=== PATIENT | female | born 1985 | race Caucasian/White ===

== ENCOUNTER 2019-10-24 07:04 | Emergency (ER) | payer MEDICAID, SELFPAY ==
--- NOTE | 2019-10-24 07:07 | ED_ITS ---
HPI - URI/Sore Throat General: Chief Complaint: Fever Stated Complaint: SOB Time Seen by Provider: 10/24/19 07:05 Source: patient Mode of arrival: ambulatory Limitations: no limitations History of Present Illness: HPI Narrative: Patient is a 34-year-old female who presents to ED today with complaints of a productive cough, nasal congestion, sinus pain/pressure, and fevers over the past 3 to 4 days. Fever has been as high as 102 (subjectively) and was present 2 days ago but has not been present over the past 48 hours. Patient states she does smoke a half a pack a day but h as not been smoking due to them being homeless and not being able to afford cigarettes. MD elicited complaint: fever, cough, nasal congestion and sinus pain Onset (ago): day(s) Consistency: constant Able to tolerate fluids by mouth: Yes Exacerbating factors: nothing Relieving factors: nothing Associated symptoms: Reports cough, fever(s), nasal congestion and sinus pain; Deny abdominal pain, chills, chest pain, epistaxis, ear or mastoid pain, headache(s), nausea or vomiting Treatments prior to arrival: none Review of Systems Const: Reports: fever; Denies: chills, body aches, fatigue or malaise Eyes: Denies: change in vision, blurry vision, photophobia, eye discomfort or eye discharge ENMT: Reports: nasal discharge, nasal congestion and facial/sinus pain; Denies: throat pain, enlarged tonsils, painful swallowing, ear pain or nose bleeds Card: Denies: chest pain Resp: Reports: productive cough and chest congestion; Denies: shortness of breath, non-productive cough, pain on inspiration or coughing up blood GI: Denies: abdominal pain, nausea or vomiting Musc: Denies: neck pain, back pain or joint pain Skin/Breast: Denies: rash Neuro: Denies: headache, numbness in extremities, weakness in extremities or changes in sensation All/Imm: Denies: facial swelling or seasonal allergies PFSH ED PFSH: Social History Smoking and tobacco status: current every day smoker Physical Exam Const: COMMON NORMALS: no apparent distress, average body habitus, oriented x3, no limitations, alert and well nourished HENMT: COMMON NORMALS: normocephalic, head/scalp atraumatic, hearing grossly normal bilaterally, external ears normal, EAC's normal, TM's normal bilaterally, external nose normal, nasal mucous membranes and turbinates normal, moist oral mucous membranes and oropharynx normal HEAD & SCALP: normocephalic and atraumatic FACE & SINUS: normal facial exam and sinus tenderness maxillary (mild) NOSE: external nose normal and nasal mucous membranes and turbinates normal EXTERNAL EAR: Yes external ears normal EXTERNAL AUDITORY CANAL: EAC's normal TYMPANIC MEMBRANE: TM's normal bilaterally THROAT: posterior oropharynx normal, tonsils normal and uvula midline Eye: COMMON NORMALS: PERRL, EOMs intact bilaterally and conjunctivae normal CONJUNCTIVA: Yes conjunctivae normal PUPIL: Yes PERRL Neck/C-Spine: COMMON NORMALS: full ROM, no lymphadenopathy and no meningeal signs Resp: COMMON NORMALS: normal respiratory effort and clear to auscultation bilaterally AUSCULTATION: clear to auscultation bilaterally Cardio: COMMON NORMALS: regular rate and regular rhythm RATE: regular rate RHYTHM: regular rhythm Neuro: COMMON NORMALS: oriented x3 SENSORIUM/ORIENTATION: Yes alert MENINGEAL SIGNS: Yes no meningeal signs Skin: COMMON NORMALS: no rashes or lesions noted GENERAL SKIN EXAM: no rashes or lesions noted Course Vital Signs: Vital signs: Vital Signs Temperature 97.3 F L 10/24/19 07:08 Pulse Rate 85 10/24/19 07:08 Respiratory Rate 16 10/24/19 07:08 Blood Pressure 108/69 10/24/19 07:08 Pulse Oximetry 100 10/24/19 07:15 MDM - URI/Sore Throat MDM Narrative: Medical decision making narrative: Patient is in no acute distress sleeping on the bed. Her vitals are completely stable. CXR is normal. At this point symptoms are consistent with an upper respiratory viral infection/bronchitis. I spoke to her regarding how the vast majority of these are viral and there is no antibiotic therapy indicated. She has an albuterol inhaler she may use prn. Will place her on a small steroid taper. Return to ED precautions were discussed. Lab Data: Labs: Lab Results 10/24/19 Range/Units 07:20 Influenza Type A A g Negative (Negative) POC Influenza B Ag Negative (Negative) Imaging Data^: CXR: My impression: NAD; no acute changes from previous studies Discharge Plan Discharge Patient Disposition: Home, Self-Care Clinical Impression: Bronchitis Condition: Stable Prescriptions: New prednisone 10 mg tablet 10 mg PO DAILY Qty: 21 RF: 0 Discharge Orders: Discharge Order (Routine); Ordered 10/24/19 Ordered By: Edna Wilson Referrals: Luisa Raines FNP [Primary Care Provider] - Discharge Diet: Usual diet Discharge Activity: Increase activity as tolerated Activity Restrictions/Additional Instructions: As discussed the vast majority of bronchitis cases are viral and there is no need for antibiotic therapy at this time. You may continue your albuterol inhaler every 4-6 hours as needed. We will place you on a steroid taper. You may return to the emergency department for worsening symptoms, uncontrollable fevers, feeling generally ill, severe shortness of breath, or any other concerns you may have. Coding Level of Care Code ED Sales Ledger Administrator for Kemar Weiner Exam Problem Focused
[2019-10-24 07:08] VITALS: BP 108/69; PULSE 85; RESP 16; TEMP 36.3; O2SAT 99; BMI 21.6
--- NOTE | 2019-10-24 07:13 | XR_ITS ---
WS: [id number] CHEST XRAY TECHNIQUE: Portable chest. CLINICAL INFORMATION: cough/congestion/fevers COMPARISON: FINDINGS: Heart: Normal cardiac silhouette. Lungs: Lungs are clear. No consolidation or pleural effusion. Bones: Normal visualized bony structures. XR/XR chest 1V portable [id number] IMPRESSION: Unremarkable chest
[2019-10-24 07:15] VITALS: O2SAT 100
--- NOTE | 2019-10-24 07:18 | PC.NURSE ---
portable xray at bedside
[2019-10-24 08:07] LABS: Influenza A by IFA Negative (Negative); Influenza B by IFA Negative (Negative)
[2019-10-24 08:31] VITALS: BP 102/97; PULSE 82; O2SAT 99
== END 2019-10-24 08:31 | disposition home or self-care (01) ==
PROVIDERS: Emergency Provider Physician Assistant; Family Provider Nurse Practitioner; PCP Nurse Practitioner
DX: J40 Bronchitis, not specified as acute or chronic (principal); F17.210 Nicotine dependence, cigarettes, uncomplicated; Z59.0 Homelessness
CPT/HCPCS: 71045; 87804; 99281; 99282; 99283

== ENCOUNTER 2019-10-29 03:48 | Emergency (ER) | payer MEDICAID, SELFPAY ==
--- NOTE | 2019-10-29 04:31 | XR_ITS ---
WS: [id number] XR chest 1V portable [id number] REASON FOR EXAM: cough FINDINGS: The cardiac silhouette and mediastinal interfaces were normal. There is increased interstitial reaction and peribronchial thickening in the right lung base. There is no alveolar infiltrate seen. No pulmonary edema, pleural effusion, no pneumothorax. The hilum and apices are normal. XR/XR chest 1V portable [id number] IMPRESSION: Increased peribronchial markings right lower lung suggesting bronchitis.
[2019-10-29 05:31] VITALS: BP 132/88; PULSE 75; RESP 16; TEMP 36.6; O2SAT 100; BMI 20.3
--- NOTE | 2019-10-29 05:57 | ED_ITS ---
HPI - General Adult General: Chief complaint: General Medical Stated complaint: cough Time Seen by Provider: 10/29/19 05:57 Review of Systems General: Reports: 10 or more systems reviewed and unremarkable except in HPI and below Resp: Reports: non-productive cough and pain on inspiration PFSH ED PFSH: Social History Smoking and tobacco status: current every day smoker Physical Exam Narrative: EXAM NARRATIVE: Patient's significant other states that the patient has had cough shortness of breath and fever for the past several days. Patient is awake and alert but rather uncooperative. Patient feigns sleep but is awake and alert and holds her breath when I was trying to auscultate her lungs. Const: COMMON NORMALS: no apparent distress and oriented x3 GENERAL APPEARANCE: disheveled ORIENTATION/CONSCIOUSNESS: Yes awake, Yes oriented to person, Yes oriented to place and Yes oriented to time Neck/C-Spine: COMMON NORMALS: no JVD Resp: COMMON NORMALS: normal respiratory effort and clear to auscultation bilaterally EFFORT & INSPECTION: Yes able to speak in complete sentences AUSCULTATION: clear to auscultation bilaterally Cardio: COMMON NORMALS: no JVD, regular rate and regular rhythm RATE: regular rate RHYTHM: regular rhythm Extremity: COMMON NORMALS: normal to inspection and full ROM Neuro: COMMON NORMALS: oriented x3 SENSORIUM/ORIENTATION: Yes oriented to person, Yes oriented to place and Yes oriented to time Course Vital Signs: Vital signs: Vital Signs Temperature 97.8 F 10/29/19 05:31 Pulse Rate 75 10/29/19 05:31 Respiratory Rate 16 10/29/19 05:31 Blood Pressure 132/88 10/29/19 05:31 Pulse Oximetry 100 10/29/19 05:31 [facility] - General Adult Lab Data: Labs: Lab Results 10/29/19 10/29/19 10/29/19 Range/Units 06:00 06:38 06:38 WBC 6.2 (4.0-10.0) 10^3/ uL RBC 4.04 L (4.1-5.3) 10^6/u L Hgb 12.0 (11.5-15.3) g/dL Hct 37.6 (37.0-47.0) % MCV 93.1 (81-99) fL MCH 29.7 (28.0-34.0) pg MCHC 31.9 (30.0-36.0) g/dL RDW 12.3 (12.1-15.1) % Plt Count 178 (130-400) 10^3/c mm MPV 11.3 H (7.4-10.4) fL Neut % (Auto) 56.5 % Lymph % (Auto) 33.0 % Summers % (Auto) 7.7 % Eos % (Auto) 1.9 % Baso % (Auto) 0.6 % Neut # (Auto) 3.5 (1.8-7.7) 10^3/u L Lymph # (Auto) 2.1 (0.8-4.8) 10^3/u L Summers # (Auto) 0.5 (0.2-0.9) 10^3/u L Eos # (Auto) 0.1 (0.0-0.8) 10^3/u L Baso # (Auto) 0.0 (0.0-0.1) 10^3/u L Nucleated RBC % (a uto) 0 % Nucleated RBCs # 0.0 /100WBC Sodium 138 (136-145) mmol/L Potassium 3.4 L (3.5-5.1) mmol/L Chloride 103 (98-107) mmol/L Carbon Dioxide 25 (22-29) mmol/L Anion Gap 13.4 (5-19) BUN 13 (6-20) mg/dL Creatinine 0.7 (0.5-0.9) mg/dL GFR Calculation 95.8 (90-130) mL/min Glucose 98 (65-115) mg/dL Calcium 9.6 (8.5-10.5) mg/dL Total Bilirubin 0.2 (0.15-1.2) mg/dL AST 20 (0-32) U/L ALT 23 (0-33) U/L Alkaline Phosphata se 77 (35-105) IU/L Total Protein 6.7 (6.6-8.7) g/dL Albumin 4.0 (3.5-5.2) g/dL Globulin 2.7 (1.3-4.6) g/dL Influenza Type A A g Negative (Negative) POC Influenza B Ag Negative (Negative) Imaging Data^: CXR: My impression: No acute disease Coding Level of Care Code ED Tetryl Screen Operator for Chg Fwd Exam Detailed
[2019-10-29 06:46] LABS: Basophils % 0.6 %; Eosinophils # 0.1 10^3/uL (0.0-0.8); Eosinophils % 1.9 %; Hematocrit 37.6 % (37.0-47.0); Lymphocytes # 2.1 10^3/uL (0.8-4.8); Mean Corpuscular HGB Conc 31.9 g/dL (30.0-36.0); Mean Corpuscular Hemoglobin 29.7 pg (28.0-34.0); Mean Corpuscular Volume 93.1 fL (81-99); Mean Platelet Volume 11.3 fL (7.4-10.4); Monocytes # 0.5 10^3/uL (0.2-0.9); Monocytes % 7.7 %; Neutrophils # 3.5 10^3/uL (1.8-7.7); Neutrophils % 56.5 %; Nucleated Red Blood Cells % 0 %; Platelet Count 178 10^3/cmm (130-400); Red Blood Count 4.04 10^6/uL (4.1-5.3); Red Cell Distribution Width 12.3 % (12.1-15.1); White Blood Count 6.2 10^3/uL (4.0-10.0)
[2019-10-29 06:49] LABS: Influenza A by IFA Negative (Negative); Influenza B by IFA Negative (Negative)
[2019-10-29 06:59] LABS: Alanine Aminotransferase 23 U/L (0-33); Alkaline Phosphatase 77 IU/L (35-105); Anion Gap 13.4 (5-19); Aspartate Amino Transferase 20 U/L (0-32); Blood Urea Nitrogen 13 mg/dL (6-20); Calcium 9.6 mg/dL (8.5-10.5); Carbon Dioxide 25 mmol/L (22-29); Chloride 103 mmol/L (98-107); Globulin 2.7 g/dL (1.3-4.6); Glomerular Filtration Rate 95.8 mL/min (90-130); Glucose 98 mg/dL (65-115); Potassium 3.4 mmol/L (3.5-5.1); Sodium 138 mmol/L (136-145); Total Bilirubin 0.2 mg/dL (0.15-1.2); Total Protein 6.7 g/dL (6.6-8.7)
[2019-10-29 07:23] VITALS: BP 128/85; PULSE 77; RESP 15; O2SAT 97
== END 2019-10-29 07:24 | disposition home or self-care (01) ==
PROVIDERS: Emergency Medicine; Emergency Provider Family Medicine
DX: R05 Cough (principal); R06.02 Shortness of breath; R50.9 Fever, unspecified; F17.200 Nicotine dependence, unspecified, uncomplicated
CPT/HCPCS: 36415; 71045; 80053; 85025; 87804; 99281; 99283

== ENCOUNTER → 2019-11-06 10:41 | Outpatient (BNVA) | payer MEDICAID, SELFPAY | PROVIDERS: Family Provider Nurse Practitioner; PCP Nurse Practitioner; Visit Provider Psychiatry & Neurology Psychiatry | DX: F43.12 Post-traumatic stress disorder, chronic (principal); F41.1 Generalized anxiety disorder; F40.01 Agoraphobia with panic disorder | CPT/HCPCS: 99214 ==

== ENCOUNTER 2020-04-04 02:07 | Emergency (ER) | payer MEDICAID, SELFPAY ==
[2020-04-04 02:15] VITALS: BP 145/96; PULSE 106; RESP 18; TEMP 36.7; O2SAT 99; BMI 21.7
== END 2020-04-04 04:02 ==
LOC: ER 02:15
PROVIDERS: Emergency Provider Emergency Medicine
DX: Z53.21 Procedure and treatment not carried out due to patient leaving prior to being seen by health care provider (principal)
CPT/HCPCS: 99282

== ENCOUNTER 2020-10-02 15:40 | Emergency (ER) | payer MEDICAID, SELFPAY ==
[2020-10-02 15:40] VITALS: BP 122/85; PULSE 95; RESP 18; TEMP 36.7; O2SAT 98
--- NOTE | 2020-10-02 15:53 | CT_ITS ---
WS: [id number] CT HEAD NONCONTRAST HISTORY: closed head injury TECHNIQUE: Contiguous axial imaging performed through the brain in 2.5 mm imaging. Bone and soft tiss ue windows. Sagittal and coronal reformats reviewed. All CT scans at [facility] use at ast one of these dose optimization techniques: automated exposure control; mA and/or kV adjustment pe r patient size (includes targeted exams where dose is matched to clinical indication); or iterative r econstruction. DLP: 770.68 mGy.cm COMPARISON: None available. No acute intracranial hemorrhage, midline shift or mass effect. No atrophy or prior infarcts or herniation. Ventricles: Normal size with no hydrocephalus. Paranasal sinuses: As visualized are clear. Mastoid air cells: Well pneumatized. Calvarium and scalp: No fracture. Minimal scalp thickening midline frontal bone. CT/CT head wo con* [id number] IMPRESSION: 1. No acute intracranial hemorrhage or edema. 2. Minimal scalp edema midline frontal region.
[2020-10-02 16:17] LABS: Basophils % 0.4 %; Eosinophils # 0.1 10^3/uL (0.0-0.8); Eosinophils % 0.8 %; Hematocrit 46.8 % (37.0-47.0); Hemoglobin 15.1 g/dL (11.5-15.3); Lymphocytes # 3.2 10^3/uL (0.8-4.8); Lymphocytes % 29.1 %; Mean Corpuscular HGB Conc 32.3 g/dL (30.0-36.0); Mean Corpuscular Hemoglobin 30.2 pg (28.0-34.0); Mean Corpuscular Volume 93.6 fL (81-99); Mean Platelet Volume 12.4 fL (7.4-10.4); Monocytes # 0.7 10^3/uL (0.2-0.9); Monocytes % 6.1 %; Neutrophils % 63.2 %; Nucleated Red Blood Cells % 0 %; Platelet Count 208 10^3/cmm (130-400); Red Cell Distribution Width 12.1 % (12.1-15.1); White Blood Count 10.9 10^3/uL (4.0-10.0)
[2020-10-02 16:19] LABS: HCG, Serum Qual Negative (Negative)
[2020-10-02 16:34] LABS: Add Urine Microscopic? NO
[2020-10-02 16:39] LABS: Bilirubin Urine Neg (Negative); Blood Urine Neg (Negative); Glucose Urine UA Norm (Normal); Ketones Urine Negative (Negative); Leukocyte Esterase Urine Negative (Negative); Nitrate Urine Negative (Negative); Protein Urine Neg (Negative); Specific Gravity, Urine 1.015 (1.005-1.030); Urine Appearance Clear (CLEAR); Urine Color Yellow (Yellow); Urobilinogen Urine Norm (Negative); pH Urine 5 (5-7)
[2020-10-02 16:43] VITALS: BP 122/85; PULSE 84; RESP 20; O2SAT 98
[2020-10-02 16:45] LABS: Alanine Aminotransferase 12 U/L (0-33); Albumin Level 4.3 g/dL (3.5-5.2); Alkaline Phosphatase 85 IU/L (35-105); Aspartate Amino Transferase 19 U/L (0-32); Blood Urea Nitrogen 7 mg/dL (6-20); Calcium 9.3 mg/dL (8.5-10.5); Carbon Dioxide 25 mmol/L (22-29); Chloride 103 mmol/L (98-107); Creatine Phosphokinase 64 U/L (26-192); Globulin 3.4 g/dL (1.3-4.6); Glomerular Filtration Rate 95.2 mL/min (90-130); Glucose 128 mg/dL (65-115); Osmolality Calculated 290 mOsm/kg (285-295); Sodium 140 mmol/L (136-145); Total Bilirubin 0.4 mg/dL (0.15-1.2); Total Protein 7.7 g/dL (6.6-8.7)
[2020-10-02 16:48] LABS: Anion Gap 15.8 (5-19); Potassium 3.8 mmol/L (3.5-5.1)
--- NOTE | 2020-10-02 16:49 | ED_ITS ---
HPI - Seizure General: Chief Complaint: Seizure Stated Complaint: SEIZURES Time Seen by Provider: 10/02/20 15:41 History of Present Illness: HPI Narrative: 35-year-old female presents emergency room with complaint of seizure. She is currently incarcerated in [facility] skilled nursing she has a abrasion on the upper portion of her forehead. It is right at the hairline. She reports having a seizure she is awake and alert answers all questions appropriate there is no loss of bowel or bladder control she not better time. States she has had multiple seizures in the past evaluation from Dr. Muro in the past as well. She not currently on any antiseizure medications is not recently changed or stop medications. She reports she was seen here however reviewing expanse and reviewing the old [employer] I cannot find documentation of this. She does tell me she was seen previously in the ER. She has no other injuries. Patient also made comments about harming herself. This is been evaluated previously and she is currently on suicide watch at the skilled nursing. MD complaint: possible seizure Onset (ago): minute(s) Description of Episode: loss of consciousness and tonic-clonic movement Seizure History: Yes Place: INTERMEDIATE Possible Precipitating Event: none Associated symptoms: Deny chest pain, chills, fever(s) or malaise Review of Systems Const: Denies: fever(s), chills, body aches, change in appetite, fatigue or malaise ENMT: Denies: throat pain, ear or mastoid pain, nasal discharge or nasal congestion Card: Denies: chest pain, edema, dyspnea on exertion or orthopnea Resp: Denies: dyspnea, productive cough or non-productive cough GI: Denies: abdominal pain, nausea, vomiting, hematemesis, coffee ground emesis, diarrhea, constipation, bloating, hematochezia or melena : Denies: flank pain, difficulty voiding, dysuria, urinary frequency or urinary urgency Skin/Breast: Denies: rash or pruritus PFSH ED PFSH: Medical History Anxiety and depression Chronic back pain greater than 3 months duration Chronic hepatitis C COPD (chronic obstructive pulmonary disease) Gastric ulcer Surgical History History of appendectomy History of tonsillectomy Family History Grandfather Heart disease Mother Diabetes Cancer Grandmother Diabetes Social History Smoking and tobacco status: current every day smoker cigarettes Alcohol intake: never History of recent travel: No Female Reproductive History: Date of last menstrual period: 11/04/19 Physical Exam Const: COMMON NORMALS: no acute distress GENERAL APPEARANCE: cooperative and comfortable ORIENTATION/CONSCIOUSNESS: Yes awake, Yes oriented to person, Yes oriented to place and Yes oriented to time HENMT: COMMON NORMALS: normocephalic, atraumatic, hearing grossly normal bilaterally, external ears normal, EAC's normal, TM's normal bilaterally, Normal nasal mucous membranes and turbinates present, moist oral mucous membranes and oropharynx normal HEAD & SCALP: normocephalic and atraumatic NOSE: Normal nasal mucous membranes and turbinates present EXTERNAL EAR: Yes external ears normal EXTERNAL AUDITORY CANAL: EAC's normal TYMPANIC MEMBRANE: TM's normal bilaterally OTHER: Abrasion on the upper part of the forehead at the hairline no full-thickness laceration is superficial in appearance. Eye: COMMON NORMALS: Equal, round and reactive pupils present, EOMs intact bilaterally, conjunctivae normal and no scleral icterus CONJUNCTIVA: Yes conjunctivae normal PUPIL: Yes Equal, round and reactive pupils present Neck/C-Spine: COMMON NORMALS: full ROM, no lymphadenopathy, supple and no JVD Lymph: LYMPHATIC: no lymphadenopathy noted and no lymphedema noted Resp: COMMON NORMALS: normal respiratory effort, No retractions, No use of accessory muscles and clear to auscultation bilaterally AUSCULTATION: clear to auscultation bilaterally Cardio: COMMON NORMALS: no JVD, regular rate, regular rhythm and No murmurs present (Cardio) RATE: regular rate RHYTHM: regular rhythm GI: COMMON NORMALS: Soft to palpation and No hepatosplenomegaly present AUSCULTATION: Yes normoactive bowel sounds PALPATION: Yes Soft to palpation, No Tenderness to palpation present (GI), No Guarding due to palpation present (GI) and Yes No hepatosplenomegaly present Extremity: COMMON NORMALS: normal to inspection, capillary refill normal, no clubbing, cyanosis or edema, no calf tenderness and no pedal edema Neuro: SENSORIUM/ORIENTATION: Yes oriented to person, Yes oriented to place and Yes oriented to time Skin: COMMON NORMALS: no rashes or lesions noted GENERAL SKIN EXAM: no rashes or lesions noted Course Vital Signs: Vital signs: Vital Signs Temperature 98.1 F 10/02/20 15:40 Pulse Rate 84 10/02/20 16:43 Respiratory Rate 20 H 10/02/20 16:43 Blood Pressure 122/85 10/02/20 16:43 Pulse Oximetry 98 10/02/20 16:43 MDM - Seizure MDM Narrative: Medical decision making narrative: Her CPK is negative. We will get a go ahead and start her on Keppra loading dose here and then 500 twice daily. We will discharge her back to the skilled nursing. She is on suicide watch there which can be continued. She had already been on suicide watch. She is not think she plans to harm herself but has considered it. Lab Data: Labs: Lab Results 10/02/20 10/02/20 10/02/20 Range/Units 15:30 15:30 15:30 WBC 10.9 H (4.0-10.0) 10^3/ uL RBC 5.00 (4.1-5.3) 10^6/u L Hgb 15.1 (11.5-15.3) g/dL Hct 46.8 (37.0-47.0) % MCV 93.6 (81-99) fL MCH 30.2 (28.0-34.0) pg MCHC 32.3 (30.0-36.0) g/dL RDW 12.1 (12.1-15.1) % Plt Count 208 (130-400) 10^3/c mm MPV 12.4 H (7.4-10.4) fL Neut % (Auto) 63.2 % Lymph % (Auto) 29.1 % Cross % (Auto) 6.1 % Eos % (Auto) 0.8 % Baso % (Auto) 0.4 % Neut # (Auto) 6.90 (1.8-7.7) 10^3/u L Lymph # (Auto) 3.2 (0.8-4.8) 10^3/u L Cross # (Auto) 0.7 (0.2-0.9) 10^3/u L Eos # (Auto) 0.1 (0.0-0.8) 10^3/u L Baso # (Auto) 0.0 (0.0-0.1) 10^3/u L Nucleated RBC % (a uto) 0 % Nucleated RBCs # 0.0 /100WBC Sodium 140 (136-145) mmol/L Potassium 3.8 (3.5-5.1) mmol/L Chloride 103 (98-107) mmol/L Carbon Dioxide 25 (22-29) mmol/L Anion Gap 15.8 (5-19) BUN 7 (6-20) mg/dL Creatinine 0.7 (0.5-0.9) mg/dL GFR Calculation 95.2 (90-130) mL/min Glucose 128 H (65-115) mg/dL Calculated Osmolal ity 290 (285-295) mOsm/k g Calcium 9.3 (8.5-10.5) mg/dL Magnesium 2.0 (1.7-2.3) mg/dL Total Bilirubin 0.4 (0.15-1.2) mg/dL AST 19 (0-32) U/L ALT 12 (0-33) U/L Alkaline Phosphata se 85 (35-105) IU/L Creatine Kinase 64 (26-192) U/L Total Protein 7.7 (6.6-8.7) g/dL Albumin 4.3 (3.5-5.2) g/dL Globulin 3.4 (1.3-4.6) g/dL HCG, Qual Negative (Negative) Urine Color (Yellow) Urine Appearance (CLEAR) Urine pH (5-7) Ur Specific Gravit y (1.005-1.030) Urine Protein (Negative) Urine Glucose (UA) (Normal) Urine Ketones (Negative) Urine Blood (Negative) Urine Nitrate (Negative) Urine Bilirubin (Negative) Urine Urobilinogen (Negative) mg/dL Ur Leukocyte Aspen ase (Negative) 10/02/20 Range/Units 16:00 WBC (4.0-10.0) 10^3/ uL RBC (4.1-5.3) 10^6/u L Hgb (11.5-15.3) g/dL Hct (37.0-47.0) % MCV (81-99) fL MCH (28.0-34.0) pg MCHC (30.0-36.0) g/dL RDW (12.1-15.1) % Plt Count (130-400) 10^3/c mm MPV (7.4-10.4) fL Neut % (Auto) % Lymph % (Auto) % Cross % (Auto) % Eos % (Auto) % Baso % (Auto) % Neut # (Auto) (1.8-7.7) 10^3/u L Lymph # (Auto) (0.8-4.8) 10^3/u L Cross # (Auto) (0.2-0.9) 10^3/u L Eos # (Auto) (0.0-0.8) 10^3/u L Baso # (Auto) (0.0-0.1) 10^3/u L Nucleated RBC % (a uto) % Nucleated RBCs # /100WBC Sodium (136-145) mmol/L Potassium (3.5-5.1) mmol/L Chloride (98-107) mmol/L Carbon Dioxide (22-29) mmol/L Anion Gap (5-19) BUN (6-20) mg/dL Creatinine (0.5-0.9) mg/dL GFR Calculation (90-130) mL/min Glucose (65-115) mg/dL Calculated Osmolal ity (285-295) mOsm/k g Calcium (8.5-10.5) mg/dL Magnesium (1.7-2.3) mg/dL Total Bilirubin (0.15-1.2) mg/dL AST (0-32) U/L ALT (0-33) U/L Alkaline Phosphata se (35-105) IU/L Creatine Kinase (26-192) U/L Total Protein (6.6-8.7) g/dL Albumin (3.5-5.2) g/dL Globulin (1.3-4.6) g/dL HCG, Qual (Negative) Urine Color Yellow (Yellow) Urine Appearance Clear (CLEAR) Urine pH 5 (5-7) Ur Specific Gravit y 1.015 (1.005-1.030) Urine Protein Neg (Negative) Urine Glucose (UA) Norm (Normal) Urine Ketones Negative (Negative) Urine Blood Neg (Negative) Urine Nitrate Negative (Negative) Urine Bilirubin Neg (Negative) Urine Urobilinogen Norm (Negative) mg/dL Ur Leukocyte Aspen ase Negative (Negative) Discharge Plan Discharge Patient Disposition: Home Clinical Impression: Generalized seizure Condition: Stable Prescriptions: New Keppra 500 mg tablet 500 mg PO BID Qty: 60 RF: 0 Discharge Orders: Discharge ED (Routine); Ordered 10/02/20 Ordered By: Conner Soria Discharge Diet: Usual diet Discharge Activity: Increase activity as tolerated Coding Level of Care Code ED Scallop Raker for Anneg Fwd Exam Comprehensive
[2020-10-02 18:05] VITALS: BP 120/81; PULSE 75; RESP 18; O2SAT 97
--- NOTE | 2020-10-05 12:21 | DCPLANNER ---
medicine and health service manager had message to schedule a follow up appointment for patient with Dr. Muro. medicine and health service manager called the office of Dr. Muro, spoke with Leona, gave clinic patients information. medicine and health service manager was told that patients information would be printed and reviewed. Clinic will call patient with appointment information.
--- NOTE | 2020-11-26 15:49 | DCPLANNER ---
Patient had a follow up appointment scheduled with Dr. Muro - patient did not attend appointment.
== END 2020-10-02 18:07 | disposition home or self-care (01) ==
PROVIDERS: Emergency Provider Family Medicine
DX: G40.89 Other seizures (principal); Z86.19 Personal history of other infectious and parasitic diseases; J44.9 Chronic obstructive pulmonary disease, unspecified; F17.210 Nicotine dependence, cigarettes, uncomplicated
CPT/HCPCS: 12345; 70450; 80053; 81003; 82550; 83735; 84703; 85025; 96374; 99282; 99283; J1953

== ENCOUNTER 2020-10-03 15:50 | Emergency (ER) | payer MEDICAID, SELFPAY ==
[2020-10-03 15:56] VITALS: BP 103/67; PULSE 80; RESP 16; TEMP 36.6; O2SAT 96; BMI 21.6
[2020-10-03 16:14] LABS: Basophils % 0.4 %; Eosinophils # 0.1 10^3/uL (0.0-0.8); Eosinophils % 1.3 %; Hematocrit 45.2 % (37.0-47.0); Hemoglobin 14.7 g/dL (11.5-15.3); Lymphocytes # 3.5 10^3/uL (0.8-4.8); Lymphocytes % 34.5 %; Mean Corpuscular HGB Conc 32.5 g/dL (30.0-36.0); Mean Corpuscular Hemoglobin 30.4 pg (28.0-34.0); Mean Corpuscular Volume 93.4 fL (81-99); Mean Platelet Volume 12.2 fL (7.4-10.4); Monocytes # 0.9 10^3/uL (0.2-0.9); Neutrophils # 5.53 10^3/uL (1.8-7.7); Neutrophils % 54.5 %; Nucleated Red Blood Cells % 0 %; Platelet Count 228 10^3/cmm (130-400); Red Blood Count 4.84 10^6/uL (4.1-5.3); Red Cell Distribution Width 12.2 % (12.1-15.1); White Blood Count 10.1 10^3/uL (4.0-10.0)
[2020-10-03 16:34] LABS: Alanine Aminotransferase 11 U/L (0-33); Albumin Level 4.2 g/dL (3.5-5.2); Alkaline Phosphatase 82 IU/L (35-105); Anion Gap 12.1 (5-19); Aspartate Amino Transferase 17 U/L (0-32); Blood Urea Nitrogen 10 mg/dL (6-20); Calcium 9.1 mg/dL (8.5-10.5); Carbon Dioxide 26 mmol/L (22-29); Chloride 103 mmol/L (98-107); Creatine Phosphokinase 49 U/L (26-192); Globulin 5.6 g/dL (1.3-4.6); Glomerular Filtration Rate 95.2 mL/min (90-130); Glucose 106 mg/dL (65-115); Osmolality Calculated 283 mOsm/kg (285-295); Potassium 4.1 mmol/L (3.5-5.1); Sodium 137 mmol/L (136-145); Total Bilirubin 0.2 mg/dL (0.15-1.2); Total Protein 9.8 g/dL (6.6-8.7)
--- NOTE | 2020-10-03 16:38 | W.ED.SEIZURE ---
HPI - Seizure General: Chief Complaint: Seizure Stated Complaint: SEIZURE ACTIVITY Time Seen by Provider: 10/03/20 15:51 History of Present Illness: HPI Narrative: 35-year-old female is currently a resident of the local alf who was brought in by EMS after what was described as seizure-like activity. Patient was seen yesterday she has a history of seizures she not been taking any medications sometime ago she had seen Dr. Muro. I could not find any old records for it. Her labs were unremarkable CT of her head was negative at yesterday's visit. She was given Keppra IV and started on oral Keppra unfortunately they did not fill her oral Keppra so she has not taken anything since she was last seen. She reports having gone to the bathroom had a seizure-like activity she is awake and alert even joking and giggling when she was initially seen there is no evidence of postictal phase. She had no loss of bowel or bladder control no biting of her tongue or lip. She had hit her head on the upper portion of the frontal bones yesterday into the hairline CT of the head was unremarkable. MD complaint: possible seizure Onset (ago): minute(s) Description of Episode: loss of consciousness and tonic-clonic movement Witnessed: No Trauma: No Seizure History: Yes (per patient) Place: alf Associated symptoms: Deny chest pain, chills, confusion, cough, diaphoresis, fever(s), anorexia, malaise, rash, short of breath, syncope or weakness Treatments prior to arrival: none Review of Systems Const: Denies: fever(s), malaise or diaphoresis ENMT: Denies: throat pain, ear or mastoid pain, nasal discharge or nasal congestion Card: Denies: chest pain or syncope Resp: Denies: dyspnea, productive cough or non-productive cough GI: Denies: abdominal pain, nausea, vomiting, hematemesis, coffee ground emesis, diarrhea, constipation, bloating, hematochezia or melena : Denies: flank pain, difficulty voiding, dysuria, urinary frequency or urinary urgency Skin/Breast: Denies: rash or pruritus Neuro: Denies: confusion PFSH ED PFSH: Medical History Anxiety and depression Chronic back pain greater than 3 months duration Chronic hepatitis C COPD (chronic obstructive pulmonary disease) Gastric ulcer Surgical History History of appendectomy History of tonsillectomy Family History Grandfather Heart disease Mother Diabetes Cancer Grandmother Diabetes Social History Smoking and tobacco status: current every day smoker cigarettes Alcohol intake: never History of recent travel: No Female Reproductive History: Date of last menstrual period: 09/15/20 Physical Exam Const: COMMON NORMALS: no acute distress GENERAL APPEARANCE: cooperative and comfortable ORIENTATION/CONSCIOUSNESS: Yes awake, Yes oriented to person, Yes oriented to place and Yes oriented to time HENMT: COMMON NORMALS: normocephalic and hearing grossly normal bilaterally HEAD & SCALP: normocephalic Eye: COMMON NORMALS: Equal, round and reactive pupils present, EOMs intact bilaterally, conjunctivae normal and no scleral icterus CONJUNCTIVA: Yes conjunctivae normal PUPIL: Yes Equal, round and reactive pupils present Neck/C-Spine: COMMON NORMALS: full ROM, no lymphadenopathy, supple and no JVD Lymph: LYMPHATIC: no lymphadenopathy noted and no lymphedema noted Resp: COMMON NORMALS: normal respiratory effort, No retractions, No use of accessory muscles and clear to auscultation bilaterally AUSCULTATION: clear to auscultation bilaterally Cardio: COMMON NORMALS: no JVD, regular rate, regular rhythm and No murmurs present (Cardio) RATE: regular rate RHYTHM: regular rhythm GI: COMMON NORMALS: Soft to palpation and No hepatosplenomegaly present AUSCULTATION: Yes normoactive bowel sounds PALPATION: Yes Soft to palpation, No Tenderness to palpation present (GI), No Guarding due to palpation present (GI) and Yes No hepatosplenomegaly present Extremity: COMMON NORMALS: normal to inspection, capillary refill normal, no clubbing, cyanosis or edema, no calf tenderness and no pedal edema Neuro: SENSORIUM/ORIENTATION: Yes oriented to person, Yes oriented to place and Yes oriented to time Skin: COMMON NORMALS: no rashes or lesions noted GENERAL SKIN EXAM: no rashes or lesions noted Course Vital Signs: Vital signs: Vital Signs Temperature 97.9 F 10/03/20 17:11 Pulse Rate 78 10/03/20 17:11 Respiratory Rate 16 10/03/20 17:11 Blood Pressure 101/80 10/03/20 17:11 Pulse Oximetry 100 10/03/20 17:11 MDM - Seizure MDM Narrative: Medical decision making narrative: Discussed with the patient and with the senior net application developer who is custody she is in the importance of her getting her antiseizure medications. She was loaded again with Keppra today we will get her an appointment with Dr. Muro at a later date continue the Keppra 500 p.o. twice daily I hand wrote a prescription gave it to him both [facility] and [facility] are open yet at this time of day on the weekend. Lab Data: Labs: Lab Results 10/03/20 10/03/20 Range/Units 15:42 15:42 WBC 10.1 H (4.0-10.0) 10^3/ uL RBC 4.84 (4.1-5.3) 10^6/u L Hgb 14.7 (11.5-15.3) g/dL Hct 45.2 (37.0-47.0) % MCV 93.4 (81-99) fL MCH 30.4 (28.0-34.0) pg MCHC 32.5 (30.0-36.0) g/dL RDW 12.2 (12.1-15.1) % Plt Count 228 (130-400) 10^3/c mm MPV 12.2 H (7.4-10.4) fL Neut % (Auto) 54.5 % Lymph % (Auto) 34.5 % Ross % (Auto) 9.0 % Eos % (Auto) 1.3 % Baso % (Auto) 0.4 % Neut # (Auto) 5.53 (1.8-7.7) 10^3/u L Lymph # (Auto) 3.5 (0.8-4.8) 10^3/u L Ross # (Auto) 0.9 (0.2-0.9) 10^3/u L Eos # (Auto) 0.1 (0.0-0.8) 10^3/u L Baso # (Auto) 0.0 (0.0-0.1) 10^3/u L Nucleated RBC % (a uto) 0 % Nucleated RBCs # 0.0 /100WBC Sodium 137 (136-145) mmol/L Potassium 4.1 (3.5-5.1) mmol/L Chloride 103 (98-107) mmol/L Carbon Dioxide 26 (22-29) mmol/L Anion Gap 12.1 (5-19) BUN 10 (6-20) mg/dL Creatinine 0.7 (0.5-0.9) mg/dL GFR Calculation 95.2 (90-130) mL/min Glucose 106 (65-115) mg/dL Calculated Osmolal ity 283 L (285-295) mOsm/k g Calcium 9.1 (8.5-10.5) mg/dL Total Bilirubin 0.2 (0.15-1.2) mg/dL AST 17 (0-32) U/L ALT 11 (0-33) U/L Alkaline Phosphata se 82 (35-105) IU/L Creatine Kinase 49 (26-192) U/L Total Protein 9.8 H (6.6-8.7) g/dL Albumin 4.2 (3.5-5.2) g/dL Globulin 5.6 H (1.3-4.6) g/dL Discharge Plan Discharge Patient Disposition: Home Clinical Impression: Generalized seizure Condition: Stable Prescriptions: No Action Keppra 500 mg tablet 500 mg PO BID Qty: 60 RF: 0 Discharge Orders: Discharge ED (Routine); Ordered 10/03/20 Ordered By: Conner Soria Discharge Diet: Usual diet Discharge Activity: Resume usual activity Activity Restrictions/Additional Instructions: It is imperative that take your medications twice daily on a regular basis without missing any doses. A second prescription was given to you today at the time of discharge. Case management will call to make arrangements for follow-up with Dr. Muro. Coding Level of Care Code ED Sales Service Promoter for Kemar Weiner
[2020-10-03 17:11] VITALS: BP 101/80; PULSE 78; RESP 16; TEMP 36.6; O2SAT 100
[2020-10-07 16:04] LABS: Levetiracetam Keppra 2.3 mcg/mL
== END 2020-10-03 17:12 | disposition home or self-care (01) ==
PROVIDERS: Emergency Provider Family Medicine
DX: G40.409 Other generalized epilepsy and epileptic syndromes, not intractable, without status epilepticus (principal); Z86.19 Personal history of other infectious and parasitic diseases; J44.9 Chronic obstructive pulmonary disease, unspecified; F17.210 Nicotine dependence, cigarettes, uncomplicated
CPT/HCPCS: 12345; 80053; 80177; 82550; 85025; 96374; 99283; J1953

== ENCOUNTER 2020-10-04 22:32 | Emergency (ER) | payer MEDICAID, SELFPAY ==
[2020-10-04 22:34] VITALS: BP 117/96; PULSE 82; RESP 18; TEMP 36.4; O2SAT 99; BMI 21.6
--- NOTE | 2020-10-04 22:36 | W.ED.SEIZURE ---
HPI - Seizure General: Chief Complaint: Seizure Stated Complaint: SEIZURE Time Seen by Provider: 10/04/20 22:33 Source: patient Mode of arrival: ambulatory Limitations: no limitations History of Present Illness: HPI Narrative: 35-year-old female who has a history of seizures. She is in longterm and this is her third day in a row coming here. She did start her Keppra orally yesterday. She denies any fever or headache. She had a head CT 2 days or normal lab work last 2 days have been normal. She states that she had seizure-like activity roughly 1 hour ago. She is awake alert able answer all my questions appropriately here. Seizure History: Yes (per patient) Associated symptoms: Deny chest pain, chills or fever(s) Review of Systems Const: Denies: fever(s), chills, body aches or change in appetite Eyes: Denies: blurry vision or eye discomfort ENMT: Denies: throat pain or dental pain Card: Denies: chest pain Resp: Denies: dyspnea GI: Denies: abdominal pain, nausea, vomiting or diarrhea : Denies: dysuria Musc: Denies: neck pain or back pain Skin/Breast: Denies: rash Neuro: Reports: seizure-like activity Psych: Denies: depression Adi/Lymph: Denies: easy bruising All/Imm: Denies: urticaria PFSH ED PFSH: Medical History (Updated 10/04/20 @ 22:39 by Aleja Hatch MD) Anxiety and depression Chronic back pain greater than 3 months duration Chronic hepatitis C COPD (chronic obstructive pulmonary disease) Gastric ulcer Surgical History History of appendectomy History of tonsillectomy Family History Grandfather Heart disease Mother Diabetes Cancer Grandmother Diabetes Social History Smoking and tobacco status: current every day smoker cigarettes Alcohol intake: never History of recent travel: No Female Reproductive History: Date of last menstrual period: 09/15/20 Physical Exam Const: COMMON NORMALS: no acute distress, patient oriented x3 and healthy appearing HENMT: COMMON NORMALS: normocephalic and atraumatic HEAD & SCALP: normocephalic and atraumatic Eye: COMMON NORMALS: Equal, round and reactive pupils present and EOMs intact bilaterally PUPIL: Yes Equal, round and reactive pupils present Neck/C-Spine: COMMON NORMALS: full ROM and supple Chest: COMMONS NORMALS: normal inspection of the chest and normal palpation of entire chest wall Resp: COMMON NORMALS: normal respiratory effort, No retractions, No use of accessory muscles and clear to auscultation bilaterally AUSCULTATION: clear to auscultation bilaterally Cardio: COMMON NORMALS: regular rate, regular rhythm and No murmurs present (Cardio) RATE: regular rate RHYTHM: regular rhythm GI: COMMON NORMALS: Normal to inspection, nondistended, normoactive bowel sounds present, Soft to palpation, non-tender and no masses PALPATION: Yes Soft to palpation Extremity: COMMON NORMALS: normal to inspection and full ROM Neuro: COMMON NORMALS: patient oriented x3, moves all extremities and no focal motor deficits Psych: COMMON NORMALS: mental status grossly normal, Normal thought process present and cooperative THOUGHT PROCESS: Normal thought process present Skin: COMMON NORMALS: no rashes or lesions noted and no wounds GENERAL SKIN EXAM: no rashes or lesions noted Course Vital Signs: Vital signs: Vital Signs Temperature 97.5 F L 10/04/20 22:34 Pulse Rate 82 10/04/20 22:34 Respiratory Rate 18 10/04/20 22:34 Blood Pressure 117/96 10/04/20 22:34 Pulse Oximetry 99 10/04/20 22:34 MDM - Seizure MDM Narrative: Medical decision making narrative: Patient presents here with a seizure. Patient is currently wanted to start taking her medications today. She is well-appearing here. She had her lab work drawn last [address] head 2 days ago. She had no acute head injury and I feel she needs no further imaging or blood work at this time. She is back to her baseline is stable for discharge back to longterm. Discharge Plan Discharge Patient Disposition: Home Clinical Impression: Generalized seizure Condition: Stable Prescriptions: No Action Keppra 500 mg tablet 500 mg PO BID Qty: 60 RF: 0 Discharge Orders: Discharge ED (Routine); Ordered 10/04/20 Ordered By: Aleja Hatch Discharge Diet: Advance as tolerated Discharge Activity: Resume usual activity Patient Instructions: Seizures Coding Level of Care Code ED Waiter/Waitress Third Class for Chg Fwd Exam Comprehensive
[2020-10-04] MEDS: LORazepam 2 mg/mL INJ 1 mL 1 MG IVP (22:49)
--- NOTE | 2020-10-15 12:03 | DCPLANNER ---
Patient has a follow up appointment scheduled for Monday, October 19, [address] at 8:[address] Muro. Clinic will call patient with appointment information.
== END 2020-10-04 23:58 | disposition home or self-care (01) ==
PROVIDERS: Emergency Provider Emergency Medicine
DX: G40.89 Other seizures (principal); Z86.19 Personal history of other infectious and parasitic diseases; J44.9 Chronic obstructive pulmonary disease, unspecified; F17.210 Nicotine dependence, cigarettes, uncomplicated
CPT/HCPCS: 12345; 96374; 96375; 99283; J1953; J2060

== ENCOUNTER 2021-01-19 08:15 | Emergency (ER) | payer MEDICAID, SELFPAY ==
[2021-01-19 08:19] VITALS: BP 125/72; PULSE 91; RESP 18; TEMP 36.4; O2SAT 98; BMI 21.6
--- NOTE | 2021-01-19 08:26 | CT_ITS ---
WS: [id number] CT CERVICAL SPINE HISTORY: radicular arm pain TECHNIQUE: Contiguous 2.5 mm axial imaging performed through the entire cervical spine. Sagittal and coronal reformats also performed. All CT scans at [facility] use at least one of these do se optimization techniques: automated exposure control; mA and/or kV adjustment per patient size (inc ludes targeted exams where dose is matched to clinical indication); or iterative reconstruction. DLP: 356.19 mGy.cm COMPARISON: 01/17/2017 Normal cervical alignment. Craniocervical junction, atlantodental interval and C1-C2 alignment is nor mal. C2-C3: Normal. C3-C4: Normal. C4-C5: Normal. C5-C6: Normal. C6-C7: Normal. C7-T1: Normal. Soft tissues are normal. Lung apices are clear. CT/CT cervical spin wo con* [id number] IMPRESSION: Normal cervical spine.
--- NOTE | 2021-01-19 08:26 | XRR_ITS ---
PROCEDURE INFORMATION: Exam: XR Right Elbow Exam date and time: 01/19/2021 8:32 AM Age: 35 years old Clinical indication: Pain; Elbow; Bilateral TECHNIQUE: Imaging protocol: XR Right elbow. Views: 3 or more views. COMPARISON: No relevant prior studies available. FINDINGS: Bones/joints: Normal. Soft tissues: Normal. XR/XR elbow RT min 3V* [id number] IMPRESSION: No acute findings.
--- NOTE | 2021-01-19 08:26 | XRR_ITS ---
PROCEDURE INFORMATION: Exam: XR Left Elbow Exam date and time: 01/19/2021 8:32 AM Age: 35 years old Clinical indication: Pain; Elbow; Bilateral TECHNIQUE: Imaging protocol: XR Left elbow. Views: 3 or more views. COMPARISON: No relevant prior studies available. FINDINGS: Bones/joints: Normal. Soft tissues: Normal. XR/XR elbow LT min 3V* [id number] IMPRESSION: No acute findings.
[2021-01-19 08:27] VITALS: BP 125/72; PULSE 92; RESP 18; O2SAT 97
[2021-01-19] MEDS: dexamethasone 10 mg/mL INJ IVP (08:35)
--- NOTE | 2021-01-19 08:35 | ED_ITS ---
HPI - Extremity Problem General: Chief complaint: Extremity Problem,Nontraumatic Stated complaint: Trouble Moving Hands/Pain in Arms Time Seen by Provider: 01/19/21 08:18 History of Present Illness: HPI Narrative: 35-year-old female presents emergency room complaining of pain in her left arm radiating from the elbow distally. States it began suddenly yesterday and then this morning was quite severe she states that she had 2 seizures because of the pain in route this morning. She had no direct injury. Her significant other is stating that she has cellulitis in the hand although there is no visual appearance consistent with that. There is no fever. She has not had any swelling there is no obvious deformity. MD Complaint: extremity pain Onset (ago): hour(s) Pain Consistency: constant Location: left, upper extremity and elbow Quality: sharp Radiation: distal Relieving factors: nothing Exacerbating factors: palpation Associated symptoms: Deny arthralgias, chest pain, fever(s), myalgias, rash or short of breath Review of Systems Const: Denies: fever(s) ENMT: Denies: throat pain, ear or mastoid pain, nasal discharge or nasal congestion Card: Denies: chest pain Resp: Denies: dyspnea, productive cough or non-productive cough GI: Denies: abdominal pain, nausea, vomiting, hematemesis, coffee ground emesis, diarrhea, constipation, bloating, hematochezia or melena : Denies: flank pain, difficulty voiding, dysuria, urinary frequency or urinary urgency Skin/Breast: Denies: rash PFS ED PFSH: Medical History (Updated 01/19/21 @ 11:08 by Conner Soria DO) Anxiety Anxiety and depression Asthma Bipolar 1 disorder with moderate cesar Cellulitis of left eyelid Chronic back pain greater than 3 months duration Chronic hepatitis C COPD (chronic obstructive pulmonary disease) Depression Gastric ulcer GERD (gastroesophageal reflux disease) History of removal of cervix but not uterus 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 Insomnia Nightmares associated with chronic post-traumatic stress disorder PTSD (post-traumatic stress disorder) PUD (peptic ulcer disease) Social anxiety disorder Tonsillar and adenoid hypertrophy Surgical History History of appendectomy History of tonsillectomy Family History Grandfather Heart disease Mother Diabetes Cancer Grandmother Diabetes Other Bipolar 1 disorder, mixed Depression Insomnia Psychiatric illness Social History Smoking and tobacco status: current every day smoker cigarettes Packs smoked per day: 0.5 Years cigarettes smoked: 9 Quit status (tobacco): not considering quitting Second hand smoke exposure: Yes Smoking risk assessment/counseling performed?: Yes Tobacco counseling given: counseling >3 minutes Alcohol intake: never History of recent travel: No Female Reproductive History: Date of last menstrual period: 09/15/20 Physical Exam Const: COMMON NORMALS: no acute distress GENERAL APPEARANCE: cooperative and comfortable ORIENTATION/CONSCIOUSNESS: Yes awake, Yes oriented to person, Yes oriented to place and Yes oriented to time HENMT: COMMON NORMALS: normocephalic, atraumatic and hearing grossly normal bilaterally HEAD & SCALP: normocephalic and atraumatic Neck/C-Spine: COMMON NORMALS: no JVD Resp: COMMON NORMALS: normal respiratory effort, No retractions, No use of accessory muscles and clear to auscultation bilaterally AUSCULTATION: clear to auscultation bilaterally Cardio: COMMON NORMALS: no JVD, regular rate, regular rhythm and No murmurs present (Cardio) RATE: regular rate RHYTHM: regular rhythm Extremity: NARRATIVE EXTREMITY EXAM: Pain disproportionate to exam throughout entire forearm is difficult to really glean anything from the exam. Even light touch and various dermatomes causes severe pain her deep tendon reflexes at the biceps triceps are normal somewhat decreased at the brachioradialis but just difficult to elicit because of muscle tension. She has no rash no obvious deformity. There is pain on the medial lateral epicondyle but I am unsure of the significance of this and she complains of pain with even light touch anywhere on the forearm. Neuro: SENSORIUM/ORIENTATION: Yes oriented to person, Yes oriented to place and Yes oriented to time Skin: COMMON NORMALS: no rashes or lesions noted GENERAL SKIN EXAM: no rashes or lesions noted Course Vital Signs: Vital signs: Vital Signs Temperature 97.5 F L 01/19/21 08:19 Pulse Rate 88 01/19/21 11:19 Respiratory Rate 18 01/19/21 11:19 Blood Pressure 122/69 01/19/21 11:19 Pulse Oximetry 98 01/19/21 11:19 MDM - Extremity (Nontraumatic) MDM Narrative: Medical decision making narrative: Difficult to really tell at this point what may be because of a CT of her neck is not showing obvious abnormality. All of her pain is starts at the elbow and works distal its not in a particular dermatome indicating a peripheral nerve. She has nothing proximal which makes it seem unlikely that it is a cervical nerve impingement. We will put her on diclofenac Medrol dose pack and tizanidine have her follow-up with her primary care doctor if it is not improving they can look at further evaluation. Lab Data: Labs: Lab Results 01/19/21 01/19/21 01/19/21 Range/Units 09:08 09:08 10:11 WBC 7.1 (4.0-10.0) 10^3/ uL RBC 4.26 (4.1-5.3) 10^6/u L Hgb 13.1 (11.5-15.3) g/dL Hct 39.9 (37.0-47.0) % MCV 93.7 (81-99) fL MCH 30.8 (28.0-34.0) pg MCHC 32.8 (30.0-36.0) g/dL RDW 12.3 (12.1-15.1) % Plt Count 218 (130-400) 10^3/c mm MPV 10.7 H (7.4-10.4) fL Neut % (Auto) 47.3 % Lymph % (Auto) 32.8 % Wright % (Auto) 12.5 % Eos % (Auto) 5.9 % Baso % (Auto) 1.1 % Neut # (Auto) 3.37 (1.8-7.7) 10^3/u L Lymph # (Auto) 2.3 (0.8-4.8) 10^3/u L Wright # (Auto) 0.9 (0.2-0.9) 10^3/u L Eos # (Auto) 0.4 (0.0-0.8) 10^3/u L Baso # (Auto) 0.1 (0.0-0.1) 10^3/u L Nucleated RBC % (a uto) 0 % Nucleated RBCs # 0.0 /100WBC Sodium 138 (136-145) mmol/L Potassium 3.3 L (3.5-5.1) mmol/L Chloride 105 (98-107) mmol/L Carbon Dioxide 24 (22-29) mmol/L Anion Gap 12.3 (5-19) BUN 8 (6-20) mg/dL Creatinine 0.6 (0.5-0.9) mg/dL GFR Calculation 113.8 (90-130) mL/min Glucose 97 (65-115) mg/dL Calculated Osmolal ity 284 L (285-295) mOsm/k g Calcium 8.4 L (8.5-10.5) mg/dL Total Bilirubin 0.3 (0.15-1.2) mg/dL AST 23 (0-32) U/L ALT 23 (0-33) U/L Alkaline Phosphata se 76 (35-105) IU/L Creatine Kinase 150 (26-192) U/L Total Protein 6.2 L (6.6-8.7) g/dL Albumin 3.8 (3.5-5.2) g/dL Globulin 2.4 (1.3-4.6) g/dL Urine Color Yellow (Yellow) Urine Appearance Sl hazy (CLEAR) Urine pH 6 (5-7) Ur Specific Gravit y 1.020 (1.005-1.030) Urine Protein Neg (Negative) Urine Glucose (UA) Norm (Normal) Urine Ketones Negative (Negative) Urine Blood Neg (Negative) Urine Nitrate Negative (Negative) Urine Bilirubin Neg (Negative) Urine Urobilinogen Norm (Negative) mg/dL Ur Leukocyte Aspen ase Negative (Negative) Urine RBC None (0-2) /hpf Urine WBC None (0-5) /hpf Ur Squamous Epith Cells 0-4 H (0-5) /hpf Amorphous Sediment 1+ /hpf Urine Bacteria Trace (NONE) /hpf Urine Mucus Trace /hpf Urine Opiates Scre en (Negative) ng/mL Ur Barbiturates Sc reen (Negative) ng/mL Ur Phencyclidine S crn (Negative) ng/mL Ur Amphetamines Sc reen (Negative) ng/mL U Benzodiazepines Scrn (Negative) ng/mL Urine Cocaine Scre en (Negative) ng/mL U Marijuana (THC) Screen (Negative) ng/mL 01/19/21 Range/Units 10:11 WBC (4.0-10.0) 10^3/ uL RBC (4.1-5.3) 10^6/u L Hgb (11.5-15.3) g/dL Hct (37.0-47.0) % MCV (81-99) fL MCH (28.0-34.0) pg MCHC (30.0-36.0) g/dL RDW (12.1-15.1) % Plt Count (130-400) 10^3/c mm MPV (7.4-10.4) fL Neut % (Auto) % Lymph % (Auto) % Wright % (Auto) % Eos % (Auto) % Baso % (Auto) % Neut # (Auto) (1.8-7.7) 10^3/u L Lymph # (Auto) (0.8-4.8) 10^3/u L Wright # (Auto) (0.2-0.9) 10^3/u L Eos # (Auto) (0.0-0.8) 10^3/u L Baso # (Auto) (0.0-0.1) 10^3/u L Nucleated RBC % (a uto) % Nucleated RBCs # /100WBC Sodium (136-145) mmol/L Potassium (3.5-5.1) mmol/L Chloride (98-107) mmol/L Carbon Dioxide (22-29) mmol/L Anion Gap (5-19) BUN (6-20) mg/dL Creatinine (0.5-0.9) mg/dL GFR Calculation (90-130) mL/min Glucose (65-115) mg/dL Calculated Osmolal ity (285-295) mOsm/k g Calcium (8.5-10.5) mg/dL Total Bilirubin (0.15-1.2) mg/dL AST (0-32) U/L ALT (0-33) U/L Alkaline Phosphata se (35-105) IU/L Creatine Kinase (26-192) U/L Total Protein (6.6-8.7) g/dL Albumin (3.5-5.2) g/dL Globulin (1.3-4.6) g/dL Urine Color (Yellow) Urine Appearance (CLEAR) Urine pH (5-7) Ur Specific Gravit y (1.005-1.030) Urine Protein (Negative) Urine Glucose (UA) (Normal) Urine Ketones (Negative) Urine Blood (Negative) Urine Nitrate (Negative) Urine Bilirubin (Negative) Urine Urobilinogen (Negative) mg/dL Ur Leukocyte Aspen ase (Negative) Urine RBC (0-2) /hpf Urine WBC (0-5) /hpf Ur Squamous Epith Cells (0-5) /hpf Amorphous Sediment /hpf Urine Bacteria (NONE) /hpf Urine Mucus /hpf Urine Opiates Scre en Negative (Negative) ng/mL Ur Barbiturates Sc reen Negative (Negative) ng/mL Ur Phencyclidine S crn Negative (Negative) ng/mL Ur Amphetamines Sc reen Positive H (Negative) ng/mL U Benzodiazepines Scrn Negative (Negative) ng/mL Urine Cocaine Scre en Negative (Negative) ng/mL U Marijuana (THC) Screen Positive H (Negative) ng/mL Discharge Plan Discharge Patient Disposition: Home Clinical Impression: Left forearm pain Condition: Stable Prescriptions: New diclofenac sodium 75 mg tablet,delayed release (DR/EC) 75 mg PO Q12H PRN (Reason: pain) Qty: 20 RF: 0 Medrol (Douglas) 4 mg tablets,dose pack See Rx Instructions .ROUTE .COMPLEX Qty: 21 RF: 0 tizanidine 4 mg capsule 4 mg PO Q6H PRN (Reason: muscle spasticity) Qty: 20 RF: 0 No Action albuterol sulfate [ProAir HFA] 90 mcg/actuation HFA aerosol inhaler 1 puff INHALATION QID PRN (Reason: shortness of breath or wheezing) 30 Days Qty: 18 RF: 5 gabapentin 800 mg tablet 800 mg PO TID 30 Days Qty: 90 RF: 5 pantoprazole 20 mg tablet,delayed release (DR/EC) 20 mg PO DAILY Qty: 30 RF: 5 Discharge Orders: Discharge ED (Routine); Ordered 01/19/21 Ordered By: Conner Soria Referrals: Bret Cheung MD [Primary Care Provider] - Discharge Diet: Usual diet Discharge Activity: Resume usual activity Patient Instructions: Opioid Safety Coding Level of Care Code ED Executive Talent Acquisition Consultant for Kemar Weiner
[2021-01-19] MEDS: ketorolac 30 mg/mL INJ IVP (08:45)
--- NOTE | 2021-01-19 08:45 | PC.NURSE ---
XR done at bedside
[2021-01-19 09:24] LABS: Basophils # 0.1 10^3/uL (0.0-0.1); Basophils % 1.1 %; Eosinophils # 0.4 10^3/uL (0.0-0.8); Eosinophils % 5.9 %; Hematocrit 39.9 % (37.0-47.0); Hemoglobin 13.1 g/dL (11.5-15.3); Lymphocytes # 2.3 10^3/uL (0.8-4.8); Lymphocytes % 32.8 %; Mean Corpuscular HGB Conc 32.8 g/dL (30.0-36.0); Mean Corpuscular Hemoglobin 30.8 pg (28.0-34.0); Mean Corpuscular Volume 93.7 fL (81-99); Mean Platelet Volume 10.7 fL (7.4-10.4); Monocytes # 0.9 10^3/uL (0.2-0.9); Monocytes % 12.5 %; Neutrophils # 3.37 10^3/uL (1.8-7.7); Neutrophils % 47.3 %; Nucleated Red Blood Cells % 0 %; Platelet Count 218 10^3/cmm (130-400); Red Blood Count 4.26 10^6/uL (4.1-5.3); Red Cell Distribution Width 12.3 % (12.1-15.1); White Blood Count 7.1 10^3/uL (4.0-10.0)
[2021-01-19 09:42] LABS: Alanine Aminotransferase 23 U/L (0-33); Albumin Level 3.8 g/dL (3.5-5.2); Alkaline Phosphatase 76 IU/L (35-105); Anion Gap 12.3 (5-19); Aspartate Amino Transferase 23 U/L (0-32); Blood Urea Nitrogen 8 mg/dL (6-20); Calcium 8.4 mg/dL (8.5-10.5); Carbon Dioxide 24 mmol/L (22-29); Chloride 105 mmol/L (98-107); Creatine Phosphokinase 150 U/L (26-192); Creatinine Clr Calc Pharmacy 120.1355; Globulin 2.4 g/dL (1.3-4.6); Glomerular Filtration Rate 113.8 mL/min (90-130); Glucose 97 mg/dL (65-115); Osmolality Calculated 284 mOsm/kg (285-295); Potassium 3.3 mmol/L (3.5-5.1); Sodium 138 mmol/L (136-145); Total Bilirubin 0.3 mg/dL (0.15-1.2); Total Protein 6.2 g/dL (6.6-8.7)
[2021-01-19 10:27] LABS: Add Urine Microscopic? YES; Bilirubin Urine Neg (Negative); Blood Urine Neg (Negative); Glucose Urine UA Norm (Normal); Ketones Urine Negative (Negative); Leukocyte Esterase Urine Negative (Negative); Nitrate Urine Negative (Negative); Protein Urine Neg (Negative); Urine Appearance SL Hazy (CLEAR); Urine Color Yellow (Yellow); Urobilinogen Urine Norm (Negative); pH Urine 6 (5-7)
[2021-01-19 10:36] LABS: Add Urine Culture? No; Amorphous Sediment Urine 1+ /hpf; Bacteria Urine TRACE /hpf; Mucus Urine TRACE /hpf; Squamous Epithelial Cell Urine 0-4 /hpf (0-5)
[2021-01-19 10:38] LABS: Amphetamines Screen Urine Positive (Negative); Barbiturates Screen Urine Negative (Negative); Benzodiazepines Screen Urine Negative (Negative); Cocaine Screen Urine Negative (Negative); Opiate Screen Urine Negative (Negative); PCP Screen Urine Negative (Negative); THC Screen Urine Positive (Negative)
[2021-01-19 11:19] VITALS: BP 122/69; PULSE 88; RESP 18; O2SAT 98
[2021-01-19] MEDS: orphenadrine 30 mg/mL Inj 2 mL 60 MG IVP (11:25)
== END 2021-01-19 11:19 | disposition home or self-care (01) ==
PROVIDERS: Emergency Provider Family Medicine; PCP Family Medicine Adult Medicine
DX: M79.632 Pain in left forearm (principal); J44.9 Chronic obstructive pulmonary disease, unspecified; Z86.19 Personal history of other infectious and parasitic diseases; F17.210 Nicotine dependence, cigarettes, uncomplicated
CPT/HCPCS: 36415; 72125; 73080; 80053; 80306; 81001; 82550; 85025; 96374; 96375; 99284; J1100; J1885; J2360

== ENCOUNTER 2021-07-19 09:08 | Emergency (ER) | payer MEDICAID, SELFPAY ==
[2021-07-19 09:24] VITALS: BP 111/75; PULSE 85; RESP 18; TEMP 36.6; O2SAT 98; BMI 22.2
--- NOTE | 2021-07-19 09:42 | W.ED.ABDPA2 ---
Documented by User: DEANDRE Torres 07/20/21 07:14 HPI - Abdominal Pain General: Chief Complaint: Abdominal Pain Stated Complaint: Abdominal Pain Time Seen by Provider: 07/19/21 09:32 History of Present Illness: HPI narrative: Patient is a 35-year-old female comes to the ED with abdominal pain. She was seen by her PCP today and they did an exam on patient and sent her to the ED for further evaluation. She states the abdominal pain started approximately a week ago. Most of her pain is located in the right upper quadrant of her abdomen. She rates her pain a 9 out of 10 and says that it is a constant pain. She describes pain radiating to middle of back as well. She also reports having some nausea with it but denies any emesis. Eating food causes worsening symptoms. She also reports having diarrhea multiple times a day and describes the stool as light-colored. Says the diarrhea started approximately 3 weeks ago. Denies any fever, chills, bladder symptoms or blood in stool. Associated Symptoms: Reports diarrhea and nausea; Denies chills, constipation, dysuria, fever(s), hematochezia, hematuria and vomiting Related Data: Date of Last Menstrual Period: 09/15/20 Review of Systems Const: Denies: fever(s), chills or fatigue Eyes: Denies: change in vision or eye discomfort ENMT: Denies: throat pain, odynophagia, nasal discharge or nasal congestion Card: Denies: chest pain, palpitations, edema, swelling of feet/ankles, dyspnea on exertion or orthopnea Resp: Denies: dyspnea, productive cough or non-productive cough GI: Reports: abdominal pain (RUQ pain), nausea and diarrhea; Denies: vomiting, constipation or hematochezia : Denies: flank pain, dysuria or hematuria Musc: Denies: neck pain, back pain or extremity swelling Skin/Breast: Denies: rash or new lesions Neuro: Denies: headache(s), numbness in extremities or weakness in extremities [facility] ED PFSH: Medical History Anxiety and depression Asthma Bipolar 1 disorder with moderate cesar Cellulitis of left eyelid Chronic back pain greater than 3 months duration Chronic hepatitis C COPD (chronic obstructive pulmonary disease) Gastric ulcer GERD (gastroesophageal reflux disease) History of removal of cervix but not uterus 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 Insomnia Loose bowel movement Nightmares associated with chronic post-traumatic stress disorder PTSD (post-traumatic stress disorder) PUD (peptic ulcer disease) Social anxiety disorder Tonsillar and adenoid hypertrophy Surgical History History of appendectomy History of tonsillectomy Family History Grandfather Heart disease Mother Diabetes Cancer Grandmother Diabetes Other Bipolar 1 disorder, mixed Depression Insomnia Psychiatric illness Social History Quit status (tobacco): not considering quitting Second hand smoke exposure: Yes Smoking risk assessment/counseling performed?: Yes Tobacco counseling given: counseling >3 minutes Alcohol intake: never History of recent travel: No Female Reproductive History: Date of last menstrual period: 09/15/20 Physical Exam Const: COMMON NORMALS: patient oriented x3 and alert GENERAL APPEARANCE: cooperative; not comfortable (Patient appears uncomfortable due to pain.) HENMT: COMMON NORMALS: normocephalic HEAD & SCALP: normocephalic MOUTH: Normal oral and palatal mucosa present THROAT: posterior oropharynx normal and uvula midline Eye: COMMON NORMALS: Equal, round and reactive pupils present PUPIL: Yes Equal, round and reactive pupils present Neck/C-Spine: COMMON NORMALS: supple GENERAL: Yes normal visual inspection Resp: COMMON NORMALS: normal respiratory effort, No retractions, No use of accessory muscles and clear to auscultation bilaterally AUSCULTATION: clear to auscultation bilaterally Cardio: COMMON NORMALS: regular rate, regular rhythm, S1 normal heart sound present, S2 normal heart sound present, No gallops present (Cardio), No clicks present (Cardio), No murmurs present (Cardio) and Peripheral pulses 2+ throughout RATE: regular rate RHYTHM: regular rhythm HEART SOUNDS: S1 normal heart sound present and S2 normal heart sound present PERIPHERAL PULSES: Peripheral pulses 2+ throughout GI: COMMON NORMALS: Normal to inspection, nondistended, normoactive bowel sounds present, Soft to palpation and no masses PALPATION: Yes Soft to palpation and Yes Tenderness to palpation present (GI) Details: RUQ (Positive Quezada sign) : COMMON NORMALS: Yes no CVA tenderness BLADDER/KIDNEY EXAM: Yes no CVA tenderness Back/Pelvis: COMMON NORMALS: no CVA tenderness Extremity: COMMON NORMALS: normal to inspection Neuro: COMMON NORMALS: patient oriented x3 SENSORIUM/ORIENTATION: Yes alert Skin: GENERAL SKIN EXAM: dry skin Course Vital Signs: Vital signs: Vital Signs Temperature 98.7 F 07/19/21 12:24 Pulse Rate 70 07/19/21 12:24 Respiratory Rate 17 07/19/21 12:24 Blood Pressure 118/72 07/19/21 12:24 Pulse Oximetry 100 07/19/21 12:24 MDM - Abdominal Pain MDM Narrative: Medical decision making narrative: Pt is a 35 y/o F who comes to the ED with abdominal pain and diarrhea. She was sent over by her PCP for further eval on abdominal pain. Vitals stable. pt appears non toxic and in no acute distress. she has RUQ tenderness. WBC 11.4, but the rest of labs were unremarkable. HCG negative. US gall bladder-normal findings, nothing acute noted. CT abdomen pelvis showed gastroenteritis. Pt was given a 1L of fluids, morphine and zofran while here in the ED and symptoms improved. pt diagnosed with Gastroenteritis and DC home with a prescription for antibiotics, antinausea and pain med. She was told to follow up with pcp in a week for reevaluation. return to ED precautions given. pt understood and agreed with plan. Lab Data: Attestation: I reviewed the patient's lab results. Labs: Lab Results 07/19/21 07/19/21 07/19/21 10:25 10:25 10:25 WBC 11.4 10^3/uL H 10 ^3/uL (4.0-10.0) RBC 4.80 10^6/uL 10^6 /uL (4.1-5.3) Hgb 14.9 g/dL g/dL (11.5-15.3) Hct 44.5 % % (37.0-47.0) MCV 92.7 fl fl (81-99) MCH 31.0 pg pg (28.0-34.0) MCHC 33.5 g/dL g/dL (30.0-36.0) RDW 12.3 % % (12.1-15.1) Plt Count 229 10^3/cmm 10^3 /cmm (130-400) MPV 11.4 fL H fL (7.4-10.4) Neut % (Auto) 71.1 % % Lymph % (Auto) 19.7 % % [place] % (Auto) 7.2 % % Eos % (Auto) 1.1 % % Baso % (Auto) 0.6 % % Neut # (Auto) 8.13 10^3/uL H 10 ^3/uL (1.8-7.7) Lymph # (Auto) 2.3 10^3/uL 10^3/ uL (0.8-4.8) [place] # (Auto) 0.8 10^3/uL 10^3/ uL (0.2-0.9) Eos # (Auto) 0.1 10^3/uL 10^3/ uL (0.0-0.8) Baso # (Auto) 0.1 10^3/uL 10^3/ uL (0.0-0.1) Nucleated RBC % (a uto) 0 % % Nucleated RBCs # 0.0 /100WBC /100W BC Sodium 141 mmol/L mmol/L (136-145) Potassium 3.7 mmol/L mmol/L (3.5-5.1) Chloride 106 mmol/L mmol/L (98-107) Carbon Dioxide 22 mmol/L mmol/L (22-29) Anion Gap 16.7 (5-19) BUN 4 mg/dL L mg/dL (6-20) Creatinine 0.7 mg/dL mg/dL (0.5-0.9) GFR Calculation 95.2 mL/min mL/mi n (90-130) Glucose 86 mg/dL mg/dL (65-115) Calculated Osmolal ity 288 mOsm/kg mOsm/ kg (285-295) Calcium 8.8 mg/dL mg/dL (8.5-10.5) Total Bilirubin 0.2 mg/dL mg/dL (0.15-1.2) AST 19 U/L U/L (0-32) ALT 19 U/L U/L (0-33) Alkaline Phosphata se 91 IU/L IU/L (35-105) Total Protein 6.9 g/dL g/dL (6.6-8.7) Albumin 4.1 g/dL g/dL (3.5-5.2) Globulin 2.8 g/dL g/dL (1.3-4.6) Lipase 35 U/L U/L (13-60) HCG, Qual Negative (Negative) Imaging Data ^: US: Attestation: I personally reviewed and interpreted this imaging study as follows: Radiologist's impression: [address] [id number] Ultrasound Report Signed Patient: Ki Mireles Unit #: [id number] : 1985 Age/Sex: 35 / F ADM Date: 07/19/21 Loc: ER Room/Bed: Attending Dr: Ordering Provider/Ordering MD: Travis Negro Date of Service: 07/19/21 Procedure(s): US gall bladder 37650 Accession Number(s): [id number] Report Number: [id number] WS: [id number] RIGHT UPPER QUADRANT ULTRASOUND HISTORY: RUQ tenderness, nausea and diarrhea COMPARISON: 02/06/2019 Liver: 18.4 cm in length. Normal size liver. No bile duct dilatation or mass. Gallbladder: Normally distended gallbladder with no stones or wall thickening. CBD: 0.5 cm Pancreas: Normal size and echogenicity. Right kidney: 10.2 cm in length. Normal size and echogenicity. No hydronephrosis or mass. Aorta and IVC: Unremarkable abdominal aorta and IVC. No ascites. US/US gall bladder [id number] IMPRESSION: Normal RIGHT upper quadrant ultrasound. Dictated By: Kim Hernandez DO Signed By: Kim Hernandez DO Signed Date/Time: 07/19/21 1026 DD/ 1025 CT Abd/Pel: Attestation: I personally reviewed and interpreted this imaging study as follows: Radiologist's impression: [address] [id number] [address] Scan Report Signed Patient: Ki Mireles Unit #: [id number] : 1985 Age/Sex: 35 / F ADM Date: 07/19/21 Loc: ER Room/Bed: Attending Dr: Ordering Provider/Ordering MD: Travis Negro Date of Service: 07/19/21 Procedure(s): CT abdomen pelvis w con* [id number] Accession Number(s): [id number] Report Number: [id number] WS: [id number] CT ABDOMEN AND PELVIS WITH CONTRAST HISTORY: abdominal pain, nausea and diarrhea TECHNIQUE: Imaging performed of the abdomen and pelvis with IV contrast. Single phase imaging of the abdomen. Coronal and sagittal reformats are submitted. All CT scans at [facility] use at least one of these dose optimization techniques: automated exposure control; mA and/or kV adjustment per patient size (includes targeted exams where dose is matched to clinical indication); or iterative reconstruction. IV CONTRAST: Omnipaque 350; 95 mL IV. Oral contrast: No DLP: 938.08 mGy.cm COMPARISON: 02/06/2019 Lower thorax: Lung bases are clear. Heart is normal size. No hiatal hernia. Liver/biliary system: Normal size with no intrahepatic dilatation. Gallbladder: Normal. No gallstones or wall thickening. No pericholecystic fluid. Pancreas: Normal size pancreas and pancreatic duct. No adjacent inflammation. Spleen: Normal size spleen. No mass or infarct. Adrenal glands: Normal. Right kidney: Normal. Left kidney: Normal. Aorta: Normal. Lymphadenopathy: None. Free fluid: None. GI tract: Prior appendectomy. There is increased amount of air throughout the colon. No wall thickening or mucosal edema. There is also increased fluid in the distal small bowel. Abdominal wall: Unremarkable abdominal wall. No hernia. Pelvis: Normal size anteverted uterus. Peripherally enhancing LEFT adnexal masses most likely a corpus luteum cyst. Bones: Unremarkable. CT/CT abdomen pelvis w con* [id number] IMPRESSION: 1. Prior appendectomy. 2. Increased amount of air in the colon and fluid in the small bowel. Probably representing. Gastroenteritis. No obstruction or mucosal thickening. 3. No free fluid. 4. LEFT ovarian corpus luteal cyst. Dictated By: Kim Hernandez DO Signed By: Kim Hernandez DO Signed Date/Time: 07/19/21 1126 DD/ 1120 Discharge Plan Discharge Patient Disposition: Home Clinical Impression: Gastroenteritis Condition: Stable Prescriptions: New ciprofloxacin HCl 500 mg tablet 500 mg PO BID 7 Days Qty: 14 RF: 0 Flagyl 500 mg tablet 500 mg PO Q8H 7 Days Qty: 21 RF: 0 Reglan 10 mg tablet 10 mg PO Q6H PRN (Reason: nausea and vomiting) Qty: 15 RF: 0 No Action pantoprazole 20 mg tablet,delayed release (DR/EC) 20 mg PO DAILY Qty: 30 RF: 5 gabapentin 800 mg tablet 800 mg PO TID 30 Days Qty: 90 RF: 5 albuterol sulfate [ProAir HFA] 90 mcg/actuation HFA aerosol inhaler 1 puff INHALATION QID PRN (Reason: shortness of breath or wheezing) 30 Days Qty: 18 RF: 5 doxepin 75 mg capsule 75 mg PO .hs Qty: 30 RF: 1 diclofenac sodium 75 mg tablet,delayed release (DR/EC) 75 mg PO BID PRN (Reason: pain) Qty: 30 RF: 1 Discharge Orders: Discharge ED (Routine); Ordered 07/19/21 Ordered By: Travis Negro Referrals: Bret Cheung MD [Primary Care Provider] - Discharge Diet: Advance as tolerated Discharge Activity: Increase activity as tolerated Patient Instructions: Gastroenteritis (ED), Opioid Safety Activity Restrictions/Additional Instructions: Follow-up with medical provider as directed in 5 to 7 days reevaluation. Take medications as prescribed. Start with a clear liquid diet and advance diet as tolerated. Make sure you drink plenty fluids and stay hydrated. Return to the ER or your medical provider if condition worsens. Please read and understand discharge instructions. Thank you for choosing [facility] for your healthcare needs today. Please realize this is an emergency room and that we are providing you with a medical screening exam and this may not be complete and all inclusive of all the testing and or work up that you may need to determine your ailment or severity of your illness. It is very important that you follow up as instructed or that you return to the Emergency Department should you have concerns or if your condition changes or worsens in any way. Coding Level of Care Code ED Field Research Associate for Chg Fwd Exam Comprehensive Documented by User: Conner Soria DO 07/22/21 10:00 HPI - Abdominal Pain General: Chief Complaint: Abdominal Pain Stated Complaint: Abdominal Pain Time Seen by Provider: 07/19/21 09:32 PFSH ED PFSH: Medical History Anxiety and depression Asthma Bipolar 1 disorder with moderate cesar Cellulitis of left eyelid Chronic back pain greater than 3 months duration Chronic hepatitis C COPD (chronic obstructive pulmonary disease) Gastric ulcer GERD (gastroesophageal reflux disease) History of removal of cervix but not uterus 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 Insomnia Loose bowel movement Nightmares associated with chronic post-traumatic stress disorder PTSD (post-traumatic stress disorder) PUD (peptic ulcer disease) Social anxiety disorder Tonsillar and adenoid hypertrophy Surgical History History of appendectomy History of tonsillectomy Family History Grandfather Heart disease Mother Diabetes Cancer Grandmother Diabetes Other Bipolar 1 disorder, mixed Depression Insomnia Psychiatric illness Social History Quit status (tobacco): not considering quitting Second hand smoke exposure: Yes Smoking risk assessment/counseling performed?: Yes Tobacco counseling given: counseling >3 minutes Alcohol intake: never History of recent travel: No Course Vital Signs: Vital signs: Vital Signs Temperature 98.7 F 07/19/21 12:24 Pulse Rate 70 07/19/21 12:24 Respiratory Rate 17 07/19/21 12:24 Blood Pressure 118/72 07/19/21 12:24 Pulse Oximetry 100 07/19/21 12:24 MDM - Abdominal Pain MDM Narrative: Medical decision making narrative: Chart reviewed and patient discussed with midlevel. Agree with assessment and plan. Lab Data: Labs: Lab Results 07/19/21 07/19/21 07/19/21 10:25 10:25 10:25 WBC 11.4 10^3/uL H 10 ^3/uL (4.0-10.0) RBC 4.80 10^6/uL 10^6 /uL (4.1-5.3) Hgb 14.9 g/dL g/dL (11.5-15.3) Hct 44.5 % % (37.0-47.0) MCV 92.7 fl fl (81-99) MCH 31.0 pg pg (28.0-34.0) MCHC 33.5 g/dL g/dL (30.0-36.0) RDW 12.3 % % (12.1-15.1) Plt Count 229 10^3/cmm 10^3 /cmm (130-400) MPV 11.4 fL H fL (7.4-10.4) Neut % (Auto) 71.1 % % Lymph % (Auto) 19.7 % % [place] % (Auto) 7.2 % % Eos % (Auto) 1.1 % % Baso % (Auto) 0.6 % % Neut # (Auto) 8.13 10^3/uL H 10 ^3/uL (1.8-7.7) Lymph # (Auto) 2.3 10^3/uL 10^3/ uL (0.8-4.8) [place] # (Auto) 0.8 10^3/uL 10^3/ uL (0.2-0.9) Eos # (Auto) 0.1 10^3/uL 10^3/ uL (0.0-0.8) Baso # (Auto) 0.1 10^3/uL 10^3/ uL (0.0-0.1) Nucleated RBC % (a uto) 0 % % Nucleated RBCs # 0.0 /100WBC /100W BC Sodium 141 mmol/L mmol/L (136-145) Potassium 3.7 mmol/L mmol/L (3.5-5.1) Chloride 106 mmol/L mmol/L (98-107) Carbon Dioxide 22 mmol/L mmol/L (22-29) Anion Gap 16.7 (5-19) BUN 4 mg/dL L mg/dL (6-20) Creatinine 0.7 mg/dL mg/dL (0.5-0.9) GFR Calculation 95.2 mL/min mL/mi n (90-130) Glucose 86 mg/dL mg/dL (65-115) Calculated Osmolal ity 288 mOsm/kg mOsm/ kg (285-295) Calcium 8.8 mg/dL mg/dL (8.5-10.5) Total Bilirubin 0.2 mg/dL mg/dL (0.15-1.2) AST 19 U/L U/L (0-32) ALT 19 U/L U/L (0-33) Alkaline Phosphata se 91 IU/L IU/L (35-105) Total Protein 6.9 g/dL g/dL (6.6-8.7) Albumin 4.1 g/dL g/dL (3.5-5.2) Globulin 2.8 g/dL g/dL (1.3-4.6) Lipase 35 U/L U/L (13-60) HCG, Qual Negative (Negative) Discharge Plan Discharge Patient Disposition: Home Clinical Impression: Gastroenteritis Condition: Stable Prescriptions: New ciprofloxacin HCl 500 mg tablet 500 mg PO BID 7 Days Qty: 14 RF: 0 Flagyl 500 mg tablet 500 mg PO Q8H 7 Days Qty: 21 RF: 0 Reglan 10 mg tablet 10 mg PO Q6H PRN (Reason: nausea and vomiting) Qty: 15 RF: 0 No Action pantoprazole 20 mg tablet,delayed release (DR/EC) 20 mg PO DAILY Qty: 30 RF: 5 gabapentin 800 mg tablet 800 mg PO TID 30 Days Qty: 90 RF: 5 albuterol sulfate [ProAir HFA] 90 mcg/actuation HFA aerosol inhaler 1 puff INHALATION QID PRN (Reason: shortness of breath or wheezing) 30 Days Qty: 18 RF: 5 doxepin 75 mg capsule 75 mg PO .hs Qty: 30 RF: 1 diclofenac sodium 75 mg tablet,delayed release (DR/EC) 75 mg PO BID PRN (Reason: pain) Qty: 30 RF: 1 Discharge Orders: Discharge ED (Routine); Ordered 07/19/21 Ordered By: Travis Negro Referrals: Bret Cheung MD [Primary Care Provider] - Discharge Diet: Advance as tolerated Discharge Activity: Increase activity as tolerated Patient Instructions: Gastroenteritis (ED), Opioid Safety Activity Restrictions/Additional Instructions: Follow-up with medical provider as directed in 5 to 7 days reevaluation. Take medications as prescribed. Start with a clear liquid diet and advance diet as tolerated. Make sure you drink plenty fluids and stay hydrated. Return to the ER or your medical provider if condition worsens. Please read and understand discharge instructions. Thank you for choosing [facility] for your healthcare needs today. Please realize this is an emergency room and that we are providing you with a medical screening exam and this may not be complete and all inclusive of all the testing and or work up that you may need to determine your ailment or severity of your illness. It is very important that you follow up as instructed or that you return to the Emergency Department should you have concerns or if your condition changes or worsens in any way. Coding Level of Care Code ED Field Research Associate for Chg Fwd Exam Comprehensive
--- NOTE | 2021-07-19 09:49 | US_ITS ---
WS: [id number] RIGHT UPPER QUADRANT ULTRASOUND HISTORY: RUQ tenderness, nausea and diarrhea COMPARISON: 02/06/2019 Liver: 18.4 cm in length. Normal size liver. No bile duct dilatation or mass. Gallbladder: Normally distended gallbladder with no stones or wall thickening. CBD: 0.5 cm Pancreas: Normal size and echogenicity. Right kidney: 10.2 cm in length. Normal size and echogenicity. No hydronephrosis or mass. Aorta and IVC: Unremarkable abdominal aorta and IVC. No ascites. US/US gall bladder [id number] IMPRESSION: Normal RIGHT upper quadrant ultrasound.
[2021-07-19 10:07] VITALS: BP 114/78; PULSE 87; RESP 17; TEMP 36.6; O2SAT 98
--- NOTE | 2021-07-19 10:26 | CT_ITS ---
WS: [id number] CT ABDOMEN AND PELVIS WITH CONTRAST HISTORY: abdominal pain, nausea and diarrhea TECHNIQUE: Imaging performed of the abdomen and pelvis with IV contrast. Single phase imaging of the abdomen. Coronal and sagittal reformats are submitted. All CT scans at [facility] use at [address] one of these dose optimization techniques: automated exposure control; mA and/or kV adjustment per patient size (includes targeted exams where dose is matched to clinical indication); or iterative re construction. IV CONTRAST: Omnipaque 350; 95 mL IV. Oral contrast: No DLP: 938.08 mGy.cm COMPARISON: 02/06/2019 Lower thorax: Lung bases are clear. Heart is normal size. No hiatal hernia. Liver/biliary system: Normal size with no intrahepatic dilatation. Gallbladder: Normal. No gallstones or wall thickening. No pericholecystic fluid. Pancreas: Normal size pancreas and pancreatic duct. No adjacent inflammation. Spleen: Normal size spleen. No mass or infarct. Adrenal glands: Normal. Right kidney: Normal. Left kidney: Normal. Aorta: Normal. Lymphadenopathy: None. Free fluid: None. GI tract: Prior appendectomy. There is increased amount of air throughout the colon. No wall thickeni ng or mucosal edema. There is also increased fluid in the distal small bowel. Abdominal wall: Unremarkable abdominal wall. No hernia. Pelvis: Normal size anteverted uterus. Peripherally enhancing LEFT adnexal masses most likely a corpu s luteum cyst. Bones: Unremarkable. CT/CT abdomen pelvis w con* [id number] IMPRESSION: 1. Prior appendectomy. 2. Increased amount of air in the colon and fluid in the small bowel. Probably representing. Gastroenteritis. No obstruction or mucosal thickening. 3. No free fluid. 4. LEFT ovarian corpus luteal cyst.
[2021-07-19] MEDS: ondansetron 2 mg/ML SDV 2 mL 4 MG IVP (10:35)
[2021-07-19] MEDS: sodium chloride 0.9% 1,000 ML 999 ML IV (10:35)
[2021-07-19 10:36] VITALS: RESP 18; O2SAT 100
[2021-07-19] MEDS: morphine 4 mg/mL SDV 1 mL IVP (10:36)
[2021-07-19 10:39] LABS: Basophils # 0.1 10^3/uL (0.0-0.1); Basophils % 0.6 %; Eosinophils # 0.1 10^3/uL (0.0-0.8); Eosinophils % 1.1 %; Hematocrit 44.5 % (37.0-47.0); Hemoglobin 14.9 g/dL (11.5-15.3); Lymphocytes # 2.3 10^3/uL (0.8-4.8); Lymphocytes % 19.7 %; Mean Corpuscular HGB Conc 33.5 g/dL (30.0-36.0); Mean Corpuscular Volume 92.7 fl (81-99); Mean Platelet Volume 11.4 fL (7.4-10.4); Monocytes # 0.8 10^3/uL (0.2-0.9); Monocytes % 7.2 %; Neutrophils # 8.13 10^3/uL (1.8-7.7); Neutrophils % 71.1 %; Nucleated Red Blood Cells % 0 %; Platelet Count 229 10^3/cmm (130-400); Red Cell Distribution Width 12.3 % (12.1-15.1); White Blood Count 11.4 10^3/uL (4.0-10.0)
[2021-07-19 10:51] LABS: Alanine Aminotransferase 19 U/L (0-33); Albumin Level 4.1 g/dL (3.5-5.2); Alkaline Phosphatase 91 IU/L (35-105); Anion Gap 16.7 (5-19); Aspartate Amino Transferase 19 U/L (0-32); Blood Urea Nitrogen 4 mg/dL (6-20); Calcium 8.8 mg/dL (8.5-10.5); Carbon Dioxide 22 mmol/L (22-29); Chloride 106 mmol/L (98-107); Globulin 2.8 g/dL (1.3-4.6); Glomerular Filtration Rate 95.2 mL/min (90-130); Glucose 86 mg/dL (65-115); Lipase 35 U/L (13-60); Osmolality Calculated 288 mOsm/kg (285-295); Potassium 3.7 mmol/L (3.5-5.1); Sodium 141 mmol/L (136-145); Total Bilirubin 0.2 mg/dL (0.15-1.2); Total Protein 6.9 g/dL (6.6-8.7)
[2021-07-19 10:59] LABS: HCG, Serum Qual Negative (Negative)
[2021-07-19] MEDS: iohexol 350 mg/mL 100 mL Btl IV (11:12)
[2021-07-19 12:24] VITALS: BP 118/72; PULSE 70; RESP 17; TEMP 37.1; O2SAT 100
== END 2021-07-19 12:29 | disposition home or self-care (01) ==
PROVIDERS: Emergency Provider Physician Assistant; PCP Family Medicine Adult Medicine
DX: A09 Infectious gastroenteritis and colitis, unspecified (principal); R11.0 Nausea; Z79.1 Long term (current) use of non-steroidal anti-inflammatories (NSAID); F41.8 Other specified anxiety disorders
CPT/HCPCS: 74177; 76705; 80053; 83690; 84703; 85025; 93976; 96361; 96374; 96375; 99284; J2270; J2405; J7030; Q9967

== ENCOUNTER 2021-10-05 11:11 | Emergency (ER) | payer MEDICAID, SELFPAY ==
[2021-10-05 11:27] VITALS: BP 111/75; PULSE 71; RESP 16; TEMP 36.3; O2SAT 98; BMI 24.4
--- NOTE | 2021-10-05 12:17 | ED_ITS ---
HPI - Abdominal Pain General: Chief Complaint: Abdominal Pain Stated Complaint: severe abd pains Time Seen by Provider: 10/05/21 11:58 History of Present Illness: HPI narrative: 36-year-old female comes in complaining of abdominal discomfort refers most of the pain periumbilical in the right lower quadrant. She is nauseous no vomiting no diarrhea no fever denies dysuria urgency or frequency she is concerned about ulcers which she has had in the past. She denies any dysuria urgency frequency hematuria. No history of renal stones. Did recently have her menses. MD elicited complaint: abdominal pain Pertinent past history: other (Recent menses) Onset (ago): hour(s) Pain Consistency: constant Location: RLQ Severity: moderate Quality: cramping Radiation: none Migration to: no migration Exacerbating factors: nothing Relieving factors: nothing Associated Symptoms: Reports GI cramping, nausea and poor appetite; Denies anorexia, belching, bloating, change in bowel habits, change in stool character, chills, coffee ground emesis, constipation, diarrhea, dyspepsia, dysuria, excessive flatus, fever(s), heartburn, hematochezia, hematuria, hematemesis, fecal incontinence, loose stools, melena, syncope and vomiting Related Data: Date of Last Menstrual Period: 09/15/20 Review of Systems Const: Denies: fever(s) or chills ENMT: Denies: throat pain, ear or mastoid pain, nasal discharge or nasal congestion Card: Denies: syncope Resp: Denies: dyspnea, productive cough or non-productive cough GI: Reports: nausea and GI cramping; Denies: vomiting, hematemesis, coffee ground emesis, heartburn, diarrhea, constipation, bloating, belching, excessive flatus, fecal incontinence, change in bowel habits, change in stool character, hematochezia or melena : Denies: dysuria or hematuria Skin/Breast: Denies: rash or pruritus PFSH ED PFSH: Medical History Anxiety and depression Asthma Bipolar 1 disorder with moderate cesar Cellulitis of left eyelid Chronic back pain greater than 3 months duration Chronic hepatitis C COPD (chronic obstructive pulmonary disease) Gastric ulcer GERD (gastroesophageal reflux disease) History of removal of cervix but not uterus 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 Insomnia Loose bowel movement Nightmares associated with chronic post-traumatic stress disorder PTSD (post-traumatic stress disorder) PUD (peptic ulcer disease) Social anxiety disorder Tonsillar and adenoid hypertrophy Surgical History History of appendectomy History of tonsillectomy Family History Grandfather Heart disease Mother Diabetes Cancer Grandmother Diabetes Other Bipolar 1 disorder, mixed Depression Insomnia Psychiatric illness Social History Smoking and tobacco status: current every day smoker cigarettes Packs smoked per day: 0.5 Years cigarettes smoked: 9 Quit status (tobacco): not considering quitting Second hand smoke exposure: Yes Smoking risk assessment/counseling performed?: Yes Tobacco counseling given: counseling >3 minutes Alcohol intake: never History of recent travel: No Female Reproductive History: Date of last menstrual period: 09/15/20 Physical Exam Const: GENERAL APPEARANCE: cooperative and comfortable ORIENTATION/CONSCIOUSNESS: Yes awake, Yes oriented to person, Yes oriented to pl joan and Yes oriented to time HENMT: COMMON NORMALS: normocephalic and atraumatic HEAD & SCALP: normocephalic and atraumatic Neck/C-Spine: COMMON NORMALS: no JVD Resp: COMMON NORMALS: normal respiratory effort, No retractions, No use of accessory muscles and clear to auscultation bilaterally AUSCULTATION: clear to auscultation bilaterally Cardio: COMMON NORMALS: no JVD, regular rate, regular rhythm and No murmurs present (Cardio) RATE: regular rate RHYTHM: regular rhythm GI: COMMON NORMALS: No hepatosplenomegaly present AUSCULTATION: Yes normoactive bowel sounds PALPATION: Yes Tenderness to palpation present (GI) Details: RLQ, No Guarding due to palpation present (GI) and Yes No hepatosplenomegaly present Extremity: COMMON NORMALS: normal to inspection, capillary refill normal, no clubbing, cyanosis or edema, no calf tenderness and no pedal edema Neuro: SENSORIUM/ORIENTATION: Yes oriented to person, Yes oriented to place and Yes oriented to time Skin: COMMON NORMALS: no rashes or lesions noted GENERAL SKIN EXAM: no rashes or lesions noted Course Vital Signs: Vital signs: Vital Signs Temperature 97.4 F L 10/05/21 11:27 Pulse Rate 73 10/05/21 16:00 Respiratory Rate 16 10/05/21 16:00 Blood Pressure 107/73 10/05/21 16:00 Pulse Oximetry 99 10/05/21 16:00 MDM - Abdominal Pain MDM Narrative Medical decision making narrative: CT labs and imaging reviewed. Patient is feeling much better southerly any pain in the left upper quadrant I do not think the CT findings with the mild elevation of her pancreas enzymes are acute given her history of substance abuse. She not really having much for symptoms in that regard now most of her pain is in the pelvic area suspect is from ruptured ovarian cyst she is feeling much better states she has a tender stomach burning and increased her Protonix to 40 twice daily she can use Tylenol as needed she declines any stronger pain medications additionally she is cut quite a bit of gingivitis. We will put her on clindamycin 300 4 times daily for 7 days to encourage her to follow-up with a dentist. Medical Records Attestation: I reviewed the patient's medical records. Lab Data Attestation: I reviewed the patient's lab results. Result diagrams: 10/05/21 12:30 10/05/21 12:30 Labs: Radiology Impressions Abdomen/Pelvis CT 10/05/21 14:04 IMPRESSION: 1. Complex cyst RIGHT adnexa with adjacent small amount of free fluid. This is probably a physiologic hemorrhagic cyst. Please correlate with negative beta hCG evaluation. 2. Equivocal edema and enlargement of the pancreas as compared to the study from 07/19/2021. Correlate for possible early changes of pancreatitis. 3. No bile duct dilatation. No renal obstruction or mass. 4. Mild diffuse constipation. 5. Prior appendectomy. Laboratory Results WBC 13.4 10^3/uL (4.0-10.0) H 10/05/21 12:30 RBC 4.23 10^6/uL (4.1-5.3) 10/05/21 12:30 Hgb 13.3 g/dL (11.5-15.3) 10/05/21 12:30 Hct 40.3 % (37.0-47.0) 10/05/21 12:30 MCV 95.3 fl (81-99) 10/05/21 12:30 MCH 31.4 pg (28.0-34.0) 10/05/21 12:30 MCHC 33.0 g/dL (30.0-36.0) 10/05/21 12:30 RDW 12.7 % (12.1-15.1) 10/05/21 12:30 Plt Count 217 10^3/cmm (130-400) 10/05/21 12:30 MPV 10.4 fL (7.4-10.4) 10/05/21 12:30 Neut % (Auto) 69.5 % 10/05/21 12:30 Lymph % (Auto) 18.3 % 10/05/21 12:30 [place] % (Auto) 8.1 % 10/05/21 12:30 Eos % (Auto) 2.5 % 10/05/21 12: Baso % (Auto) 0.9 % 10/05/21 12: Neut # (Auto) 9.33 10^3/uL (1.8-7.7) H 10/05/21 12:30 Lymph # (Auto) 2.5 10^3/uL (0.8-4.8) 10/05/21 12:30 [place] # (Auto) 1.1 10^3/uL (0.2-0.9) H 10/05/21 12:30 Eos # (Auto) 0.3 10^3/uL (0.0-0.8) 10/05/21 12:30 Baso # (Auto) 0.1 10^3/uL (0.0-0.1) 10/05/21 12: Nucleated RBC % (auto) 0 % 10/05/21 12: Nucleated RBCs # 0.0 /100WBC 10/05/21 12:30 Sodium 134 mmol/L (136-145) L 10/05/21 12:30 Potassium 4.1 mmol/L (3.5-5.1) 10/05/21 12:30 Chloride 99 mmol/L (98-107) 10/05/21 12:30 Carbon Dioxide 24 mmol/L (22-29) 10/05/21 12:30 Anion Gap 15.1 (5-19) 10/05/21 12:30 BUN 10 mg/dL (6-20) 10/05/21 12:30 Creatinine 0.7 mg/dL (0.5-0.9) 10/05/21 12:30 GFR Calculation 94.7 mL/min (90-130) 10/05/21 12:30 Glucose 91 mg/dL (65-115) 10/05/21 12:30 Calculated Osmolality 277 mOsm/kg (285-295) L 10/05/21 12:30 Calcium 8.6 mg/dL (8.5-10.5) 10/05/21 12:30 Total Bilirubin 0.3 mg/dL (0.15-1.2) 10/05/21 12:30 AST 31 U/L (0-32) 10/05/21 12:30 ALT 38 U/L (0-33) H 10/05/21 12:30 Alkaline Phosphatase 80 IU/L (35-105) 10/05/21 12:30 Total Protein 6.1 g/dL (6.6-8.7) L 10/05/21 12:30 Albumin 4.0 g/dL (3.5-5.2) 10/05/21 12:30 Globulin 2.1 g/dL (1.3-4.6) 10/05/21 12:30 Lipase 81 U/L (13-60) H 10/05/21 12:30 HCG, Qual Negative (Negative) 10/05/21 12:30 Urine Color Yellow (Yellow) 10/05/21 13:25 Urine Appearance Clear (CLEAR) 10/05/21 13:25 Urine pH 7 (5-7) 10/05/21 13:25 Ur Specific [place] 1.005 (1.005-1.030) 10/05/21 13:25 Urine Protein Neg (Negative) 10/05/21 13:25 Urine Glucose (UA) Norm (Normal) 10/05/21 13:25 Urine Ketones Negative (Negative) 10/05/21 13:25 Urine Blood Neg (Negative) 10/05/21 13:25 Urine Nitrate Negative (Negative) 10/05/21 13:25 Urine Bilirubin Neg (Negative) 10/05/21 13:25 Urine Urobilinogen Neg mg/dL (Negative) 10/05/21 13:25 Ur Leukocyte Esterase Negative (Negative) 10/05/21 13:25 Discharge Plan Discharge Patient Disposition: Home Clinical Impression: Ovarian cyst, Acute gingivitis Condition: Stable Prescriptions: New Protonix 40 mg tablet,delayed release (DR/EC) 40 mg PO BID 14 Days Qty: 28 0RF Zofran 4 mg tablet 4 mg PO Q6H PRN (Reason: nausea and vomiting) Qty: 20 0RF clindamycin HCl 300 mg capsule 300 mg PO Q6H 7 Days Qty: 28 0RF No Action pantoprazole 20 mg tablet,delayed release (DR/EC) 20 mg PO DAILY Qty: 30 5RF gabapentin 800 mg tablet 800 mg PO TID 30 Days Qty: 90 5RF albuterol sulfate [ProAir HFA] 90 mcg/actuation HFA aerosol inhaler 1 puff INHALATION QID PRN (Reason: shortness of breath or wheezing) 30 Days Qty: 18 5RF doxepin 75 mg capsule 75 mg PO .hs Qty: 30 1RF prednisone 20 mg tablet 40 mg PO DAILY 5 Days Qty: 10 0RF tizanidine 2 mg capsule 2 mg PO BID PRN (Reason: muscle spasticity) 5 Days Qty: 7 0RF diclofenac sodium 75 mg tablet,delayed release (DR/EC) 75 mg PO BID PRN (Reason: pain) Qty: 30 1RF Rx Instructions: take with food Reglan 10 mg tablet 10 mg PO Q6H PRN (Reason: nausea and vomiting) Qty: 15 0RF Discharge Orders: Discharge ED (Routine); Ordered 10/05/21 Ordered By: Conner Soria Referrals: Bret Cheung MD [Primary Care Provider] - Discharge Diet: Clear Liquid Discharge Activity: Limit activity as instructed Patient Instructions: Opioid Safety Coding Level of Care Code ED 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
[2021-10-05 12:39] LABS: Basophils # 0.1 10^3/uL (0.0-0.1); Basophils % 0.9 %; Eosinophils # 0.3 10^3/uL (0.0-0.8); Eosinophils % 2.5 %; Hematocrit 40.3 % (37.0-47.0); Hemoglobin 13.3 g/dL (11.5-15.3); Lymphocytes # 2.5 10^3/uL (0.8-4.8); Lymphocytes % 18.3 %; Mean Corpuscular Hemoglobin 31.4 pg (28.0-34.0); Mean Corpuscular Volume 95.3 fl (81-99); Mean Platelet Volume 10.4 fL (7.4-10.4); Monocytes # 1.1 10^3/uL (0.2-0.9); Monocytes % 8.1 %; Neutrophils # 9.33 10^3/uL (1.8-7.7); Neutrophils % 69.5 %; Nucleated Red Blood Cells % 0 %; Platelet Count 217 10^3/cmm (130-400); Red Blood Count 4.23 10^6/uL (4.1-5.3); Red Cell Distribution Width 12.7 % (12.1-15.1); White Blood Count 13.4 10^3/uL (4.0-10.0)
[2021-10-05 13:07] LABS: Alanine Aminotransferase 38 U/L (0-33); Alkaline Phosphatase 80 IU/L (35-105); Anion Gap 15.1 (5-19); Aspartate Amino Transferase 31 U/L (0-32); Blood Urea Nitrogen 10 mg/dL (6-20); Calcium 8.6 mg/dL (8.5-10.5); Carbon Dioxide 24 mmol/L (22-29); Chloride 99 mmol/L (98-107); Globulin 2.1 g/dL (1.3-4.6); Glomerular Filtration Rate 94.7 mL/min (90-130); Glucose 91 mg/dL (65-115); Lipase 81 U/L (13-60); Osmolality Calculated 277 mOsm/kg (285-295); Potassium 4.1 mmol/L (3.5-5.1); Sodium 134 mmol/L (136-145); Total Bilirubin 0.3 mg/dL (0.15-1.2); Total Protein 6.1 g/dL (6.6-8.7)
[2021-10-05 13:28] LABS: HCG, Serum Qual Negative (Negative)
[2021-10-05 13:43] LABS: Add Urine Microscopic? NO; Charge for UA Resulting for Rev
--- NOTE | 2021-10-05 14:04 | CT_ITS ---
WS: [id number] CT ABDOMEN AND PELVIS WITH CONTRAST HISTORY: Upper abdominal pain with nausea and vomiting. Prior appendectomy. TECHNIQUE: Imaging performed of the abdomen and pelvis with IV contrast. Single phase imaging of the abdomen. Coronal and sagittal reformats are submitted. All CT scans at [facility] use at [address] one of these dose optimization techniques: automated exposure control; mA and/or kV adjustment per patient size (includes targeted exams where dose is matched to clinical indication); or iterative re construction. IV CONTRAST: Omnipaque 300; 95 mL IV. Oral contrast: No DLP: 1070.99 mGy.cm COMPARISON: 07/19/2021 Lower thorax: Lung bases are clear. Heart is normal size. No hiatal hernia. Liver/biliary system: Normal size with no intrahepatic dilatation. Gallbladder: Normal. No gallstones or wall thickening. No pericholecystic fluid. Pancreas: As compared to the prior examination the pancreas is mildly enlarged and edematous. Pancrea s is measuring slightly greater in size than on the prior examination. Common bile duct is normal tone iber. Spleen: Normal size spleen. No mass or infarct. Adrenal glands: Normal. Right kidney: Normal. Left kidney: Normal. Aorta: Normal. Lymphadenopathy: None. Free fluid: Small amount of free fluid in the RIGHT adnexa. GI tract: Prior appendectomy. No GI tract obstruction. Mildly distended small bowel loops with fluid. No evidence for enteritis or colitis. Moderate constipation in the distal colon. Abdominal wall: Unremarkable abdominal wall. No hernia. Pelvis: Uterus is anteverted. There is a small amount of fluid along the endometrial canal. There is mildly complex cyst in the RIGHT adnexa measuring 2.5 x 3.7 cm. There is a small septation through th is cyst. There is also small amount of adjacent free fluid. The LEFT ovary is normal size. Bones: Normal. CT/CT abdomen pelvis w con* [id number] IMPRESSION: 1. Complex cyst RIGHT adnexa with adjacent small amount of free fluid. This is probably a physiologic hemorrhagic cyst. Please correlate with negative beta h CG evaluation. 2. Equivocal edema and enlargement of the pancreas as compared to the study fr om 07/19/2021. Correlate for possible early changes of pancreatitis. 3. No bile duct dilatation. No renal obstruction or mass. 4. Mild diffuse constipation. 5. Prior appendectomy.
[2021-10-05 14:07] VITALS: BP 123/76; PULSE 71; RESP 16; O2SAT 99
[2021-10-05 14:26] LABS: Bilirubin Urine Neg (Negative); Blood Urine Neg (Negative); Glucose Urine UA Norm (Normal); Ketones Urine Negative (Negative); Leukocyte Esterase Urine Negative (Negative); Nitrate Urine Negative (Negative); Protein Urine Neg (Negative); Specific Gravity, Urine 1.005 (1.005-1.030); Urine Appearance Clear (CLEAR); Urine Color Yellow (Yellow); Urobilinogen Urine Neg (Negative); pH Urine 7 (5-7)
[2021-10-05] MEDS: iohexol 300 mg/mL 100 mL Btl IV (15:51)
[2021-10-05 16:00] VITALS: BP 107/73; PULSE 73; RESP 16; O2SAT 99
== END 2021-10-05 17:08 | disposition home or self-care (01) ==
PROVIDERS: Physician Assistant; Emergency Provider Family Medicine; PCP Family Medicine Adult Medicine
DX: N83.291 Other ovarian cyst, right side (principal); K05.00 Acute gingivitis, plaque induced; Z86.19 Personal history of other infectious and parasitic diseases; J44.9 Chronic obstructive pulmonary disease, unspecified; F17.210 Nicotine dependence, cigarettes, uncomplicated
CPT/HCPCS: 74177; 80053; 81003; 83690; 84703; 85025; 99283; Q9967

== ENCOUNTER 2021-10-06 19:32 | Emergency (ER) | payer MEDICAID, SELFPAY ==
[2021-10-06 19:36] VITALS: BP 110/56; PULSE 76; RESP 18; TEMP 36.8; O2SAT 100; BMI 24.4
--- NOTE | 2021-10-06 19:37 | ED_ITS ---
HPI - Seizure General: Chief Complaint: Seizure Stated Complaint: seizures Time Seen by Provider: 10/06/21 19:34 Source: patient Mode of arrival: ambulatory Limitations: no limitations History of Present Illness: HPI Narrative: 36-year-old female who is currently at [facility] for meth rehab. She states she has a seizure history has been out of her Keppra for 2 months states that she had an or there and had a seizure. She was laying down when she had the seizure. She denies hitting her head she is awake alert back to baseline states she feels at her baseline. She was seen here yesterday had blood drawn which was all normal. She seen here yesterday for abdominal pain and had ovarian cyst states the pain is better. Seizure History: Yes Associated symptoms: Deny chest pain, chills or fever(s) Review of Systems Const: Denies: fever(s), chills, body aches or change in appetite Eyes: Denies: blurry vision or eye discomfort ENMT: Denies: throat pain or dental pain Card: Denies: chest pain Resp: Denies: dyspnea GI: Denies: abdominal pain, nausea, vomiting or diarrhea : Denies: dysuria Musc: Denies: neck pain or back pain Skin/Breast: Denies: rash Neuro: Reports: seizure-like activity Psych: Denies: depression Adi/Lymph: Denies: easy bruising All/Imm: Denies: urticaria PFSH ED PFSH: Medical History Anxiety and depression Asthma Bipolar 1 disorder with moderate cesar Cellulitis of left eyelid Chronic back pain greater than 3 months duration Chronic hepatitis C COPD (chronic obstructive pulmonary disease) Gastric ulcer GERD (gastroesophageal reflux disease) History of removal of cervix but not uterus 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 Insomnia Loose bowel movement Nightmares associated with chronic post-traumatic stress disorder PTSD (post-traumatic stress disorder) PUD (peptic ulcer disease) Social anxiety disorder Tonsillar and adenoid hypertrophy Surgical History History of appendectomy History of tonsillectomy Family History Grandfather Heart disease Mother Diabetes Cancer Grandmother Diabetes Other Bipolar 1 disorder, mixed Depression Insomnia Psychiatric illness Social History Smoking and tobacco status: current every day smoker cigarettes Packs smoked per day: 0.5 Years cigarettes smoked: 9 Quit status (tobacco): not considering quitting Second hand smoke exposure: Yes Smoking risk assessment/counseling performed?: Yes Tobacco counseling given: counseling >3 minutes Alcohol intake: never History of recent travel: No Female Reproductive History: Date of last menstrual period: 09/15/20 Physical Exam Const: COMMON NORMALS: no acute distress, patient oriented x3 and healthy appearing HENMT: COMMON NORMALS: normocephalic and atraumatic HEAD & SCALP: normocephalic and atraumatic Eye: COMMON NORMALS: Equal, round and reactive pupils present and EOMs intact bilaterally PUPIL: Yes Equal, round and reactive pupils present Neck/C-Spine: COMMON NORMALS: full ROM and supple Chest: COMMONS NORMALS: normal inspection of the chest and normal palpation of entire chest wall Resp: COMMON NORMALS: normal respiratory effort, No retractions, No use of accessory muscles and clear to auscultation bilaterally AUSCULTATION: clear to auscultation bilaterally Cardio: COMMON NORMALS: regular rate, regular rhythm and No murmurs present (Cardio) RATE: regular rate RHYTHM: regular rhythm GI: COMMON NORMALS: Normal to inspection, nondistended, normoactive bowel sounds present, Soft to palpation, non-tender and no masses PALPATION: Yes Soft to palpation Extremity: COMMON NORMALS: normal to inspection and full ROM Neuro: COMMON NORMALS: patient oriented x3, moves all extremities and no focal motor deficits Psych: COMMON NORMALS: mental status grossly normal, Normal thought process present and cooperative THOUGHT PROCESS: Normal thought process present Skin: COMMON NORMALS: no rashes or lesions noted and no wounds GENERAL SKIN EXAM: no rashes or lesions noted Course Vital Signs: Vital signs: Vital Signs Temperature 98.2 F 10/06/21 19:36 Pulse Rate 74 10/06/21 19:52 Respiratory Rate 18 10/06/21 19:36 Blood Pressure 110/56 10/06/21 19:52 Pulse Oximetry 100 10/06/21 19:52 MDM - Seizure MDM Narrative Medical decision making narrative: Patient presents here with seizure he does have a history of seizure disorders not been taking her meds she had blood drawn yesterday was normal she is well-appearing here back to baseline did give her 1 g of Keppra will refill her Keppra she is stable for discharge back to [facility] return if worsening. Discharge Plan Discharge Patient Disposition: Home Clinical Impression: Generalized seizure Condition: Stable Prescriptions: New Keppra 500 mg tablet 500 mg PO Q12H Qty: 60 1RF No Action pantoprazole 20 mg tablet,delayed release (DR/EC) 20 mg PO DAILY Qty: 30 5RF gabapentin 800 mg tablet 800 mg PO TID 30 Days Qty: 90 5RF albuterol sulfate [ProAir HFA] 90 mcg/actuation HFA aerosol inhaler 1 puff INHALATION QID PRN (Reason: shortness of breath or wheezing) 30 Days Qty: 18 5RF doxepin 75 mg capsule 75 mg PO .hs Qty: 30 1RF prednisone 20 mg tablet 40 mg PO DAILY 5 Days Qty: 10 0RF tizanidine 2 mg capsule 2 mg PO BID PRN (Reason: muscle spasticity) 5 Days Qty: 7 0RF diclofenac sodium 75 mg tablet,delayed release (DR/EC) 75 mg PO BID PRN (Reason: pain) Qty: 30 1RF Rx Instructions: take with food Reglan 10 mg tablet 10 mg PO Q6H PRN (Reason: nausea and vomiting) Qty: 15 0RF Protonix 40 mg tablet,delayed release (DR/EC) 40 mg PO BID 14 Days Qty: 28 0RF Zofran 4 mg tablet 4 mg PO Q6H PRN (Reason: nausea and vomiting) Qty: 20 0RF clindamycin HCl 300 mg capsule 300 mg PO Q6H 7 Days Qty: 28 0RF Discharge Orders: Discharge ED (Routine); Ordered 10/06/21 Ordered By: Aleja Hatch Referrals: Bret Cheung MD [Primary Care Provider] - 1-3 days Discharge Diet: Usual diet Discharge Activity: Resume usual activity Patient Instructions: Recurrent Seizures in Adults (ED) Coding Level of Care Code ED Printing Press Machinist for Kemar Fwnhi Exam Comprehensive
[2021-10-06] MEDS: levETIRAcetam 500 mg Tablet 1000 MG PO (19:43)
--- NOTE | 2021-10-06 19:49 | PC.NURSE ---
Pt requesting no IV sticks if possible due to nature of her addiction recovery.
[2021-10-06 19:52] VITALS: BP 110/56; PULSE 74; O2SAT 100
[2021-10-06 20:12] VITALS: BP 124/69; PULSE 91; RESP 18; O2SAT 97
--- NOTE | 2021-10-12 11:38 | DCPLANNER ---
environmental health and safety manager had message to speak with patient about getting a primary care physician. environmental health and safety manager spoke with patient, she stated that she has followed up with her primary care physician.
== END 2021-10-06 20:13 | disposition home or self-care (01) ==
PROVIDERS: Emergency Provider Emergency Medicine; PCP Family Medicine Adult Medicine
DX: G40.409 Other generalized epilepsy and epileptic syndromes, not intractable, without status epilepticus (principal); Z86.19 Personal history of other infectious and parasitic diseases; J44.9 Chronic obstructive pulmonary disease, unspecified; F17.210 Nicotine dependence, cigarettes, uncomplicated
CPT/HCPCS: 99283

== ENCOUNTER 2021-10-09 14:21 | Emergency (ER) | payer MEDICAID, SELFPAY ==
[2021-10-09 14:41] VITALS: BP 90/58; PULSE 96; RESP 16; TEMP 36.8; O2SAT 100
--- NOTE | 2021-10-09 15:13 | ECG_ITS ---
[facility] Test Date: 2021-10-09 Pat Name: Ki Case Department: Room: Gender: Female Baby Sitter: : 1985 Requested By: Kaelyn Tomas Order Number: [id number] Reading MD: BANDAR MCNALLY Measurements Intervals [place] Rate: 93 P: 69 DE: 153 QRS: 69 QRSD: 92 T: 46 QT: 329 QTc: 409 Interpretive Statements SINUS RHYTHM No previous ECG available for comparison Electronically Signed On 10-10-2021 19:20:15 ASPHALT WORKER by BANDAR MCNALLY [email or web address]
[2021-10-09 16:31] LABS: Basophils # 0.1 10^3/uL (0.0-0.1); Basophils % 0.7 %; Eosinophils # 0.1 10^3/uL (0.0-0.8); Eosinophils % 1.7 %; Hematocrit 47.6 % (37.0-47.0); Hemoglobin 15.3 g/dL (11.5-15.3); Lymphocytes # 0.6 10^3/uL (0.8-4.8); Mean Corpuscular HGB Conc 32.1 g/dL (30.0-36.0); Mean Corpuscular Hemoglobin 31.5 pg (28.0-34.0); Mean Corpuscular Volume 97.9 fl (81-99); Mean Platelet Volume 11.2 fL (7.4-10.4); Monocytes # 0.6 10^3/uL (0.2-0.9); Monocytes % 7.6 %; Nucleated Red Blood Cells % 0 %; Platelet Count 182 10^3/cmm (130-400); Red Blood Count 4.86 10^6/uL (4.1-5.3); Red Cell Distribution Width 12.7 % (12.1-15.1); White Blood Count 8.2 10^3/uL (4.0-10.0)
[2021-10-09 16:48] LABS: HCG, Serum Qual Negative (Negative)
[2021-10-09 16:53] LABS: Blood Urea Nitrogen 6 mg/dL (6-20); Calcium 9.9 mg/dL (8.5-10.5); Carbon Dioxide 21 mmol/L (22-29); Chloride 97 mmol/L (98-107); Glomerular Filtration Rate 113.1 mL/min (90-130); Glucose 90 mg/dL (65-115); Magnesium 2.2 mg/dL (1.7-2.3); Osmolality Calculated 273 mOsm/kg (285-295); Sodium 133 mmol/L (136-145)
[2021-10-09 17:03] LABS: Anion Gap 19.3 (5-19); Potassium 4.3 mmol/L (3.5-5.1)
--- NOTE | 2021-10-09 17:10 | CTR_ITS ---
PROCEDURE INFORMATION: Exam: CT Head Without Contrast Exam date and time: 10/09/2021 5:10 PM Age: 36 years old Clinical indication: Injury or trauma; Fall; Blunt trauma (contusions or hematomas); Injury details: Mult. Seizures TECHNIQUE: Imaging protocol: Computed tomography of the head without contrast. Radiation optimization: All CT scans at this facility use at least one of these dose optimization techniques: automated exposure control; mA and/or kV adjustment per patient size (includes targeted exams where dose is matched to clinical indication); or iterative reconstruction. COMPARISON: CT head wo con* [id number] 10/02/2020 4:02 PM RADIATION DOSE METRICS: Total DLP (mGy-cm): 798.78 FINDINGS: Brain: Normal. No hemorrhage. Unremarkable white matter. No mass effect. Cerebral ventricles: No ventriculomegaly. Paranasal sinuses: Visualized sinuses are unremarkable. No fluid levels. Mastoid air cells: Visualized mastoid air cells are well aerated. Bones/joints: Unremarkable. No acute fracture. Soft tissues: Unremarkable. CT/CT head wo con* [id number] IMPRESSION: No acute intracranial abnormality.
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
[2021-10-09 17:44] VITALS: PULSE 82; RESP 18; O2SAT 95
[2021-10-09] MEDS: ketorolac 30 mg/mL INJ IVP (17:57)
[2021-10-09] MEDS: acetaminophen 500 mg Tablet PO (17:57)
[2021-10-09 18:09] LABS: Amphetamines Screen Urine Negative (Negative); Barbiturates Screen Urine Negative (Negative); Benzodiazepines Screen Urine Negative (Negative); Cocaine Screen Urine Negative (Negative); Opiate Screen Urine Negative (Negative); PCP Screen Urine Negative (Negative); THC Screen Urine Positive (Negative)
[2021-10-09 18:26] VITALS: BP 100/60; PULSE 72; RESP 18; O2SAT 100
== END 2021-10-09 18:28 | disposition home or self-care (01) ==
PROVIDERS: Emergency Provider Emergency Medicine; PCP Family Medicine Adult Medicine
DX: R56.9 Unspecified convulsions (principal); Z86.19 Personal history of other infectious and parasitic diseases; J44.9 Chronic obstructive pulmonary disease, unspecified; F17.210 Nicotine dependence, cigarettes, uncomplicated
CPT/HCPCS: 36415; 70450; 80048; 80306; 83735; 84703; 85025; 93005; 96374; 96375; 99284; J1885; J1953

== ENCOUNTER 2021-10-22 19:39 | Emergency (ER) | payer MEDICAID, SELFPAY ==
[2021-10-22 20:02] VITALS: BP 98/66; PULSE 82; RESP 18; O2SAT 99; BMI 26.6
--- NOTE | 2021-10-22 20:04 | ED_ITS ---
HPI - Seizure General: Chief Complaint: Seizure Stated Complaint: seizures Time Seen by Provider: 10/22/21 20:04 History of Present Illness: HPI Narrative: Ms. Mireles is a 36-year-old lady with significant past medical history of anxiety and psychiatric disorder and reported history of seizure disorder presents emergency department for seizure. She had a seizure today which is atypical compared to her normal seizures. She reports being more anxious and may be having some discomfort in the legs followed by a period of missing memory and waking up the ground approximately [address] that she recalls. This was witnessed. She did not have tongue biting or urinary incontinence though she reports that she never has with prior seizures. She subsequently had 2 additional episodes witnessed by EMS with generalized shaking. She was given 2 mg of Ativan and 4 mg of Zofran. Patient currently reports a headache however that is common after seizures. Denies other significant changes to health. She has not yet seen a neurologist for her seizures. No other specific exacerbating or relieving factors identified. Onset (ago): minute(s) Description of Episode: tonic-clonic movement Duration of episode: 1 Witnessed: Yes - by EMS Seizure History: Yes Possible Precipitating Event: stress Review of Systems General: Reports: 10 or more systems reviewed and unremarkable except in HPI and below PFSH ED PFSH: Medical History Anxiety and depression Asthma Bipolar 1 disorder with moderate cesar Cellulitis of left eyelid Chronic back pain greater than 3 months duration Chronic hepatitis C COPD (chronic obstructive pulmonary disease) Dental caries Gastric ulcer GERD (gastroesophageal reflux disease) History of removal of cervix but not uterus 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 Insomnia Loose bowel movement Nightmares associated with chronic post-traumatic stress disorder PTSD (post-traumatic stress disorder) PUD (peptic ulcer disease) Social anxiety disorder Tonsillar and adenoid hypertrophy Surgical History History of appendectomy History of tonsillectomy Family History Grandfather Heart disease Mother Diabetes Cancer Grandmother Diabetes Other Bipolar 1 disorder, mixed Depression Insomnia Psychiatric illness Social History Smoking and tobacco status: never smoked Quit status (tobacco): not considering quitting Second hand smoke exposure: Yes Smoking risk assessment/counseling performed?: Yes Tobacco counseling given: counseling >3 minutes Alcohol intake: never History of recent travel: No Female Reproductive History: Date of last menstrual period: 09/15/20 Physical Exam Const: COMMON NORMALS: patient oriented x3 and alert GENERAL APPEARANCE: cooperative and well developed HENMT: COMMON NORMALS: normocephalic and atraumatic HEAD & SCALP: normoce phalic and atraumatic THROAT: posterior oropharynx normal Eye: COMMON NORMALS: conjunctivae normal CONJUNCTIVA: Yes conjunctivae normal SCLERA: sclerae normal Neck/C-Spine: COMMON NORMALS: supple GENERAL: Yes trachea midline Resp: COMMON NORMALS: normal respiratory effort EFFORT & INSPECTION: Yes able to speak in complete sentences Cardio: COMMON NORMALS: regular rate and regular rhythm RATE: regular rate RHYTHM: regular rhythm GI: COMMON NORMALS: Soft to palpation PALPATION: Yes Soft to palpation and No Tenderness to palpation present (GI) PERCUSSION: normal to percussion Extremity: GENERAL: Yes normal exam except as noted and No edema Neuro: COMMON NORMALS: patient oriented x3, CN's II-XII intact bilaterally, moves all extremities, no focal motor deficits and no sensory deficits noted SENSORIUM/ORIENTATION: Yes alert and No Orientation impaired Psych: COMMON NORMALS: mental status grossly normal and Normal thought process present THOUGHT PROCESS: Normal thought process present Course ED course: - Patient was seen and evaluated by me at bedside - Patient placed on cardiac monitors, IV access obtained - Initial evaluation notable for exam as above, patient not postictal, no evidence of urinary incontinence or tongue biting - Labs notable for no acute metabolic or hematologic abnormality that would provoke seizure. Patient currently on period which likely explains blood in urine. Prolactin is negative. - Based on clinical exam or reported history as well as recent CT imaging, which was reviewed, I do not feel that additional/repeat CT imaging is warranted at this time. - Upon serial reexamination after treatment the patient was improved. She tolerated p.o. intake - Based on patient history, evaluation, labs, and imaging as interpreted the most likely cause of the patient's condition is seizure-like event with questionable PNES versus seizure disorder - The results of ED evaluation were discussed with the patient including prescriptions and/or symptomatic cares (if applicable) including appropriate and responsible use, followup plan, and return precautions. The patient verbalized understanding and felt safe for discharge. Patient has neurology appointment upcoming. - Patient discharged in satisfactory condition. Note: Click bubbles or prepopulated black in note writing are used for assistance with data collection and billing and are inherently more limited than narrative and other text portions of this note. Please use narrative for additional clinical history and defer to narrative/free test for any case of contradictory information. If information appears in only free text or click bubble it should be considered present or absent as reported. Please contact note director underwriter sales for clarifications of clinical information or contradictory information. MDM is a brief summary, contradictory or erroneous seeming information should be clarified and full note should be reviewed. Vital Signs: Vital signs: Vital Signs Temperature 97.8 F 10/22/21 22:28 Pulse Rate 76 10/22/21 22:59 Respiratory Rate 18 10/22/21 20:02 Blood Pressure 113/66 10/22/21 22:59 Pulse Oximetry 99 10/22/21 20:02 MDM - Seizure MDM Narrative Medical decision making narrative: 36-year-old lady with unclear history of seizure-like events who is on epileptic presenting with recurrent seizure that was witnessed by both EMS and bystanders. She reports increased stress which typically provokes her symptoms. Patient has neurologically intact without evidence of trauma on exam. No acute trigger identified on laboratory studies. Satisfactory for planned outpatient follow-up with appointment this week with neurology. Medical Records Attestation: I reviewed the patient's medical records. Lab Data Attestation: I reviewed the patient's lab results. Result diagrams: 10/22/21 19:20 10/22/21 19: Labs: Laboratory Results WBC 7.9 10^3/uL (4.0-10.0) 10/22/21 19: RBC 4.49 10^6/uL (4.1-5.3) 10/22/21 19:20 Hgb 14.0 g/dL (11.5-15.3) 10/22/21 19: Hct 42.0 % (37.0-47.0) 10/22/21 19:20 MCV 93.5 fl (81-99) 10/22/21 19: MCH 31.2 pg (28.0-34.0) 10/22/21 19: MCHC 33.3 g/dL (30.0-36.0) 10/22/21 19:20 RDW 12.7 % (12.1-15.1) 10/22/21 19:20 Plt Count 262 10^3/cmm (130-400) 10/22/21 19:20 MPV 11.8 fL (7.4-10.4) H 10/22/21 19:20 Neut % (Auto) 50.9 % 10/22/21 19:20 Lymph % (Auto) 32.5 % 10/22/21 19:20 [place] % (Auto) 11.8 % 10/22/21 19:20 Eos % (Auto) 3.4 % 10/22/21 19:20 Baso % (Auto) 0.9 % 10/22/21 19:20 Neut # (Auto) 4.00 10^3/uL (1.8-7.7) 10/22/21 19:20 Lymph # (Auto) 2.6 10^3/uL (0.8-4.8) 10/22/21 19:20 [place] # (Auto) 0.9 10^3/uL (0.2-0.9) 10/22/21 19:20 Eos # (Auto) 0.3 10^3/uL (0.0-0.8) 10/22/21 19:20 Baso # (Auto) 0.1 10^3/uL (0.0-0.1) 10/22/21 19:20 Nucleated RBC % (auto) 0 % 10/22/21 19: Nucleated RBCs # 0.0 /100WBC 10/22/21 19:20 Sodium 138 mmol/L (136-145) 10/22/21 19:20 Potassium 3.5 mmol/L (3.5-5.1) 10/22/21 19:20 Chloride 104 mmol/L (98-107) 10/22/21 19:20 Carbon Dioxide 24 mmol/L (22-29) 10/22/21 19:20 Anion Gap 13.5 (5-19) 10/22/21 19:20 BUN 10 mg/dL (6-20) 10/22/21 19:20 Creatinine 0.7 mg/dL (0.5-0.9) 10/22/21 19:20 GFR Calculation 94.7 mL/min (90-130) 10/22/21 19:20 Glucose 77 mg/dL (65-115) 10/22/21 19:20 Calculated Osmolality 284 mOsm/kg (285-295) L 10/22/21 19:20 Calcium 9.5 mg/dL (8.5-10.5) 10/22/21 19:20 Total Bilirubin 0.2 mg/dL (0.15-1.2) 10/22/21 19:20 AST 17 U/L (0-32) 10/22/21 19:20 ALT 14 U/L (0-33) 10/22/21 19:20 Alkaline Phosphatase 74 IU/L (35-105) 10/22/21 19:20 Total Protein 7.8 g/dL (6.6-8.7) 10/22/21 19:20 Albumin 4.7 g/dL (3.5-5.2) 10/22/21 19:20 Globulin 3.1 g/dL (1.3-4.6) 10/22/21 19: Prolactin 16.79 ng/mL (4.8-23.3) 10/22/21 19:20 HCG, Qual Negative (Negative) 10/22/21 20:36 Urine Color Yellow (Yellow) 10/22/21 20:36 Urine Appearance Clear (CLEAR) 10/22/21 20:36 Urine pH 7 (5-7) 10/22/21 20:36 Ur Specific [place] 1.005 (1.005-1.030) 10/22/21 20:36 Urine Protein Neg (Negative) 10/22/21 20:36 Urine Glucose (UA) Norm (Normal) 10/22/21 20:36 Urine Ketones Negative (Negative) 10/22/21 20:36 Urine Blood 3+ (Negative) H 10/22/21 20:36 Urine Nitrate Negative (Negative) 10/22/21 20:36 Urine Bilirubin Neg (Negative) 10/22/21 20:36 Urine Urobilinogen Norm mg/dL (Negative) 10/22/21 20:36 Ur Leukocyte Esterase Negative (Negative) 10/22/21 20:36 Urine RBC 5-10 /hpf (0-2) H 10/22/21 20:36 Urine WBC 0-4 /hpf (0-5) H 10/22/21 20:36 Ur Squamous Epith Cells 0-4 /hpf (0-5) H 10/22/21 20:36 Amorphous Sediment Not Reportable 10/22/21 20:36 Urine Bacteria Trace /hpf (NONE) 10/22/21 20:36 Urine Mucus None /hpf 10/22/21 20:36 Discharge Plan Discharge Patient Disposition: Home Clinical Impression: Seizure-like activity, Mild dehydration, Hematuria Condition: Stable Prescriptions: New Ativan 0.5 mg tablet 0.5 mg PO DAILY PRN (Reason: anxiety) Qty: 3 0RF No Action gabapentin 300 mg capsule 300 mg PO TID Qty: 90 3RF levetiracetam [Keppra] 500 mg tablet 500 mg PO BID 0RF albuterol sulfate [ProAir HFA] 90 mcg/actuation HFA aerosol inhaler 1 puff INHALATION QID PRN (Reason: shortness of breath or wheezing) 30 Days Qty: 18 5RF diclofenac sodium 75 mg tablet,delayed release (DR/EC) 75 mg PO BID PRN (Reason: pain) Qty: 30 1RF Rx Instructions: take with food doxepin 75 mg capsule 75 mg PO .hs Qty: 30 1RF pantoprazole 40 mg tablet,delayed release (DR/EC) 40 mg PO DAILY 90 Days Qty: 90 0RF Zofran 4 mg tablet 4 mg PO Q6H PRN (Reason: nausea and vomiting) Qty: 20 0RF Discharge Orders: Discharge ED (Routine); Ordered 10/22/21 Ordered By: Michael Jeffery Referrals: Bret Cheung MD [Primary Care Provider] - Discharge Diet: Usual diet Discharge Activity: Limit activity as instructed Patient Instructions: Dehydration (ED), Hematuria (ED), Recurrent Seizures in Adults (ED) Activity Restrictions/Additional Instructions: Thank you for visiting the emergency department. You were seen and evaluated for seizure-like episode. The exact cause of the symptoms is unclear. Your labs showed mild evidence of dehydration. Additionally you do have blood in your urine though this may be contamination from your menstrual period. I recommend repeat urinalysis when you are no longer on your menstrual period. Please follow-up with neurology as scheduled. Return to the emergency department for recurrent symptoms, any focal neurologic deficits, or anything else that you are concerned about a feel needs emergency department evaluation. Please follow all standard seizure precautions including no driving, do not bathe or swim unsupervised, do not cook over open flames or stand near fire, do not climb tall objects, do not operate heavy machinery, do not perform any other task that would put you or others at risk if you were to have another event. Coding Level of Care Code ED Window Caser for Kemar Weiner
[2021-10-22 20:35] LABS: Basophils # 0.1 10^3/uL (0.0-0.1); Basophils % 0.9 %; Eosinophils # 0.3 10^3/uL (0.0-0.8); Eosinophils % 3.4 %; Lymphocytes # 2.6 10^3/uL (0.8-4.8); Lymphocytes % 32.5 %; Mean Corpuscular HGB Conc 33.3 g/dL (30.0-36.0); Mean Corpuscular Hemoglobin 31.2 pg (28.0-34.0); Mean Corpuscular Volume 93.5 fl (81-99); Mean Platelet Volume 11.8 fL (7.4-10.4); Monocytes # 0.9 10^3/uL (0.2-0.9); Monocytes % 11.8 %; Neutrophils % 50.9 %; Nucleated Red Blood Cells % 0 %; Platelet Count 262 10^3/cmm (130-400); Red Blood Count 4.49 10^6/uL (4.1-5.3); Red Cell Distribution Width 12.7 % (12.1-15.1); White Blood Count 7.9 10^3/uL (4.0-10.0)
[2021-10-22] MEDS: sodium chloride 0.9% 1,000 ML 999 ML IV (20:37)
[2021-10-22 21:29] LABS: Alanine Aminotransferase 14 U/L (0-33); Albumin Level 4.7 g/dL (3.5-5.2); Alkaline Phosphatase 74 IU/L (35-105); Anion Gap 13.5 (5-19); Aspartate Amino Transferase 17 U/L (0-32); Blood Urea Nitrogen 10 mg/dL (6-20); Calcium 9.5 mg/dL (8.5-10.5); Carbon Dioxide 24 mmol/L (22-29); Chloride 104 mmol/L (98-107); Globulin 3.1 g/dL (1.3-4.6); Glomerular Filtration Rate 94.7 mL/min (90-130); Glucose 77 mg/dL (65-115); Osmolality Calculated 284 mOsm/kg (285-295); Potassium 3.5 mmol/L (3.5-5.1); Prolactin 16.79 ng/mL (4.8-23.3); Sodium 138 mmol/L (136-145); Total Bilirubin 0.2 mg/dL (0.15-1.2); Total Protein 7.8 g/dL (6.6-8.7)
[2021-10-22 22:15] LABS: Add Urine Microscopic? YES; Bilirubin Urine Neg (Negative); Blood Urine 3+ (Negative); Glucose Urine UA Norm (Normal); HCG Qualitative Urine. Negative (Negative); Ketones Urine Negative (Negative); Leukocyte Esterase Urine Negative (Negative); Nitrate Urine Negative (Negative); Protein Urine Neg (Negative); Specific Gravity, Urine 1.005 (1.005-1.030); Urine Appearance Clear (CLEAR); Urine Color Yellow (Yellow); Urobilinogen Urine Norm (Negative); pH Urine 7 (5-7)
[2021-10-22 22:25] LABS: Add Urine Culture? No; Bacteria Urine TRACE /hpf; Squamous Epithelial Cell Urine 0-4 /hpf (0-5); WBC Urine 0-4 /hpf (0-5)
[2021-10-22 22:28] VITALS: TEMP 36.6
[2021-10-22 22:59] VITALS: BP 105/68; BP 109/73; BP 113/66; PULSE 76; PULSE 81; PULSE 92
== END 2021-10-22 23:35 | disposition home or self-care (01) ==
PROVIDERS: Emergency Provider Emergency Medicine; PCP Family Medicine Adult Medicine
DX: R56.9 Unspecified convulsions (principal); E86.0 Dehydration; R31.9 Hematuria, unspecified; Z86.19 Personal history of other infectious and parasitic diseases; J44.9 Chronic obstructive pulmonary disease, unspecified; Z77.22 Contact with and (suspected) exposure to environmental tobacco smoke (acute) (chronic)
CPT/HCPCS: 80053; 81001; 81025; 84146; 85025; 96360; 99284; J7030

== ENCOUNTER → 2021-10-27 09:37 | Outpatient (BNVA) | payer MEDICAID, SELFPAY | PROVIDERS: PCP Family Medicine Adult Medicine; Visit Provider Specialist | DX: F44.5 Conversion disorder with seizures or convulsions (principal); F43.10 Post-traumatic stress disorder, unspecified; F31.12 Bipolar disorder, current episode manic without psychotic features, moderate | CPT/HCPCS: 99205 ==

== ENCOUNTER 2021-11-10 19:14 | Inpatient (IN) | payer MEDICAID, SELFPAY ==
[2021-11-10 19:30] VITALS: BP 126/78; PULSE 85; RESP 18; TEMP 36.6; O2SAT 98; BMI 29.5
--- NOTE | 2021-11-10 19:38 | W.ED.PSYCHS ---
Documented by User: Michael Jeffery MD 11/20/21 22:16 HPI - Psych General: Chief Complaint: Psychiatric Symptoms Stated Complaint: Psychiatric Symptoms Time Seen by Provider: 11/10/21 19:38 History of Present Illness: Ms. 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 She just completed rehab for methamphetamine abuse and reports increased social stressors that became overwhelming today. She does have a history of suicide attempts by overdose and had a plan to overdose on her benzodiazepines today. Intensity of symptoms is moderate course has been worsening. Denies medical complaints with exception of bilateral hand pain which she has dealt with before and bronchitis No other specific exacerbating, alleviating, or provoking factors identified. Patient denies recent substance abuse. Patient also reports that she has not been on any psychiatric meds though she has been taking her Keppra, lorazepam (sparingly). Onset (ago): day(s) Duration: getting worse History of same: Yes Exacerbating factors: other Associated psychiatric symptoms: suicidal ideation Review of Systems General: Reports: 10 or more systems reviewed and unremarkable except in HPI and below PFSH ED PFSH: Medical History Anxiety and depression Asthma Bipolar 1 disorder with moderate cesar Cellulitis of left eyelid Chronic back pain greater than 3 months duration Chronic hepatitis C COPD (chronic obstructive pulmonary disease) Dental caries Gastric ulcer GERD (gastroesophageal reflux disease) History of removal of cervix but not uterus 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 Insomnia Loose bowel movement Nightmares associated with chronic post-traumatic stress disorder PTSD (post-traumatic stress disorder) PUD (peptic ulcer disease) Social anxiety disorder Tonsillar and adenoid hypertrophy Surgical History History of appendectomy History of tonsillectomy Family History Grandfather Heart disease Mother Diabetes Cancer Grandmother Diabetes Other Bipolar 1 disorder, mixed Depression Insomnia Psychiatric illness Social History Smoking and tobacco status: never smoked Quit status (tobacco): not considering quitting Second hand smoke exposure: Yes Smoking risk assessment/counseling performed?: Yes Tobacco counseling given: counseling >3 minutes Alcohol intake: never History of recent travel: No Female Reproductive History: Date of last menstrual period: 09/15/20 Physical Exam Const: COMMON NORMALS: alert GENERAL APPEARANCE: cooperative and well developed HENMT: COMMON NORMALS: normocephalic and atraumatic HEAD & SCALP: normocephalic and atraumatic Eye: COMMON NORMALS: conjunctivae normal CONJUNCTIVA: Yes conjunctivae normal SCLERA: sclerae normal Neck/C-Spine: COMMON NORMALS: supple GENERAL: Yes trachea midline Resp: COMMON NORMALS: normal respiratory effort EFFORT & INSPECTION: Yes able to speak in complete sentences AUSCULTATION: diminished lung sounds Cardio: COMMON NORMALS: regular rate and regular rhythm RATE: regular rate RHYTHM: regular rhythm GI: COMMON NORMALS: Soft to palpation PALPATION: Yes Soft to palpation and No Tenderness to palpation present (GI) PERCUSSION: normal to percussion Extremity: GENERAL: Yes normal exam except as noted and No edema Neuro: COMMON NORMALS: moves all extremities SENSORIUM/ORIENTATION: Yes alert and No Orientation impaired Psych: COMMON NORMALS: Normal thought process present MOOD & AFFECT: Yes depressed mood and Yes anxious THOUGHT PROCESS: Normal thought process present THOUGHT CONTENT: Yes Suicidality present Course ED course: - Patient was seen and evaluated by me at bedside - Vital signs obtained - Initial evaluation notable for exam as above - Labs notable for no leukocytosis, normal hemoglobin. No acute electrolyte derangement, glucose is low however patient essentially asymptomatic with this and after eating repeat glucose was improved into the normal range. hCG negative. Drug screen performed and positive for amphetamines and THC. - Based on ED evaluation at this point there is no obvious condition that would preclude the patient from inpatient management of psychiatric concerns. - Unfortunately, at this time there are no beds available at our psychiatric unit. Therefore, after Covid testing, we will search for outside facility with bed availability. Note: Click bubbles or prepopulated black in note writing are used for assistance with data collection and billing and are inherently more limited than narrative and other text portions of this note. Please use narrative for additional clinical history and defer to narrative/free test for any case of contradictory information. If information appears in only free text or click bubble it should be considered present or absent as reported. Please contact note mortgage loan underwriter for clarifications of clinical information or contradictory information. MDM is a brief summary, contradictory or erroneous seeming information should be clarified and full note should be reviewed. Vital Signs: Vital signs: Vital Signs Temperature 97.8 F 11/12/21 16:52 Pulse Rate 62 11/12/21 16:52 Respiratory Rate 16 11/12/21 16:52 Blood Pressure 109/72 11/12/21 16:52 Pulse Oximetry 98 11/12/21 16:52 MDM - Psych Medical Decision Making 36-year-old lady with history of psychiatric disorder, PNES, and substance abuse presenting for suicidal ideation with plan. Medical Records I reviewed the patient's medical records. Lab Data I reviewed the patient's lab results. : 11/10/21 20:15 11/10/21 20:15 Laboratory Results WBC 8.4 10^3/uL (4.0-10.0) 11/10/21 20:15 RBC 4.29 10^6/uL (4.1-5.3) 11/10/21 20:15 Hgb 13.5 g/dL (11.5-15.3) 11/10/21 20:15 Hct 41.4 % (37.0-47.0) 11/10/21 20:15 MCV 96.5 fl (81-99) 11/10/21 20:15 MCH 31.5 pg (28.0-34.0) 11/10/21 20:15 MCHC 32.6 g/dL (30.0-36.0) 11/10/21 20:15 RDW 12.9 % (12.1-15.1) 11/10/21 20:15 Plt Count 235 10^3/cmm (130-400) 11/10/21 20:15 MPV 10.5 fL (7.4-10.4) H 11/10/21 20:15 Neut % (Auto) 39.9 % 11/10/21 20:15 Lymph % (Auto) 41.0 % 11/10/21 20:15 Tate % (Auto) 13.0 % 11/10/21 20:15 Eos % (Auto) 4.8 % 11/10/21 20:15 Baso % (Auto) 0.7 % 11/10/21 20:15 Neut # (Auto) 3.34 10^3/uL (1.8-7.7) 11/10/21 20:15 Lymph # (Auto) 3.4 10^3/uL (0.8-4.8) 11/10/21 20:15 Tate # (Auto) 1.1 10^3/uL (0.2-0.9) H 11/10/21 20:15 Eos # (Auto) 0.4 10^3/uL (0.0-0.8) 11/10/21 20:15 Baso # (Auto) 0.1 10^3/uL (0.0-0.1) 11/10/21 20:15 Nucleated RBC % (auto) 0 % 11/10/21 20:15 Nucleated RBCs # 0.0 /100WBC 11/10/21 20:15 Sodium 137 mmol/L (136-145) 11/10/21 20:15 Potassium 3.6 mmol/L (3.5-5.1) 11/10/21 20:15 Chloride 103 mmol/L (98-107) 11/10/21 20:15 Carbon Dioxide 23 mmol/L (22-29) 11/10/21 20:15 Anion Gap 14.6 (5-19) 11/10/21 20:15 BUN 12 mg/dL (6-20) 11/10/21 20:15 Creatinine 0.7 mg/dL (0.5-0.9) 11/10/21 20:15 GFR Calculation 94.7 mL/min (90-130) 11/10/21 20:15 Glucose 50 mg/dL (65-115) L 11/10/21 20:15 POC Glucose 92 mg/dL (70-110) 11/10/21 21:32 Calculated Osmolality 281 mOsm/kg (285-295) L 11/10/21 20:15 Calcium 9.7 mg/dL (8.5-10.5) 11/10/21 20:15 Total Bilirubin 0.2 mg/dL (0.15-1.2) 11/10/21 20:15 AST 32 U/L (0-32) 11/10/21 20:15 ALT 47 U/L (0-33) H 11/10/21 20:15 Alkaline Phosphatase 85 IU/L (35-105) 11/10/21 20:15 Total Protein 7.5 g/dL (6.6-8.7) 11/10/21 20:15 Albumin 4.5 g/dL (3.5-5.2) 11/10/21 20:15 Globulin 3.0 g/dL (1.3-4.6) 11/10/21 20:15 HCG, Qual Negative (Negative) 11/10/21 20:15 Salicylates < 0.3 mg/dL (3-10) L 11/10/21 20:15 Urine Opiates Screen Negative ng/mL (Negative) 11/10/21 20:15 Acetaminophen < 5.0 ug/mL (10-30) L 11/10/21 20:15 Ur Barbiturates Screen Negative ng/mL (Negative) 11/10/21 20:15 Ur Phencyclidine Scrn Negative ng/mL (Negative) 11/10/21 20:15 Ur Amphetamines Screen Positive ng/mL (Negative) H 11/10/21 20:15 U Benzodiazepines Scrn Negative ng/mL (Negative) 11/10/21 20:15 Urine Cocaine Screen Negative ng/mL (Negative) 11/10/21 20:15 U Marijuana (THC) Screen Positive ng/mL (Negative) H 11/10/21 20:15 Ethyl Alcohol < 10 mg/dL (0-10) 11/10/21 20:15 Coronavirus 229E (PCR) Not detected (NOT DETECT) 11/10/21 21:39 SARS-CoV-2 (PCR) Not detected (NOT DETECT) 11/10/21 21:39 Discharge Plan Discharge Patient Disposition: Admitted As Inpatient Admit Provider: Scooter Lazar Clinical Impression: Suicidal ideation, Anxiety and depression, Substance abuse Condition: Stable Discharge Diet: Regular Discharge Activity: Resume usual activity Coding Level of Care Code ED Hybrid Car Mechanic for Chg Fwd Exam Comprehensive Documented by User: Aleja Hatch MD 11/11/21 00:04 HPI - Psych General: Chief Complaint: Psychiatric Symptoms Stated Complaint: Psychiatric Symptoms Time Seen by Provider: 11/10/21 19:38 PFS ED PFSH: Medical History Anxiety and depression Asthma Bipolar 1 disorder with moderate cesar Cellulitis of left eyelid Chronic back pain greater than 3 months duration Chronic hepatitis C COPD (chronic obstructive pulmonary disease) Dental caries Gastric ulcer GERD (gastroesophageal reflux disease) History of removal of cervix but not uterus 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 Insomnia Loose bowel movement Nightmares associated with chronic post-traumatic stress disorder PTSD (post-traumatic stress disorder) PUD (peptic ulcer disease) Social anxiety disorder Tonsillar and adenoid hypertrophy Surgical History History of appendectomy History of tonsillectomy Family History Grandfather Heart disease Mother Diabetes Cancer Grandmother Diabetes Other Bipolar 1 disorder, mixed Depression Insomnia Psychiatric illness Social History Smoking and tobacco status: never smoked Quit status (tobacco): not considering quitting Second hand smoke exposure: Yes Smoking risk assessment/counseling performed?: Yes Tobacco counseling given: counseling >3 minutes Alcohol intake: never History of recent travel: No Course Vital Signs: Vital signs: Vital Signs Temperature 97.8 F 11/12/21 16:52 Pulse Rate 62 11/12/21 16:52 Respiratory Rate 16 11/12/21 16:52 Blood Pressure 109/72 11/12/21 16:52 Pulse Oximetry 98 11/12/21 16:52 MDM - Psych Medical Decision Making 36-year-old lady with history of psychiatric disorder, PNES, and substance abuse presenting for suicidal ideation with plan. I spoke to Dr. Lazar and will admit to the [facility]PU here. She has been stable while here. Lab Data : 11/10/21 20:15 11/10/21 20:15 Laboratory Results WBC 8.4 10^3/uL (4.0-10.0) 11/10/21 20:15 RBC 4.29 10^6/uL (4.1-5.3) 11/10/21 20:15 Hgb 13.5 g/dL (11.5-15.3) 11/10/21 20:15 Hct 41.4 % (37.0-47.0) 11/10/21 20:15 MCV 96.5 fl (81-99) 11/10/21 20:15 MCH 31.5 pg (28.0-34.0) 11/10/21 20:15 MCHC 32.6 g/dL (30.0-36.0) 11/10/21 20:15 RDW 12.9 % (12.1-15.1) 11/10/21 20:15 Plt Count 235 10^3/cmm (130-400) 11/10/21 20:15 MPV 10.5 fL (7.4-10.4) H 11/10/21 20:15 Neut % (Auto) 39.9 % 11/10/21 20:15 Lymph % (Auto) 41.0 % 11/10/21 20:15 Tate % (Auto) 13.0 % 11/10/21 20:15 Eos % (Auto) 4.8 % 11/10/21 20:15 Baso % (Auto) 0.7 % 11/10/21 20:15 Neut # (Auto) 3.34 10^3/uL (1.8-7.7) 11/10/21 20:15 Lymph # (Auto) 3.4 10^3/uL (0.8-4.8) 11/10/21 20:15 Tate # (Auto) 1.1 10^3/uL (0.2-0.9) H 11/10/21 20:15 Eos # (Auto) 0.4 10^3/uL (0.0-0.8) 11/10/21 20:15 Baso # (Auto) 0.1 10^3/uL (0.0-0.1) 11/10/21 20:15 Nucleated RBC % (auto) 0 % 11/10/21 20:15 Nucleated RBCs # 0.0 /100WBC 11/10/21 20:15 Sodium 137 mmol/L (136-145) 11/10/21 20:15 Potassium 3.6 mmol/L (3.5-5.1) 11/10/21 20:15 Chloride 103 mmol/L (98-107) 11/10/21 20:15 Carbon Dioxide 23 mmol/L (22-29) 11/10/21 20:15 Anion Gap 14.6 (5-19) 11/10/21 20:15 BUN 12 mg/dL (6-20) 11/10/21 20:15 Creatinine 0.7 mg/dL (0.5-0.9) 11/10/21 20:15 GFR Calculation 94.7 mL/min (90-130) 11/10/21 20:15 Glucose 50 mg/dL (65-115) L 11/10/21 20:15 POC Glucose 92 mg/dL (70-110) 11/10/21 21:32 Calculated Osmolality 281 mOsm/kg (285-295) L 11/10/21 20:15 Calcium 9.7 mg/dL (8.5-10.5) 11/10/21 20:15 Total Bilirubin 0.2 mg/dL (0.15-1.2) 11/10/21 20:15 AST 32 U/L (0-32) 11/10/21 20:15 ALT 47 U/L (0-33) H 11/10/21 20:15 Alkaline Phosphatase 85 IU/L (35-105) 11/10/21 20:15 Total Protein 7.5 g/dL (6.6-8.7) 11/10/21 20:15 Albumin 4.5 g/dL (3.5-5.2) 11/10/21 20:15 Globulin 3.0 g/dL (1.3-4.6) 11/10/21 20:15 HCG, Qual Negative (Negative) 11/10/21 20:15 Salicylates < 0.3 mg/dL (3-10) L 11/10/21 20:15 Urine Opiates Screen Negative ng/mL (Negative) 11/10/21 20:15 Acetaminophen < 5.0 ug/mL (10-30) L 11/10/21 20:15 Ur Barbiturates Screen Negative ng/mL (Negative) 11/10/21 20:15 Ur Phencyclidine Scrn Negative ng/mL (Negative) 11/10/21 20:15 Ur Amphetamines Screen Positive ng/mL (Negative) H 11/10/21 20:15 U Benzodiazepines Scrn Negative ng/mL (Negative) 11/10/21 20:15 Urine Cocaine Screen Negative ng/mL (Negative) 11/10/21 20:15 U Marijuana (THC) Screen Positive ng/mL (Negative) H 11/10/21 20:15 Ethyl Alcohol < 10 mg/dL (0-10) 11/10/21 20:15 Coronavirus 229E (PCR) Not detected (NOT DETECT) 11/10/21 21:39 SARS-CoV-2 (PCR) Not detected (NOT DETECT) 11/10/21 21:39 Discharge Plan Discharge Patient Disposition: Admitted As Inpatient Admit Provider: Scooter Lazar Clinical Impression: Suicidal ideation, Anxiety and depression, Substance abuse Condition: Stable Discharge Diet: Regular Discharge Activity: Resume usual activity Coding Level of Care Code ED Hybrid Car Mechanic for Anneg Fwd Exam Comprehensive
[2021-11-10 20:30] LABS: Basophils # 0.1 10^3/uL (0.0-0.1); Basophils % 0.7 %; Eosinophils # 0.4 10^3/uL (0.0-0.8); Eosinophils % 4.8 %; Hematocrit 41.4 % (37.0-47.0); Hemoglobin 13.5 g/dL (11.5-15.3); Lymphocytes # 3.4 10^3/uL (0.8-4.8); Mean Corpuscular HGB Conc 32.6 g/dL (30.0-36.0); Mean Corpuscular Hemoglobin 31.5 pg (28.0-34.0); Mean Corpuscular Volume 96.5 fl (81-99); Mean Platelet Volume 10.5 fL (7.4-10.4); Monocytes # 1.1 10^3/uL (0.2-0.9); Neutrophils # 3.34 10^3/uL (1.8-7.7); Neutrophils % 39.9 %; Nucleated Red Blood Cells % 0 %; Platelet Count 235 10^3/cmm (130-400); Red Blood Count 4.29 10^6/uL (4.1-5.3); Red Cell Distribution Width 12.9 % (12.1-15.1); White Blood Count 8.4 10^3/uL (4.0-10.0)
[2021-11-10 20:36] LABS: HCG Qualitative Urine. Negative (Negative)
[2021-11-10 20:44] LABS: Amphetamines Screen Urine Positive (Negative); Barbiturates Screen Urine Negative (Negative); Benzodiazepines Screen Urine Negative (Negative); Cocaine Screen Urine Negative (Negative); Opiate Screen Urine Negative (Negative); PCP Screen Urine Negative (Negative); THC Screen Urine Positive (Negative)
[2021-11-10 20:59] LABS: Alanine Aminotransferase 47 U/L (0-33); Albumin Level 4.5 g/dL (3.5-5.2); Alkaline Phosphatase 85 IU/L (35-105); Anion Gap 14.6 (5-19); Aspartate Amino Transferase 32 U/L (0-32); Blood Urea Nitrogen 12 mg/dL (6-20); Calcium 9.7 mg/dL (8.5-10.5); Carbon Dioxide 23 mmol/L (22-29); Chloride 103 mmol/L (98-107); Glomerular Filtration Rate 94.7 mL/min (90-130); Glucose 50 mg/dL (65-115); Osmolality Calculated 281 mOsm/kg (285-295); Potassium 3.6 mmol/L (3.5-5.1); Sodium 137 mmol/L (136-145); Total Bilirubin 0.2 mg/dL (0.15-1.2); Total Protein 7.5 g/dL (6.6-8.7)
[2021-11-10 21:00] LABS: Acetaminophen < 5.0 ug/mL (10-30); Alcohol Level < 10 mg/dL (0-10); Salicylate < 0.3 mg/dL (3-10)
[2021-11-10 21:34] LABS: Glucose Point of Care 92 mg/dL (70-110)
[2021-11-10 23:08] VITALS: BP 112/67; PULSE 87; RESP 18; O2SAT 96
[2021-11-10 23:38] LABS: Adenovirus Not Detected (NOT DETECT); Chlamydia Pneumoniae Not Detected (NOT DETECT); Coronavirus 229E,HKU1,NL63,OC4 Not Detected (NOT DETECT); Human Metapneumovirus Not Detected (NOT DETECT); Human Rhinovirus/Enterovirus Not Detected (NOT DETECT); Influenza A Not Detected (NOT DETECT); Influenza A H1 Not Detected (NOT DETECT); Influenza A H1-2009 Not Detected (NOT DETECT); Influenza A H3 Not Detected (NOT DETECT); Influenza B Not Detected (NOT DETECT); Mycoplasma Pneumoniae Not Detected (NOT DETECT); Parainfluenza Virus Type 1 Not Detected (NOT DETECT); Parainfluenza Virus Type 2 Not Detected (NOT DETECT); Parainfluenza Virus Type 3 Not Detected (NOT DETECT); Parainfluenza Virus Type 4 Not Detected (NOT DETECT); Respiratory Syncytial Virus A Not Detected (NOT DETECT); Respiratory Syncytial Virus B Not Detected (NOT DETECT); SARS-COV-2 Not Detected (NOT DETECT)
[2021-11-11 00:43] VITALS: BP 125/74; PULSE 82; RESP 18; O2SAT 98
[2021-11-11 00:49] VITALS: BP 107/71; PULSE 81; RESP 18; TEMP 36.5; O2SAT 99
[2021-11-11 01:33] VITALS: BMI 26.9
[2021-11-11 01:34] VITALS: BMI 26.9
--- NOTE | 2021-11-11 02:02 | PC.ADMIT ---
[address] [facility] Admission Note: The patient,Ki Mireles,36 y/o, was given written information regarding hospital policies, unit procedures and contact persons. Patient's smoking status: never smoked. Vital Signs - 8 hr 11/10/21 19:30 11/10/21 23:08 11/11/21 00:43 Temperature 97.8 F Pulse Rate 85 87 82 Respiratory Rate 18 18 18 Blood Pressure 126/78 112/67 125/74 Pulse Oximetry 98 96 98 11/11/21 00:49 Temperature 97.7 F Pulse Rate 81 Respiratory Rate 18 Blood Pressure 107/71 Pulse Oximetry 99 atient presented to ED with SI. States tee swann got kicked out of girlfriends house and they broke up. She is currently homeless and doesnt want to live. She denies Meth and other substance abuse but endorses marijuana abuse and UDS confirmed positive for marijuana and methamphetamines. Patient also smokes 1/2 pack per day of cigarettes. Patient also states she has court tomorrow in [facility] and is worried she could go to alf since her UDS was positive. She was recently in [facility]. Patient had no skin issues or piercings. Patient denies AVH and endorses SI with no plan, contracts for safety. States she had one covid shot but does not know what kind, declines covid, flu, and pneumonia vaccine.
[2021-11-11 06:00] VITALS: BP 112/72; PULSE 78; RESP 17; TEMP 36.7; O2SAT 97
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
[2021-11-11] MEDS: gabapentin 300 mg Capsule PO ×3 (11:08→20:02)
[2021-11-11] MEDS: BuSPIRONE 10 mg Tablet 5 MG PO (11:08)
[2021-11-11] MEDS: levETIRAcetam 500 mg Tablet PO ×2 (11:09→17:55)
[2021-11-11] MEDS: pantoprazole DR 40 mg Tablet PO (11:09)
[2021-11-11] MEDS: doxycycline 100 mg Tablet PO ×2 (11:09→17:54)
--- NOTE | 2021-11-11 11:13 | PC.NURSE ---
MEDICATIONS- PATIENT'S PHARMACY CALLED FOR CURRENT MED LIST. DR NOTIFIED OF MED LIST AND GAVE NEW ORDERS TO CONTINUE FOLLOWS- KEPPRA 500 MG BID GABAPENTIN 300 MG TID PANTOPRAZOLE 40 MG QD ZYPREXA 10 MG HS DOXEPIN 75 MG HS BUSPAR 5 MG TID DOXYCYCLINE 100 MG BID TO END ON 11/15/21
[2021-11-11 14:00] VITALS: BP 107/68; PULSE 76; RESP 17; TEMP 36.4; O2SAT 98
[2021-11-11] MEDS: doxepin 25 mg Capsule 75 MG PO (20:02)
[2021-11-11] MEDS: OLANZapine 10 mg TABLET PO (20:03)
[2021-11-11] MEDS: acetaminophen 325 mg Tablet 650 MG PO (20:03)
[2021-11-11] MEDS: trazodone 50 mg Tablet PO (20:03)
[2021-11-11 21:50] VITALS: BP 110/87; PULSE 76; RESP 20; TEMP 36.4; O2SAT 99
[2021-11-12 06:00] VITALS: BP 109/72; PULSE 62; RESP 16; TEMP 36.6; O2SAT 98
[2021-11-12] MEDS: doxycycline 100 mg Tablet PO (09:26)
[2021-11-12] MEDS: levETIRAcetam 500 mg Tablet PO (09:27)
[2021-11-12] MEDS: gabapentin 300 mg Capsule PO ×2 (09:27→15:11)
[2021-11-12] MEDS: pantoprazole DR 40 mg Tablet PO (09:27)
[2021-11-12] MEDS: nicotine 2 mg Gum BUCCAL ×2 (11:13→15:11)
[2021-11-12] MEDS: acetaminophen 325 mg Tablet 650 MG PO (12:22)
[2021-11-12] MEDS: OLANZapine 5 mg ODT PO (12:22)
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
[2021-11-12 16:52] VITALS: BP 109/72; PULSE 62; RESP 16; TEMP 36.6; O2SAT 98
== END 2021-11-12 16:58 | disposition home or self-care (01) | DRG 880 ==
LOC: ER 11-11 00:04 → NP 11-11 00:12
PROVIDERS: Emergency Medicine; Admitting Provider Psychiatry & Neurology Psychiatry; Emergency Provider Emergency Medicine; PCP Family Medicine Adult Medicine; Visit Provider Psychiatry & Neurology Psychiatry
DX: F41.0 Panic disorder [episodic paroxysmal anxiety] (principal); R45.851 Suicidal ideations; F41.8 Other specified anxiety disorders; Z91.51 Personal history of suicidal behavior; F31.9 Bipolar disorder, unspecified; B18.2 Chronic viral hepatitis C; J44.9 Chronic obstructive pulmonary disease, unspecified; K21.9 Gastro-esophageal reflux disease without esophagitis; F43.12 Post-traumatic stress disorder, chronic; F40.10 Social phobia, unspecified; F44.5 Conversion disorder with seizures or convulsions
CPT/HCPCS: 36416; 80053; 80306; 80307; 81025; 82962; 85025; 87635; 97150; 97165; 99285

== ENCOUNTER 2022-01-25 19:03 | Emergency (ER) | payer MEDICAID, SELFPAY ==
[2022-01-25 19:18] VITALS: BP 102/67; PULSE 97; RESP 20; TEMP 36.7; O2SAT 98; BMI 25.2
--- NOTE | 2022-01-25 19:23 | ED_ITS ---
HPI - Fall General: Chief Complaint: Fall Stated Complaint: fall/ low back pain, L hip pain Time Seen by Provider: 01/25/22 19:23 History of Present Illness: 36-year-old female comes in today with injury sustained from slipping and falling. Patient reports slipping and falling on the last step of stairs. Patient reports landing against a step with her back. Since then patient has had pain and discomfort in her low back radiating into her left hip and leg. Patient appears nontoxic. Patient appears in mild to moderate pain. Associated symptoms-after fall: Denies chest pain Review of Systems General: Reports: 10 or more systems reviewed and unremarkable except in HPI and below Card: Denies: chest pain Resp: Denies: dyspnea Musc: Reports: back pain Skin/Breast: Denies: rash PFSH ED PFSH: Medical History (Updated 01/25/22 @ 20:27 by ROLDAN Salas) Anxiety and depression Asthma Bipolar 1 disorder with moderate cesar Cellulitis of left eyelid Chronic back pain greater than 3 months duration Chronic hepatitis C COPD (chronic obstructive pulmonary disease) Dental caries Gastric ulcer GERD (gastroesophageal reflux disease) History of removal of cervix but not uterus 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 Insomnia Loose bowel movement Nightmares associated with chronic post-traumatic stress disorder PTSD (post-traumatic stress disorder) PUD (peptic ulcer disease) Social anxiety disorder Tenosynovitis of right forearm Tonsillar and adenoid hypertrophy Surgical History (Updated 01/21/22 @ 08:08 by Terri Otero) History of appendectomy History of tonsillectomy Family History (Updated 01/21/22 @ 08:02 by Terri Otero) Grandfather Heart disease Maternal Mother Diabetes Cervical cancer dx age Grandmother Diabetes Maternal Denies family history of Colon cancer Ovarian cancer Hypercholesteremia Breast cancer Hypertension Uterine cancer Thyroid disease Stroke Female Reproductive History: Date of last menstrual period: 09/15/20 Physical Exam Const: COMMON NORMALS: alert HENMT: COMMON NORMALS: normocephalic HEAD & SCALP: normocephalic Neck/C-Spine: COMMON NORMALS: full ROM Resp: COMMON NORMALS: normal respiratory effort and clear to auscultation bilaterally AUSCULTATION: clear to auscultation bilaterally Cardio: COMMON NORMALS: regular rate RATE: regular rate Back/Pelvis: LUMBAR SPINE/LOWER BACK: No lumbar spinal tenderness and Yes paraspinal muscle tenderness Extremity: COMMON NORMALS: normal to inspection LEFT LOWER EXTREMITY: Yes hip joint (Tenderness lateral hip, no deformity, weightbearing) Left hip: Yes inspection, Yes palpation and Yes ROM Neuro: SENSORIUM/ORIENTATION: Yes alert Skin: COMMON NORMALS: no rashes or lesions noted GENERAL SKIN EXAM: no rashes or lesions noted Course Vital Signs: Vital signs: Vital Signs Temperature 98.1 F 01/25/22 19:18 Pulse Rate 97 01/25/22 19:18 Respiratory Rate 20 H 01/25/22 19:18 Blood Pressure 102/67 01/25/22 19:18 Pulse Oximetry 98 01/25/22 19:18 MDM - Fall Medical Decision Making 36-year-old female comes in today for injury sustained when slipping and falling on some steps. On exam no noticeable injuries noted to the back. Patient does have some muscle tenderness. No spinal tenderness is noted. Patient has no has some left hip pain on palpation but patient is weightbearing moves extremities well. Differential diagnosis includes contusion, fracture, sprain. X-rays of the hip and low back were unremarkable. Treat patient for contusions. Encourage activity as tolerated and follow-up with primary care. Patient stated understanding. Discharge Plan Discharge Patient Disposition: Home Clinical Impression: Contusion of back Qualifiers: Encounter type: initial encounter Laterality: left Qualified Code(s): S20.222A - Contusion of left back wall of thorax, initial encounter Condition: Stable Prescriptions: New hydrocodone-acetaminophen 5-325 mg tablet 1 tab PO Q8H PRN (Reason: pain) Qty: 6 0RF Continued diclofenac sodium 75 mg tablet,delayed release (DR/EC) 75 mg PO BID PRN (Reason: pain) Qty: 30 1RF Rx Instructions: take with food No Action gabapentin 300 mg capsule 300 mg PO TID Qty: 90 3RF levetiracetam [Keppra] 500 mg tablet 500 mg PO BID Qty: 60 5RF Ativan 0.5 mg tablet 0.5 mg PO DAILY PRN (Reason: anxiety) 30 Days Qty: 30 3RF prednisone 20 mg tablet 60 mg PO DAILY 5 Days Qty: 15 0RF albuterol sulfate [ProAir HFA] 90 mcg/actuation HFA aerosol inhaler 1 puff INHALATION QID PRN (Reason: shortness of breath or wheezing) 30 Days Qty: 18 5RF pantoprazole 40 mg tablet,delayed release (DR/EC) 40 mg PO DAILY 90 Days Qty: 90 0RF Discharge Orders: Discharge ED (Routine); Ordered 01/25/22 Ordered By: Santosh Escudero Referrals: Bret Cheung MD [Primary Care Provider] - Discharge Diet: Usual diet Discharge Activity: Increase activity as tolerated Patient Instructions: Acute Low Back Pain (ED), Opioid Safety Activity Restrictions/Additional Instructions: Activity as tolerated. Gentle stretching and range of motion exercises. Follow-up with primary care for further instruction. Return to ER for new concerns. Stand Alone Forms: Work/School Release Coding Level of Care Code ED Account Installation Specialist for Chg Fwd Exam Comprehensive
--- NOTE | 2022-01-25 19:23 | XRR_ITS ---
PROCEDURE INFORMATION: Exam: XR Left Hip Exam date and time: 01/25/2022 8:04 PM Age: 36 years old Clinical indication: Hip pain; Left hip; Additional info: Fall TECHNIQUE: Imaging protocol: XR Left hip. Views: 2 or 3 views hip with pelvis when performed. COMPARISON: CT abdomen pelvis w con* [id number] 10/05/2021 3:51 PM FINDINGS: Bones/joints: Unremarkable. No acute fracture. Soft tissues: Unremarkable. XR/XR hip LT 2-3V wo/w pel* [id number] IMPRESSION: No acute findings.
--- NOTE | 2022-01-25 19:23 | XRR_ITS ---
PROCEDURE INFORMATION: Exam: XR Lumbosacral Spine Exam date and time: 01/25/2022 8:04 PM Age: 36 years old Clinical indication: Low back pain; Additional info: Fall TECHNIQUE: Imaging protocol: XR of the lumbosacral spine. Views: 2 or 3 views. COMPARISON: CT abdomen pelvis w con* [id number] 10/05/2021 3:51 PM FINDINGS: Bones/joints: Normal. No acute fracture. Normal alignment. Soft tissues: Unremarkable. XR/XR lumbar spine 2-3V* [id number] IMPRESSION: No acute findings.
[2022-01-25] MEDS: HYDROcodone-acetaminophen 7.5-325 mg Tablet 1 TAB PO (19:31)
== END 2022-01-25 20:32 | disposition home or self-care (01) ==
PROVIDERS: Emergency Provider Nurse Practitioner Family; PCP Family Medicine Adult Medicine
DX: S20.222A Contusion of left back wall of thorax, initial encounter (principal); W01.0XXA Fall on same level from slipping, tripping and stumbling without subsequent striking against object, initial encounter
CPT/HCPCS: 72100; 73502; 99283

== ENCOUNTER 2022-02-12 00:12 | Emergency (ER) | payer MEDICAID, SELFPAY ==
[2022-02-12 00:17] VITALS: BP 117/84; PULSE 81; RESP 16; TEMP 36.8; O2SAT 18
[2022-02-12] MEDS: sodium chloride 0.9% 1,000 ML 999 ML IV (01:30)
[2022-02-12] MEDS: ondansetron 2 mg/ML SDV 2 mL 4 MG IVP (01:30)
[2022-02-12 01:41] LABS: Basophils # 0.1 10^3/uL (0.0-0.1); Basophils % 0.5 %; Eosinophils # 0.2 10^3/uL (0.0-0.8); Eosinophils % 1.4 %; Hematocrit 42.1 % (37.0-47.0); Hemoglobin 14.1 g/dL (11.5-15.3); Lymphocytes # 2.8 10^3/uL (0.8-4.8); Lymphocytes % 17.7 %; Mean Corpuscular HGB Conc 33.5 g/dL (30.0-36.0); Mean Corpuscular Hemoglobin 31.1 pg (28.0-34.0); Mean Corpuscular Volume 92.9 fl (81-99); Mean Platelet Volume 11.7 fL (7.4-10.4); Monocytes # 1.4 10^3/uL (0.2-0.9); Monocytes % 8.9 %; Neutrophils # 11.05 10^3/uL (1.8-7.7); Nucleated Red Blood Cells % 0 %; Platelet Count 259 10^3/cmm (130-400); Red Blood Count 4.53 10^6/uL (4.1-5.3); Red Cell Distribution Width 12.3 % (12.1-15.1); White Blood Count 15.6 10^3/uL (4.0-10.0)
[2022-02-12 01:53] LABS: HCG, Serum Qual Negative (Negative)
[2022-02-12 01:56] LABS: Alanine Aminotransferase 36 U/L (0-33); Albumin Level 4.3 g/dL (3.5-5.2); Alkaline Phosphatase 85 IU/L (35-105); Anion Gap 16.3 (5-19); Aspartate Amino Transferase 25 U/L (0-32); Blood Urea Nitrogen 4 mg/dL (6-20); C Reactive Protein 3.4 mg/L (0.0-4.9); Calcium 8.9 mg/dL (8.5-10.5); Carbon Dioxide 22 mmol/L (22-29); Chloride 103 mmol/L (98-107); Creatine Phosphokinase 214 U/L (26-192); Globulin 3.1 g/dL (1.3-4.6); Glomerular Filtration Rate 94.7 mL/min (90-130); Glucose 108 mg/dL (65-115); Lipase 100 U/L (13-60); Magnesium 2.3 mg/dL (1.7-2.3); Osmolality Calculated 283 mOsm/kg (285-295); Potassium 3.3 mmol/L (3.5-5.1); Sodium 138 mmol/L (136-145); Total Bilirubin 0.3 mg/dL (0.15-1.2); Total Protein 7.4 g/dL (6.6-8.7)
[2022-02-12 02:34] LABS: Glucose Urine UA Norm (Normal); Protein Urine Neg (Negative); Urine Appearance SL Hazy (CLEAR); Urine Color Yellow (Yellow); pH Urine 6 (5-7)
[2022-02-12 02:35] LABS: Add Urine Microscopic? YES; Bilirubin Urine Neg (Negative); Blood Urine Neg (Negative); Ketones Urine Negative (Negative); Leukocyte Esterase Urine Negative (Negative); Nitrate Urine Negative (Negative); Urobilinogen Urine Norm (Negative)
[2022-02-12 02:36] LABS: Add Urine Culture? No; Bacteria Urine 1+ /hpf; RBC Urine 0-4 /hpf (0-2); WBC Urine 0-4 /hpf (0-5)
--- NOTE | 2022-02-12 02:50 | CTR_ITS ---
PROCEDURE INFORMATION: Exam: CT Abdomen And Pelvis Without Contrast Exam date and time: 02/12/2022 3:30 AM Age: 36 years old Clinical indication: Nausea and vomiting; Abdominal pain; Localized; Prior surgery; Surgery type: Leep. Appy; Patient HX: C/O lower abd pain with n/v. ; Additional info: Lower abd pain, vomiting TECHNIQUE: Imaging protocol: Computed tomography of the abdomen and pelvis without contrast. Radiation optimization: All CT scans at this facility use at least one of these dose optimization techniques: automated exposure control; mA and/or kV adjustment per patient size (includes targeted exams where dose is matched to clinical indication); or iterative reconstruction. COMPARISON: CT abdomen pelvis w con* [id number] 10/05/2021 3:51 PM RADIATION DOSE METRICS: Total DLP (mGy-cm): 1001.54 FINDINGS: Liver: No acute abnormality on noncontrast imaging. Gallbladder and bile ducts: No acute abnormality. No calcified stones. No ductal dilation. Pancreas: No acute abnormality. No ductal dilation. Spleen: No acute abnormality. Adrenal glands: No acute abnormality. No mass. Kidneys and ureters: No acute abnormality. No obstructing calculi. No hydronephrosis. Stomach and bowel: Small amount of fluid within nondistended stomach. No significant or disproportionate large or small bowel distention. Fluid within small bowel and proximal colon with scattered air-fluid levels. No evidence of diverticulitis. Appendix: Absent appendix. Intraperitoneal space: No significant fluid collection. No free air. Vasculature: No acute abnormality. No abdominal aortic aneurysm. Lymph nodes: Scattered small nonspecific mesenteric lymph nodes. Urinary bladder: Nondistended decompressed urinary bladder. No bladder calculi. Reproductive: Unremarkable as visualized. Bones/joints: No acute osseous abnormality. No dislocation. Soft tissues: No significant soft tissue abnormalities. CT/CT abdomen pelvis wo con [id number] IMPRESSION: Mild nonspecific ileus versus gastroenteritis.
[2022-02-12 03:34] VITALS: BP 129/85; PULSE 94; RESP 16; O2SAT 100
[2022-02-12 05:09] VITALS: BP 122/81; PULSE 91; RESP 16; O2SAT 98
--- NOTE | 2022-02-12 05:59 | ED_ITS ---
HPI - Seizure General: Chief Complaint: Seizure Stated Complaint: Possible seizure Time Seen by Provider: 02/12/22 00:47 Source: patient History of Present Illness: HPI Narrative: 36-year-old female with a history of functional seizure disorder. She presents with gastroenteritis symptoms of vomiting and diarrhea, particularly for the past 2 to 3 days. She notes that its been hard for her to keep food down. At work, she felt a seizure coming on . By history, she did not actually lose consciousness, convulse, and was not postictal. She has been taking her seizure medication as directed. MD complaint: feels seizure coming on Onset (ago): hour(s) -: second(s) Trauma: No Seizure History: Yes Place: Work Possible Precipitating Event: stress and other (gi illness) Associated symptoms: Reports anorexia; Deny chest pain, confusion, cough, fever(s), short of breath, syncope or weakness Treatments prior to arrival: none Review of Systems Const: Denies: fever(s) ENMT: Denies: throat pain Card: Denies: chest pain or syncope Resp: Denies: dyspnea, productive cough or non-productive cough GI: Reports: abdominal pain (intermittent), nausea, vomiting and diarrhea Neuro: Reports: headache(s); Denies: confusion PFSH ED PFSH: Medical History Anxiety and depression Asthma Bipolar 1 disorder with moderate cesar Cellulitis of left eyelid Chronic back pain greater than 3 months duration Chronic hepatitis C COPD (chronic obstructive pulmonary disease) Dental caries Gastric ulcer GERD (gastroesophageal reflux disease) History of removal of cervix but not uterus 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 [place] [facility] [place] biopsy. 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 Endocervical curettage showed mucoid clot and superficial fragments of benign endocervical mucosa History of appendectomy History of tonsillectomy Family History Grandfather Heart disease Maternal Mother Diabetes Cervical cancer dx age Grandmother Diabetes Maternal Denies family history of Colon cancer Ovarian cancer Hypercholesteremia Breast cancer Hypertension Uterine cancer Thyroid disease Stroke Female Reproductive History: Date of last menstrual period: 09/15/20 Physical Exam Const: COMMON NORMALS: no acute distress and alert GENERAL APPEARANCE: cooperative; not ill appearing and not frail appearing HENMT: COMMON NORMALS: normocephalic, atraumatic and Normal external nose present HEAD & SCALP: normocephalic and atraumatic FACE & SINUS: normal facial exam and face symmetric NOSE: Normal external nose present Eye: COMMON NORMALS: Equal, round and reactive pupils present and EOMs intact bilaterally PUPIL: Yes Equal, round and reactive pupils present Neck/C-Spine: GENERAL: Yes trachea midline Chest: CHEST: Yes Symmetrical chest wall rise Resp: COMMON NORMALS: normal respiratory effort, No retractions, No use of accessory muscles and clear to auscultation bilaterally AUSCULTATION: clear to auscultation bilaterally Cardio: COMMON NORMALS: regular rhythm and S1 normal heart sound present RHYTHM: regular rhythm HEART SOUNDS: S1 normal heart sound present GI: COMMON NORMALS: Normal to inspection, nondistended, normoactive bowel sounds present PALPATION: Yes Tenderness to palpation present (GI) (diffuse) : COMMON NORMALS: Yes no CVA tenderness BLADDER/KIDNEY EXAM: Yes no CVA tenderness Back/Pelvis: COMMON NORMALS: no CVA tenderness Extremity: COMMON NORMALS: no pedal edema Neuro: JOSELITO COMA SCALE: document GCS findings [place] coma scale eye opening: Spontaneous [place] coma scale verbal response: Orientated Joselito coma scale motor response: Obey commands [place] coma scale total score: 15 SENSORIUM/ORIENTATION: Yes alert CRANIAL NERVES: Yes CN normal except as noted SPEECH: speech normal GAIT: Yes Normal gait present MOTOR EXAM: Pronator motor function not present Psych: COMMON NORMALS: mental status grossly normal Course Vital Signs: Vital signs: Vital Signs Temperature 98.2 F 02/12/22 00:17 Pulse Rate 91 02/12/22 05:09 Respiratory Rate 16 02/12/22 05:09 Blood Pressure 122/81 02/12/22 05:09 Pulse Oximetry 98 02/12/22 05:09 MDM - Seizure MDM Narrative Medical decision making narrative: No evidence of seizure here. Laboratory shows a leukocytosis of 15.6. Potassium is low indicative of vomiting. CRP is negative. Other laboratory indications are benign. She underwent CT scan of the abdomen pelvis showing ileus versus gastroenteritis consistent with her symptoms. She will be treated as such. Lab Data Result diagrams: 02/12/22 00:25 02/12/22 00:25 Labs: Radiology Impressions Abdomen/Pelvis CT 02/12/22 02:50 IMPRESSION: Mild nonspecific ileus versus gastroenteritis. Laboratory Results WBC 15.6 10^3/uL (4.0-10.0) H 02/12/22 00:25 RBC 4.53 10^6/uL (4.1-5.3) 02/12/22 00:25 Hgb 14.1 g/dL (11.5-15.3) 02/12/22 00:25 Hct 42.1 % (37.0-47.0) 02/12/22 00:25 MCV 92.9 fl (81-99) 02/12/22 00:25 MCH 31.1 pg (28.0-34.0) 02/12/22 00:25 MCHC 33.5 g/dL (30.0-36.0) 02/12/22 00:25 RDW 12.3 % (12.1-15.1) 02/12/22 00:25 Plt Count 259 10^3/cmm (130-400) 02/12/22 00:25 MPV 11.7 fL (7.4-10.4) H 02/12/22 00:25 Neut % (Auto) 71.0 % 02/12/22 00:25 Lymph % (Auto) 17.7 % 02/12/22 00:25 [place] % (Auto) 8.9 % 02/12/22 00:25 Eos % (Auto) 1.4 % 02/12/22 00:25 Baso % (Auto) 0.5 % 02/12/22 00:25 Neut # (Auto) 11.05 10^3/uL (1.8-7.7) H 02/12/22 00:25 Lymph # (Auto) 2.8 10^3/uL (0.8-4.8) 02/12/22 00:25 Marion # (Auto) 1.4 10^3/uL (0.2-0.9) H 02/12/22 00:25 Eos # (Auto) 0.2 10^3/uL (0.0-0.8) 02/12/22 00:25 Baso # (Auto) 0.1 10^3/uL (0.0-0.1) 02/12/22 00:25 Nucleated RBC % (auto) 0 % 02/12/22 00:25 Nucleated RBCs # 0.0 /100WBC 02/12/22 00:25 Sodium 138 mmol/L (136-145) 02/12/22 00:25 Potassium 3.3 mmol/L (3.5-5.1) L 02/12/22 00:25 Chloride 103 mmol/L (98-107) 02/12/22 00:25 Carbon Dioxide 22 mmol/L (22-29) 02/12/22 00:25 Anion Gap 16.3 (5-19) 02/12/22 00:25 BUN 4 mg/dL (6-20) L 02/12/22 00:25 Creatinine 0.7 mg/dL (0.5-0.9) 02/12/22 00:25 GFR Calculation 94.7 mL/min (90-130) 02/12/22 00:25 Glucose 108 mg/dL (65-115) 02/12/22 00:25 Calculated Osmolality 283 mOsm/kg (285-295) L 02/12/22 00:25 Calcium 8.9 mg/dL (8.5-10.5) 02/12/22 00:25 Magnesium 2.3 mg/dL (1.7-2.3) 02/12/22 00:25 Total Bilirubin 0.3 mg/dL (0.15-1.2) 02/12/22 00:25 AST 25 U/L (0-32) 02/12/22 00:25 ALT 36 U/L (0-33) H 02/12/22 00:25 Alkaline Phosphatase 85 IU/L (35-105) 02/12/22 00:25 Creatine Kinase 214 U/L (26-192) H 02/12/22 00:25 C-Reactive Protein 3.4 mg/L (0.0-4.9) 02/12/22 00:25 Total Protein 7.4 g/dL (6.6-8.7) 02/12/22 00:25 Albumin 4.3 g/dL (3.5-5.2) 02/12/22 00:25 Globulin 3.1 g/dL (1.3-4.6) 02/12/22 00:25 Lipase 100 U/L (13-60) H 02/12/22 00:25 HCG, Qual Negative (Negative) 02/12/22 00:25 Urine Color Yellow (Yellow) 02/12/22 01:30 Urine Appearance Sl hazy (CLEAR) 02/12/22 01:30 Urine pH 6 (5-7) 02/12/22 01:30 Ur Specific [place] 1.010 (1.005-1.030) 02/12/22 01:30 Urine Protein Neg (Negative) 02/12/22 01:30 Urine Glucose (UA) Norm (Normal) 02/12/22 01:30 Urine Ketones Negative (Negative) 02/12/22 01:30 Urine Blood Neg (Negative) 02/12/22 01:30 Urine Nitrate Negative (Negative) 02/12/22 01:30 Urine Bilirubin Neg (Negative) 02/12/22 01:30 Urine Urobilinogen Norm mg/dL (Negative) 02/12/22 01:30 Ur Leukocyte Esterase Negative (Negative) 02/12/22 01:30 Urine RBC 0-4 /hpf (0-2) H 02/12/22 01:30 Urine WBC 0-4 /hpf (0-5) H 02/12/22 01:30 Ur Squamous Epith Cells 10-15 /hpf (0-5) H 02/12/22 01:30 Amorphous Sediment Not Reportable 02/12/22 01:30 Urine Bacteria 1+ /hpf (NONE) H 02/12/22 01:30 Discharge Plan Discharge Patient Disposition: Home Clinical Impression: Functional neurological symptom disorder with attacks or seizures, Enteritis Condition: Stable Prescriptions: New ondansetron 4 mg film 4 mg PO DAILY PRN (Reason: nausea and vomiting) Qty: 10 0RF metronidazole 500 mg tablet 500 mg PO Q8H 7 Days Qty: 21 0RF No Action gabapentin 300 mg capsule 300 mg PO TID Qty: 90 3RF levetiracetam [Keppra] 500 mg tablet 500 mg PO BID Qty: 60 5RF Ativan 0.5 mg tablet 0.5 mg PO DAILY PRN (Reason: anxiety) 30 Days Qty: 30 3RF prednisone 20 mg tablet 60 mg PO DAILY 5 Days Qty: 15 0RF albuterol sulfate [ProAir HFA] 90 mcg/actuation HFA aerosol inhaler 1 puff INHALATION QID PRN (Reason: shortness of breath or wheezing) 30 Days Qty: 18 5RF pantoprazole 40 mg tablet,delayed release (DR/EC) 40 mg PO DAILY 90 Days Qty: 90 0RF buspirone 5 mg tablet 5 mg PO TID Qty: 90 5RF hydrocodone-acetaminophen 5-325 mg tablet 1 tab PO Q8H PRN (Reason: pain) Qty: 6 0RF diclofenac sodium 75 mg tablet,delayed release (DR/EC) 75 mg PO BID PRN (Reason: pain) Qty: 30 1RF Rx Instructions: take with food Discharge Orders: Discharge ED (Routine); Ordered 02/12/22 Ordered By: Mason Magana Referrals: Bret Cheung MD [Primary Care Provider] - 1-3 days Patient Instructions: Enteritis (ED) Activity Restrictions/Additional Instructions: Return for fever greater than 100, vomiting liquids or medications despite treatment, worsening pain, repetitive seizures, any other concerning symptoms. 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
== END 2022-02-12 06:20 | disposition home or self-care (01) ==
PROVIDERS: Emergency Provider Emergency Medicine; PCP Family Medicine Adult Medicine
DX: F44.5 Conversion disorder with seizures or convulsions (principal); K52.9 Noninfective gastroenteritis and colitis, unspecified; R11.2 Nausea with vomiting, unspecified
CPT/HCPCS: 74176; 80053; 81001; 82550; 83690; 83735; 84703; 85025; 86140; 96361; 96374; 99284; J2405; J7030

== ENCOUNTER → 2022-03-02 14:46 | Outpatient (BNVA) | payer MEDICAID, SELFPAY | PROVIDERS: PCP Family Medicine Adult Medicine; Visit Provider Internal Medicine | DX: B18.2 Chronic viral hepatitis C (principal); R76.8 Other specified abnormal immunological findings in serum; R11.2 Nausea with vomiting, unspecified; R19.7 Diarrhea, unspecified; F44.5 Conversion disorder with seizures or convulsions; J44.9 Chronic obstructive pulmonary disease, unspecified; F41.9 Anxiety disorder, unspecified; F32.9 Major depressive disorder, single episode, unspecified | CPT/HCPCS: 80053; 82105; 85025; 86705; 86706; 87340; 87522; 87902 ==

== ENCOUNTER 2022-03-07 05:38 | Day surgery (SDC) | payer MEDICAID, SELFPAY ==
[2022-03-07 06:26] VITALS: BP 121/72; PULSE 80; RESP 20; TEMP 36.4; O2SAT 97; BMI 23.7
[2022-03-07] MEDS: sodium chloride 0.9% 1,000 ML 30 ML IV (06:49)
--- NOTE | 2022-03-07 06:59 | P.ANESASSM_ITS ---
Pre-Anesthetic Assessment Height/Weight: Height 1.66 m Weight 65.771 kg Temp Pulse Resp BP Pulse Ox 97.6 F 80 20 H 121/72 97 03/07/22 06:03/07/22 06:03/07/22 06:03/07/22 06:03/07/22 06:26 Preop Diagnosis: N/v Operation Date: 03/07/22 07:30 Proposed Procedures p EGD 54283/R11.2/R19.7(Not Applicable) - Gabino Brothers MD Familial anesthetic complications: none Was Beta Franchesca taken within 24 hours: N/A Was Clonidine taken within 24 hours: N/A Last intake: Intake Last Liquid Date 03/06/22 Last Liquid Time 23:30 Last Solid Date 03/06/22 Last Solid Time 21:00 Social Tobacco and No alcohol 1 pack(s) per day 11 pack years history of drug abuse. clean 7 months Exam alert, oriented x 3, clear to auscultation bilaterally and regular rate & rhythm Airway Submandibular: within normal limits Cervical ROM: within normal limits Mallampati: Class II Dentition: chipped Comments: Comments: poor dentition Pulmonary Asthma, Chronic Obstructive Pulmonary Disease and Sleep Apnea daily inhaler CV/HEM None reported None reported Hepatic Hepatitis (C) GI Gastroesophageal Reflux Disease Metabolic None reported Musc/skel Lower Back Pain Neuropsych Anxiety, Bipolar, Depression and Seizure (took keppra this am. last seizure a couple months ago ) Anesthetic Plan ASA status: 3 Anesthesia: MAC Risk of > 500 ml blood loss (7ml/kg in children): No Medications/Allergies Home Medications Medication Instructions Recorded Confirmed Last Taken Type albuterol sulfate 90 mcg/actuation 1 puff INHALATION QID PRN 30 Days 10/22/21 03/07/22 03/06/22 Rx aerosol inhaler (ProAir HFA) #18 gm levetiracetam 500 mg tablet 500 mg PO BID #60 tab 01/04/22 03/07/22 03/06/22 Rx (Keppra) lorazepam 0.5 mg tablet (Ativan) 0.5 mg PO DAILY PRN 30 Days #30 tab 01/04/22 03/07/22 Unknown Rx diclofenac sodium 75 mg 75 mg PO BID PRN #30 tab 01/25/22 03/07/22 03/06/22 Rx tablet,delayed release pantoprazole 40 mg tablet,delayed 40 mg PO BID 30 Days #60 tab 02/16/22 03/07/22 03/06/22 Rx release promethazine 25 mg tablet 25 mg PO Q6H PRN #20 tab 02/16/22 03/07/22 Unknown Rx clotrimazole 1 % topical cream 1 applic TOPICAL BID #45 g 02/17/22 03/07/22 03/06/22 Rx (Antifungal (clotrimazole)) gabapentin 300 mg capsule 300 mg PO QID #120 cap 02/17/22 03/07/22 03/06/22 Rx Allergies Allergy/AdvReac Type Severity Reaction Status Date / Time duloxetine [From Cymbalta] AdvReac Severe ADR-Agitate Verified 03/02/22 13:38 d ibuprofen AdvReac Intermediate ADR-Nausea Verified 03/02/22 13:38 fluoxetine [From Prozac] AdvReac diarrhea Verified 03/02/22 13:38 fluticasone AdvReac seizures Verified 03/02/22 13:38 [From Advair Diskus] topiramate AdvReac Fingers Verified 03/02/22 13:38 went numb tramadol AdvReac Itchy Verified 03/02/22 13:38 Current Medications Generic Name Dose Route Start Last Admin Trade Name Freq PRN Reason Stop Dose Admin Sodium Chloride 1,000 mls @ 30 mls/hr 03/07/22 06:00 03/07/22 06:49 Sodium Chloride 0.9% IV 30 mls/hr .Q24H NITO Administration PFSH Anesthesia Medical History Anxiety and depression Asthma Bipolar 1 disorder with moderate cesar Chronic hepatitis C COPD (chronic obstructive pulmonary disease) Gastric ulcer History of removal of cervix but not uterus 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 Suarez [place] [facility] [place]URYN-[place] on cervical biopsy. Pathology showed moderate [id number]-SLN-0 with clear margins on the anterior left and severe dysplasia LAURYN-3 completely excised on the posterior left. Endocervical curettage showed mucoid clot and superficial fragments of benign endocervical mucosa History of appendectomy History of tonsillectomy Family History Grandfather Heart disease Maternal Mother Diabetes Cervical cancer dx age Grandmother Diabetes Maternal Denies family history of Colon cancer Ovarian cancer Hypercholesteremia Breast cancer Hypertension Uterine cancer Thyroid disease Stroke Social History Smoking and tobacco status: current every day smoker Female Reproductive History Date of last menstrual period: 09/15/20 Data Anesthesia Cardiac Studies: No Data to Display
[2022-03-07] MEDS: midazolam 1 mg/mL INJ 2 mL 2 MG IVP (07:05)
--- NOTE | 2022-03-07 07:16 | P.HP_ITS ---
Same Day Surgery H&P Indication for Procedure/HPI DATE OF PROCEDURE: March 07, 2022 CHIEF COMPLAINT/INDICATIONFOR SURGICAL PROCEDURE: Nausea vomiting diarrhea PREOP DIAGNOSIS: N/v PLANNED PROCEDURE: Operation Date: 03/07/22 07:30 Proposed Procedures p EGD [id number]/R11.2/R19.7(Not Applicable) - Gabino Brothers MD Medications/Allergies* Allergies/Adverse Reactions Allergy/AdvReac Type Severity Reaction Status Date / Time duloxetine [From Cymbalta] AdvReac Severe ADR-Agitate Verified 03/02/22 13:38 d ibuprofen AdvReac Intermediate ADR-Nausea Verified 03/02/22 13:38 fluoxetine [From Prozac] AdvReac diarrhea Verified 03/02/22 13:38 fluticasone AdvReac seizures Verified 03/02/22 13:38 [From Advair Diskus] topiramate AdvReac Fingers Verified 03/02/22 13:38 went numb tramadol AdvReac Itchy Verified 03/02/22 13:38 Current Medications: Generic Name Dose Route Start Last Admin Trade Name Freq PRN Reason Stop Dose Admin Sodium Chloride 1,000 mls @ 30 mls/hr 03/07/22 06:00 03/07/22 06:49 Sodium Chloride 0.9% IV 30 mls/hr .Q24H NITO Administration Midazolam HCl 2 mg 03/07/22 05:58 03/07/22 07:05 Midazolam 1 Mg/Ml Inj 2 Ml IVP 2 mg Q5M PRN Administration Preop Anxiety Pertinent History/Comorbid Conditions* Medical History (Updated 03/02/22 @ 14:45 by Gabino Brothers MD) Anxiety and depression Asthma Bipolar 1 disorder with moderate cesar Chronic hepatitis C COPD (chronic obstructive pulmonary disease) Gastric ulcer History of removal of cervix but not uterus 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 Suarez [place] [facility] [place]URYN-[place] cervical biopsy. Pathology showed moderate [id number]-6 with clear margins on the anterior left and severe dysplasia LAURYN-3 completely excised on the posterior left. Endocervical curettage showed mucoid clot and superficial fragments of benign endocervical mucosa History of appendectomy History of tonsillectomy Family History (Updated 01/21/22 @ 08:02 by Terri Otero) Cervical cancer Mother dx age Diabetes Mother Grandmother Maternal Heart disease Grandfather Maternal Denies family history of Colon cancer Ovarian cancer Hypercholesteremia Breast cancer Hypertension Uterine cancer Thyroid disease Stroke Social History Smoking and tobacco status: current every day smoker Pertinent Exam Findings alert, oriented x 3, clear to auscultation bilaterally, regular rate & rhythm, operative site marked and procedure specific exam findings Recommendations Surgery/Procedure today Coding Level of Care Code 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
[2022-03-07 07:53] VITALS: BP 98/65; PULSE 58; RESP 16; TEMP 36.3; O2SAT 94
--- NOTE | 2022-03-07 07:55 | ANE.PACU2 ---
Inpatient post-anesthesia follow up: Airway intact: Yes Vital signs: Temperature 97.6 F Pulse Rate 80 Respiratory Rate 20 Blood Pressure 121/72 Pulse Oximetry 97 Oxygen Delivery Me thod Room Air Oxygen Flow Rate Fraction of Inspir ed Oxygen Hydration adequate: Yes Nausea and vomiting: No Pain level: 1 Mental status: Baseline
[2022-03-07 08:08] VITALS: BP 97/71; PULSE 72; RESP 18; O2SAT 98
== END 2022-03-07 08:23 | disposition home or self-care (01) ==
PROVIDERS: PCP Family Medicine Adult Medicine; Visit Provider Internal Medicine
PROC: 0DJ08ZZ Inspection of Upper Intestinal Tract, Via Natural or Artificial Opening Endoscopic (ICD-10-PCS; CPT 43235; principal; 2022-03-07 07:30)
DX: R11.2 Nausea with vomiting, unspecified (principal); R19.7 Diarrhea, unspecified; Z87.891 Personal history of nicotine dependence; J44.9 Chronic obstructive pulmonary disease, unspecified; G47.30 Sleep apnea, unspecified; F41.9 Anxiety disorder, unspecified; F32.9 Major depressive disorder, single episode, unspecified; Z86.19 Personal history of other infectious and parasitic diseases; Z87.11 Personal history of peptic ulcer disease
CPT/HCPCS: 43235; J2250; J2704; J7030

== ENCOUNTER 2022-03-07 14:06 | Emergency (ER) | payer MEDICAID, SELFPAY ==
[2022-03-07 14:33] VITALS: BP 107/70; PULSE 78; RESP 16; TEMP 36.6; O2SAT 95; BMI 24.1
--- NOTE | 2022-03-07 15:14 | ECG_ITS ---
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 Measurements Intervals [place] Rate: 72 P: 38 DE: 144 QRS: 94 QRSD: 89 T: 81 QT: 373 QTc: 410 Interpretive Statements SINUS RHYTHM WITH SINUS ARRHYTHMIA BORDERLINE RIGHT AXIS DEVIATION [QRS AXIS > 90] Compared to ECG 10/09/2021 17:03:04 No significant changes Electronically Signed On 03-07-2022 17:30:26 CDT by Royce Duarte M.D. [email or web address]
--- NOTE | 2022-03-07 15:14 | XR_ITS ---
WS: [id number] XR chest 1V portable [id number] REASON FOR EXAM: dyspnea/cough FINDINGS: The heart and mediastinum are within normal limits. Calcified granulomatous disease in both hemithoraces. No acute pulmonary parenchymal or pleural abnormality is identified. Bony thorax is intact. The chest is unchanged compared to 10/29/2019. XR/XR chest 1V portable [id number] IMPRESSION: Stable chest with no acute abnormality.
--- NOTE | 2022-03-07 15:29 | ED_ITS ---
HPI - General Adult General: Chief complaint: General Medical Stated complaint: Shakey, Leg pains, dazed, upper gi surgery this AM Time Seen by Provider: 03/07/22 15:13 Source: patient Mode of arrival: ambulatory Limitations: no limitations History of Present Illness: 36-year-old female presents emergency room complaining of just generally not feeling well. She had an EGD done earlier this morning she was discharged home when she woke up from a nap after she got home states she is shaking all over with nausea and bilateral leg pain. Just generally not feeling well. On arrival here she is awake and alert answers questions well can remember having seen me in the past. Onset (ago): hour(s) Location: abdomen Radiation: non-radiation Severity: moderate Relieving factors: none Exacerbating factors: none Associated symptoms: Reports decreased appetite, malaise and nausea; Deny chest pain, confusion, cough, diaphoresis, dyspnea, fevers/chills, headache(s), rash, palpitations, seizures, short of breath, syncope, vomiting or weakness Treatments prior to arrival: none Review of Systems Const: Reports: change in appetite and malaise; Denies: fever(s), chills, fatigue or diaphoresis ENMT: Denies: throat pain, ear or mastoid pain, nasal discharge or nasal congestion Card: Denies: chest pain, palpitations or syncope Resp: Denies: dyspnea GI: Reports: nausea and heartburn; Denies: abdominal pain, vomiting, hematemesis or coffee ground emesis : Denies: flank pain, difficulty voiding, dysuria, urinary frequency or urinary urgency Musc: Denies: neck pain or back pain Skin/Breast: Denies: rash Neuro: Denies: headache(s) or confusion PFSH ED PFSH: Medical History Anxiety and depression Asthma Bipolar 1 disorder with moderate cesar Chronic hepatitis C COPD (chronic obstructive pulmonary disease) Gastric ulcer History of removal of cervix but not uterus 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 [place] [facility] [place] cervical biopsy. 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 Endocervical curettage showed mucoid clot and superficial fragments of benign endocervical mucosa History of appendectomy History of tonsillectomy Family History Grandfather Heart disease Maternal Mother Diabetes Cervical cancer dx age Grandmother Diabetes Maternal Denies family history of Colon cancer Ovarian cancer Hypercholesteremia Breast cancer Hypertension Uterine cancer Thyroid disease Stroke Social History Smoking and tobacco status: current every day smoker Female Reproductive History: Date of last menstrual period: 09/15/20 Physical Exam Const: GENERAL APPEARANCE: cooperative and comfortable OR IENTATION/CONSCIOUSNESS: Yes awake, Yes oriented to person, Yes oriented to place and Yes oriented to time HENMT: COMMON NORMALS: normocephalic, atraumatic and hearing grossly normal bilaterally HEAD & SCALP: normocephalic and atraumatic Neck/C-Spine: COMMON NORMALS: no JVD Resp: COMMON NORMALS: normal respiratory effort, No retractions, No use of accessory muscles and clear to auscultation bilaterally AUSCULTATION: clear to auscultation bilaterally Cardio: COMMON NORMALS: no JVD, regular rate, regular rhythm and No murmurs present (Cardio) RATE: regular rate RHYTHM: regular rhythm GI: COMMON NORMALS: Soft to palpation and No hepatosplenomegaly present AUSCULTATION: Yes normoactive bowel sounds PALPATION: Yes Soft to palpation, No Tenderness to palpation present (GI), No Guarding due to palpation present (GI) and Yes No hepatosplenomegaly present Extremity: COMMON NORMALS: normal to inspection, capillary refill normal, no clubbing, cyanosis or edema, no calf tenderness and no pedal edema Neuro: SENSORIUM/ORIENTATION: Yes oriented to person, Yes oriented to place and Yes oriented to time Skin: COMMON NORMALS: no rashes or lesions noted GENERAL SKIN EXAM: no rashes or lesions noted Course Vital Signs: Vital signs: Vital Signs Temperature 97.9 F 03/07/22 14:33 Pulse Rate 60 03/07/22 16:08 Respiratory Rate 24 H 03/07/22 16:08 Blood Pressure 115/78 03/07/22 16:08 Pulse Oximetry 98 03/07/22 16:08 [facility] - General Adult Medical Decision Making Labs reviewed. Patient is feeling better after the fluids suspect a lot of this may have been side effects from the sedation she had earlier today observe clear liquid diet advance as tolerated recheck if having any further symptoms. Medical Records I reviewed the patient's medical records. Lab Data I reviewed the patient's lab results. : 03/07/22 15:30 03/07/22 15:30 Radiology Impressions Chest X-Ray 03/07/22 15:14 IMPRESSION: Stable chest with no acute abnormality. Laboratory Results WBC 9.3 10^3/uL (4.0-10.0) 03/07/22 15:30 RBC 4.49 10^6/uL (4.1-5.3) 03/07/22 15:30 Hgb 13.8 g/dL (11.5-15.3) 03/07/22 15:30 Hct 42.1 % (37.0-47.0) 03/07/22 15:30 MCV 93.8 fl (81-99) 03/07/22 15:30 MCH 30.7 pg (28.0-34.0) 03/07/22 15:30 MCHC 32.8 g/dL (30.0-36.0) 03/07/22 15:30 RDW 12.6 % (12.1-15.1) 03/07/22 15:30 Plt Count 220 10^3/cmm (130-400) 03/07/22 15:30 MPV 11.7 fL (7.4-10.4) H 03/07/22 15:30 Neut % (Auto) 43.7 % 03/07/22 15:30 Lymph % (Auto) 42.6 % 03/07/22 15:30 [place] % (Auto) 9.8 % 03/07/22 15:30 Eos % (Auto) 2.6 % 03/07/22 15:30 Baso % (Auto) 0.9 % 03/07/22 15:30 Neut # (Auto) 4.06 10^3/uL (1.8-7.7) 03/07/22 15:30 Lymph # (Auto) 4.0 10^3/uL (0.8-4.8) 03/07/22 15:30 [place] # (Auto) 0.9 10^3/uL (0.2-0.9) 03/07/22 15:30 Eos # (Auto) 0.2 10^3/uL (0.0-0.8) 03/07/22 15:30 Baso # (Auto) 0.1 10^3/uL (0.0-0.1) 03/07/22 15:30 Nucleated RBC % (auto) 0 % 03/07/22 15:30 Nucleated RBCs # 0.0 /100WBC 03/07/22 15:30 Sodium 140 mmol/L (136-145) 03/07/22 15:30 Potassium 3.3 mmol/L (3.5-5.1) L 03/07/22 15:30 Chloride 105 mmol/L (98-107) 03/07/22 15:30 Carbon Dioxide 25 mmol/L (22-29) 03/07/22 15:30 Anion Gap 13.3 (5-19) 03/07/22 15:30 BUN 9 mg/dL (6-20) 03/07/22 15:30 Creatinine 0.7 mg/dL (0.5-0.9) 03/07/22 15:30 GFR Calculation 94.7 mL/min (90-130) 03/07/22 15:30 Glucose 95 mg/dL (65-115) 03/07/22 15:30 Calculated Osmolality 288 mOsm/kg (285-295) 03/07/22 15:30 Calcium 8.4 mg/dL (8.5-10.5) L 03/07/22 15:30 Total Bilirubin 0.2 mg/dL (0.15-1.2) 03/07/22 15:30 AST 17 U/L (0-32) 03/07/22 15:30 ALT 17 U/L (0-33) 03/07/22 15:30 Alkaline Phosphatase 67 IU/L (35-105) 03/07/22 15:30 Total Protein 7.0 g/dL (6.6-8.7) 03/07/22 15:30 Albumin 4.1 g/dL (3.5-5.2) 03/07/22 15:30 Globulin 2.9 g/dL (1.3-4.6) 03/07/22 15:30 Urine Color Yellow (Yellow) 03/07/22 15:38 Urine Appearance Sl hazy (CLEAR) 03/07/22 15:38 Urine pH 6 (5-7) 03/07/22 15:38 Ur Specific [place] 1.020 (1.005-1.030) 03/07/22 15:38 Urine Protein Neg (Negative) 03/07/22 15:38 Urine Glucose (UA) Norm (Normal) 03/07/22 15:38 Urine Ketones Negative (Negative) 03/07/22 15:38 Urine Blood Neg (Negative) 03/07/22 15:38 Urine Nitrate Negative (Negative) 03/07/22 15:38 Urine Bilirubin Neg (Negative) 03/07/22 15:38 Urine Urobilinogen Norm mg/dL (Negative) 03/07/22 15:38 Ur Leukocyte Esterase 2+ (Negative) H 03/07/22 15:38 Urine RBC 0-4 /hpf (0-2) H 03/07/22 15:38 Urine WBC 0-4 /hpf (0-5) H 03/07/22 15:38 Ur Squamous Epith Cells 10-15 /hpf (0-5) H 03/07/22 15:38 Amorphous Sediment Trace /hpf 03/07/22 15:38 Urine Bacteria 2+ /hpf (NONE) H 03/07/22 15:38 Urine Mucus 1+ /hpf 03/07/22 15:38 Discharge Plan Discharge Patient Disposition: Home Clinical Impression: Nausea, Dizziness Condition: Stable Prescriptions: No Action levetiracetam [Keppra] 500 mg tablet 500 mg PO BID Qty: 60 5RF Ativan 0.5 mg tablet 0.5 mg PO DAILY PRN (Reason: anxiety) 30 Days Qty: 30 3RF pantoprazole 40 mg tablet,delayed release (DR/EC) 40 mg PO BID 30 Days Qty: 60 0RF promethazine 25 mg tablet 25 mg PO Q6H PRN (Reason: nausea and vomiting) Qty: 20 0RF clotrimazole [Antifungal (clotrimazole)] 1 % cream 1 applic topical BID Qty: 45 0RF gabapentin 300 mg capsule 300 mg PO QID Qty: 120 3RF albuterol sulfate [ProAir HFA] 90 mcg/actuation HFA aerosol inhaler 1 puff INHALATION QID PRN (Reason: shortness of breath or wheezing) 30 Days Qty: 18 5RF diclofenac sodium 75 mg tablet,delayed release (DR/EC) 75 mg PO BID PRN (Reason: pain) Qty: 30 1RF Rx Instructions: take with food Discharge Orders: Discharge ED (Routine); Ordered 03/07/22 Ordered By: Conner Soria Referrals: Bret Cheung MD [Primary Care Provider] - Discharge Diet: Advance as tolerated Discharge Activity: Increase activity as tolerated Patient Instructions: Opioid Safety Activity Restrictions/Additional Instructions: Follow-up with your primary care doctor within the week return if you have further problems. Coding Level of Care Code ED Learning Consultant for [facility] Fwd Exam Comprehensive
[2022-03-07 15:40] LABS: Basophils # 0.1 10^3/uL (0.0-0.1); Basophils % 0.9 %; Eosinophils # 0.2 10^3/uL (0.0-0.8); Eosinophils % 2.6 %; Hematocrit 42.1 % (37.0-47.0); Hemoglobin 13.8 g/dL (11.5-15.3); Lymphocytes % 42.6 %; Mean Corpuscular HGB Conc 32.8 g/dL (30.0-36.0); Mean Corpuscular Hemoglobin 30.7 pg (28.0-34.0); Mean Corpuscular Volume 93.8 fl (81-99); Mean Platelet Volume 11.7 fL (7.4-10.4); Monocytes # 0.9 10^3/uL (0.2-0.9); Monocytes % 9.8 %; Neutrophils # 4.06 10^3/uL (1.8-7.7); Neutrophils % 43.7 %; Nucleated Red Blood Cells % 0 %; Platelet Count 220 10^3/cmm (130-400); Red Blood Count 4.49 10^6/uL (4.1-5.3); Red Cell Distribution Width 12.6 % (12.1-15.1); White Blood Count 9.3 10^3/uL (4.0-10.0)
[2022-03-07] MEDS: sodium chloride 0.9% 1,000 ML 999 ML IV (15:51)
[2022-03-07 16:03] LABS: Alanine Aminotransferase 17 U/L (0-33); Albumin Level 4.1 g/dL (3.5-5.2); Alkaline Phosphatase 67 IU/L (35-105); Anion Gap 13.3 (5-19); Aspartate Amino Transferase 17 U/L (0-32); Blood Urea Nitrogen 9 mg/dL (6-20); Calcium 8.4 mg/dL (8.5-10.5); Carbon Dioxide 25 mmol/L (22-29); Chloride 105 mmol/L (98-107); Globulin 2.9 g/dL (1.3-4.6); Glomerular Filtration Rate 94.7 mL/min (90-130); Glucose 95 mg/dL (65-115); Osmolality Calculated 288 mOsm/kg (285-295); Potassium 3.3 mmol/L (3.5-5.1); Sodium 140 mmol/L (136-145); Total Bilirubin 0.2 mg/dL (0.15-1.2)
[2022-03-07 16:08] VITALS: BP 115/78; PULSE 60; RESP 24; O2SAT 98
[2022-03-07 16:47] LABS: Add Urine Microscopic? YES; Bilirubin Urine Neg (Negative); Blood Urine Neg (Negative); Glucose Urine UA Norm (Normal); Ketones Urine Negative (Negative); Leukocyte Esterase Urine 2+ (Negative); Nitrate Urine Negative (Negative); Protein Urine Neg (Negative); Urine Appearance SL Hazy (CLEAR); Urine Color Yellow (Yellow); Urobilinogen Urine Norm (Negative); pH Urine 6 (5-7)
[2022-03-07 16:48] LABS: Add Urine Culture? No; Amorphous Sediment Urine TRACE /hpf; Bacteria Urine 2+ /hpf; Mucus Urine 1+ /hpf; RBC Urine 0-4 /hpf (0-2); WBC Urine 0-4 /hpf (0-5)
[2022-03-07 17:18] VITALS: BP 125/79; PULSE 65; RESP 19; O2SAT 100
== END 2022-03-07 17:19 | disposition home or self-care (01) ==
PROVIDERS: Emergency Provider Family Medicine; PCP Family Medicine Adult Medicine
DX: R42 Dizziness and giddiness (principal); R11.0 Nausea; Z86.19 Personal history of other infectious and parasitic diseases; J44.9 Chronic obstructive pulmonary disease, unspecified; F17.210 Nicotine dependence, cigarettes, uncomplicated
CPT/HCPCS: 71045; 80053; 81001; 85025; 93005; 96360; 99284; J7030

== ENCOUNTER → 2022-03-17 12:43 | Outpatient (BNVA) | payer MEDICAID, SELFPAY | PROVIDERS: PCP Family Medicine Adult Medicine; Visit Provider Internal Medicine | DX: Z09 Encounter for follow-up examination after completed treatment for conditions other than malignant neoplasm (principal); R76.8 Other specified abnormal immunological findings in serum; R11.2 Nausea with vomiting, unspecified; R19.7 Diarrhea, unspecified; B19.20 Unspecified viral hepatitis C without hepatic coma | CPT/HCPCS: 87522 ==

== ENCOUNTER → 2022-03-23 09:01 | Outpatient (BNVA) | payer MEDICAID, SELFPAY | PROVIDERS: PCP Family Medicine Adult Medicine; Visit Provider Obstetrics & Gynecology | DX: Z12.4 Encounter for screening for malignant neoplasm of cervix (principal); N63.0 Unspecified lump in unspecified breast | CPT/HCPCS: 87624 ==

== ENCOUNTER 2022-04-11 07:10 | Outpatient (CLI) | payer MEDICAID, SELFPAY ==
--- NOTE | 2022-04-11 08:00 | NM_ITS ---
WS: [id number] NUCLEAR MEDICINE HIDA SCAN WITH GALLBLADDER EJECTION FRACTION HISTORY: R11.2 - Nausea with vomiting, unspecified COMPARISON: None available. TECHNIQUE: The patient was intravenously injected with 7.7 mCi of TC99m Mebrofenin. Immediate imaging over the right upper quadrant was followed by 5 minute image and additional images for a total of 60 minutes. Normal uptake of radiotracer throughout the liver. Activity identified in the gallbladder at 10 minutes and well distended by 60 minutes. Activity in the proximal small bowel was seen by 20 minutes. Good washout of the radiotracer from the liver by 60 minutes. The patient then drank 8 ounces of Ensure Plus. Ejection fraction at 60 minutes was 63%. Normal GB ej ection fraction is 35-75%. Post fatty meal symptoms: None. NM/NM hepatobiliary w phar* [id number] IMPRESSION: 1. Normal HIDA scan. 2. Normal gallbladder ejection fraction.
== END 2022-04-11 07:11 | disposition home or self-care (01) ==
LOC: RAD 07:14
PROVIDERS: PCP Family Medicine Adult Medicine; Visit Provider Internal Medicine
DX: K21.9 Gastro-esophageal reflux disease without esophagitis (principal); K27.9 Peptic ulcer, site unspecified, unspecified as acute or chronic, without hemorrhage or perforation; R11.2 Nausea with vomiting, unspecified; R19.7 Diarrhea, unspecified
CPT/HCPCS: 78227; 87522; A9537

== ENCOUNTER 2022-04-19 07:40 | Outpatient (CLI) | payer MEDICAID, SELFPAY ==
--- NOTE | 2022-04-19 07:49 | MM_ITS ---
WS: [id number] DIAGNOSTIC BILATERAL DIGITAL BREAST TOMOSYNTHESIS MAMMOGRAPHY WITH CAD LEFT breast ultrasound, limited. HISTORY: Palpable area LEFT breast upper outer quadrant. COMPARISON: None available. TECHNIQUE: Bilateral craniocaudad, mediolateral oblique, and mediolateral views are submitted with to mosynthesis and SM. Spot compression LEFT MLO. Computer aided detection utilized. Breast composition: The breasts are extremely dense, which lowers the sensitivity of mammography. Pal pable marker is placed in the upper outer quadrant of the LEFT breast at a middle depth. No distortio n or mass identified. Breasts are symmetric bilaterally. Benign calcifications are noted within the L EFT breast also. LEFT breast ultrasound, limited. Dense fibroglandular tissue in the LEFT breast at 12:00, 2 cm from the nipple. There is a small clust er of cysts measuring 9 x 8 x 6 mm. These small cysts are by thin cordova or septations. No i ncreased vascularity. MM/[place] [id number] IMPRESSION: BI-RADS: 3-Probably Benign FOLLOW UP: 6 Month Follow-up Recommendation: Ultrasound follow-up in 6 months of the LEFT breast small clust er cyst at 12:00. Favor this is a small cluster cyst and not a cystic mass. Thi s does correspond to the palpable abnormality.
== END 2022-04-19 07:41 | disposition home or self-care (01) ==
LOC: RAD 07:41
PROVIDERS: PCP Family Medicine Adult Medicine; Visit Provider Obstetrics & Gynecology
DX: N63.21 Unspecified lump in the left breast, upper outer quadrant (principal)
CPT/HCPCS: 76642; 77062

== ENCOUNTER 2022-04-22 14:37 | Emergency (ER) | payer MEDICAID, SELFPAY ==
[2022-04-22 15:10] VITALS: BP 112/67; PULSE 65; RESP 18; TEMP 36.6; O2SAT 98; BMI 24.1
[2022-04-22 16:31] LABS: Basophils # 0.1 10^3/uL (0.0-0.1); Eosinophils # 0.2 10^3/uL (0.0-0.8); Eosinophils % 2.4 %; Hematocrit 43.2 % (37.0-47.0); Hemoglobin 13.9 g/dL (11.5-15.3); Lymphocytes # 2.9 10^3/uL (0.8-4.8); Lymphocytes % 29.1 %; Mean Corpuscular HGB Conc 32.2 g/dL (30.0-36.0); Mean Corpuscular Hemoglobin 30.9 pg (28.0-34.0); Mean Platelet Volume 11.5 fL (7.4-10.4); Monocytes # 0.7 10^3/uL (0.2-0.9); Monocytes % 7.3 %; Neutrophils % 59.8 %; Nucleated Red Blood Cells % 0 %; Platelet Count 196 10^3/cmm (130-400); Red Cell Distribution Width 12.6 % (12.1-15.1); White Blood Count 9.9 10^3/uL (4.0-10.0)
--- NOTE | 2022-04-22 16:39 | ED_ITS ---
HPI - GI Bleed General: Chief complaint: GI Bleed Stated complaint: bloody stool Time Seen by Provider: 04/22/22 16:32 Source: patient Mode of arrival: ambulatory Limitations: no limitations History of Present Illness: 36-year-old female who states she has had diarrhea constantly for months along some abdominal cramping states she has been following with Dr. Brothers he done an upper GI series states she saw them yesterday but today she had a bowel movement and then right after had another bowel movement that was bright red blood. She only had 1 bloody bowel movement and never had one in the past. She denies any weakness she does have some slight left lower quadrant pain she rates a 3 out of 10 denies any fevers denies any worsening proving factors. Associated symptoms: Reports abdominal pain; Denies chills, easy bruising, fever(s), headache(s) or rash Review of Systems Const: Denies: fever(s), chills, body aches or change in appetite Eyes: Denies: blurry vision or eye discomfort ENMT: Denies: throat pain or dental pain Card: Denies: chest pain Resp: Denies: dyspnea GI: Reports: abdominal pain, diarrhea and hematochezia : Denies: dysuria Musc: Denies: neck pain or back pain Skin/Breast: Denies: rash Neuro: Denies: headache(s) Psych: Denies: depression Adi/Lymph: Denies: easy bruising All/Imm: Denies: urticaria PFSH ED PFSH: Medical History Anxiety and depression Asthma Bipolar 1 disorder with moderate cesar Chronic hepatitis C COPD (chronic obstructive pulmonary disease) Gastric ulcer History of removal of cervix but not uterus 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 Cheung Psychiatric care PTSD (post-traumatic stress disorder) PUD (peptic ulcer disease) Social anxiety disorder Tenosynovitis of right forearm Surgical History H/O LEEP (~11/09/17) LEEP procedure performed on 11/09/[address] Suarez [place] [facility] [place] LAURYN-2 on cervical biopsy. 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 Endocervical curettage showed mucoid clot and superficial fragments of benign endocervical mucosa History of appendectomy History of tonsillectomy Family History Grandfather Heart disease Maternal Mother Diabetes Ovarian cancer diagnosed in her 30s Grandmother Diabetes Maternal Family/Other Breast cancer maternal great aunt, diagnosed in her 50s Denies family history of Colon cancer Hypercholesteremia Hypertension Uterine cancer Thyroid disease Stroke Female Reproductive History: Date of last menstrual period: 09/15/20 Physical Exam Const: COMMON NORMALS: no acute distress, patient oriented x3 and healthy appearing HENMT: COMMON NORMALS: normocephalic and atraumatic HEAD & SCALP: normocephalic and atraumatic Eye: COMMON NORMALS: Equal, round and reactive pupils present and EOMs intact bilaterally PUPIL: Yes Equal, round and reactive pupils present Neck/C-Spine: COMMON NORMALS: full ROM and supple Chest: COMMONS NORMALS: normal inspection of the chest and normal palpation of entire chest wall Resp: COMMON NORMALS: normal respiratory effort, No retractions, No use of accessory muscles and clear to auscultation bilaterally AUSCULTATION: clear to auscultation bilaterally Cardio: COMMON NORMALS: regular rate, regular rhythm and No murmurs present (Cardio) RATE: regular rate RHYTHM: regular rhythm GI: COMMON NORMALS: Normal to inspection, nondistended, normoactive bowel sounds present, Soft to palpation, non-tender and no masses PALPATION: Yes Soft to palpation : OTHER: Hemoccult negative stool no signs of fissure no blood at this time Extremity: COMMON NORMALS: normal to inspection and full ROM Neuro: COMMON NORMALS: patient oriented x3, moves all extremities and no focal motor deficits Psych: COMMON NORMALS: mental status grossly normal, Normal thought process present and cooperative THOUGHT PROCESS: Normal thought process present Skin: COMMON NORMALS: no rashes or lesions noted and no wounds GENERAL SKIN EXAM: no rashes or lesions noted Course Vital Signs: Vital signs: Vital Signs Temperature 97.9 F 04/22/22 15:10 Pulse Rate 65 04/22/22 15:10 Respiratory Rate 18 04/22/22 16:42 Blood Pressure 112/67 04/22/22 15:10 Pulse Oximetry 93 04/22/22 16:42 Oxygen Delivery Me thod 04/22/22 15:10 MDM - GI Bleed Medical Decision Making Patient presents here with abdominal pain along with diarrhea her blood work here is normal she states she had 1 bloody bowel movement her rectal exam here showed no blood and her hemoglobin is normal white counts normal she is to follow-up with Dr. Brothers she likely needs a colonoscopy with her chronic diarrhea she understands agrees to plan. Lab Data : 04/22/22 16:18 04/22/22 16:18 Laboratory Results WBC 9.9 10^3/uL (4.0-10.0) 04/22/22 16:18 RBC 4.50 10^6/uL (4.1-5.3) 04/22/22 16:18 Hgb 13.9 g/dL (11.5-15.3) 04/22/22 16:18 Hct 43.2 % (37.0-47.0) 04/22/22 16:18 MCV 96.0 fl (81-99) 04/22/22 16:18 MCH 30.9 pg (28.0-34.0) 04/22/22 16:18 MCHC 32.2 g/dL (30.0-36.0) 04/22/22 16:18 RDW 12.6 % (12.1-15.1) 04/22/22 16:18 Plt Count 196 10^3/cmm (130-400) 04/22/22 16:18 MPV 11.5 fL (7.4-10.4) H 04/22/22 16:18 Neut % (Auto) 59.8 % 04/22/22 16:18 Lymph % (Auto) 29.1 % 04/22/22 16:18 [place] % (Auto) 7.3 % 04/22/22 16:18 Eos % (Auto) 2.4 % 04/22/22 16:18 Baso % (Auto) 1.0 % 04/22/22 16:18 Neut # (Auto) 5.90 10^3/uL (1.8-7.7) 04/22/22 16:18 Lymph # (Auto) 2.9 10^3/uL (0.8-4.8) 04/22/22 16:18 [place] # (Auto) 0.7 10^3/uL (0.2-0.9) 04/22/22 16:18 Eos # (Auto) 0.2 10^3/uL (0.0-0.8) 04/22/22 16:18 Baso # (Auto) 0.1 10^3/uL (0.0-0.1) 04/22/22 16:18 Nucleated RBC % (auto) 0 % 04/22/22 16:18 Nucleated RBCs # 0.0 /100WBC 04/22/22 16:18 PT 13.10 SECONDS (12.1-14.9) 04/22/22 16:18 INR 0.96 (0.8-1.2) 04/22/22 16:18 Sodium 137 mmol/L (136-145) 04/22/22 16:18 Potassium 3.8 mmol/L (3.5-5.1) 04/22/22 16:18 Chloride 103 mmol/L (98-107) 04/22/22 16:18 Carbon Dioxide 23 mmol/L (22-29) 04/22/22 16:18 Anion Gap 14.8 (5-19) 04/22/22 16:18 BUN 6 mg/dL (6-20) 04/22/22 16:18 Creatinine 0.6 mg/dL (0.5-0.9) 04/22/22 16:18 GFR Calculation 113.1 mL/min (90-130) 04/22/22 16:18 Glucose 91 mg/dL (65-115) 04/22/22 16:18 Calculated Osmolality 281 mOsm/kg (285-295) L 04/22/22 16:18 Calcium 9.1 mg/dL (8.5-10.5) 04/22/22 16:18 Total Bilirubin 0.4 mg/dL (0.15-1.2) 04/22/22 16:18 AST 16 U/L (0-32) 04/22/22 16:18 ALT 11 U/L (0-33) 04/22/22 16:18 Alkaline Phosphatase 73 IU/L (35-105) 04/22/22 16:18 Total Protein 6.9 g/dL (6.6-8.7) 04/22/22 16:18 Albumin 4.4 g/dL (3.5-5.2) 04/22/22 16:18 Globulin 2.5 g/dL (1.3-4.6) 04/22/22 16:18 Discharge Plan Discharge Patient Disposition: Home Clinical Impression: Diarrhea, Blood in stool Condition: Stable Prescriptions: No Action levetiracetam [Keppra] 500 mg tablet 500 mg PO BID Qty: 60 5RF Mavyret 100-40 mg tablet 3 tab PO DAILY 28 Days Qty: 84 1RF Rx Instructions: must administer with a meal/food Xifaxan 200 mg tablet 400 mg PO BID Qty: 60 0RF lorazepam 0.5 mg tablet 0.5 mg PO DAILY PRN lamotrigine 25 mg tablet 50 mg PO DAILY Qty: 60 0RF Rx Instructions: First 2 weeks:Take 1 tablet daily at bedtime, then increase to 2 tablets da randolph at bedtime;stop if rash develops escitalopram oxalate 5 mg tablet 5 mg PO DAILY Qty: 30 0RF Rx Instructions: Take one tablet by mouth every morning; stop other doses of this medication clotrimazole [Antifungal (clotrimazole)] 1 % cream 1 applic topical BID Qty: 45 0RF gabapentin 300 mg capsule 300 mg PO QID Qty: 120 3RF albuterol sulfate [ProAir HFA] 90 mcg/actuation HFA aerosol inhaler 1 puff INHALATION QID PRN (Reason: shortness of breath or wheezing) 30 Days Qty: 18 5RF pantoprazole 40 mg tablet,delayed release (DR/EC) 40 mg PO BID 30 Days Qty: 60 0RF promethazine 25 mg tablet See Rx Instructions .ROUTE .COMPLEX Qty: 20 2RF Dose Instruction: TAKE ONE TABLET BY MOUTH EVERY 6 HOURS NEEDED FOR NAUSEA AND VOMITING Rx Instructions: TAKE ONE TABLET BY MOUTH EVERY 6 HOURS NEEDED FOR NAUSEA AND VOMITING diclofenac sodium 75 mg tablet,delayed release (DR/EC) 75 mg PO BID PRN (Reason: pain) Qty: 30 1RF Rx Instructions: take with food Discharge Orders: Discharge ED (Routine); Ordered 04/22/22 Ordered By: Aleja Hatch Referrals: Gabino Brothers MD [Physician] - 1-3 days Bret Cheung MD [Primary Care Provider] - Discharge Diet: Advance as tolerated Discharge Activity: Resume usual activity Patient Instructions: Diarrhea - Adult, Rectal Bleeding (ED) Coding Level of Care Code ED Rn Case Manager Hosp[facility] for [facility] Fwd Exam Comprehensive
[2022-04-22 16:42] VITALS: RESP 18; O2SAT 93
[2022-04-22 16:42] LABS: INR 0.96 (0.8-1.2)
[2022-04-22] MEDS: morphine 4 mg/mL SDV 1 mL IVP (16:42)
[2022-04-22] MEDS: ondansetron 2 mg/ML SDV 2 mL 4 MG IVP (16:42)
[2022-04-22 17:06] LABS: Alanine Aminotransferase 11 U/L (0-33); Albumin Level 4.4 g/dL (3.5-5.2); Alkaline Phosphatase 73 IU/L (35-105); Anion Gap 14.8 (5-19); Aspartate Amino Transferase 16 U/L (0-32); Blood Urea Nitrogen 6 mg/dL (6-20); Calcium 9.1 mg/dL (8.5-10.5); Carbon Dioxide 23 mmol/L (22-29); Chloride 103 mmol/L (98-107); Globulin 2.5 g/dL (1.3-4.6); Glomerular Filtration Rate 113.1 mL/min (90-130); Glucose 91 mg/dL (65-115); Osmolality Calculated 281 mOsm/kg (285-295); Potassium 3.8 mmol/L (3.5-5.1); Sodium 137 mmol/L (136-145); Total Bilirubin 0.4 mg/dL (0.15-1.2); Total Protein 6.9 g/dL (6.6-8.7)
[2022-04-22 17:20] VITALS: BP 107/78; PULSE 65; O2SAT 98
== END 2022-04-22 17:22 | disposition home or self-care (01) ==
PROVIDERS: Emergency Provider Emergency Medicine; PCP Family Medicine Adult Medicine
DX: K92.1 Melena (principal); R19.7 Diarrhea, unspecified; Z86.19 Personal history of other infectious and parasitic diseases; J44.9 Chronic obstructive pulmonary disease, unspecified
CPT/HCPCS: 80053; 85025; 85610; 96374; 96375; 99284; J2270; J2405

== ENCOUNTER 2022-05-10 10:12 | Emergency (ER) | payer MEDICAID, SELFPAY ==
[2022-05-10 10:24] VITALS: BP 111/71; PULSE 78; RESP 16; TEMP 36.7; O2SAT 97; BMI 23.3
--- NOTE | 2022-05-10 10:43 | W.ED.SEIZURE ---
HPI - Seizure General: Chief Complaint: Seizure Stated Complaint: seizure like activity Time Seen by Provider: 05/10/22 10:16 Source: patient Mode of arrival: EMS Limitations: no limitations History of Present Illness: HPI Narrative: Patient is a 36-year-old female who presents to ED today via EMS for concerns of multiple seizures occurring this morning. Patient states she has a history of epilepsy and takes Keppra 500 mg twice daily. Patient states she has not missed any doses of this. She states she has had multiple seizures over the past 2 weeks. She has started new medications of Lamictal and Escitalopram from a provider at [facility] for treatment of anxiety/depression/PTSD/bipolar. Patient states she has seen Dr. Muro for seizures with her last visit being in October of this year. Dr. Muro had recommended a sleep deprived EEG however this has not been completed. There was concern for possible functional seizures. Patient tells me during her episodes she tenses up and states she does not remember the event following. She does not complain of any postictal confusion. No loss of bowel or bladder. MD complaint: seizure Onset (ago): week(s) Witnessed: Yes - by Bystander (roommate) Trauma: No Seizure History: Yes Place: Home Possible Precipitating Event: none Associated symptoms: Reports no associated symptoms; Deny chest pain, chills, fever(s), malaise or syncope Treatments prior to arrival: none Review of Systems Const: Denies: fever(s), chills, body aches, fatigue or malaise Eyes: Denies: change in vision or blurry vision Card: Denies: chest pain, palpitations, irregular heart rhythm, lightheadedness, syncope or dyspnea on exertion Resp: Denies: dyspnea, productive cough or pain on inspiration GI: Reports: diarrhea (chronic x 5 mo); Denies: abdominal pain, nausea, vomiting or heartburn : Denies: flank pain, difficulty voiding, dysuria, urinary urgency or urinary hesitancy Musc: Reports: back pain (chronic) and extremity pain (chronic bilateral great toe gout pain); Denies: neck pain, extremity swelling or joint pain Skin/Breast: Denies: rash Neuro: Denies: headache(s), numbness in extremities, weakness in extremities, sensory changes, lack of coordination or dizziness Psych: Reports: anxiety and depression PFSH ED PFSH: Medical History Anxiety and depression Asthma Bipolar 1 disorder with moderate cesar Chronic hepatitis C COPD (chronic obstructive pulmonary disease) Gastric ulcer History of removal of cervix but not uterus 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 Cheung Psychiatric care PTSD (post-traumatic stress disorder) PTSD (post-traumatic stress disorder) PUD (peptic ulcer disease) Social anxiety disorder Tenosynovitis of right forearm Surgical History H/O LEEP (~11/09/17) LEEP procedure performed on 11/09/[address] Suarez at [facility] [place] for LAURYN-2 on cervical biopsy. 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 Endocervical curettage showed mucoid clot and superficial fragments of benign endocervical mucosa History of appendectomy History of tonsillectomy Family History Grandfather Heart disease Maternal Mother Diabetes Ovarian cancer diagnosed in her 30s Grandmother Diabetes Maternal Family/Other Breast cancer maternal great aunt, diagnosed in her 50s Denies family history of Colon cancer Hypercholesteremia Hypertension Uterine cancer Thyroid disease Stroke Female Reproductive History: Date of last menstrual period: 05/10/22 Physical Exam Const: COMMON NORMALS: no acute distress, average body habitus, patient oriented x3, no limitations, healthy appearing, alert and well nourished GENERAL APPEARANCE: cooperative ORIENTATION/CONSCIOUSNESS: Yes awake, Yes oriented to person, Yes oriented to place and Yes oriented to time HENMT: COMMON NORMALS: normocephalic and atraumatic HEAD & SCALP: normal to inspection, normocephalic and atraumatic Resp: COMMON NORMALS: normal respiratory effort and clear to auscultation bilaterally AUSCULTATION: clear to auscultation bilaterally Cardio: COMMON NORMALS: regular rate and regular rhythm RATE: regular rate RHYTHM: regular rhythm Back/Pelvis: COMMON NORMALS: thoracic and lumbar spine normal to inspection, no thoracic nor lumbar tenderness and thoraco-lumbar ROM normal Extremity: COMMON NORMALS: normal to inspection GENERAL: Yes normal exam except as noted Neuro: BRIANNE COMA SCALE: document GCS findings [place] coma scale eye opening: Spontaneous [place] coma scale verbal response: Orientated [place] coma scale motor response: Obey commands [place] coma scale total score: 15 COMMON NORMALS: patient oriented x3, CN's II-XII intact bilaterally, moves all extremities, no focal motor deficits, no sensory deficits noted and gait normal SENSORIUM/ORIENTATION: Yes alert, Yes oriented to person, Yes oriented to place and Yes oriented to time Skin: COMMON NORMALS: no rashes or lesions noted GENERAL SKIN EXAM: no rashes or lesions noted Course Vital Signs: Vital signs: Vital Signs Temperature 98.1 F 05/10/22 10:24 Pulse Rate 69 05/10/22 11:10 Respiratory Rate 16 05/10/22 10:24 Blood Pressure 104/79 05/10/22 11:10 Pulse Oximetry 97 05/10/22 11:10 Oxygen Delivery Me thod 05/10/22 11:10 MDM - Seizure MDM Narrative Medical decision making narrative: Patient's vital signs are stable. She has not had any seizures while here in the emergency department. Lab work overall is unremarkable. Talk screen positive for opiates, benzodiazepines, marijuana. Patient states she takes Ativan as needed for anxiety. She states she did take a leftover opiate medication for a toothache. At this time I will increase her Keppra to 1000mg twice daily and have her follow-up with Dr. Muro for further evaluation. Return to ED precautions given. Lab Data Result diagrams: 05/10/22 09:11 05/10/22 09:11 Labs: Radiology Impressions Chest X-Ray 05/10/22 10:44 IMPRESSION: Unremarkable chest radiograph. Laboratory Results WBC 8.4 10^3/uL (4.0-10.0) 05/10/22 09:11 RBC 4.46 10^6/uL (4.1-5.3) 05/10/22 09:11 Hgb 14.1 g/dL (11.5-15.3) 05/10/22 09:11 Hct 40.7 % (37.0-47.0) 05/10/22 09:11 MCV 91.3 fl (81-99) 05/10/22 09:11 MCH 31.6 pg (28.0-34.0) 05/10/22 09:11 MCHC 34.6 g/dL (30.0-36.0) 05/10/22 09:11 RDW 12.7 % (12.1-15.1) 05/10/22 09:11 Plt Count 230 10^3/cmm (130-400) 05/10/22 09:11 MPV 12.1 fL (7.4-10.4) H 05/10/22 09:11 Neut % (Auto) 56.4 % 05/10/22 09:11 Lymph % (Auto) 29.6 % 05/10/22 09:11 [place] % (Auto) 9.7 % 05/10/22 09:11 Eos % (Auto) 2.7 % 05/10/22 09:11 Baso % (Auto) 1.2 % 05/10/22 09:11 Neut # (Auto) 4.76 10^3/uL (1.8-7.7) 05/10/22 09:11 Lymph # (Auto) 2.5 10^3/uL (0.8-4.8) 05/10/22 09:11 [place] # (Auto) 0.8 10^3/uL (0.2-0.9) 05/10/22 09:11 Eos # (Auto) 0.2 10^3/uL (0.0-0.8) 05/10/22 09:11 Baso # (Auto) 0.1 10^3/uL (0.0-0.1) 05/10/22 09:11 Nucleated RBC % (auto) 0 % 05/10/22 09:11 Nucleated RBCs # 0.0 /100WBC 05/10/22 09:11 Sodium 138 mmol/L (136-145) 05/10/22 09:11 Potassium 4.0 mmol/L (3.5-5.1) 05/10/22 09:11 Chloride 104 mmol/L (98-107) 05/10/22 09:11 Carbon Dioxide 22 mmol/L (22-29) 05/10/22 09:11 Anion Gap 16.0 (5-19) 05/10/22 09:11 BUN 10 mg/dL (6-20) 05/10/22 09:11 Creatinine 0.7 mg/dL (0.5-0.9) 05/10/22 09:11 GFR Calculation 94.7 mL/min (90-130) 05/10/22 09:11 Glucose 59 mg/dL (65-115) L 05/10/22 09:11 Calculated Osmolality 283 mOsm/kg (285-295) L 05/10/22 09:11 Lactic Acid 0.6 mmol/L (0.5-2.2) 05/10/22 11:21 Calcium 9.6 mg/dL (8.5-10.5) 05/10/22 09:11 Total Bilirubin 0.4 mg/dL (0.15-1.2) 05/10/22 09:11 AST 17 U/L (0-32) 05/10/22 09:11 ALT 11 U/L (0-33) 05/10/22 09:11 Alkaline Phosphatase 78 U/L (35-105) 05/10/22 09:11 Total Protein 6.8 g/dL (6.6-8.7) 05/10/22 09:11 Albumin 4.3 g/dL (3.5-5.2) 05/10/22 09:11 Globulin 2.5 g/dL (1.3-4.6) 05/10/22 09:11 Urine Color Yellow (Yellow) 05/10/22 12:12 Urine Appearance Clear (CLEAR) 05/10/22 12:12 Urine pH 6 (5-7) 05/10/22 12:12 Ur Specific [place] 1.005 (1.005-1.030) 05/10/22 12:12 Urine Protein Neg (Negative) 05/10/22 12:12 Urine Glucose (UA) Norm (Normal) 05/10/22 12:12 Urine Ketones Negative (Negative) 05/10/22 12:12 Urine Blood Neg (Negative) 05/10/22 12:12 Urine Nitrate Negative (Negative) 05/10/22 12:12 Urine Bilirubin Neg (Negative) 05/10/22 12:12 Urine Urobilinogen Norm mg/dL (Negative) 05/10/22 12:12 Ur Leukocyte Esterase Negative (Negative) 05/10/22 12:12 Urine Opiates Screen Positive ng/mL (Negative) H 05/10/22 12:12 Ur Barbiturates Screen Negative ng/mL (Negative) 05/10/22 12:12 Ur Phencyclidine Scrn Negative ng/mL (Negative) 05/10/22 12:12 Ur Amphetamines Screen Negative ng/mL (Negative) 05/10/22 12:12 U Benzodiazepines Scrn Positive ng/mL (Negative) H 05/10/22 12:12 Urine Cocaine Screen Negative ng/mL (Negative) 05/10/22 12:12 U Marijuana (THC) Screen Positive ng/mL (Negative) H 05/10/22 12:12 Discharge Plan Discharge Patient Disposition: Home Clinical Impression: Seizure Condition: Stable Prescriptions: Changed Keppra 500 mg tablet 1,000 mg PO BID Qty: 120 0RF No Action Mavyret 100-40 mg tablet 3 tab PO DAILY 28 Days Qty: 84 1RF Rx Instructions: must administer with a meal/food Xifaxan 200 mg tablet 400 mg PO BID Qty: 60 0RF lorazepam 0.5 mg tablet 0.5 mg PO DAILY PRN (Reason: Seizures) escitalopram oxalate 5 mg tablet 5 mg PO DAILY Qty: 30 0RF gabapentin 300 mg capsule 300 mg PO QID Qty: 120 3RF albuterol sulfate [ProAir HFA] 90 mcg/actuation HFA aerosol inhaler 1 puff INHALATION QID PRN (Reason: shortness of breath or wheezing) 30 Days Qty: 18 5RF pantoprazole 40 mg tablet,delayed release (DR/EC) 40 mg PO BID 30 Days Qty: 60 0RF lamotrigine 25 mg tablet 50 mg PO BEDTIME promethazine 25 mg tablet 25 mg PO Q6H PRN (Reason: Nausea And Vomiting) melatonin 5 mg Capsule 10 mg PO BEDTIME Discharge Orders: Discharge ED (Routine); Ordered 05/10/22 Ordered By: Edna Wilson Referrals: Bret Cheung MD [Primary Care Provider] - Coding Level of Care Code ED 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
--- NOTE | 2022-05-10 10:44 | XR_ITS ---
WS: [id number] Exam: XR chest 1V portable [id number] Date/Time of Exam: 05/10/2022 10:48 AM Reason For Exam: seizure Comparison 03/07/2022. Findings: The lungs are clear and fully expanded. Costophrenic angles are sharp. No infiltrates. Bronchovascula r relief appears normal. Cardiac silhouette is unremarkable. Bony elements are intact. XR/XR chest 1V portable [id number] IMPRESSION: Unremarkable chest radiograph.
[2022-05-10 10:52] LABS: Basophils # 0.1 10^3/uL (0.0-0.1); Basophils % 1.2 %; Eosinophils # 0.2 10^3/uL (0.0-0.8); Eosinophils % 2.7 %; Hematocrit 40.7 % (37.0-47.0); Hemoglobin 14.1 g/dL (11.5-15.3); Lymphocytes # 2.5 10^3/uL (0.8-4.8); Lymphocytes % 29.6 %; Mean Corpuscular HGB Conc 34.6 g/dL (30.0-36.0); Mean Corpuscular Hemoglobin 31.6 pg (28.0-34.0); Mean Corpuscular Volume 91.3 fl (81-99); Mean Platelet Volume 12.1 fL (7.4-10.4); Monocytes # 0.8 10^3/uL (0.2-0.9); Monocytes % 9.7 %; Neutrophils # 4.76 10^3/uL (1.8-7.7); Neutrophils % 56.4 %; Nucleated Red Blood Cells % 0 %; Platelet Count 230 10^3/cmm (130-400); Red Blood Count 4.46 10^6/uL (4.1-5.3); Red Cell Distribution Width 12.7 % (12.1-15.1); White Blood Count 8.4 10^3/uL (4.0-10.0)
[2022-05-10 11:00] LABS: Alanine Aminotransferase 11 U/L (0-33); Albumin Level 4.3 g/dL (3.5-5.2); Alkaline Phosphatase 78 U/L (35-105); Aspartate Amino Transferase 17 U/L (0-32); Blood Urea Nitrogen 10 mg/dL (6-20); Calcium 9.6 mg/dL (8.5-10.5); Carbon Dioxide 22 mmol/L (22-29); Chloride 104 mmol/L (98-107); Globulin 2.5 g/dL (1.3-4.6); Glomerular Filtration Rate 94.7 mL/min (90-130); Glucose 59 mg/dL (65-115); Osmolality Calculated 283 mOsm/kg (285-295); Sodium 138 mmol/L (136-145); Total Bilirubin 0.4 mg/dL (0.15-1.2); Total Protein 6.8 g/dL (6.6-8.7)
[2022-05-10] MEDS: sodium chloride 0.9% 1,000 ML 999 ML IV (11:03)
[2022-05-10 11:10] VITALS: BP 104/79; PULSE 69; O2SAT 97
[2022-05-10 11:59] LABS: Lactic Sepsis W/Reflex 0.6 mmol/L (0.5-2.2)
[2022-05-10] MEDS: LORazepam 0.5 mg Tablet PO (12:07)
[2022-05-10 12:19] LABS: Add Urine Microscopic? NO; Charge for UA Resulting for Rev
[2022-05-10 12:26] LABS: Bilirubin Urine Neg (Negative); Blood Urine Neg (Negative); Glucose Urine UA Norm (Normal); Ketones Urine Negative (Negative); Leukocyte Esterase Urine Negative (Negative); Nitrate Urine Negative (Negative); Protein Urine Neg (Negative); Specific Gravity, Urine 1.005 (1.005-1.030); Urine Appearance Clear (CLEAR); Urine Color Yellow (Yellow); Urobilinogen Urine Norm (Negative); pH Urine 6 (5-7)
[2022-05-10 12:31] LABS: Amphetamines Screen Urine Negative (Negative); Barbiturates Screen Urine Negative (Negative); Benzodiazepines Screen Urine Positive (Negative); Cocaine Screen Urine Negative (Negative); Opiate Screen Urine Positive (Negative); PCP Screen Urine Negative (Negative); THC Screen Urine Positive (Negative)
[2022-05-11 08:33] LABS: Levetiracetam Immunoassy 37.9 mcg/mL (6.0-46.0)
--- NOTE | 2022-05-11 09:55 | DCPLANNER ---
Addendum entered by Aleshia Forman 05/27/22 08:45: Patients appointment was rescheduled. Addendum entered by Aleshia Forman 05/12/22 14:23: Patient has a follow up appointment scheduled for Tuesday, May 24, 2022 at 12:[address] Muro. Clinic will call patient with appointment information. Original Note: customer manager had message to schedule a follow up appointment for patient with neurology. customer manager sent patients information to the front office staff at neurology. Patients information will be printed and reviewed. Clinic will call patient with appointment information.
== END 2022-05-10 13:08 | disposition home or self-care (01) ==
PROVIDERS: Emergency Provider Physician Assistant; PCP Family Medicine Adult Medicine
DX: R56.9 Unspecified convulsions (principal); Z86.19 Personal history of other infectious and parasitic diseases; J44.9 Chronic obstructive pulmonary disease, unspecified
CPT/HCPCS: 36415; 71045; 80053; 80177; 80306; 81003; 83605; 85025; 96365; 99284; J1953; J7030

== ENCOUNTER 2022-05-16 16:45 | Emergency (ER) | payer MEDICAID, SELFPAY ==
[2022-05-16] VITALS (9 sets, daily range): BP systolic 101–124; BP diastolic 68–90; PULSE 81–116; RESP 19–45; TEMP 36.1; O2SAT 66–99; BMI 24.1
--- NOTE | 2022-05-16 17:05 | XRR_ITS ---
PROCEDURE INFORMATION: Exam: XR Chest Exam date and time: 05/16/2022 5:24 PM Age: 36 years old Clinical indication: Shortness of breath; Additional info: Dyspnea TECHNIQUE: Imaging protocol: Radiologic exam of the chest. Views: 1 view. COMPARISON: CR XR chest 1V portable [id number] 05/10/2022 10:50 AM FINDINGS: Lungs: Unremarkable. No consolidation. Pleural spaces: Unremarkable. No pleural effusion. No pneumothorax. Heart/Mediastinum: Unremarkable. No cardiomegaly. Bones/joints: Unremarkable. XR/XR chest 1V portable [id number] IMPRESSION: No acute findings.
--- NOTE | 2022-05-16 17:09 | W.ED.GENADLT ---
HPI - General Adult General: Chief complaint: Asthma Stated complaint: can't breathe Time Seen by Provider: 05/16/22 17:05 History of Present Illness: 36-year-old female with history of COPD and asthma presenting to the emergency acute wheezing and dyspnea for the last 30 minutes. Patient was at home and suddenly started. Patient reports shortness of breath and inability to speak full sentences and bilateral rib pain. Patient denies any fevers or chills, sputum production, abdominal, diarrhea melena hematochezia. No complaints. Patient denies any itchiness of the skin, nausea/vomiting or diarrhea. No sick contact around the patient. Patient does not know her triggers to her exacerbations. Patient reports using his inhaler without improvement in symptoms. Onset:30 minutes ago Duration:30 minutes Location:home Severity:moderate Associated symptoms: Reports chest pain and dyspnea; Deny nausea, rash, palpitations or vomiting Review of Systems Const: Denies: fever(s) or chills Eyes: Denies: change in vision ENMT: Denies: mouth pain Card: Reports: chest pain; Denies: palpitations Resp: Reports: dyspnea and other (+wheezing); Denies: non-productive cough GI: Denies: abdominal pain, nausea, vomiting or diarrhea : Denies: dysuria Musc: Denies: extremity pain Skin/Breast: Denies: rash or new lesions Neuro: Denies: weakness in extremities Psych: Reports: other (Normal mood) Adi/Lymph: Denies: easy bruising PFSH ED PFSH: Medical History Anxiety and depression Asthma Bipolar 1 disorder with moderate cesar Chronic hepatitis C COPD (chronic obstructive pulmonary disease) GERD (gastroesophageal reflux disease) History of removal of cervix but not uterus 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 Cheung Psychiatric care PTSD (post-traumatic stress disorder) PTSD (post-traumatic stress disorder) Social anxiety disorder Tenosynovitis of right forearm URI with cough and congestion Surgical History H/O LEEP (~03/01/18) L[place] 11/09/[address] [place] [facility] [place] cervical biopsy. 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 Endocervical curettage showed mucoid clot and superficial fragments of benign endocervical mucosa History of appendectomy History of tonsillectomy Family History Grandfather Heart disease Maternal Mother Diabetes Ovarian cancer diagnosed in her 30s Grandmother Diabetes Maternal Family/Other Breast cancer maternal great aunt, diagnosed in her 50s Denies family history of Colon cancer Hypercholesteremia Hypertension Uterine cancer Thyroid disease Stroke Social History Smoking and tobacco status: never smoked Alcohol intake: never Caregiver/support person: Yes Lives independently: No Household members: other Details: homeless care home Marital status: Number of children: 0 Highest education level completed: High School Graduate service: No Current occupational status: unemployed Current occupational exposures/hazards: No Pets and animals: No History of recent travel: No Current gender identity: Female Sailaja/Congregational: Zoroastrian Special sailaja needs: No Agree to transfusion: Yes Female Reproductive History: Date of last menstrual period: 05/10/22 Physical Exam Const: COMMON NORMALS: alert HENMT: COMMON NORMALS: atraumatic HEAD & SCALP: atraumatic MOUTH: moist mucous membranes not abnormal Eye: COMMON NORMALS: EOMs intact bilaterally and conjunctivae normal CONJUNCTIVA: Yes conjunctivae normal Neck/C-Spine: COMMON NORMALS: full ROM and supple Resp: OTHER: + Moderate increased respiratory efforts + Cardio: COMMON NORMALS: regular rate RATE: regular rate GI: COMMON NORMALS: Soft to palpation and non-tender PALPATION: Yes Soft to palpation Extremity: COMMON NORMALS: full ROM Neuro: SENSORIUM/ORIENTATION: Yes alert MOTOR EXAM: No Abnormal motor strength present and Other motor observations present (no focal motor deficits) Psych: COMMON NORMALS: speech normal SPEECH: Yes normal speech MOOD & AFFECT: Yes euthymic mood Course Vital Signs: Vital signs: Vital Signs Temperature 96.9 F L 05/16/22 16:48 Pulse Rate 93 05/16/22 19:00 Respiratory Rate 45 H 05/16/22 17:50 Blood Pressure 114/68 05/16/22 19:00 Pulse Oximetry 99 05/16/22 19:00 Oxygen Delivery Me thod 05/16/22 17:14 MDM - General Adult Medical Decision Making 36-year-old female with history of COPD and asthma presenting to the emergency acute wheezing and dyspnea for the last 30 minutes. Medical, patient has moderate increased work of breathing and expiratory wheezes and chest tightness. Patient received multiple treatments of DuoNeb, terbutaline and Solu-Medrol. At 5:45pm, she was noted to have stridorous noises. Patient received IM epinephrine and racemic epinephrine. Patient also received 2 mg Ativan 2 mg and 10 mg of ketamine. Patient reports feeling significantly improved after. On reassessment, patient's stridor and wheezing both improved. Dr. Rodríguez performed a bedside scope which showed there is mild edema of the cords. At the present time, after 1 hour observation, patient's ketamine has worn off. Patient is AAOx3 and requesting to leave. However, we would like patient to be observed for another 3 to 4 hours prior to leaving[address] Dr. Oneal recommended outpatient steriods for vocal cord edema. At 7:16pm, Patient electing to leave AMA. Patient counseled regarding risks of leaving including severe morbidity, brain , hypoxia, arrythmia, , chest pain, or any other unwanted consequences of leaving against medical advice today. Patient verbalizes understanding of the risks and still wishes to leave AMA. Signed AMA paperwork. Patient advised that patient is welcome to return at any time. Patient was instructed that patient may come back if symptoms continue to persist and that emergent adverse conditions have not fully been ruled out. Patient is A&Ox3 and has capacity and is of sound mind to make decisions. Lab Data : 05/16/22 17:15 05/16/22 17:15 Radiology Impressions Chest X-Ray 05/16/22 17:05 IMPRESSION: No acute findings. Laboratory Results WBC 11.8 10^3/uL (4.0-10.0) H 05/16/22 17:15 RBC 4.58 10^6/uL (4.1-5.3) 05/16/22 17:15 Hgb 14.4 g/dL (11.5-15.3) 05/16/22 17:15 Hct 42.3 % (37.0-47.0) 05/16/22 17:15 MCV 92.4 fl (81-99) 05/16/22 17:15 MCH 31.4 pg (28.0-34.0) 05/16/22 17:15 MCHC 34.0 g/dL (30.0-36.0) 05/16/22 17:15 RDW 12.7 % (12.1-15.1) 05/16/22 17:15 Plt Count 229 10^3/cmm (130-400) 05/16/22 17:15 MPV 11.6 fL (7.4-10.4) H 05/16/22 17:15 Neut % (Auto) 64.5 % 05/16/22 17:15 Lymph % (Auto) 24.6 % 05/16/22 17:15 [place] % (Auto) 6.8 % 05/16/22 17:15 Eos % (Auto) 2.9 % 05/16/22 17:15 Baso % (Auto) 0.8 % 05/16/22 17:15 Neut # (Auto) 7.59 10^3/uL (1.8-7.7) 05/16/22 17:15 Lymph # (Auto) 2.9 10^3/uL (0.8-4.8) 05/16/22 17:15 [place] # (Auto) 0.8 10^3/uL (0.2-0.9) 05/16/22 17:15 Eos # (Auto) 0.3 10^3/uL (0.0-0.8) 05/16/22 17:15 Baso # (Auto) 0.1 10^3/uL (0.0-0.1) 05/16/22 17:15 Nucleated RBC % (auto) 0 % 05/16/22 17:15 Nucleated RBCs # 0.0 /100WBC 05/16/22 17:15 Sodium 141 mmol/L (136-145) 05/16/22 17:15 Potassium 3.9 mmol/L (3.5-5.1) 05/16/22 17:15 Chloride 103 mmol/L (98-107) 05/16/22 17:15 Carbon Dioxide 24 mmol/L (22-29) 05/16/22 17:15 Anion Gap 17.9 (5-19) 05/16/22 17:15 BUN 10 mg/dL (6-20) 05/16/22 17:15 Creatinine 0.7 mg/dL (0.5-0.9) 05/16/22 17:15 GFR Calculation 94.7 mL/min (90-130) 05/16/22 17:15 Glucose 96 mg/dL (65-115) 05/16/22 17:15 Calculated Osmolality 291 mOsm/kg (285-295) 05/16/22 17:15 Calcium 9.8 mg/dL (8.5-10.5) 05/16/22 17:15 Discharge Plan Discharge Patient Disposition: Left Against Medical Advice Clinical Impression: Asthma exacerbation, Edema of throat Condition: Stable Prescriptions: No Action Mavyret 100-40 mg tablet 3 tab PO DAILY 28 Days Qty: 84 1RF Rx Instructions: must administer with a meal/food Xifaxan 200 mg tablet 400 mg PO BID Qty: 60 0RF lorazepam 0.5 mg tablet 0.5 mg PO DAILY PRN (Reason: Seizures) escitalopram oxalate 5 mg tablet 5 mg PO DAILY Qty: 30 0RF gabapentin 300 mg capsule 300 mg PO QID Qty: 120 3RF lamotrigine 100 mg tablet 100 mg PO .q hs Qty: 30 0RF Rx Instructions: Take one tablet daily at bedtime; stop 50 mg dose calcium polycarbophil [FiberCon] 625 mg tablet 625 mg PO BID Qty: 60 5RF loratadine 10 mg tablet 10 mg PO DAILY Qty: 30 1RF albuterol sulfate [ProAir HFA] 90 mcg/actuation HFA aerosol inhaler 1 puff INHALATION QID PRN (Reason: shortness of breath or wheezing) 30 Days Qty: 18 5RF pantoprazole 40 mg tablet,delayed release (DR/EC) 40 mg PO BID 30 Days Qty: 60 0RF promethazine 25 mg tablet 25 mg PO Q6H PRN (Reason: Nausea And Vomiting) melatonin 5 mg Capsule 10 mg PO BEDTIME Keppra 500 mg tablet 1,000 mg PO BID Qty: 120 0RF Referrals: Bret Cheung MD [Primary Care Provider] - Stand Alone Forms: Against Medical Advice Coding Level of Care Code ED Nursing Professor for Chg Fwd Exam Comprehensive
[2022-05-16] MEDS: ipratropium-albuterol 3 mL Neb INHALATION ×3 (17:13→17:49)
[2022-05-16] MEDS: terbutaline 1 mg/mL INJ 0.25 MG SUBCUT (17:23)
[2022-05-16 17:24] LABS: Basophils # 0.1 10^3/uL (0.0-0.1); Basophils % 0.8 %; Eosinophils # 0.3 10^3/uL (0.0-0.8); Eosinophils % 2.9 %; Hematocrit 42.3 % (37.0-47.0); Hemoglobin 14.4 g/dL (11.5-15.3); Lymphocytes # 2.9 10^3/uL (0.8-4.8); Lymphocytes % 24.6 %; Mean Corpuscular Hemoglobin 31.4 pg (28.0-34.0); Mean Corpuscular Volume 92.4 fl (81-99); Mean Platelet Volume 11.6 fL (7.4-10.4); Monocytes # 0.8 10^3/uL (0.2-0.9); Monocytes % 6.8 %; Neutrophils # 7.59 10^3/uL (1.8-7.7); Neutrophils % 64.5 %; Nucleated Red Blood Cells % 0 %; Platelet Count 229 10^3/cmm (130-400); Red Blood Count 4.58 10^6/uL (4.1-5.3); Red Cell Distribution Width 12.7 % (12.1-15.1); White Blood Count 11.8 10^3/uL (4.0-10.0)
--- NOTE | 2022-05-16 17:25 | PC.NURSE ---
pt respirations more even. pt now able to speak in sentences and states she is breathing a lot better since the breathing treatment. on arrival, pt was tachypnic and not speaking to staff, communicating with staff with hang guestures. oxygen on arrival to ED at registration desk was 93%
[2022-05-16 17:44] LABS: Anion Gap 17.9 (5-19); Blood Urea Nitrogen 10 mg/dL (6-20); Calcium 9.8 mg/dL (8.5-10.5); Carbon Dioxide 24 mmol/L (22-29); Chloride 103 mmol/L (98-107); Glomerular Filtration Rate 94.7 mL/min (90-130); Glucose 96 mg/dL (65-115); Osmolality Calculated 291 mOsm/kg (285-295); Potassium 3.9 mmol/L (3.5-5.1); Sodium 141 mmol/L (136-145)
[2022-05-16] MEDS: racepinephrine 0.5 mL Neb INHALATION (17:50)
[2022-05-16] MEDS: EPINEPHrine 1 mg/mL INJ 0.3 MG IM (17:52)
[2022-05-16] MEDS: midazolam 1 mg/mL INJ 2 mL 2 MG IV (18:12)
[2022-05-16] MEDS: cetacaine Spray 5 gm Can 1 SPRAY TOPICAL (18:50)
[2022-05-16] MEDS: oxymetazoline 0.05% Nasal Spray 15 mL 2 SPRAY NOSTRIL-B (18:51)
--- NOTE | 2022-05-16 19:12 | PC.NURSE ---
Report from KAMARI Bishop. Pt sitting up in bed in NAD. Family at bedside. Pt requests to be DC'd. notified, but wishes to watch pt for about another hour. Explained this to pt, but pt still stated she wanted leave. Pt given an AMA form. Dr. Tomas notified. Prescription given for steroids. IV DC'd, cath intact. Pt was offered a WC, but stated she was ok to walk. Escorted pt and family member to front lobby.
--- NOTE | 2022-05-16 19:16 | PC.NURSE ---
report given to KAMARI Olmstead
== END 2022-05-16 19:12 | disposition left against medical advice (07) ==
PROVIDERS: Emergency Provider Emergency Medicine; PCP Family Medicine Adult Medicine
DX: J45.901 Unspecified asthma with (acute) exacerbation (principal); R60.9 Edema, unspecified; Z53.21 Procedure and treatment not carried out due to patient leaving prior to being seen by health care provider; Z86.19 Personal history of other infectious and parasitic diseases
CPT/HCPCS: 71045; 80048; 85025; 94640; 96372; 96374; 96375; 99285; J0171; J2250; J2930; J3105; J3490

== ENCOUNTER 2022-07-14 13:40 | Emergency (ER) | payer MEDICAID, SELFPAY ==
[2022-07-14 13:47] VITALS: BP 143/113; PULSE 61; RESP 14; TEMP 36.3; O2SAT 99; BMI 24.3
--- NOTE | 2022-07-14 14:35 | ED_ITS ---
HPI - Seizure General: Chief Complaint: Seizure Stated Complaint: seizure Time Seen by Provider: 07/14/22 13:44 Source: patient Mode of arrival: EMS History of Present Illness: HPI Narrative: 36-year-old female presents emergency room with complaint of seizures. She reports that she has a history of seizure disorder and she is on Keppra a few weeks ago that was increased by Dr. Cheung. She has seen Dr. Muro in the past. Reviewing Dr. Muro's notes and in contacting her today and thought to be functional seizure disorder. At one visit evidently she had reported up to 23 seizures in a single day. She recently finished a course of amoxicillin for a dental infection. She was given 2 mg of IV Ativan in the field she had no further seizure activity after arriving here. States the seizure came on this morning shortly after she got up she could not dissipated after it happened she had a brief period of time which states she did not remember anything and then improved over time. In addition to the Keppra which was recently increased she is also on gabapentin 300 4 times daily and lamotrigine 1 p.o. nightly. In the past she has had a history of methamphetamine abuse and that she has been sober for 8 to 9 months from methamphetamines. She also uses marijuana at times but has not used any in the last several days. MD complaint: possible seizure Onset (ago): hour(s) Description of Episode: loss of consciousness Witnessed: No Trauma: No Seizure History: Yes Possible Precipitating Event: none Associated symptoms: Reports confusion, anorexia and malaise; Deny chest pain, chills, cough, diaphoresis, fever(s), rash, short of breath, syncope or weakness Treatments prior to arrival: none Review of Systems Const: Reports: malaise; Denies: fever(s), chills or diaphoresis ENMT: Denies: throat pain, ear or mastoid pain, nasal discharge or nasal congestion Card: Denies: chest pain or syncope Resp: Denies: dyspnea, productive cough or non-productive cough GI: Denies: abdominal pain, nausea, vomiting, hematemesis, coffee ground emesis, diarrhea, constipation, bloating, hematochezia or melena : Denies: flank pain, difficulty voiding, dysuria, urinary frequency or urinary urgency Skin/Breast: Denies: rash or pruritus Neuro: Reports: confusion [facility] ED PFSH: Medical History Anxiety and depression Asthma Bipolar 1 disorder with moderate cesar Chronic hepatitis C COPD (chronic obstructive pulmonary disease) Dental abscess GERD (gastroesophageal reflux disease) History of removal of cervix but not uterus 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 Cheung Psychiatric care PTSD (post-traumatic stress disorder) PTSD (post-traumatic stress disorder) Social anxiety disorder Tenosynovitis of right forearm Surgical History H/O LEEP (~11/09/17) LEEP procedure performed on 11/09/[address] [facility] for LAURYN-2 on cervical biopsy. Pathology showed moderate [id number] with clear margins on the anterior left and severe dysplasia LAURYN-3 completely excised on the posterior left. Endocervical curettage showed mucoid clot and superficial fragments of benign endocervical mucosa History of appendectomy History of tonsillectomy Family History Grandfather Heart disease Maternal Mother Diabetes Ovarian cancer diagnosed in her 30s Grandmother Diabetes Maternal Family/Other Breast cancer maternal great aunt, diagnosed in her 50s Denies family history of Colon cancer Hypercholesteremia Hypertension Uterine cancer Thyroid disease Stroke Social History Smoking and tobacco status: current every day smoker (0.5ppd) cigarettes Packs smoked per day: 0.5 Smoking risk assessment/counseling performed?: No Alcohol intake: never Desire information about alcohol rehabilitation?: No Counseling given: No Desire information about substance/drug rehabilitation?: No Counseling given: No Caregiver/support person: Yes Lives independently: No Household members: other Details: homeless long term Marital status: Number of children: 0 Highest education level completed: High School Graduate service: No Current occupational status: unemployed Current occupational exposures/hazards: No Pets and animals: No History of recent travel: No Current gender identity: Female [employer]: [employer] Special sailaja needs: No Agree to transfusion: Yes Female Reproductive History: Date of last menstrual period: 05/10/22 Physical Exam Const: GENERAL APPEARANCE: cooperative and comfortable ORIENTATION/CONSCIOUSNESS: Yes awake HENMT: COMMON NORMALS: normocephalic, atraumatic, hearing grossly normal bilaterally, external ears normal, EAC's normal, TM's normal bilaterally, Normal nasal mucous membranes and turbinates present, moist oral mucous membranes and oropharynx normal HEAD & SCALP: normocephalic and atraumatic NOSE: Normal nasal mucous membranes and turbinates present EXTERNAL EAR: Yes external ears normal EXTERNAL AUDITORY CANAL: EAC's normal TYMPANIC MEMBRANE: TM's normal bilaterally Lymph: LYMPHATIC: no lymphadenopathy noted and no lymphedema noted Resp: COMMON NORMALS: normal respiratory effort, No retractions, No use of accessory muscles and clear to auscultation bilaterally AUSCULTATION: clear to auscultation bilaterally Cardio: COMMON NORMALS: regular rate, regular rhythm and No murmurs present (Cardio) RATE: regular rate RHYTHM: regular rhythm GI: COMMON NORMALS: Soft to palpation and No hepatosplenomegaly present AUSCULTATION: Yes normoactive bowel sounds PALPATION: Yes Soft to palpation, No Tenderness to palpation present (GI), No Guarding due to palpation present (GI) and Yes No hepatosplenomegaly present Extremity: COMMON NORMALS: normal to inspection, capillary refill normal, no clubbing, cyanosis or edema, no calf tenderness and no pedal edema Skin: COMMON NORMALS: no rashes or lesions noted GENERAL SKIN EXAM: no rashes or lesions noted Course Vital Signs: Vital signs: Vital Signs Temperature 97.3 F L 07/14/22 13:47 Pulse Rate 61 07/14/22 13:47 Respiratory Rate 14 07/14/22 13:47 Blood Pressure 143/113 07/14/22 13:47 Pulse Oximetry 99 07/14/22 13:47 Oxygen Delivery Me thod 07/14/22 13:47 MDM - Seizure MDM Narrative Medical decision making narrative: Discussed Dr. Muro she is familiar the patient she advised not to change any of her medications any further continue same for now set up for an outpatient EEG and follow-up with her. Patient mentions several other things particularly regarding her irritable bowel. That has been more symptomatic recently probably due to the recent antibiotics due to this recommend not retreating her tooth infection she does not have any clinical signs of ongoing infection and he probably exacerbate her bowel issues more. Follow-up with primary care regarding this. Discharge Plan Discharge Patient Disposition: Home Clinical Impression: Functional neurological symptom disorder with attacks or seizures, IBS (irritable bowel syndrome), Bipolar 1 disorder with moderate cesar, Dental caries Condition: Stable Prescriptions: No Action lamotrigine 100 mg tablet 100 mg PO .q hs Qty: 30 0RF Rx Instructions: Take one tablet daily at bedtime; stop 50 mg dose loratadine 10 mg tablet 10 mg PO DAILY Qty: 30 1RF levetiracetam [Keppra] 1,000 mg tablet 1,000 mg PO BID Qty: 60 5RF lorazepam 0.5 mg tablet 0.5 mg PO DAILY PRN (Reason: Seizures) 30 Days Qty: 30 1RF lidocaine HCl 2 % solution 1 applic mucous membrane QID PRN (Reason: Throat pain) Qty: 100 0RF benzonatate 200 mg capsule 200 mg PO TID PRN (Reason: cough) Qty: 30 0RF amoxicillin-pot clavulanate 500-125 mg tablet 1 tab PO TID 10 Days Qty: 30 0RF pantoprazole 40 mg tablet,delayed release (DR/EC) 40 mg PO BID 30 Days Qty: 60 0RF gabapentin 300 mg capsule 300 mg PO QID Qty: 120 3RF hydrocodone-acetaminophen 5-325 mg tablet 1 tab PO Q6H PRN (Reason: pain) 5 Days Qty: 20 0RF albuterol sulfate [Ventolin HFA] 90 mcg/actuation HFA aerosol inhaler 1 puff inhalation QID PRN (Reason: shortness of breath or wheezing) Qty: 8.5 5RF melatonin 5 mg Capsule 10 mg PO BEDTIME Discharge Orders: Discharge ED (Routine); Ordered 07/14/22 Ordered By: Conner Soria Referrals: Bret Cheung MD [Primary Care Provider] - Discharge Diet: Usual diet Discharge Activity: Increase activity as tolerated Patient Instructions: Opioid Safety, Pain Management Activity Restrictions/Additional Instructions: Case management make arrangements for you to have an outpatient EEG and follow- up with Dr. Muro. Coding Level of Care Code ED Social Work Specialist for Kemar Weiner
--- NOTE | 2022-07-19 10:43 | DCPLANNER ---
Addendum entered by Aleshia Forman 11/04/22 07:42: Patient had a follow up appointment scheduled with neurology - patient did not attend appointment. Addendum entered by Aleshia Forman 08/01/22 16:01: Patient had an EEG scheduled for 07.27.22 at neurology - patient did attend appointment Patient has a follow up appointment scheduled for Monday, October 03, 2022 at 12:[address] Muro. Clinic will call patient with appointment information. Original Note: loading manager had message to schedule an outpatient EEG for patient. loading manager faxed signed order to neurology, who will call patient with appointment information. loading manager had message to schedule a follow up appointment for patient with neurology. loading manager sent patients information to the front office clinic of neurology. Patients information will be printed and reviewed. Clinic will call patient with appointment information.
== END 2022-07-14 15:24 | disposition home or self-care (01) ==
PROVIDERS: Emergency Provider Family Medicine; PCP Family Medicine Adult Medicine
DX: R29.818 Other symptoms and signs involving the nervous system (principal); K58.9 Irritable bowel syndrome, unspecified; F31.9 Bipolar disorder, unspecified; K02.9 Dental caries, unspecified; F17.210 Nicotine dependence, cigarettes, uncomplicated; Z86.19 Personal history of other infectious and parasitic diseases; J44.9 Chronic obstructive pulmonary disease, unspecified
CPT/HCPCS: 99283

== ENCOUNTER → 2022-07-27 10:21 | Outpatient (BNVA) | payer MEDICAID, SELFPAY | PROVIDERS: PCP Family Medicine Adult Medicine; Referring Provider Family Medicine; Visit Provider Specialist | DX: F44.5 Conversion disorder with seizures or convulsions (principal) | CPT/HCPCS: 95812 ==

== ENCOUNTER 2022-09-02 14:01 | Emergency (ER) | payer MEDICAID, SELFPAY ==
--- NOTE | 2022-09-02 14:04 | XR_ITS ---
WS: [id number] Exam: XR ankle RT min 3V* [id number] Date/Time of Exam: 09/02/2022 2:04 PM Reason For Exam: right ankle injury No ankle fracture or dislocation. The ankle mortise is well-maintained. Soft tissues are unremarkable . Acute appearing avulsion fracture of the proximal fifth metatarsal noted. There is some separation of the fracture fragment. XR/XR ankle RT min 3V* [id number] IMPRESSION: 1. Right ankle negative for fracture. 2. Avulsion fracture involving the styloid process of the proximal fifth metata rsal.
[2022-09-02 14:06] VITALS: BP 122/74; PULSE 80; RESP 18; O2SAT 98; BMI 22.4
--- NOTE | 2022-09-02 14:13 | ED_ITS ---
Documented by User: DEANDRE Torres 09/03/22 07:16 HPI - Extremity Problem General: Chief complaint: Extremity Injury, Lower Stated complaint: Right ankle pain Time Seen by Provider: 09/02/22 14:05 History of Present Illness: Patient is a 36-year-old female who comes to the ED via EMS with right ankle injury. Injury occurred just prior to arrival. Patient says she was walking on a hill that was snow-covered and stepped on a rock and twisted her right ankle. She felt a pop in her ankle. EMS gave patient 4 mg of Zofran and 100 MCG's of fentanyl while in route. Here in the ED patient says her pain is currently a 10 out of 10. She has swelling of the right ankle. Any weightbearing or movement of the right ankle causes worsening pain. Associated symptoms: Deny chest pain, fever(s) or rash Review of Systems Const: Denies: fever(s), chills or fatigue Eyes: Denies: change in vision or eye discomfort ENMT: Denies: throat pain, odynophagia, nasal discharge or nasal congestion Card: Denies: chest pain, palpitations, edema, swelling of feet/ankles, dyspnea on exertion or orthopnea Resp: Denies: dyspnea, productive cough or non-productive cough GI: Denies: abdominal pain, nausea, vomiting, diarrhea, constipation or hematochezia : Denies: flank pain, dysuria or hematuria Musc: Reports: extremity pain (Right ankle and right foot) and extremity swelling (Right ankle and right foot); Denies: neck pain or back pain Skin/Breast: Denies: rash or new lesions Neuro: Denies: headache(s), numbness in extremities or weakness in extremities PFS ED PFSH: Medical History 1st MTP arthritis Anxiety and depression Asthma Bilateral lower extremity pain Bipolar 1 disorder with moderate cesar Chronic hepatitis C Chronic pain of both feet COPD (chronic obstructive pulmonary disease) Dental abscess GERD (gastroesophageal reflux disease) History of removal of cervix but not uterus Partial cervix removal due to HPV Homeless single person HPV in female IBS (irritable bowel syndrome) Nightmares associated with chronic post-traumatic stress disorder No pertinent past medical history Denies diabetes, hypertension, DVT/PE PCP: Dr. Cheung Positive hepatitis C antibody test Psychiatric care PTSD (post-traumatic stress disorder) PTSD (post-traumatic stress disorder) Social anxiety disorder Surgical History H/O LEEP (~11/09/17) LEEP procedure performed on 11/09/[address] Suarez [place] [facility] [place] ALURYN[place]2 on cervical biopsy. Pathology showed moderate [id number] with clear margins on the anterior left and severe dysplasia LAURYN-3 completely excised on the posterior left. Endocervical curettage showed mucoid clot and superficial fragments of benign endocervical mucosa History of appendectomy History of tonsillectomy Family History Grandfather Heart disease Maternal Mother Diabetes Ovarian cancer diagnosed in her 30s Grandmother Diabetes Maternal Family/Other Breast cancer maternal great aunt, diagnosed in her 50s Denies family history of Colon cancer Hypercholesteremia Hypertension Uterine cancer Thyroid disease Stroke Social History Smoking and tobacco status: current every day smoker (0.5ppd) cigarettes Packs smoked per day: 0.5 Smoking risk assessment/counseling performed?: No Alcohol intake: never Desire information about alcohol rehabilitation?: No Counseling given: No Desire information about substance/drug rehabilitation?: No Counseling given: No Caregiver/support person: Yes Lives independently: No Household members: other Details: homeless assisted Marital status: Number of children: 0 Highest education level completed: High School Graduate service: No Current occupational status: unemployed Current occupational exposures/hazards: No Pets and animals: No History of recent travel: No Current gender identity: Female Sailaja/Zoroastrianism: Faith Special sailaja needs: No Agree to transfusion: Yes Female Reproductive History: Date of last menstrual period: 05/10/22 Physical Exam Const: COMMON NORMALS: patient oriented x3 GENERAL APPEARANCE: cooperative and comfortable HENMT: COMMON NORMALS: normocephalic HEAD & SCALP: normocephalic MOUTH: Normal oral and palatal mucosa present THROAT: posterior oropharynx normal and uvula midline Neck/C-Spine: COMMON NORMALS: supple GENERAL: Yes normal visual inspection Resp: COMMON NORMALS: normal respiratory effort, No retractions, No use of accessory muscles and clear to auscultation bilaterally AUSCULTATION: clear to auscultation bilaterally Cardio: COMMON NORMALS: regular rate, regular rhythm, S1 normal heart sound present, S2 normal heart sound present, No gallops present (Cardio), No clicks present (Cardio), No murmurs present (Cardio) and Peripheral pulses 2+ throughout RATE: regular rate RHYTHM: regular rhythm HEART SOUNDS: S1 normal heart sound present and S2 normal heart sound present PERIPHERAL PULSES: Peripheral pulses 2+ throughout GI: COMMON NORMALS: Normal to inspection, nondistended, normoactive bowel sounds present, Soft to palpation, non-tender and no masses PALPATION: Yes Soft to palpation : COMMON NORMALS: Yes no CVA tenderness BLADDER/KIDNEY EXAM: Yes no CVA tenderness Back/Pelvis: COMMON NORMALS: no CVA tenderness Extremity: RIGHT LOWER EXTREMITY: Yes foot & digits Right ankle: Yes inspection (Swelling around lateral malleolus), Yes palpation (Tenderness over lateral malleolus), Yes ROM (Limited range of motion due to pain) and Yes neurovascular exam (Intact) and Yes foot & digits Right foot and digits: Yes inspection (Swelling and tenderness over lateral midfoot region.) Neuro: COMMON NORMALS: patient oriented x3 GAIT: Yes Normal gait present Skin: GENERAL SKIN EXAM: dry skin Course Vital Signs: Vital signs: Vital Signs Pulse Rate 86 09/02/22 16:01 Respiratory Rate 16 09/02/22 16:01 Blood Pressure 132/84 09/02/22 16:01 Pulse Oximetry 98 09/02/22 16:01 Oxygen Delivery Me thod 09/02/22 14:06 MDM - Extremity (Nontraumatic) Medical Decision Making Patient is a 36-year-old female comes to the ED with right foot and ankle injury. She describes having a rolled foot and ankle type injury. Vitals are stable. Exam of patient shows some swelling and tenderness over lateral malleolus and lateral aspect of midfoot region on right leg. Neurovascular tact. X-rays of right ankle show a avulsion fracture of proximal fifth metatarsal. I placed an order with case management for patient to be referred to podiatry for follow-up on fracture. She was put in a posterior leg splint and discharged home with some crutches and a couple hydrocodone to help with pain. Return ED precautions given. Patient understood and agreed with plan. Lab Data Radiology Impressions Ankle X-Ray 09/02/22 14:04 IMPRESSION: 1. Right ankle negative for fracture. 2. Avulsion fracture involving the styloid process of the proximal fifth metatarsal. Discharge Plan Discharge Patient Disposition: Home Clinical Impression: Metatarsal fracture Qualifiers: Encounter type: initial encounter Metatarsal bone: fifth Fracture type: closed Fracture alignment: nondisplaced Laterality: right Qualified Code(s): S92.354A - Nondisplaced fracture of fifth metatarsal bone, right foot, initial encounter for closed fracture Condition: Stable Prescriptions: No Action lorazepam 1 mg tablet 1 mg PO BID PRN (Reason: anxiety attacks) Qty: 60 3RF gabapentin 400 mg capsule 400 mg PO QID 30 Days Qty: 120 3RF lamotrigine 100 mg tablet 100 mg PO .q hs Qty: 30 0RF Rx Instructions: Take one tablet daily at bedtime; stop 50 mg dose loratadine 10 mg tablet 10 mg PO DAILY Qty: 30 1RF levetiracetam [Keppra] 1,000 mg tablet 1,000 mg PO BID Qty: 60 5RF benzonatate 200 mg capsule 200 mg PO TID PRN (Reason: cough) Qty: 30 0RF pantoprazole 40 mg tablet,delayed release (DR/EC) 40 mg PO BID 30 Days Qty: 60 0RF albuterol sulfate [Ventolin HFA] 90 mcg/actuation HFA aerosol inhaler 1 puff inhalation QID PRN (Reason: shortness of breath or wheezing) Qty: 8.5 5RF melatonin 5 mg Capsule 10 mg PO BEDTIME Discharge Orders: Discharge ED (Routine); Ordered 09/02/22 Ordered By: Travis Negro Referrals: Bret Cheung MD [Primary Care Provider] - Patient Instructions: Fractures - Metatarsal, Opioid Safety Activity Restrictions/Additional Instructions: Follow-up with medical provider as directed. Case management should be contacting you in the next several days to set up an appointment with podiatry for follow-up on foot fracture. Use crutches to help with ambulation. Keep splint on and dry until evaluated by podiatry for further management. Take medications as prescribed. Return to the ER or your medical provider if condition worsens. Please read and understand discharge instructions. Thank you for choosing [facility] for your healthcare needs today. Please realize this is an emergency room and that we are providing you with a medical screening exam and this may not be complete and all inclusive of all the testing and or work up that you may need to determine your ailment or severity of your illness. It is very important that you follow up as instructed or that you return to the Emergency Department should you have concerns or if your condition changes or worsens in any way. Coding Level of Care Code ED Public Affairs Specialist for Chg Fwd Exam Comprehensive Documented by User: Conner Soria DO 09/03/22 07:56 HPI - Extremity Problem General: Chief complaint: Extremity Injury, Lower Stated complaint: Right ankle pain Time Seen by Provider: 09/02/22 14:05 PFSH ED PFSH: Medical History 1st MTP arthritis Anxiety and depression Asthma Bilateral lower extremity pain Bipolar 1 disorder with moderate cesar Chronic hepatitis C Chronic pain of both feet COPD (chronic obstructive pulmonary disease) Dental abscess GERD (gastroesophageal reflux disease) History of removal of cervix but not uterus Partial cervix removal due to HPV Homeless single person HPV in female IBS (irritable bowel syndrome) Nightmares associated with chronic post-traumatic stress disorder No pertinent past medical history Denies diabetes, hypertension, DVT/PE PCP: Dr. Cheung Positive hepatitis C antibody test Psychiatric care PTSD (post-traumatic stress disorder) PTSD (post-traumatic stress disorder) Social anxiety disorder Surgical History H/O LEEP (~11/09/17) LEEP procedure performed on 11/09/[address] Suarez [place] [facility] [place] LAURYN-2 on cervical biopsy. Pathology showed moderate [id number] with clear margins on the anterior left and severe dysplasia LAURYN-3 completely excised on the posterior left. Endocervical curettage showed mucoid clot and superficial fragments of benign endocervical mucosa History of appendectomy History of tonsillectomy Family History Grandfather Heart disease Maternal Mother Diabetes Ovarian cancer diagnosed in her 30s Grandmother Diabetes Maternal Family/Other Breast cancer maternal great aunt, diagnosed in her 50s Denies family history of Colon cancer Hypercholesteremia Hypertension Uterine cancer Thyroid disease Stroke Social History Smoking and tobacco status: current every day smoker (0.5ppd) cigarettes Packs smoked per day: 0.5 Smoking risk assessment/counseling performed?: No Alcohol intake: never Desire information about alcohol rehabilitation?: No Counseling given: No Desire information about substance/drug rehabilitation?: No Counseling given: No Caregiver/support person: Yes Lives independently: No Household members: other Details: homeless assisted Marital status: Number of children: 0 Highest education level completed: High School Graduate service: No Current occupational status: unemployed Current occupational exposures/hazards: No Pets and animals: No History of recent travel: No Current gender identity: Female Sailaja/Zoroastrianism: Faith Special sailaja needs: No Agree to transfusion: Yes Course Vital Signs: Vital signs: Vital Signs Pulse Rate 86 09/02/22 16:01 Respiratory Rate 16 09/02/22 16:01 Blood Pressure 132/84 09/02/22 16:01 Pulse Oximetry 98 09/02/22 16:01 Oxygen Delivery Me thod 09/02/22 14:06 MDM - Extremity (Nontraumatic) Medical Decision Making Patient is a 36-year-old female comes to the ED with right foot and ankle injury. She describes having a rolled foot and ankle type injury. Vitals are s table. Exam of patient shows some swelling and tenderness over lateral malleolus and lateral aspect of midfoot region on right leg. Neurovascular tact. X-rays of right ankle show a avulsion fracture of proximal fifth metatarsal. I placed an order with case management for patient to be referred to podiatry for follow-up on fracture. She was put in a posterior leg splint and discharged home with some crutches and a couple hydrocodone to help with pain. Return ED precautions given. Patient understood and agreed with plan. Chart reviewed and patient discussed with midlevel. Agree with assessment and plan. Lab Data Radiology Impressions Ankle X-Ray 09/02/22 14:04 IMPRESSION: 1. Right ankle negative for fracture. 2. Avulsion fracture involving the styloid process of the proximal fifth metatarsal. Discharge Plan Discharge Patient Disposition: Home Clinical Impression: Metatarsal fracture Qualifiers: Encounter type: initial encounter Metatarsal bone: fifth Fracture type: closed Fracture alignment: nondisplaced Laterality: right Qualified Code(s): S92.354A - Nondisplaced fracture of fifth metatarsal bone, right foot, initial encounter for closed fracture Condition: Stable Prescriptions: No Action lorazepam 1 mg tablet 1 mg PO BID PRN (Reason: anxiety attacks) Qty: 60 3RF gabapentin 400 mg capsule 400 mg PO QID 30 Days Qty: 120 3RF lamotrigine 100 mg tablet 100 mg PO .q hs Qty: 30 0RF Rx Instructions: Take one tablet daily at bedtime; stop 50 mg dose loratadine 10 mg tablet 10 mg PO DAILY Qty: 30 1RF levetiracetam [Keppra] 1,000 mg tablet 1,000 mg PO BID Qty: 60 5RF benzonatate 200 mg capsule 200 mg PO TID PRN (Reason: cough) Qty: 30 0RF pantoprazole 40 mg tablet,delayed release (DR/EC) 40 mg PO BID 30 Days Qty: 60 0RF albuterol sulfate [Ventolin HFA] 90 mcg/actuation HFA aerosol inhaler 1 puff inhalation QID PRN (Reason: shortness of breath or wheezing) Qty: 8.5 5RF melatonin 5 mg Capsule 10 mg PO BEDTIME Discharge Orders: Discharge ED (Routine); Ordered 09/02/22 Ordered By: Travis Negro Referrals: Bret Cheung MD [Primary Care Provider] - Patient Instructions: Fractures - Metatarsal, Opioid Safety Activity Restrictions/Additional Instructions: Follow-up with medical provider as directed. Case management should be contacting you in the next several days to set up an appointment with podiatry for follow-up on foot fracture. Use crutches to help with ambulation. Keep splint on and dry until evaluated by podiatry for further management. Take medications as prescribed. Return to the ER or your medical provider if condition worsens. Please read and understand discharge instructions. Thank you for choosing [facility] for your healthcare needs today. Please realize this is an emergency room and that we are providing you with a medical screening exam and this may not be complete and all inclusive of all the testing and or work up that you may need to determine your ailment or severity of your illness. It is very important that you follow up as instructed or that you return to the Emergency Department should you have concerns or if your condition changes or worsens in any way. Coding Level of Care Code ED Public Affairs Specialist for Kemar Weiner Exam Comprehensive
[2022-09-02 14:26] VITALS: RESP 18
[2022-09-02] MEDS: morphine 4 mg/mL SDV 1 mL IVP (14:26)
[2022-09-02 16:01] VITALS: BP 132/84; PULSE 86; RESP 16; O2SAT 98
--- NOTE | 2022-09-06 09:10 | DCPLANNER ---
Addendum entered by Aleshia Forman 09/16/22 10:56: Patient had a follow up appointment scheduled with ortho - patient did attend appointment Addendum entered by Aleshia Forman 09/07/22 11:04: Patient has a follow up appointment scheduled for , September 08, 2022 at 10:[address] Negro at ortho. Clinic will call patient with appointment information. Original Note: document imaging manager had message to schedule a follow up appointment for patient with podiatry. document imaging manager sent patients information to the front office staff at podiatry. Patients information will be printed and reviewed. Clinic will call patient with appointment information.
== END 2022-09-02 16:01 | disposition home or self-care (01) ==
PROVIDERS: Emergency Provider Physician Assistant; PCP Family Medicine Adult Medicine
DX: S92.354A Nondisplaced fracture of fifth metatarsal bone, right foot, initial encounter for closed fracture (principal); F17.210 Nicotine dependence, cigarettes, uncomplicated; Z86.19 Personal history of other infectious and parasitic diseases; J44.9 Chronic obstructive pulmonary disease, unspecified; X50.1XXA Overexertion from prolonged static or awkward postures, initial encounter
CPT/HCPCS: 29515; 73610; 96374; 99284; E0114; J2270

== ENCOUNTER → 2022-09-06 13:47 | Outpatient (BNVA) | payer MEDICAID, SELFPAY | PROVIDERS: PCP Family Medicine Adult Medicine; Visit Provider Family Medicine Adult Medicine | DX: M79.671 Pain in right foot (principal); M79.672 Pain in left foot; G89.29 Other chronic pain; M19.079 Primary osteoarthritis, unspecified ankle and foot; F31.12 Bipolar disorder, current episode manic without psychotic features, moderate; S92.354A Nondisplaced fracture of fifth metatarsal bone, right foot, initial encounter for closed fracture; F44.5 Conversion disorder with seizures or convulsions; X58.XXXA Exposure to other specified factors, initial encounter | CPT/HCPCS: 80053; 84550; 85651; 86431 ==

== ENCOUNTER → 2022-09-08 10:14 | Outpatient (BNVA) | payer MEDICAID, SELFPAY | PROVIDERS: PCP Family Medicine Adult Medicine; Visit Provider Student in an Organized Health Care Education/Training Program | DX: S92.354A Nondisplaced fracture of fifth metatarsal bone, right foot, initial encounter for closed fracture (principal); X58.XXXA Exposure to other specified factors, initial encounter | CPT/HCPCS: 28470; 73630; 99204 ==

== ENCOUNTER → 2022-10-06 10:37 | Outpatient (BNVA) | payer MEDICAID, SELFPAY | PROVIDERS: PCP Family Medicine Adult Medicine; Visit Provider Student in an Organized Health Care Education/Training Program | DX: S92.351A Displaced fracture of fifth metatarsal bone, right foot, initial encounter for closed fracture (principal); M19.071 Primary osteoarthritis, right ankle and foot; X58.XXXA Exposure to other specified factors, initial encounter | CPT/HCPCS: 73630 ==

== ENCOUNTER 2022-10-06 14:57 | Outpatient (CLI) | payer MEDICAID, SELFPAY | END 2022-10-06 14:58 | disposition home or self-care (01) | LOC: SPT 14:58 | PROVIDERS: PCP Family Medicine Adult Medicine; Visit Provider Student in an Organized Health Care Education/Training Program | DX: Z46.89 Encounter for fitting and adjustment of other specified devices (principal); S92.351D Displaced fracture of fifth metatarsal bone, right foot, subsequent encounter for fracture with routine healing; X58.XXXD Exposure to other specified factors, subsequent encounter | CPT/HCPCS: 97760; 99214; L1902 ==

== ENCOUNTER → 2022-12-01 10:26 | Outpatient (BNVA) | payer MEDICAID, SELFPAY | PROVIDERS: PCP Family Medicine Adult Medicine; Visit Provider Student in an Organized Health Care Education/Training Program | DX: M19.071 Primary osteoarthritis, right ankle and foot (principal); M19.072 Primary osteoarthritis, left ankle and foot | CPT/HCPCS: 73630; 99213 ==

== ENCOUNTER → 2022-12-07 10:03 | Outpatient (BNVA) | payer MEDICAID, SELFPAY | PROVIDERS: PCP Family Medicine Adult Medicine; Visit Provider Podiatrist Foot & Ankle Surgery | DX: M20.21 Hallux rigidus, right foot (principal); M20.22 Hallux rigidus, left foot; B35.3 Tinea pedis | CPT/HCPCS: 99203 ==

== ENCOUNTER 2022-12-19 07:14 | Emergency (ER) | payer MEDICAID, SELFPAY ==
[2022-12-19 07:22] VITALS: BP 104/78; PULSE 70; TEMP 36.4; O2SAT 98; BMI 22.9
--- NOTE | 2022-12-19 07:39 | W.ED.DENTAL ---
HPI - Dental/Oral General: Chief complaint: Dental/Oral Stated complaint: oral pain Time Seen by Provider: 12/19/22 07:17 Source: patient Mode of arrival: ambulatory History of Present Illness: 37-year-old female comes in complaining of dental pain and swelling difficulty with opening closing her mouth difficulty with chewing she has had multiple problems with mentation before has been seen relatively recent by dentist that had an extraction this was on the right side of the mouth all of her pain is on the left side of the mouth. No fever sweats chills vomiting or diarrhea. MD Complaint: tooth pain Teeth map: 1. 2. Onset (ago): hour(s) Duration: constant Severity: moderate Relieving factors: nothing Exacerbating factors: chewing Context: history of dental caries Associated symptoms: Reports gum swelling; Denies ear or mastoid pain, fever(s), odynophagia, sore throat, tongue swelling or other Treatment prior to arrival: oral analgesic Review of Systems Const: Denies: fever(s) or chills ENMT: Reports: mouth pain; Denies: odynophagia or ear or mastoid pain Card: Denies: chest pain, edema, dyspnea on exertion or orthopnea Resp: Denies: dyspnea, productive cough or non-productive cough GI: Reports: nausea; Denies: abdominal pain, vomiting or diarrhea Skin/Breast: Denies: rash or pruritus All/Imm: Denies: tongue swelling PFSH ED PFSH: Medical History 1st MTP arthritis Anxiety and depression Asthma Bilateral lower extremity pain Bipolar 1 disorder with moderate cesar Chronic hepatitis C Chronic pain of both feet COPD (chronic obstructive pulmonary disease) Dental abscess Fracture of fifth metatarsal bone of right foot GERD (gastroesophageal reflux disease) History of removal of cervix but not uterus Partial cervix removal due to HPV Homeless single person HPV in female IBS (irritable bowel syndrome) Nightmares associated with chronic post-traumatic stress disorder No pertinent past medical history Denies diabetes, hypertension, DVT/PE PCP: Dr. Cheung Positive hepatitis C antibody test Psychiatric care PTSD (post-traumatic stress disorder) PTSD (post-traumatic stress disorder) Social anxiety disorder Surgical History H/O LEEP (~11/09/17) L[place] 11/09/[address] [place] [facility] cervical biopsy. Pathology showed moderate [id number] with clear margins on the anterior left and severe dysplasia LAURYN-3 completely excised on the posterior left. Endocervical curettage showed mucoid clot and superficial fragments of benign endocervical mucosa History of appendectomy History of tonsillectomy Family History Grandfather Heart disease Maternal Mother Diabetes Ovarian cancer diagnosed in her 30s Grandmother Diabetes Maternal Family/Other Breast cancer maternal great aunt, diagnosed in her 50s Denies family history of Colon cancer Hypercholesteremia Hypertension Uterine cancer Thyroid disease Stroke Social History Smoking and tobacco status: current every day smoker (0.5ppd) cigarettes Packs smoked per day: 0.5 Smoking risk assessment/counseling performed?: No Alcohol intake: never Desire information about alcohol rehabilitation?: No Counseling given: No Desire information about substance/drug rehabilitation?: No Counseling given: No Caregiver/support person: Yes Lives independently: No Household members: other Details: homeless care home Marital status: Number of children: 0 Highest education level completed: High School Graduate service: No Current occupational status: unemployed Current occupational exposures/hazards: No Pets and animals: No Current gender identity: Female Sailaja/Yazidism: Zoroastrianism Special sailaja needs: No Agree to transfusion: Yes Physical Exam Const: COMMON NORMALS: no acute distress GENERAL APPEARANCE: cooperative and comfortable ORIENTATION/CONSCIOUSNESS: Yes awake, Yes oriented to person, Yes oriented to place and Yes oriented to time HENMT: COMMON NORMALS: normocephalic, atraumatic and hearing grossly normal bilaterally HEAD & SCALP: normocephalic and atraumatic OTHER: Poor dentition multiple eroded and extracted teeth some gum swelling and left-sided mandibular and maxillary no active drainage no abscess Neck/C-Spine: OTHER: No submandibular swelling or lymphadenopathy Resp: COMMON NORMALS: normal respiratory effort, No retractions, No use of accessory muscles and clear to auscultation bilaterally AUSCULTATION: clear to auscultation bilaterally Cardio: COMMON NORMALS: regular rate, regular rhythm and No murmurs present (Cardio) RATE: regular rate RHYTHM: regular rhythm Extremity: COMMON NORMALS: normal to inspection, capillary refill normal, no clubbing, cyanosis or edema, no calf tenderness and no pedal edema Neuro: SENSORIUM/ORIENTATION: Yes oriented to person, Yes oriented to place and Yes oriented to time Skin: COMMON NORMALS: no rashes or lesions noted GENERAL SKIN EXAM: no rashes or lesions noted Course Vital Signs: Vital signs: Vital Signs Temperature 97.6 F 12/19/22 07:22 Pulse Rate 70 12/19/22 07:22 Blood Pressure 104/78 12/19/22 07:22 Pulse Oximetry 98 12/19/22 07:22 Oxygen Delivery Me thod 12/19/22 07:22 MDM - Dental/Oral Medical Decision Making Mild dental caries and infection and gum swelling no identifiable abscess started on Augmentin 3 times daily pain medications follow-up with dentistry as soon as she is able for definitive care Medical Records I reviewed the patient's medical records. Lab Data I reviewed the patient's lab results. Discharge Plan Discharge Patient Disposition: Home Clinical Impression: Dental caries Condition: Stable Prescriptions: New Augmentin 500-125 mg tablet 1 tab PO TID 10 Days Qty: 30 0RF hydrocodone-acetaminophen 5-325 mg tablet 1 tab PO Q6H PRN (Reason: pain) Qty: 10 0RF No Action celecoxib 200 mg capsule 200 mg PO BID PRN (Reason: pain) Qty: 60 0RF loratadine 10 mg tablet 10 mg PO DAILY Qty: 30 1RF fluticasone propionate 50 mcg/actuation spray,suspension 2 spray intranasal DAILY Qty: 16 3RF Rx Instructions: administer into each nostril clotrimazole-betamethasone 1-0.05 % cream 1 applic topical BID 28 Days Qty: 15 0RF lamotrigine 100 mg tablet 100 mg PO .q hs Qty: 30 0RF Rx Instructions: Take one tablet daily at bedtime; stop 50 mg dose levetiracetam [Keppra] 1,000 mg tablet 1,000 mg PO BID Qty: 60 5RF acetaminophen 650 mg tablet extended release 650 mg PO Q8H PRN (Reason: fever or pain) Qty: 100 1RF prednisone 20 mg tablet 20 mg PO DAILY 5 Days Qty: 5 0RF pantoprazole 40 mg tablet,delayed release (DR/EC) 40 mg PO BID 30 Days Qty: 60 0RF albuterol sulfate [Ventolin HFA] 90 mcg/actuation HFA aerosol inhaler 1 puff inhalation QID PRN (Reason: shortness of breath or wheezing) Qty: 8.5 5RF gabapentin 400 mg capsule 400 mg PO QID 30 Days Qty: 120 3RF lorazepam 1 mg tablet 1 mg PO BID PRN (Reason: anxiety attacks) Qty: 60 3RF melatonin 5 mg Capsule 10 mg PO BEDTIME Discharge Orders: Discharge ED (Routine); Ordered 12/19/22 Ordered By: Conner Sroia Referrals: Bret Cheung MD [Primary Care Provider] - Patient Instructions: Opioid Safety, Pain Management Activity Restrictions/Additional Instructions: You are seen today for dental infection. Recommend that you start the oral antibiotics if symptoms possible. You should make an appointment with a dentist for definitive care as soon as you are able if symptoms worsen recheck. Coding Level of Care Code ED Archives Technician for Kemar Weiner
== END 2022-12-19 07:41 | disposition home or self-care (01) ==
PROVIDERS: Emergency Provider Family Medicine; PCP Family Medicine Adult Medicine
DX: K02.9 Dental caries, unspecified (principal); F17.210 Nicotine dependence, cigarettes, uncomplicated; Z86.19 Personal history of other infectious and parasitic diseases; J44.9 Chronic obstructive pulmonary disease, unspecified
CPT/HCPCS: 99283

== ENCOUNTER → 2023-01-12 15:21 | Outpatient (BNVA) | payer MEDICAID, SELFPAY | PROVIDERS: PCP Family Medicine Adult Medicine; Visit Provider Obstetrics & Gynecology | DX: N92.6 Irregular menstruation, unspecified (principal) | CPT/HCPCS: 81025; 87491; 87591; 87661 ==

== ENCOUNTER → 2023-01-19 13:12 | Outpatient (BNVA) | payer MEDICAID, SELFPAY | PROVIDERS: PCP Family Medicine Adult Medicine; Visit Provider Podiatrist Foot & Ankle Surgery | DX: M20.21 Hallux rigidus, right foot (principal); M20.22 Hallux rigidus, left foot | CPT/HCPCS: 99213 ==

== ENCOUNTER 2023-02-22 01:51 | Emergency (ER) | payer MEDICAID, SELFPAY ==
--- NOTE | 2023-02-22 02:03 | ED_ITS ---
HPI - Dental/Oral General: Chief complaint: Dental/Oral Stated complaint: Broke Tooth Time Seen by Provider: 02/22/23 01:53 History of Present Illness: 37-year-old female comes in today with complaints of right upper jaw pain. Patient has a decayed and broken off tooth at the gumline that appears to be the first premolar. Patient has very poor dentition. Patient reports she is scheduled for April to have all her teeth removed. Patient appears nontoxic. Patient appears in mild to moderate pain. Associated symptoms: Denies fever(s) Review of Systems General: Reports: 10 or more systems reviewed and unremarkable except in HPI and below Const: Denies: fever(s) ENMT: Reports: dental pain Card: Denies: chest pain Resp: Denies: dyspnea GI: Reports: nausea and vomiting Musc: Denies: extremity pain Skin/Breast: Denies: rash PFSH ED PFSH: Medical History (Updated 02/22/23 @ 02:12 by ROLDAN Salas) Anxiety and depression Asthma Bipolar 1 disorder with moderate cesar Chronic hepatitis C COPD (chronic obstructive pulmonary disease) Dental abscess Fracture of fifth metatarsal bone of right foot GERD (gastroesophageal reflux disease) History of removal of cervix but not uterus 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 Suarez at [facility] [place] for LAURYN-2 on cervical biopsy. 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 Endocervical curettage showed mucoid clot and superficial fragments of benign endocervical mucosa History of appendectomy History of tonsillectomy Family History Grandfather Heart disease Maternal Mother Diabetes Ovarian cancer diagnosed in her 30s Grandmother Diabetes Maternal Family/Other Breast cancer maternal great aunt, diagnosed in her 50s Denies family history of Colon cancer Hypercholesteremia Hypertension Uterine cancer Thyroid disease Stroke Physical Exam Const: COMMON NORMALS: alert HENMT: COMMON NORMALS: normocephalic HEAD & SCALP: normocephalic MOUTH: Normal oral and palatal mucosa present TEETH & GINGIVA: Yes poor dentition OTHER: Decayed tooth with loss of the crown to the gumline first molar tenderness to the gingiva, no abscess seen Neck/C-Spine: COMMON NORMALS: full ROM Resp: COMMON NORMALS: normal respiratory effort and clear to auscultation bilaterally AUSCULTATION: clear to auscultation bilaterally Cardio: COMMON NORMALS: regular rate and regular rhythm RATE: regular rate RHYTHM: regular rhythm GI: COMMON NORMALS: Soft to palpation PALPATION: Yes Soft to palpation Extremity: COMMON NORMALS: normal to inspection Neuro: SENSORIUM/ORIENTATION: Yes alert Skin: COMMON NORMALS: turgor normal GENERAL SKIN EXAM: turgor normal Course Vital Signs: Vital signs: Vital Signs Temperature 98.2 F 02/22/23 02:05 Pulse Rate 70 02/22/23 02:05 Respiratory Rate 16 02/22/23 02:05 Blood Pressure 130/78 02/22/23 02:05 Pulse Oximetry 98 02/22/23 02:07 Oxygen Delivery Me thod Room Air 02/22/23 02:07 MDM - Dental/Oral Medical Decision Making 37-year-old female comes in today with dental pain. On exam patient has a loss of her tooth crown to the gumline of the first premolar right upper jaw. No significant abscess but some minimal erythema is noted to the gingiva. Posterior pharynx is normal. Vital signs are normal. Differential diagnosis includes odontalgia, dental caries, dental abscess. No signs of severe illness is noted. Patient will be started on antibiotics to cover for secondary infection, patient will be kept on viscous lidocaine and a short prescription of hydrocodone was written for severe pain. Patient reported understanding of care plan and need for follow-up or return to the ER, and recommendations to see dentist [place]. List of local dentist providers was given to patient. Discharge Plan Discharge Patient Disposition: Home Clinical Impression: Toothache Condition: Stable Prescriptions: New hydrocodone-acetaminophen 5-325 mg tablet 1 tab PO BID PRN (Reason: pain (scale score 7-10)) Qty: 7 0RF amoxicillin-pot clavulanate 875-125 mg tablet 1 tab PO BID Qty: 14 0RF Lidocaine Viscous 2 % solution 1 applic mucous membrane Q3H PRN (Reason: pain) Qty: 100 0RF No Action celecoxib 200 mg capsule 200 mg PO BID PRN (Reason: pain) Qty: 60 0RF loratadine 10 mg tablet 10 mg PO DAILY Qty: 30 1RF clotrimazole-betamethasone 1-0.05 % cream 1 applic topical BID 28 Days Qty: 15 0RF (DME) carbon fiber foot plate See Rx Instructions .Route .MEDSUPPLY Qty: 2 0RF Rx Instructions: As directed meloxicam 15 mg tablet 15 mg PO DAILY Qty: 14 0RF doxycycline hyclate 100 mg tablet 100 mg PO BID Qty: 20 0RF fluticasone propionate 50 mcg/actuation spray,suspension 2 spray intranasal DAILY Qty: 16 3RF Rx Instructions: administer into each nostril lamotrigine 100 mg tablet 100 mg PO .q hs Qty: 30 0RF Rx Instructions: Take one tablet daily at bedtime; stop 50 mg dose acetaminophen 650 mg tablet extended release 650 mg PO Q8H PRN (Reason: fever or pain) Qty: 100 1RF prednisone 20 mg tablet 20 mg PO DAILY 5 Days Qty: 5 0RF pantoprazole 40 mg tablet,delayed release (DR/EC) 40 mg PO BID 30 Days Qty: 60 0RF albuterol sulfate [Ventolin HFA] 90 mcg/actuation HFA aerosol inhaler 1 puff inhalation QID PRN (Reason: shortness of breath or wheezing) Qty: 8.5 5RF lorazepam 1 mg tablet 1 mg PO BID PRN (Reason: anxiety attacks) Qty: 60 3RF levetiracetam [Keppra] 1,000 mg tablet 1,000 mg PO BID Qty: 60 5RF gabapentin 600 mg tablet 600 mg PO QID Qty: 120 1RF melatonin 5 mg Capsule 10 mg PO BEDTIME Discharge Orders: Discharge ED (Routine); Ordered 02/22/23 Ordered By: Santosh Escudero Referrals: Bret Cheung MD [Primary Care Provider] - Discharge Diet: Usual diet Discharge Activity: Increase activity as tolerated Patient Instructions: Toothache (ED), Opioid Safety Activity Restrictions/Additional Instructions: Follow-up with dentist for definitive care. Take antibiotics as directed for the next 7 days. Use viscous lidocaine applied to a cottonball and held in the area of tooth pain to control pain. Use acetaminophen and ibuprofen for further pain relief. Use hydrocodone for severe pain. Follow-up with primary care as needed. Return to ED for new concerns. 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
[2023-02-22 02:04] VITALS: BMI 28.6
[2023-02-22 02:05] VITALS: BP 130/78; PULSE 70; RESP 16; TEMP 36.8; O2SAT 98
[2023-02-22 02:07] VITALS: O2SAT 98
[2023-02-22] MEDS: amoxicillin-clav 875-125 mg Tablet 1 TAB PO (02:17)
[2023-02-22] MEDS: lidocaine 2% viscous 15 mL UDC 10 ML TOPICAL (02:17)
[2023-02-22 02:23] VITALS: BP 130/78
== END 2023-02-22 02:25 | disposition home or self-care (01) ==
PROVIDERS: Emergency Provider Nurse Practitioner Family; PCP Family Medicine Adult Medicine
DX: K02.9 Dental caries, unspecified (principal); K08.439 Partial loss of teeth due to caries, unspecified class
CPT/HCPCS: 99283

== ENCOUNTER → 2023-03-01 13:51 | Outpatient (BNVA) | payer MEDICAID, SELFPAY | PROVIDERS: PCP Family Medicine Adult Medicine; Visit Provider Podiatrist Foot & Ankle Surgery | DX: M20.21 Hallux rigidus, right foot (principal); M20.22 Hallux rigidus, left foot; M79.675 Pain in left toe(s) | CPT/HCPCS: 73630; 99213 ==

== ENCOUNTER 2023-03-27 17:57 | Emergency (ER) | payer MEDICAID, SELFPAY ==
[2023-03-27 18:04] VITALS: BP 105/74; PULSE 84; RESP 16; TEMP 36.8; O2SAT 98; BMI 24.1
--- NOTE | 2023-03-27 18:22 | ED_ITS ---
HPI - Extremity Problem General: Chief complaint: Extremity Injury, Lower Stated complaint: right foot toenail pain Time Seen by Provider: 03/27/23 18:22 History of Present Illness: 37-year-old female comes in today with ingrown nail to the right great toe. Patient reports increased pain and discomfort today. Patient has been working to get the ingrown nail out but was concerned about swelling and redness to the toenail. Patient also has a dental abscess that she reports to her right upper canine. Associated symptoms: Deny chest pain or fever(s) Review of Systems Const: Denies: fever(s) ENMT: Reports: dental pain Card: Denies: chest pain Resp: Denies: dyspnea GI: Denies: nausea : Denies: difficulty voiding Musc: Reports: extremity pain Skin/Breast: Reports: other (Ingrown toenail) PFSH ED PFSH: Medical History Anxiety and depression Asthma Bipolar 1 disorder with moderate cesar Chronic hepatitis C COPD (chronic obstructive pulmonary disease) Dental abscess Fracture of fifth metatarsal bone of right foot GERD (gastroesophageal reflux disease) History of removal of cervix but not uterus 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 [place] [facility] [place]URYN[place] cervical biopsy. Pathology showed moderate [id number] with clear margins on the anterior left and severe dysplasia LAURYN-3 completely excised on the posterior left. Endocervical curettage showed mucoid clot and superficial fragments of benign endocervical mucosa History of appendectomy History of tonsillectomy Family History Grandfather Heart disease Maternal Mother Diabetes Ovarian cancer diagnosed in her 30s Grandmother Diabetes Maternal Family/Other Breast cancer maternal great aunt, diagnosed in her 50s Denies family history of Colon cancer Hypercholesteremia Hypertension Uterine cancer Thyroid disease Stroke Physical Exam Const: COMMON NORMALS: alert HENMT: COMMON NORMALS: normocephalic HEAD & SCALP: normocephalic TEETH & GINGIVA: Yes poor dentition and Yes other (Gingival swelling and redness upper right canine) Neck/C-Spine: COMMON NORMALS: full ROM Resp: COMMON NORMALS: normal respiratory effort and clear to auscultation bilaterally AUSCULTATION: clear to auscultation bilaterally Cardio: COMMON NORMALS: regular rate RATE: regular rate Extremity: RIGHT LOWER EXTREMITY: Yes foot & digits (Redness and swelling to the great toe along the nail bed) Neuro: SENSORIUM/ORIENTATION: Yes alert Skin: NAILS: other (Medial ingrown aspect great toe left foot) Course Vital Signs: Vital signs: Vital Signs Temperature 98.2 F 03/27/23 18:04 Pulse Rate 84 03/27/23 18:04 Respiratory Rate 16 03/27/23 18:04 Blood Pressure 105/74 03/27/23 18:04 Pulse Oximetry 98 03/27/23 18:04 Oxygen Delivery Me thod Room Air 03/27/23 18:04 MDM - Extremity (Nontraumatic) Medical Decision Making 37-year-old female comes in today with complaint to the right great toe and the right upper canine. Patient has some pain and inflammation to both areas. On exam patient has redness to the gingiva of the right upper canine suggestive of a abscess. Patient also has some erythema and swelling to the skin surrounding the nail of the right great foot with ingrown nail plate. Differential diagnosis includes but not limited to ingrown toenail, paronychia, dental abscess, dental caries, malingering. Patient be treated with doxycycline and metronidazole for the dental abscess and ingrown toenail paronychia. Recommend follow-up with dentist for definitive care of teeth. Recommend follow-up with podiatry for further evaluation and treatment of ingrown nail. Discharge Plan Discharge Patient Disposition: Home Clinical Impression: Ingrowing toenail of right foot, Abscess, dental Condition: Stable Prescriptions: New doxycycline hyclate 100 mg capsule 100 mg PO BID 7 Days Qty: 14 0RF metronidazole 500 mg tablet 500 mg PO BID 7 Days Qty: 14 0RF hydrocodone-acetaminophen 5-325 mg tablet 1 tab PO Q8H PRN (Reason: pain (scale score 7-10)) Qty: 6 0RF No Action celecoxib 200 mg capsule 200 mg PO BID PRN (Reason: pain) Qty: 60 0RF loratadine 10 mg tablet 10 mg PO DAILY Qty: 30 1RF clotrimazole-betamethasone 1-0.05 % cream 1 applic topical BID 28 Days Qty: 15 0RF (DME) carbon fiber foot plate See Rx Instructions .Route .MEDSUPPLY Qty: 2 0RF Rx Instructions: As directed fluticasone propionate 50 mcg/actuation spray,suspension 2 spray intranasal DAILY Qty: 16 3RF Rx Instructions: administer into each nostril clindamycin HCl 300 mg capsule 300 mg PO QID 7 Days Qty: 28 0RF lamotrigine 100 mg tablet 100 mg PO .q hs Qty: 30 0RF Rx Instructions: Take one tablet daily at bedtime; stop 50 mg dose acetaminophen 650 mg tablet extended release 650 mg PO Q8H PRN (Reason: fever or pain) Qty: 100 1RF pantoprazole 40 mg tablet,delayed release (DR/EC) 40 mg PO BID 30 Days Qty: 60 0RF albuterol sulfate [Ventolin HFA] 90 mcg/actuation HFA aerosol inhaler 1 puff inhalation QID PRN (Reason: shortness of breath or wheezing) Qty: 8.5 5RF lorazepam 1 mg tablet 1 mg PO BID PRN (Reason: anxiety attacks) Qty: 60 3RF levetiracetam [Keppra] 1,000 mg tablet 1,000 mg PO BID Qty: 60 5RF gabapentin 600 mg tablet 600 mg PO QID Qty: 120 1RF melatonin 5 mg Capsule 10 mg PO BEDTIME Lidocaine Viscous 2 % solution 1 applic mucous membrane Q3H PRN (Reason: pain) Qty: 100 0RF Discharge Orders: Discharge ED (Routine); Ordered 03/27/23 Ordered By: Santosh Escudero Referrals: Bret Cheung MD [Primary Care Provider] - Discharge Diet: Usual diet Discharge Activity: Increase activity as tolerated Patient Instructions: Ingrown Nail (ED), Opioid Safety Activity Restrictions/Additional Instructions: Take antibiotics as directed. Drink plenty of water and fluids. Use acetaminophen and/or ibuprofen to control pain. Use hydrocodone for severe pain. Follow-up with podiatry for further evaluation and treatment. Return to emergency department for new concerns or worsening symptoms. 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
[2023-03-27] MEDS: HYDROcodone-acetaminophen 5-325 mg Tablet 1 TAB PO (18:43)
[2023-03-27] MEDS: doxycycline 100 mg Tablet PO (18:44)
[2023-03-27] MEDS: metroNIDAZOLE 500 MG Tablet PO (18:44)
--- NOTE | 2023-03-28 10:00 | DCPLANNER ---
Addendum entered by Aleshia Forman 04/03/23 15:31: Patient had a follow up appointment scheduled with ortho - patient did attend appointment. Original Note: casino shift manager had message to schedule a follow up appointment for patient with podiatry. casino shift manager sent patients information to the front office staff at podiatry. Patients information will be printed and reviewed. Clinic will call patient with appointment information.
== END 2023-03-27 18:50 | disposition home or self-care (01) ==
PROVIDERS: Emergency Provider Nurse Practitioner Family; PCP Family Medicine Adult Medicine
DX: L60.0 Ingrowing nail (principal); K04.7 Periapical abscess without sinus; Z86.19 Personal history of other infectious and parasitic diseases; J44.9 Chronic obstructive pulmonary disease, unspecified
CPT/HCPCS: 99283

== ENCOUNTER → 2023-03-31 08:52 | Outpatient (BNVA) | payer MEDICAID, SELFPAY | PROVIDERS: PCP Family Medicine Adult Medicine; Visit Provider Podiatrist Foot & Ankle Surgery | DX: L60.0 Ingrowing nail (principal) | CPT/HCPCS: 11750; A6219 ==

== ENCOUNTER 2023-08-10 08:54 | Emergency (ER) | payer MEDICAID, SELFPAY ==
[2023-08-10 09:11] VITALS: BP 122/84; PULSE 74; RESP 16; TEMP 36.6; O2SAT 98
--- NOTE | 2023-08-10 09:26 | ED_ITS ---
HPI - Dental/Oral General: Chief complaint: Dental/Oral Stated complaint: mouth pain Time Seen by Provider: 08/10/23 08:54 Source: patient Mode of arrival: ambulatory History of Present Illness: 37-year-old female with a history of poo r dentition and has been seen previously with dental caries presents emergency room this time with discomfort in the premolar on the left mandibular region MD Complaint: tooth pain Onset (ago): hour(s) Associated symptoms: Denies fever(s) Review of Systems Const: Denies: fever(s) or chills Card: Denies: chest pain Resp: Denies: dyspnea GI: Denies: abdominal pain Musc: Denies: neck pain or back pain PFSH ED PFSH: Medical History Plantar wart of both feet 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 Sinusitis Fracture of fifth metatarsal bone of right foot Dental abscess IBS (irritable bowel syndrome) PTSD (post-traumatic stress disorder) Psychiatric care Positive hepatitis C antibody test Gastroenteritis COPD (chronic obstructive pulmonary disease) Anxiety and depression Chronic hepatitis C GERD (gastroesophageal reflux disease) Asthma Social anxiety disorder Bipolar 1 disorder with moderate cesar Nightmares associated with chronic post-traumatic stress disorder History of removal of cervix but not uterus 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 Suarez [address] [facility] [place] for LAURYN-2 on cervical biopsy. Pathology showed moderate [id number] with clear margins on the anterior left and severe dysplasia LAURYN-3 completely excised on the posterior left. Endocervical curettage showed mucoid clot and superficial fragments of benign endocervical mucosa History of appendectomy History of tonsillectomy Family History Grandfather Heart disease Maternal Mother Diabetes Ovarian cancer diagnosed in her 30s Grandmother Diabetes Maternal Family/Other Breast cancer maternal great aunt, diagnosed in her 50s Denies family history of Colon cancer Hypercholesteremia Hypertension Uterine cancer Thyroid disease Stroke Physical Exam Const: COMMON NORMALS: no acute distress GENERAL APPEARANCE: cooperative and comfortable ORIENTATION/CONSCIOUSNESS: Yes awake, Yes oriented to person, Yes oriented to place and Yes oriented to time HENMT: COMMON NORMALS: normocephalic, atraumatic and hearing grossly normal bilaterally HEAD & SCALP: normocephalic and atraumatic Resp: COMMON NORMALS: normal respiratory effort, No retractions, No use of accessory muscles and clear to auscultation bilaterally AUSCULTATION: clear to auscultation bilaterally Cardio: COMMON NORMALS: regular rate, regular rhythm and No murmurs present (Cardio) RATE: regular rate RHYTHM: regular rhythm Extremity: COMMON NORMALS: normal to inspection, capillary refill normal, no clubbing, cyanosis or edema, no calf tenderness and no pedal edema Neuro: SENSORIUM/ORIENTATION: Yes oriented to person, Yes oriented to place and Yes oriented to time Skin: COMMON NORMALS: no rashes or lesions noted GENERAL SKIN EXAM: no rashes or lesions noted Course Vital Signs: Vital signs: Vital Signs Temperature 97.8 F 08/10/23 09:11 Pulse Rate 74 08/10/23 09:11 Respiratory Rate 16 08/10/23 09:11 Blood Pressure 122/84 08/10/23 09:11 Pulse Oximetry 98 08/10/23 09:11 Oxygen Delivery Me thod Room Air 08/10/23 09:11 MDM - Dental/Oral Medical Decision Making Localized dental carry no fluctuant abscess. No cervical lymphadenopathy no submandibular fullness or swelling. The area is exquisitely tender we will switch her to Augmentin from amoxicillin. Diclofenac as needed. Follow-up with dentist for definitive care as soon as able Medical Records I reviewed the patient's medical records. Lab Data I reviewed the patient's lab results. No radiology studies performed this visit Discharge Plan Discharge Patient Disposition: Home Clinical Impression: Dental caries Condition: Stable Prescriptions: New amoxicillin-pot clavulanate 875-125 mg tablet 1 tab PO BID Qty: 20 0RF diclofenac sodium 75 mg tablet,delayed release (DR/EC) 75 mg PO Q12H PRN (Reason: pain) Qty: 20 0RF Discontinued amoxicillin 875 mg tablet 875 mg PO BID Qty: 14 1RF No Action loratadine 10 mg tablet 10 mg PO DAILY Qty: 30 1RF clotrimazole-betamethasone 1-0.05 % cream 1 applic topical BID 28 Days Qty: 15 0RF (DME) carbon fiber foot plate See Rx Instructions .Route .MEDSUPPLY Qty: 2 0RF Rx Instructions: As directed fluticasone propionate 50 mcg/actuation spray,suspension 2 spray intranasal DAILY Qty: 16 3RF Rx Instructions: administer into each nostril medical marijuana inhalation celecoxib 200 mg capsule 200 mg PO BID PRN (Reason: pain) Qty: 20 1RF lamotrigine 100 mg tablet 100 mg PO .q hs Qty: 30 0RF Rx Instructions: Take one tablet daily at bedtime; stop 50 mg dose acetaminophen 650 mg tablet extended release 650 mg PO Q8H PRN (Reason: fever or pain) Qty: 100 1RF lorazepam 1 mg tablet 1 mg PO BID PRN (Reason: anxiety attacks) 30 Days Qty: 60 3RF pantoprazole 40 mg tablet,delayed release (DR/EC) 40 mg PO BID 30 Days Qty: 60 2RF dicyclomine 20 mg tablet 20 mg PO .q 8 hr PRN (Reason: abdominal pain) Qty: 30 3RF pantoprazole 40 mg tablet,delayed release (DR/EC) 40 mg PO BID 30 Days Qty: 60 0RF levetiracetam [Keppra] 1,000 mg tablet 1,000 mg PO BID Qty: 60 5RF gabapentin 600 mg tablet 600 mg PO QID Qty: 120 1RF lorazepam 1 mg tablet 1 mg PO BID PRN (Reason: anxiety attacks) Qty: 60 3RF albuterol sulfate [Ventolin HFA] 90 mcg/actuation HFA aerosol inhaler 1 puff inhalation QID PRN (Reason: shortness of breath or wheezing) Qty: 8.5 5RF gabapentin 600 mg tablet 600 mg PO QID Qty: 120 1RF melatonin 5 mg Capsule 10 mg PO BEDTIME Lidocaine Viscous 2 % solution 1 applic mucous membrane Q3H PRN (Reason: pain) Qty: 100 0RF Discharge Orders: Discharge ED (Routine); Ordered 08/10/23 Ordered By: Conner Soria Referrals: Bret Cheung MD [Primary Care Provider] - Discharge Diet: Soft Mechanical Discharge Activity: Increase activity as tolerated Patient Instructions: Opioid Safety, Pain Management Activity Restrictions/Additional Instructions: Thank you for choosing [facility] for your healthcare needs today. Please realize this is an emergency room and that we are providing you with a medical screening exam and this may not be complete and all inclusive of all the testing and or work up that you may need to determine your ailment or severity of your illness. It is very important that you follow up as instructed or that you return to the Emergency Department should you have concerns or if your condition changes or worsens in any way. You are seen today for dental infection. Recommend you change from plain amoxicillin to amoxicillin clavulanic acid. You are given ketorolac in the emergency room and 6 8 hours you can take diclofenac take with food. Follow-up with your dentist as soon as you are able for definitive care. On exam today there is no abscess that was amenable to drainage in the emergency room setting. 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
[2023-08-10] MEDS: ketorolac 30 mg/mL INJ 60 MG IM (09:46)
== END 2023-08-10 10:08 | disposition home or self-care (01) ==
PROVIDERS: Emergency Provider Family Medicine; PCP Family Medicine Adult Medicine
DX: K02.9 Dental caries, unspecified (principal); Z86.19 Personal history of other infectious and parasitic diseases; J44.9 Chronic obstructive pulmonary disease, unspecified
CPT/HCPCS: 96372; 99284; J1885

== ENCOUNTER 2023-08-19 17:43 | Emergency (ER) | payer MEDICAID, SELFPAY ==
[2023-08-19 17:45] VITALS: BP 112/72; PULSE 75; RESP 16; TEMP 36.7; O2SAT 99; BMI 23.6
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
[2023-08-19 19:59] VITALS: BP 103/72; PULSE 75; RESP 16; TEMP 36.7; O2SAT 99
== END 2023-08-19 20:10 | disposition home or self-care (01) ==
PROVIDERS: Emergency Provider Physician Assistant; PCP Family Medicine Adult Medicine
DX: S23.3XXA Sprain of ligaments of thoracic spine, initial encounter (principal); V49.59XA Passenger injured in collision with other motor vehicles in traffic accident, initial encounter
CPT/HCPCS: 71101; 72072; 99284

== ENCOUNTER 2023-11-01 12:50 | Emergency (ER) | payer MEDICAID, SELFPAY ==
[2023-11-01 12:58] VITALS: BP 106/68; PULSE 82; RESP 18; TEMP 36.4; O2SAT 99
--- NOTE | 2023-11-01 13:07 | ED_ITS ---
HPI - URI/Sore Throat General: Chief Complaint: Upper Respiratory Infection Stated Complaint: chest pain Time Seen by Provider: 11/01/23 13:06 History of Present Illness: 38-year-old female comes in today for co mplaints of cough and congestion. Patient reports illness x 1 week. Patient reports fever for the first 3 days. Since then patient has had persistent cough with production of green sputum. Patient does have a history of COPD. 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 Suarez at [facility] [place] for LAURYN-2 on cervical biopsy. 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 Endocervical curettage showed mucoid clot and superficial fragments of benign endocervical mucosa History of appendectomy History of tonsillectomy Family History Grandfather Heart disease Maternal Mother Diabetes Ovarian cancer diagnosed in her 30s Grandmother Diabetes Maternal Family/Other Breast cancer maternal great aunt, diagnosed in her 50s Denies family history of Colon cancer Hypercholesteremia Hypertension Uterine cancer Thyroid disease Stroke Physical Exam Const: COMMON NORMALS: alert HENMT: COMMON NORMALS: normocephalic HEAD & SCALP: normocephalic Neck/C-Spine: COMMON NORMALS: full ROM Resp: COMMON NORMALS: normal respiratory effort AUSCULTATION: wheezes Cardio: COMMON NORMALS: regular rate RATE: regular rate GI: COMMON NORMALS: non-tender : COMMON NORMALS: Yes no CVA tenderness BLADDER/KIDNEY EXAM: Yes no CVA tenderness Back/Pelvis: COMMON NORMALS: no CVA tenderness Extremity: COMMON NORMALS: normal to inspection Neuro: SENSORIUM/ORIENTATION: Yes alert Skin: COMMON NORMALS: turgor normal GENERAL SKIN EXAM: turgor normal Course Vital Signs: Vital signs: Vital Signs Temperature 97.5 F L 11/01/23 12:58 Pulse Rate 82 11/01/23 12:58 Respiratory Rate 18 11/01/23 12:58 Blood Pressure 106/68 11/01/23 12:58 Pulse Oximetry 99 11/01/23 12:58 Oxygen Delivery Me thod Room Air 11/01/23 12:58 MDM - URI/Sore Throat Medical Decision Making 38-year-old female comes in today with cough and congestion for 1 week. Patient reports started with fever for 3 days. Patient continues to have wheezing and cough. Patient appears nontoxic. Lungs have good air movement with occasional expiratory wheezes. Vital signs are normal. Differential diagnosis includes but not limited to upper respiratory infection, acute bronchitis, exacerbation of COPD. No signs of serious illness is noted. Patient will be given antibiotics of azithromycin and a dose of steroids for control of COPD. Patient reports understanding of care plan and need for follow-up or return to the ER. No radiology studies performed this visit Discharge Plan Discharge Patient Disposition: Home Clinical Impression: COPD (chronic obstructive pulmonary disease) Condition: Stable Prescriptions: New prednisone 20 mg tablet 20 mg PO DAILY 5 Days Qty: 5 0RF azithromycin 250 mg tablet 250 mg PO DAILY 5 Days Qty: 5 0RF No Action loratadine 10 mg tablet 10 mg PO DAILY Qty: 30 1RF fluticasone propionate 50 mcg/actuation spray,suspension 2 spray intranasal DAILY Qty: 16 3RF Rx Instructions: administer into each nostril medical marijuana inhalation celecoxib 200 mg capsule 200 mg PO BID PRN (Reason: pain) Qty: 20 1RF gabapentin 800 mg tablet 800 mg PO QID Qty: 120 3RF lamotrigine 100 mg tablet 100 mg PO .q hs Qty: 30 0RF Rx Instructions: Take one tablet daily at bedtime; stop 50 mg dose acetaminophen 650 mg tablet extended release 650 mg PO Q8H PRN (Reason: fever or pain) Qty: 100 1RF lorazepam 1 mg tablet 1 mg PO BID PRN (Reason: anxiety attacks) 30 Days Qty: 60 3RF dicyclomine 20 mg tablet 20 mg PO .q 8 hr PRN (Reason: abdominal pain) Qty: 30 3RF levetiracetam [Keppra] 1,000 mg tablet 1,000 mg PO BID Qty: 60 5RF levalbuterol tartrate [Xopenex HFA] 45 mcg/actuation HFA aerosol inhaler 2 inh inhalation Q6H Qty: 15 3RF pantoprazole 40 mg tablet,delayed release (DR/EC) 40 mg PO BID 30 Days Qty: 60 2RF melatonin 5 mg Capsule 10 mg PO BEDTIME cyclobenzaprine 10 mg tablet 10 mg PO TID Qty: 14 0RF Discharge Orders: Discharge ED (Routine); Ordered 11/01/23 Ordered By: Santosh Escudero Referrals: Bret Cheung MD [Primary Care Provider] - Discharge Diet: Usual diet Discharge Activity: Increase activity as tolerated Patient Instructions: Chronic Bronchitis (ED) Activity Restrictions/Additional Instructions: Drink plenty of water and fluids. Take medications as directed. Continue with inhaler as needed. Follow-up with primary care in 3 to 5 days for recheck. Ret urn to ED for worsening breathing or new concerns. Coding Level of Care Code ED Glass Rolling Machine Operator for Kemar Weiner
[2023-11-01] MEDS: azithromycin 250 mg Tablet 500 MG PO (13:22)
[2023-11-01] MEDS: dexamethasone 10 mg/mL INJ IM (13:23)
--- NOTE | 2023-11-01 18:53 | ECG_ITS ---
[facility] Test Date: 2023-11-01 Pat Name: Ki Mireles Department: Room: Gender: Female Director Pharmacovigilance: : 1985 Requested By: Santosh Koch Order Number: [id number] Wasserman MD: Elfego Bliss M.D. Measurements Intervals [place] Rate: 77 P: 42 CT: 172 QRS: -1 QRSD: 89 T: 31 QT: 369 QTc: 419 Interpretive Statements SINUS RHYTHM POSSIBLE RIGHT VENTRICULAR CONDUCTION DELAY [RSR (QR) IN V1/V2] MINIMAL ST DEPRESSION [0.025+ mV ST DEPRESSION] Compared to ECG 03/07/2022 15:24:49 ST (T wave) deviation now present Sinus arrhythmia no longer present Electronically Signed On 11-02-2023 10:49:15 RESTORATIVE CARE TECHNICIAN by Elfego Bliss M.D. [email or web address]
== END 2023-11-01 13:27 | disposition home or self-care (01) ==
PROVIDERS: Emergency Provider Nurse Practitioner Family; PCP Family Medicine Adult Medicine
DX: J44.9 Chronic obstructive pulmonary disease, unspecified (principal); Z86.19 Personal history of other infectious and parasitic diseases
CPT/HCPCS: 93005; 96372; 99284; J1100; Q0144

== ENCOUNTER 2024-03-10 20:29 | Emergency (ER) | payer MEDICAID, SELFPAY ==
[2024-03-10 20:30] VITALS: BP 120/82; PULSE 93; RESP 16; TEMP 36.9; O2SAT 97; BMI 23.3
--- NOTE | 2024-03-10 20:36 | CTR_ITS ---
PROCEDURE INFORMATION: Exam: CT Head Without Contrast Exam date and time: 03/10/2024 9:47 PM Age: 38 years old Clinical indication: Injury or trauma; Fall; Blunt trauma (contusions or hematomas); Patient HX: Patient fell face first from pool ladder onto concrete. C/O frontal pain. TECHNIQUE: Imaging protocol: Computed tomography of the head without contrast. Radiation optimization: All CT scans at this facility use at least one of these dose optimization techniques: automated exposure control; mA and/or kV adjustment per patient size (includes targeted exams where dose is matched to clinical indication); or iterative reconstruction. COMPARISON: CT head wo con* [id number] 10/09/2021 5:42 PM RADIATION DOSE METRICS: Total DLP (mGy-cm): 983.78 FINDINGS: Brain: No acute intracranial hemorrhage. No confluent lobar infarct. No mass effect. Cerebral ventricles: The ventricles and sulci are normal in size and shape for the patient's stated age. Paranasal sinuses: Visualized sinuses are unremarkable. No fluid levels. Mastoid air cells: Visualized mastoid air cells are well aerated. Bones: No acute calvarial fracture. Soft tissues: Visualized soft tissues are unremarkable. CT/CT head wo con* [id number] IMPRESSION: No acute intracranial abnormality. If symptoms persist, consider further evaluation with MRI, if MRI is clinically safe to obtain.
--- NOTE | 2024-03-10 20:36 | XRR_ITS ---
PROCEDURE INFORMATION: Exam: XR Right Ribs with PA Chest Exam date and time: 03/10/2024 9:39 PM Age: 38 years old Clinical indication: Chest wall pain and other: Ribs; Right; Additional info: Fall TECHNIQUE: Imaging protocol: Radiologic exam of the right ribs with PA chest. Views: 3 views COMPARISON: CR XR chest 1V portable [id number] 05/16/2022 5:24 PM FINDINGS: Lungs: No focal lung consolidation. Pleural spaces: No pleural effusion. No pneumothorax. Heart/Mediastinum: No cardiomegaly. Bones/joints: No acute bony abnormality. XR/XR ribs RT mn 3V w CXR1V [id number] IMPRESSION: No focal lung consolidation. No acute right rib fracture. If symptoms persist, consider repeat plain films in 5-7 days.
--- NOTE | 2024-03-10 20:41 | W.ED.FALL ---
HPI - Fall General: Chief Complaint: Fall Stated Complaint: fall Time Seen by Provider: 03/10/24 20:30 Source: patient and EMS Mode of arrival: EMS Limitations: no limitations History of Present Illness: 30-year-old female states she had fell roughly 3 to 4 feet off a ladder coming out of the pool states she landed on concrete states she landed on her head and right side she is complaining of headache she rates 6 out of 10 along with right-sided chest pain. Denies any neck pain denies any loss of consciousness she is ambulatory after event Associated symptoms-after fall: Reports chest pain and headache(s); Denies abdominal pain or neck pain Review of Systems Const: Denies: fever(s), chills, body aches or change in appetite ENMT: Denies: throat pain or dental pain Card: Reports: chest pain Resp: Denies: dyspnea GI: Denies: abdominal pain, nausea, vomiting or diarrhea Musc: Denies: neck pain or back pain Skin/Breast: Denies: rash Neuro: Reports: headache(s) PFSH ED PFSH: Medical History Headache Allergic rhinitis caused by mold Mandibular anomaly Plantar wart of both feet 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 Suarez at [facility] [place] for LAURYN-2 on cervical biopsy. 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 Endocervical curettage showed mucoid clot and superficial fragments of benign endocervical mucosa History of appendectomy History of tonsillectomy Family History Grandfather Heart disease Maternal Mother Diabetes Ovarian cancer diagnosed in her 30s Grandmother Diabetes Maternal Family/Other Breast cancer maternal great aunt, diagnosed in her 50s Denies family history of Colon cancer Hypercholesteremia Hypertension Uterine cancer Thyroid disease Stroke Social History Smoking and tobacco/nicotine status: former use of tobacco/nicotine Female Reproductive History: Date of last menstrual period: 03/10/24 Physical Exam Const: COMMON NORMALS: no acute distress, patient oriented x3 and healthy appearing HENMT: COMMON NORMALS: normocephalic; head/scalp not atraumatic HEAD & SCALP: normocephalic; not atraumatic OTHER: Tenderness over forward no obvious deformities Eye: COMMON NORMALS: Equal, round and reactive pupils present and EOMs intact bilaterally PUPIL: Yes Equal, round and reactive pupils present Neck/C-Spine: COMMON NORMALS: full ROM and supple Chest: COMMONS NORMALS: normal inspection of the chest OTHER: Tenderness noted to right chest wall Resp: COMMON NORMALS: normal respiratory effort, No retractions, No use of accessory muscles and clear to auscultation bilaterally AUSCULTATION: clear to auscultation bilaterally Cardio: COMMON NORMALS: regular rate, regular rhythm and No murmurs present (Cardio) RATE: regular rate RHYTHM: regular rhythm GI: COMMON NORMALS: Normal to inspection, nondistended, normoactive bowel sounds present, Soft to palpation, non-tender and no masses PALPATION: Yes Soft to palpation Extremity: COMMON NORMALS: normal to inspection and full ROM Neuro: COMMON NORMALS: patient oriented x3, moves all extremities and no focal motor deficits Psych: COMMON NORMALS: mental status grossly normal, Normal thought process present and cooperative THOUGHT PROCESS: Normal thought process present Skin: COMMON NORMALS: no rashes or lesions noted and no wounds GENERAL SKIN EXAM: no rashes or lesions noted Course Vital Signs: Vital signs: Vital Signs Temperature 98.4 F 03/10/24 20:30 Pulse Rate 77 03/10/24 22:32 Respiratory Rate 20 H 03/10/24 21:22 Blood Pressure 128/87 03/10/24 22:32 Pulse Oximetry 97 03/10/24 22:32 Oxygen Delivery Me thod Room Air 03/10/24 22:32 MDM - Fall Medical Decision Making Patient presents here with close head injury along with chest wall contusion from fall imaging here is normal no signs of neck injury no signs abdominal injury patient stable for discharge follow-up PCP return if worsening. Medical Records I reviewed the patient's medical records. Lab Data I reviewed the patient's lab results. Radiology Impressions Head CT 03/10/24 20:36 IMPRESSION: No acute intracranial abnormality. If symptoms persist, consider further evaluation with MRI, if MRI is clinically safe to obtain. Ribs X-Ray 03/10/24 20:36 IMPRESSION: No focal lung consolidation. No acute right rib fracture. If symptoms persist, consider repeat plain films in 5-7 days. All radiology interpretation(s) finalized by discharge Discharge Plan Discharge Patient Disposition: Home Clinical Impression: Fall Qualifiers: Encounter type: initial encounter Qualified Code(s): W19.XXXA - Unspecified fall, initial encounter Closed head injury Qualifiers: Encounter type: initial encounter Qualified Code(s): S09.90XA - Unspecified injury of head, initial encounter Chest wall contusion Qualifiers: Encounter type: initial encounter Laterality: right Qualified Code(s): S20.211A - Contusion of right front wall of thorax, initial encounter Condition: Stable Prescriptions: New Naprosyn 500 mg tablet 500 mg PO BID PRN (Reason: pain) Qty: 20 0RF No Action fluticasone propionate 50 mcg/actuation spray,suspension 2 spray intranasal DAILY Qty: 16 3RF Rx Instructions: administer into each nostril medical marijuana inhalation gabapentin 800 mg tablet 800 mg PO QID Qty: 120 3RF diphenhydramine HCl 25 mg capsule 25 mg PO .q hs PRN (Reason: allergy symptoms) Qty: 30 0RF loratadine 10 mg tablet 10 mg PO DAILY Qty: 30 1RF guaifenesin 600 mg tablet extended release 12hr 600 mg PO BID PRN (Reason: congestion/cough) Qty: 40 0RF paroxetine HCl 20 mg tablet 20 mg PO .q hs PRN (Reason: mental health) Qty: 30 3RF fmpanyx-ryqrddfnygnoj-kvzerfpl 250-250-65 mg tablet 1 tab PO Q6H PRN (Reason: headache) Qty: 30 0RF lamotrigine 100 mg tablet 100 mg PO .q hs Qty: 30 0RF Rx Instructions: Take one tablet daily at bedtime; stop 50 mg dose acetaminophen 650 mg tablet extended release 650 mg PO Q8H PRN (Reason: fever or pain) Qty: 100 1RF dicyclomine 20 mg tablet 20 mg PO .q 8 hr PRN (Reason: abdominal pain) Qty: 30 3RF levetiracetam [Keppra] 1,000 mg tablet 1,000 mg PO BID Qty: 60 5RF levalbuterol tartrate [Xopenex HFA] 45 mcg/actuation HFA aerosol inhaler 2 inh inhalation Q6H Qty: 15 3RF pantoprazole 40 mg tablet,delayed release (DR/EC) 40 mg PO BID 30 Days Qty: 60 2RF lorazepam 1 mg tablet 1 mg PO BID PRN (Reason: anxiety attacks) 30 Days Qty: 60 3RF melatonin 5 mg Capsule 10 mg PO BEDTIME cyclobenzaprine 10 mg tablet 10 mg PO TID Qty: 14 0RF Discharge Orders: Discharge ED (Routine); Ordered 03/10/24 Ordered By: Aleja Hatch Referrals: Bret Cheung MD [Primary Care Provider] - 4-7 days Discharge Diet: Advance as tolerated Discharge Activity: Resume usual activity Patient Instructions: Head Injury (ED), Chest Wall Pain (ED) Coding Level of Care Code ED Transit Planning Manager for Kemar Weiner
[2024-03-10 21:18] VITALS: RESP 18; O2SAT 99
[2024-03-10] MEDS: morphine 4 mg/mL SDV 1 mL IVP (21:18)
[2024-03-10 21:22] VITALS: BP 117/67; PULSE 78; RESP 20; O2SAT 99
[2024-03-10 22:32] VITALS: BP 128/87; PULSE 77; O2SAT 97
[2024-03-10] MEDS: HYDROcodone-acetaminophen 5-325 mg Tablet 1 TAB PO (22:32)
== END 2024-03-10 23:46 | disposition home or self-care (01) ==
PROVIDERS: Emergency Provider Emergency Medicine; PCP Family Medicine Adult Medicine
DX: S20.211A Contusion of right front wall of thorax, initial encounter (principal); S09.8XXA Other specified injuries of head, initial encounter; Z87.891 Personal history of nicotine dependence; J44.9 Chronic obstructive pulmonary disease, unspecified; Z86.19 Personal history of other infectious and parasitic diseases; W11.XXXA Fall on and from ladder, initial encounter
CPT/HCPCS: 70450; 71101; 96374; 99285; J2270

== ENCOUNTER 2024-03-28 12:39 | Outpatient (RCR) | payer MEDICAID, SELFPAY | END 2024-04-10 23:59 | disposition home or self-care (01) | LOC: SPT 12:39 | PROVIDERS: Visit Provider Family Medicine Adult Medicine | DX: M54.9 Dorsalgia, unspecified (principal); G89.29 Other chronic pain | CPT/HCPCS: 97161 ==

== ENCOUNTER 2024-03-30 15:03 | Emergency (ER) | payer MEDICAID, SELFPAY ==
[2024-03-30 15:07] VITALS: BP 136/79; PULSE 74; RESP 17; TEMP 37.1; O2SAT 97; BMI 24.3
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
--- NOTE | 2024-03-30 15:28 | XRR_ITS ---
PROCEDURE INFORMATION: Exam: XR Lumbosacral Spine Exam date and time: 03/30/2024 3:36 PM Age: 38 years old Clinical indication: Injury or trauma; Other: Lbp; Patient HX: Lower back pain; RT anterior rib pain post fall x 1 week ago; SOB TECHNIQUE: Imaging protocol: Radiologic exam of the lumbosacral spine. Views: 2 or 3 views. COMPARISON: CR XR lumbar spine 2-3V* [id number] 01/25/2022 8:04 PM FINDINGS: Bones/joints: 7 degree lower thoracic/lumbar levoscoliosis measured from the T1 superior endplate through the L4 inferior endplate. Soft tissues: Unremarkable. XR/XR lumbar spine 2-3V* [id number] IMPRESSION: There is a 7 degree lower thoracic/lumbar levoscoliosis.
--- NOTE | 2024-03-30 15:28 | XRR_ITS ---
PROCEDURE INFORMATION: Exam: XR Right Ribs with PA Chest Exam date and time: 03/30/2024 3:36 PM Age: 38 years old Clinical indication: Injury or trauma; Rib area; Blunt trauma (contusions or hematomas); Patient HX: Lower back pain; RT anterior rib pain post fall x 1 week ago; SOB; Additional info: Fall injury TECHNIQUE: Imaging protocol: Radiologic exam of the right ribs with PA chest. Views: 3 views COMPARISON: CR (CHEST, ) 03/10/2024 9:39 PM FINDINGS: Lungs: Unremarkable. No consolidation. Pleural spaces: Unremarkable. No pleural effusion. No pneumothorax. Heart/Mediastinum: Unremarkable. No cardiomegaly. Bones/joints: There is smooth appearing contour abnormality at the lateral aspect of the left 8th rib consistent with a fracture, likely chronic in nature. XR/XR ribs RT mn 3V w CXR1V [id number] IMPRESSION: There is smooth appearing contour abnormality at the lateral aspect of the left 8th rib consistent with a fracture, likely chronic in nature.
[2024-03-30] MEDS: HYDROcodone-acetaminophen 10-325 mg Tablet 1 TAB PO (15:39)
[2024-03-30] MEDS: predniSONE 20 mg Tablet PO (16:51)
== END 2024-03-30 16:52 | disposition home or self-care (01) ==
PROVIDERS: Emergency Provider Nurse Practitioner Family; PCP Family Medicine Adult Medicine
DX: S22.31XA Fracture of one rib, right side, initial encounter for closed fracture (principal); Z87.891 Personal history of nicotine dependence; J44.9 Chronic obstructive pulmonary disease, unspecified; Z86.19 Personal history of other infectious and parasitic diseases; W11.XXXA Fall on and from ladder, initial encounter
CPT/HCPCS: 71101; 72100; 99284; J7512

== ENCOUNTER 2024-04-11 06:00 | Outpatient (RCR) | payer MEDICAID, SELFPAY | END 2024-05-11 23:59 | disposition home or self-care (01) | LOC: SPT 06:00 | PROVIDERS: PCP Family Medicine Adult Medicine; Visit Provider Family Medicine Adult Medicine | DX: M54.9 Dorsalgia, unspecified (principal); G89.29 Other chronic pain | CPT/HCPCS: 97110; 97530 ==

== ENCOUNTER 2024-05-17 19:14 | Emergency (ER) | payer MEDICAID, SELFPAY ==
[2024-05-17 19:38] VITALS: BP 117/65; PULSE 87; RESP 18; TEMP 36.6; O2SAT 97; BMI 24.7
--- NOTE | 2024-05-17 20:04 | XRR_ITS ---
PROCEDURE INFORMATION: Exam: XR Left Foot Exam date and time: 05/17/2024 8:11 PM Age: 38 years old Clinical indication: Injury or trauma; Fall; Sprain or strain; Ankle and foot; Patient HX: Patient rolled left ankle while walking. C/O focal pain to lateral side of ankle/foot. Notable swelling to lateral side of foot to region of cuboid. ; Additional info: Fall/pain TECHNIQUE: Imaging protocol: Radiologic exam of the left foot. Views: 3 or more views. COMPARISON: CR XR foot LT min 3V* [id number] 03/01/2023 1:53 PM FINDINGS: Bones/joints: Moderate arthrosis of the 1st MTP joint with joint space narrowing, marginal sclerosis and spurring consistent with hallux rigidus. Acute intra-articular fracture of the cuboid extending to the 4th TMT joint . No additional clear-cut fracture on plain radiography. Stable appearance of the bases of the metatarsals compared to 03/01/2023. Soft tissues: Normal. XR/XR foot LT min 3V* [id number] IMPRESSION: Acute intra-articular fracture of the cuboid.
--- NOTE | 2024-05-17 20:04 | XRR_ITS ---
PROCEDURE INFORMATION: Exam: XR Left Ankle Exam date and time: 05/17/2024 8:11 PM Age: 38 years old Clinical indication: Injury or trauma; Fall; Sprain or strain; Ankle and foot; Patient HX: Patient rolled left ankle while walking. C/O focal pain to lateral side of ankle/foot. Notable swelling to lateral side of foot to region of cuboid. ; Additional info: Fall/pain TECHNIQUE: Imaging protocol: Radiologic exam of the left ankle. Views: 3 or more views. COMPARISON: CR XR foot LT min 3V* [id number] 05/17/2024 8:11 PM FINDINGS: Bones/joints: No acute fracture or dislocation, ankle mortise widening or asymmetry on this nonweightbearing study. Smooth talar dome. Soft tissues: Normal. XR/XR ankle LT min 3V* [id number] IMPRESSION: No acute plain radiographic abnormality.
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
[2024-05-17] MEDS: ketorolac 60 mg/2 mL INJ IM (20:16)
[2024-05-17] MEDS: ondansetron 4 MG Tablet 8 MG PO (20:23)
[2024-05-17 21:19] VITALS: BP 120/73; PULSE 72; RESP 18; O2SAT 98
--- NOTE | 2024-05-20 07:23 | DCPLANNER ---
messaged podiatry for er f/u
== END 2024-05-17 21:17 | disposition home or self-care (01) ==
PROVIDERS: Emergency Provider Physician Assistant; PCP Family Medicine Adult Medicine
DX: S92.212A Displaced fracture of cuboid bone of left foot, initial encounter for closed fracture (principal); Z87.891 Personal history of nicotine dependence; Z86.19 Personal history of other infectious and parasitic diseases; J44.9 Chronic obstructive pulmonary disease, unspecified; X50.1XXA Overexertion from prolonged static or awkward postures, initial encounter
CPT/HCPCS: 29515; 73610; 73630; 96372; 99284; 99291; E0114; J1885; Q0162

== ENCOUNTER 2024-09-12 09:48 | Emergency (ER) | payer MEDICAID, SELFPAY ==
[2024-09-12 09:48] VITALS: BP 103/72; PULSE 85; RESP 20; TEMP 36.9; O2SAT 96; BMI 22.6
--- NOTE | 2024-09-12 09:52 | XRR_ITS ---
PROCEDURE INFORMATION: Exam: XR Chest Exam date and time: 09/12/2024 9:55 AM Age: 39 years old Clinical indication: Cough and dyspnea; Patient HX: --cp anxiety; Additional info: Dyspnea/cough TECHNIQUE: Imaging protocol: Radiologic exam of the chest. Views: 1 view. COMPARISON: CR XR ribs RT mn 3V w CXR1V [id number] 03/30/2024 3:36 PM FINDINGS: Lungs: Unremarkable. No consolidation. Pleural spaces: Unremarkable. No pleural effusion. No pneumothorax. Heart/Mediastinum: Unremarkable. No cardiomegaly. Bones/joints: Unremarkable. XR/XR chest 1V portable [id number] IMPRESSION: No acute findings.
--- NOTE | 2024-09-12 09:52 | ECG_ITS ---
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 Measurements Intervals [place] Rate: 86 P: 14 WA: 155 QRS: 44 QRSD: 93 T: 50 QT: 356 QTc: 426 Interpretive Statements SINUS RHYTHM Compared to ECG 11/01/2023 12:53:41 ST (T wave) deviation no longer present Electronically Signed On 09-12-2024 12:21:04 GUM REMOVER by Royce Duarte M.D. [id number]
--- NOTE | 2024-09-12 10:06 | CT_ITS ---
WS: [id number] CT HEAD TECHNIQUE: Noncontrast CT of the head obtained from the skullbase to the vertex. CLINICAL INFORMATION: AMS COMPARISON: 03/10/2024 DLP: 987.[address] scans at [facility] use at least one of these dose optimization techniques: automated e xposure control; mA and/or kV adjustment per patient size (includes targeted exams where dose is matc hed to clinical indication); or iterative reconstruction. FINDINGS: No evidence of intracranial hemorrhage or mass effect. Ventricular system and basal cisterns are cardenas nt. No extra-axial fluid collections. No evidence of mass or mass effect. Normal allan-white different iation. Paranasal sinuses and mastoid air cells are well aerated. .Normal visualized soft tissues. CT/CT head wo con* [id number] IMPRESSION: 1. No evidence of intracranial hemorrhage or mass effect. 2. No acute intracranial findings.
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
[2024-09-12] MEDS: LORazepam 2 mg/mL INJ 1 mL 1 MG IVP (10:32)
[2024-09-12 10:38] LABS: Basophils # 0.1 10^3/uL (0.0-0.1); Basophils % 0.9 %; Eosinophils # 0.3 10^3/uL (0.0-0.8); Eosinophils % 2.2 %; Hematocrit 43.4 % (36-47); Lymphocytes # 1.7 10^3/uL (0.8-4.8); Lymphocytes % 14.9 %; Mean Corpuscular HGB Conc 33.4 g/dL (30-55); Mean Corpuscular Hemoglobin 31.2 pg (27-33); Mean Corpuscular Volume 93.3 fl (85-98); Mean Platelet Volume 11.5 fL (7.4-10.4); Monocytes # 0.7 10^3/uL (0.2-0.9); Monocytes % 6.4 %; Neutrophils # 8.67 10^3/uL (1.8-7.7); Neutrophils % 75.3 %; Nucleated Red Blood Cells % 0 %; Platelet Count 217 10^3/cmm (157-399); Red Blood Count 4.65 10^6/uL (3.85-5.65); Red Cell Distribution Width 12.7 % (12.1-15.1); White Blood Count 11.51 10^3/uL (3.29-11.43)
[2024-09-12 10:57] LABS: Alanine Aminotransferase 10 U/L (0-33); Albumin Level 4.4 g/dL (3.5-5.2); Alkaline Phosphatase 83 U/L (35-105); Anion Gap 15.8 (5-19); Aspartate Amino Transferase 14 U/L (0-32); Blood Urea Nitrogen 5 mg/dL (6-20); Calcium 9.1 mg/dL (8.5-10.5); Carbon Dioxide 22 mmol/L (22-29); Chloride 103 mmol/L (98-107); Creatine Phosphokinase 53 U/L (26-192); Creatinine Clr Calc Pharmacy 100.2871; Globulin 2.8 g/dL (1.3-4.6); Glomerular Filtration Rate 93.2 mL/min (90-130); Glucose 121 mg/dL (65-115); Osmolality Calculated 283 mOsm/kg (285-295); Potassium 3.8 mmol/L (3.5-5.1); Sodium 137 mmol/L (136-145); Total Bilirubin 0.5 mg/dL (0.15-1.2); Total Protein 7.2 g/dL (6.6-8.7); Troponin(5th) Baseline < 6 ng/L (0-10)
[2024-09-12 10:58] LABS: Lactic Sepsis W/Reflex 1.2 mmol/L (0.5-2.2)
[2024-09-12 10:59] LABS: Acetaminophen < 5.0 ug/mL (10-30); Salicylate < 0.3 mg/dL (3-10)
[2024-09-12 11:01] LABS: Ammonia 36 umol/L (11-51)
--- NOTE | 2024-09-12 11:07 | PC.PHAR ---
Pt unable to verify medications at this time. Verified the most current medication list with several pharmacies and added last fill dates with days supply in the pharmacy notes.
--- NOTE | 2024-09-12 11:52 | ECG_ITS ---
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 Measurements Intervals [place] Rate: 86 P: 20 [place]: 150 QRS: 81 QRSD: 89 T: 50 QT: 358 QTc: 428 Interpretive Statements SINUS RHYTHM Compared to ECG 09/12/2024 09:52:19 No significant changes Electronically Signed On 09-12-2024 12:31:59 PLUMBER CUB by Royce Duarte M.D. [id number]
[2024-09-12] MEDS: acetaminophen 325 mg Tablet 650 MG PO (12:20)
[2024-09-12 12:28] LABS: Amphetamines Screen Urine Negative (Negative); Barbiturates Screen Urine Negative (Negative); Benzodiazepines Screen Urine Positive (Negative); Cocaine Screen Urine Negative (Negative); Opiate Screen Urine Negative (Negative); PCP Screen Urine Negative (Negative); THC Screen Urine Positive (Negative)
[2024-09-12 13:12] VITALS: PULSE 81
== END 2024-09-12 13:15 | disposition home or self-care (01) ==
PROVIDERS: Emergency Provider Family Medicine; PCP Family Medicine Adult Medicine
DX: R29.818 Other symptoms and signs involving the nervous system (principal); F41.9 Anxiety disorder, unspecified; F32.A Depression, unspecified; J44.9 Chronic obstructive pulmonary disease, unspecified
CPT/HCPCS: 36415; 70450; 71045; 80053; 80306; 80307; 82140; 82550; 83605; 83735; 84484; 85025; 93005; 93010; 96374; 99285; J2060

== ENCOUNTER 2024-09-22 18:03 | Emergency (ER) | payer MEDICAID, SELFPAY ==
--- NOTE | 2024-09-22 18:04 | XRR_ITS ---
PROCEDURE INFORMATION: Exam: XR Sacrum and Coccyx, 2 or More Views Exam date and time: 09/22/2024 6:17 PM Age: 39 years old Clinical indication: Pain in coccyx area; Patient HX: Pain to tailbone after fall TECHNIQUE: Imaging protocol: XR of the sacrum and coccyx, 2 or more views. COMPARISON: CT abdomen pelvis wo con [id number] 02/12/2022 3:30 AM FINDINGS: Bones/joints: Normal. No acute fracture. Soft tissues: Normal. XR/XR sacrum coccyx min 2V [id number] IMPRESSION: No acute findings.
[2024-09-22 18:10] VITALS: BP 103/60; PULSE 80; RESP 14; TEMP 36.7; O2SAT 98
[2024-09-22 20:20] VITALS: BP 130/84; PULSE 87; RESP 18; O2SAT 98
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
[2024-09-22] MEDS: ketorolac 10 mg Tablet PO (21:11)
[2024-09-22] MEDS: HYDROcodone-acetaminophen 5-325 mg Tablet 1 TAB PO (21:12)
[2024-09-22] MEDS: ondansetron 4 MG Tablet PO (21:12)
[2024-09-22 21:25] VITALS: BP 134/86; PULSE 88; O2SAT 97
== END 2024-09-22 21:27 | disposition home or self-care (01) ==
PROVIDERS: Emergency Provider Nurse Practitioner; PCP Family Medicine
DX: M53.3 Sacrococcygeal disorders, not elsewhere classified (principal); W00.9XXA Unspecified fall due to ice and snow, initial encounter; J44.9 Chronic obstructive pulmonary disease, unspecified
CPT/HCPCS: 72220; 99283; Q0162

== ENCOUNTER 2024-10-17 07:07 | Outpatient (CLI) | payer MEDICAID, SELFPAY ==
--- NOTE | 2024-10-17 07:15 | MR_ITS ---
WS: [id number] MRI LUMBAR SPINE NONCONTRAST TECHNIQUE: Sagittal T1, T2 and STIR imaging. Axial T1 and T2 imaging. CLINICAL INFORMATION: chronic low back pain with bilateral sciatica COMPARISON: None. FINDINGS: Mild lumbar curve. No acute compression. No high-grade central canal stenosis. L1-L2: Normal. L2-L3: No significant disc bulging. Mild facet arthropathy. L3-L4: No significant disc bulging. Mild facet arthropathy. Spinal canal and foramen are patent. L4-L5: LEFT eccentric disc bulge L4-5 with mild LEFT foraminal narrowing. Spinal canal is patent. Mild facet arthropathy. L5-S1: Mild facet arthropathy. Spinal canal and foramen are patent. Visualized pelvic bony structures: Normal. Paravertebral soft tissues: Normal. MR/MR lumbar spine wo con* [id number] IMPRESSION: 1. Mild lumbar curve. No acute compression. No high-grade central canal stenos is. 2. LEFT eccentric disc bulge L4-5 with mild LEFT foraminal narrowing. 3. Mild facet arthropathy L3-L5. 4. No significant central canal stenosis.
== END 2024-10-17 07:08 | disposition home or self-care (01) ==
LOC: RAD 07:10
PROVIDERS: PCP Family Medicine; Visit Provider Family Medicine
DX: M48.061 Spinal stenosis, lumbar region without neurogenic claudication (principal); M51.369 Other intervertebral disc degeneration, lumbar region without mention of lumbar back pain or lower extremity pain; G89.29 Other chronic pain; M54.31 Sciatica, right side; M54.32 Sciatica, left side; M43.8X6 Other specified deforming dorsopathies, lumbar region; M47.896 Other spondylosis, lumbar region; M47.897 Other spondylosis, lumbosacral region
CPT/HCPCS: 72148

== ENCOUNTER 2024-11-25 11:49 | Emergency (ER) | payer MEDICAID, SELFPAY ==
[2024-11-25 11:59] VITALS: BP 130/62; PULSE 106; TEMP 36.6; O2SAT 99; BMI 22.4
[2024-11-25] MEDS: HYDROcodone-acetaminophen 5-325 mg Tablet 1 TAB PO (12:12)
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
[2024-11-25] MEDS: BUPivacaine 0.5% INJ 10 mL INJECTION (12:14)
[2024-11-25 12:37] VITALS: BP 121/74; PULSE 65; O2SAT 97
== END 2024-11-25 12:38 | disposition home or self-care (01) ==
PROVIDERS: Emergency Provider Emergency Medicine; PCP Family Medicine
DX: K08.89 Other specified disorders of teeth and supporting structures (principal); F17.210 Nicotine dependence, cigarettes, uncomplicated; J44.9 Chronic obstructive pulmonary disease, unspecified
CPT/HCPCS: 99284; J3490; J9999

== ENCOUNTER 2025-02-17 16:29 | Outpatient (CLI) | payer MEDICAID, SELFPAY ==
--- NOTE | 2025-02-17 16:30 | US_ITS ---
WS: [id number] US pelvic complete* [id number] HISTORY: R pelvic pain COMPARISON: None available. Uterus: 8.1 cm x 4.5 cm x 3.0 cm. Normal size anteverted uterus. No fibroid or mass. Endometrium: 0.8 cm. Normal. Right ovary: 3.0 cm x 2.9 cm x 3.6 cm. Normal size and vascularity, no cystic or solid masses. Small follicles. Left ovary: Not visualized. No adnexal mass. No free fluid in the cul-de-sac. US/US pelvic complete* [id number] IMPRESSION: 1. Normal uterus and RIGHT ovary. 2. The LEFT ovary is not identified.
== END 2025-02-17 16:30 | disposition home or self-care (01) ==
PROVIDERS: PCP Family Medicine; Visit Provider Family Medicine
DX: R10.2 Pelvic and perineal pain (principal)
CPT/HCPCS: 76856

== ENCOUNTER → 2025-02-18 09:46 | Outpatient (BNVA) | payer MEDICAID, SELFPAY | PROVIDERS: PCP Family Medicine; Visit Provider Family Medicine | DX: R21 Rash and other nonspecific skin eruption (principal) | CPT/HCPCS: 88305 ==

== ENCOUNTER → 2025-03-19 08:21 | Outpatient (BNVA) | payer MEDICAID, SELFPAY | PROVIDERS: PCP Family Medicine; Visit Provider Student in an Organized Health Care Education/Training Program | DX: M25.551 Pain in right hip (principal) | CPT/HCPCS: 73502 ==

== ENCOUNTER → 2025-04-08 13:24 | Outpatient (BNVA) | payer MEDICAID, SELFPAY | PROVIDERS: PCP Family Medicine; Visit Provider Orthopaedic Surgery | DX: M54.9 Dorsalgia, unspecified (principal); G89.29 Other chronic pain | CPT/HCPCS: 72110 ==

== ENCOUNTER 2025-05-04 12:19 | Emergency (ER) | payer MEDICAID, SELFPAY ==
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
--- OUTSIDE RECORDS SUMMARY | 2025-05-04 12:22 | XMS_ITS | Patient Health Record ---
Author Organization [facility] Address [address] [place] [address] Care Team Providers Care Is Manager Name Role Phone Chavez FARIAS, Natasha Primary Care Provider Monster Franco [phone] Reason For Referral Reason Pain Management Diagnosis 1 Chronic pain syndrom e (G89.4) Referred Organization [facility] Referred Provider Jaskaran Martinez Referred Address [address], [place],[address], Referred Provider Specialty Pain Medicin e Referral Priority Routine Medications Medication SIG (Take, Route, Frequency, Duration) Notes Start Date End Date Status Protonix 20 MG Tablet Delayed Release 1 tablet 1/2 to 1 hour before morning meal Orally Once a day Active Gabapentin 800 MG Tablet 1 tablet Orally Once a day Active Problems Problem Type SNOMED Code ICD Code Onset Dates Problem Status W/U Status Risk Notes Problem Chronic pain syndrome (471228704) Chronic pain syndrome (G89.4) Active confirmed Problem Lumbar spondylosis (954448206) Lumbar spondylosis (M47.816) Active confirmed Problem Solitary sacroiliitis (372260526) Sacroiliac inflammation (M46.1) Active confirmed Problem Abnormal gait (83038334) Abnormality of gait and mobility (R26.9) Active confirmed Vital Signs Weight-kg 63.05 kg 10/23/2024 Weight 139 lbs 10/23/2024 Encounters Encounter Location Date Provider Diagnosis [facility] [address] [place] [address] 10/23/2024 Monster Gipson Chronic pain syndrom e G89.4 ; Lumbar spondylosis M47.816 ; Sacroiliac inflammation M46.1 and Abnormality of gait and mobility R26.9 Assessments Encounter Date Diagnosis (ICD Code) Assessment Notes Treatment Notes Treatment Clinical Notes Section Notes 10/23/2024 Chronic pain syndrome (ICD-10 - G89.4) I had a nice visit with the patient today regarding her chronic pain issues. Based on her history and physical exam, as well as lumbar MRI which I reviewed, the worst of her symptoms appear consistent with right sided sacroiliitis. We discussed treatment options including physical therapy as well as injections but again she refuses to do any interventions and she has apparently tried physical therapy without relief. She was wanting some pain medication but with her history of methamphetamine addiction as well as her current twice daily Ativan use, she is not really a candidate for opiates. We discussed buprenorphine but she refused, saying that she has seen people addicted to this. Taking all of this into account, I really do not have a whole lot more to offer her. I recommended that she should let us know if something changes in the future and we could explore other options. Otherwise, we will follow up with her on an as needed basis. The patient continues with chronic pain requiring treatment to help restore function and improve quality of life. Risks of opioid therapy as well as interaction of opioids with alcohol, illicit drugs, muscle relaxers, and other sedative medications are reviewed briefly with patient again today. The patient has trialed all other reasonable treatment options and uses the medication to alleviate pain in order to remain active and rest with less pain. No clinically relevant medication side effects are noted. Last [employer] and [employer] TRAVEL COORDINATOR reviewed today. Patient is advised that best long-term goals include increased activity, core strengthening, proper weight management, coping strategies, avoidance of painful triggers, and targeted interventional therapy. We will see the patient for routine follow up in accordance with all clinic policies. We did remind patient today of current guidelines to decrease opioid when possible. We will continue to stress nonopioid treatment. 10/23/2024 Lumbar spondylosis (ICD-10 - M47.816) 10/23/2024 Sacroiliac inflammation (ICD-10 - M46.1) 10/23/2024 Abnormality of gait and mobility (ICD-10 - R26.9) 10/23/2024 Other I, Marco Rivero, am scribing for Dr. Monster Gipson. I, Dr. Monster Gipson, personally performed the services described in this documentation, as scribed by Marco Rivero, and it is both accurate and complete. Plan Of Treatment Next Appt Details Provider Name:Monster Gipson, 06/25/2025 01:00:00 PM, [address] [place], [address], Insurance Providers Payer Name Payer Address Payer Phone Subscriber Number Group Number Insured Name Patient Relationship to Insured Coverage Start Date Coverage End Date [facility] Medicaid Replacement [address] [place] [phone] [id number] Ki Mireles Self - patient is the insured Medical (General) History Medical History History ICD Code asthma bronchitis Stomach Ulcer migraine headaches seizures Depression Cancer Arthritis hepatitis C Surgical History Surgery Date(Month/Year) tonsillectomy appendectomy partial hysterectomy
--- OUTSIDE RECORDS SUMMARY | 2025-05-04 12:22 | XMS_ITS | Patient Health Record ---
Author Organization [facility] Address [address] [place], [place] [id number] Care Team Providers Care Fish Flipper Name Role Phone Jonatan FARIAS, Bret Primary Care Provider Unavailab Alan FARIAS, Nile Unavailable [phone] Anna Chilel Unavailable [phone] Allergies Allergen (clinical drug ingredient) Drug/Non Drug Allergy documented on EMR Reaction Allergy Type Onset Date Status ibuprofen nausea Drug Allergy Active tramadol traMADol itch Drug Allergy Active DULoxetine agitated Drug Allergy Active topiramate topiramate fingers went numb Drug Allergy Active Results Component Value Reference Range Notes Urine tox screen / MS if ind icated Reviewed date:07/08/2024 12:34:37 PM Interpretation:Reported THC, consistent Performing Lab: Notes/Report: Reported THC, consistent Reason For Referral No Information Medications Medication SIG (Take, Route, Fr equency, Duration) Notes Start Date End Date Status pantoprazole 40 mg 1 tab(s) orally 2 ti mes a day; Duration: 30 days Active Tylenol 325 mg 2 tab(s) orally every 4 hours Active amitriptyline 50 mg 1 tab(s) orally [...] tab(s) orally 3 times a day Active loratadine 10 mg 1 tab(s) orally once a day; Duration: 30 days Active LORazepam 1 mg 1 tab(s) orally 2 ti mes a day for anxiety attacks; Duration: 30 days Active methocarbamol 500 mg 1 tab(s) orally 3 t imes a day for muscle pain; Duration: 30 days Active Social History Tobacco Use: Social History [...] When did you start smoking? 15 y ears - 1998 AUDIT-C (Standard) Question Answer Notes Did you have a drink containing alcohol in the p ast year? No Points 0 Interpretation Negative Problems Problem Type SNOMED Code ICD Code Onset Dates Problem Status W/U Status Risk Notes Problem Idiopathic scoliosis (093864591) Scoliosis idiopathic (737.30) Active confirmed Problem Solitary sacroiliitis (829120338) Sacroiliitis, not elsewhere classified (M46.1) Active confirmed Problem Bipolar affective disorder, currently manic, moderate (060252168) Bipolar disorder, current episode manic without psychotic features, moderate (F31.12) Active confirmed Problem Hypersomnia (23692109) Hypersomnia, unspecified (G47.10) Active confirmed Problem Chronic pain (82108765) Other chronic pain (G89.29) Active confirmed Problem Idiopathic scoliosis of lumbar spine (disorder) (285929437) Other idiopathic scoliosis, lumbar region (M41.26) Active confirmed Problem Backache (178066062) Dorsalgia, unspecified (M54.9) Active confirmed Problem Long-term current use of drug therapy (736566756) Other care home (current) drug therapy (Z79.899) Active confirmed Problem Vertebrogenic low back pain (7836557770208256 01) Vertebrogenic low back pain (M54.51) Active confirmed Vital Signs Temperature 97.8 degrees Fahrenheit 07/08/2024 Blood pressure diastolic 78 mm Hg 07/08/2024 Oximetry 98 % 07/08/2024 Height 63 in 07/08/2024 Blood pressure systolic 128 mm Hg 07/08/2024 Weight 133 lbs 07/08/2024 BMI 23.56 kg/m2 07/08/2024 Encounters Encounter Location Date Provider Diagnosis [facility] [address] [place], [place] [id number] 07/08/2024 Anna Escobar Vertebrogenic low ba ck pain M54.51 ; Other idiopathic scoliosis, lumbar region M41.26 ; Sacroiliitis, not elsewhere classified M46.1 ; Hypersomnia, unspecified G47.10 and 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 Consider treatment options pending evaluation by Dr. Thompson. 07/08/2024 Sacroiliitis, not elsewhere classified (ICD-10 - M46.1) 07/08/2024 Hypersomnia, unspecified (ICD-10 - G47.10) Consider completion of a sleep study. 07/08/2024 Other termite technician (current) drug therapy (ICD-10 - Z79.899) Patient was given copies of the Treatment Agreement and Cannabis Policy, signed by patient on 04/29/24. 2022 opioid (OUD) risk tool score = 5. This places the patient in the high risk category. Plan urine toxicology screen today in anticipation of possibly starting opioid therapy at future visit as well as to assess for any prescribed, unprescribed, and / or illicit controlled substance(s). POCT results are positive for reported THC; will need to be addressed in the future, if opioids are indicated. 07/08/2024 Other Case reviewed, treatment plan approved, and visit note edited by Dr. Thompson. 07/24/2024 Other Plan Of Treatment No Information Insurance Providers Payer Name Payer Address Payer Phone Subscriber Number Group Number Insured Name Patient Relationship to Insured Coverage Start Date Coverage End Date [facility] [employer] ATTN CLAIMS [address] [place] [address] [id number] Ki Mireles Self - patient is the insured [employer] [address] [facility] 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 Suarez 2018 Hospitalization History Reason Date(Month/Year) Mental health
[2025-05-04 12:23] VITALS: BP 142/92; PULSE 80; RESP 16; TEMP 36.9; O2SAT 99
--- NOTE | 2025-05-04 12:33 | ECG_ITS ---
[facility] Test Date: 2025-05-04 Pat Name: Ki Mireles Department: Room: Gender: Female Manager Clinical: : 1985 Requested By: Jono Pruett Order Number: [id number] Lisy MD: Elfego Bliss M.D. Measurements Intervals [place] Rate: 66 P: 56 NC: 154 QRS: 95 QRSD: 90 T: 52 QT: 379 QTc: 399 Interpretive Statements SINUS RHYTHM BORDERLINE RIGHT AXIS DEVIATION [QRS AXIS > 90] Compared to ECG 09/12/2024 11:52:53 No significant changes Electronically Signed On 05-04-2025 19:00:17 CDT by Elfego Bliss M.D. [email or web address] [id number]
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
--- NOTE | 2025-05-04 12:54 | XRR_ITS ---
PROCEDURE INFORMATION: Exam: XR Chest Exam date and time: 05/04/2025 1:24 PM Age: 39 years old Clinical indication: Shortness of breath; Additional info: SOB; Seizure TECHNIQUE: Imaging protocol: Radiologic exam of the chest. Views: 1 view. COMPARISON: CR XR chest 1V portable [id number] 09/12/2024 9:55 AM FINDINGS: Lungs: Slight increased markings with minimal ill-defined opacity left lung base. No consolidation. Pleural spaces: No pleural effusion. No pneumothorax. Heart/Mediastinum: Unremarkable. No cardiomegaly. Bones/joints: Visualized osseous structures show no acute abnormality. XR/XR chest 1V portable [id number] IMPRESSION: Small amount of atelectasis versus minimal infiltrate left lung base. No acute findings otherwise.
[2025-05-04] MEDS: LORazepam 1 MG/0.5 ML injection 2 MG IVP (13:08)
[2025-05-04 13:11] LABS: Hematocrit 42.5 % (36-47); Hemoglobin 13.80 g/dL (11.27-16.99); Mean Corpuscular HGB Conc 32.5 g/dL (30-55); Mean Corpuscular Hemoglobin 31.8 pg (27-33); Mean Corpuscular Volume 97.9 fl (85-98); Nucleated Red Blood Cells % 0 %; Platelet Count 150 10^3/cmm (157-399); Red Blood Count 4.34 10^6/uL (3.85-5.65); White Blood Count 16.48 10^3/uL (3.29-11.43)
[2025-05-04 13:39] LABS: Alanine Aminotransferase 10 U/L (0-33); Albumin Level 4.3 g/dL (3.5-5.2); Alkaline Phosphatase 73 U/L (35-105); Anion Gap 19.0 (5-19); Aspartate Amino Transferase 15 U/L (0-32); Blood Urea Nitrogen 6 mg/dL (6-20); Calcium 9.4 mg/dL (8.5-10.5); Carbon Dioxide 18 mmol/L (22-29); Chloride 108 mmol/L (98-107); Globulin 2.7 g/dL (1.3-4.6); Glucose 114 mg/dL (65-115); Osmolality Calculated 290 mOsm/kg (285-295); Potassium 4.0 mmol/L (3.5-5.1); Sodium 141 mmol/L (136-145); Thyroid Stimulating Hormone 0.88 uIU/mL (0.27-4.20); Total Protein 7.0 g/dL (6.6-8.7)
[2025-05-04 14:12] LABS: PCP Screen Urine Negative (Negative)
== END 2025-05-04 14:38 | disposition home or self-care (01) ==
PROVIDERS: Emergency Provider Family Medicine; PCP Family Medicine
DX: G40.89 Other seizures (principal); J44.9 Chronic obstructive pulmonary disease, unspecified
CPT/HCPCS: 36415; 71045; 80053; 80306; 84443; 85025; 93005; 96374; 99285; J2060

== ENCOUNTER 2025-05-05 12:41 | Emergency (ER) | payer MEDICAID, SELFPAY ==
--- OUTSIDE RECORDS SUMMARY | 2024-02-20 10:43 | XMS_ITS | Continuity of Care Document ---
Author Organization [facility] Address [id number] [address] Phone Care Team Providers Care Power Distributor Name Role Phone Cassandra Paiz DDS Unavailable Unavailable Allergies, Adverse Reactions, Alerts Substance Reaction Status Criticality tramadol Active No Information Medications Medication Instructions Dosage Effective Dates (start - stop) Status Comments gabapentin 800 mg tablet take 1 tablet by oral route 3 times every day 800 MG - Active pantoprazole 40 mg tablet,delayed release take 1 tablet by oral route every day 40 MG - Active chlorhexidine gluconate 0.12 % mouthwash place 15 milliliter by mouth (after meals), swish one minute then spit out as needed - Active Start on 3rd day after surgery, use salt/water first 3 days. clonazepam 1 mg tablet Take 1 (one) tablet 1 (one) hour prior to procedure. - Active ibuprofen 800 mg tablet take 1 tablet by oral route 3 times every day with food as needed 800 MG - Active Anti-inflammat ory caused by Oral Surgery, Do not used more than 3000mg per day. Percocet 5 mg-325 mg tablet take 1 (one) tablet by oral route 1 (one) hour prior to procedure. Take 1 (one) tab q6h PRN pain after surgery. as needed - Active Proair Digihaler 90 mcg/actuation aerosol powder breath act, sensor inhale 2 puff by inhalation route every 4 - 6 hours as needed - No Longer Active Procedures Procedure Date Limited Oral Evaluation Problem Focused EDR Approval Note Advance Directives Directive Yes / No Effective Date File Name No Information Encounters Encounter Description Practice Location Reason(s) For Visit Diagnoses Date Provider Providers Copied on Encounter [facility], [id number] [place], [place], [id number], [place] tel:[phone] [facility] No Information Chencho Trujillo. [address] , [place], [place], [id number] , [place]. tel:[phone] [facility], [id number], [id number], [place] tel:[phone] [facility] Encounter for dental exam and cleaning w/o abnormal findings Chelly Delgadillo. [address] [place] [address], [address], . tel:[phone] Referring Provider: Elie Spaulding, [address] [place] [address], [facility]. tel:[phone] Family History Family Member Type Diagnosis Age At Onset No Information Payers Payer name Insurance type Covered constitution party ID Authoriza estrellita(s) D [employer] [id number] Social History Type Description Quantity Date Captured Comments Alcohol Use Details No Caffeine Use Details Unknown Tobacco Use Status Smoking Status No Information Sex Female Sexual Orientation Homosexual Gender Identity Female Chief Complaint And Reason For Visit No Information Reason For Referral Reason For Referral No Information History Of Present Illness Encounter Date Complaint History Of Prese nt Illness No Information Functional Status Date Functional Assessmen t No Information Medications Administered Medication Instructions Dosage Effective Dates (start - stop) Status Comments Proair Digihaler 90 mcg/actuation aerosol powder breath act, sensor inhale 2 puff by inhalation route every 4 - 6 hours as needed - No Longer Active Instructions Date Instruction Additional Infor mation No Information Assessments Type Assessment Date No Information Patient Care Teams Name Effective Dates (start - stop) Status Members No Information
--- OUTSIDE RECORDS SUMMARY | 2024-07-24 05:00 | XMS_ITS ---
Author Organization [facility] Address [address] [place], [place] [id number] Care Team Providers Care Java Jsf Developer Name Role Phone Bret Cheung MD Primary Care Provider Gt Phillips MD, Nile Unavailable [phone] Allergies Allergen (clinical drug ingredient) Drug/Non Drug [...] Location Date Provider Diagnosis [facility] [address] [place], [place] [id number] 07/24/2024 Nile Thompson Vertebrogenic low ba ck pain M54.51 ; Other idiopathic scoliosis, lumbar region M41.26 ; Sacroiliitis, not elsewhere classified M46.1 ; Hypersomnia, unspecified G47.10 and Other detention (current) drug therapy Z79.899 Assessments Encounter Date [...] completion of a sleep study. 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 Other detention (current) drug therapy Patient was given copies of the Treatment Agreement and Cannabis Policy, signed by patient on 04/29/24. 2022 opioid (OUD) risk tool score = 5. This places the patient in the high risk category. Progress Notes * Ki MIRELES LDOB:[birth year] (39 yo F)Acc No.[id number]:07/24/2024 Patient: Ki RUIZ Provider: Rosana Thompson :1985 A ge:38 Y S ex:Female Date:07/24/2024 Address:[address] [place] [address], [place] [address] Pcp:Bret Cheung MD Subjective: * Chief Complaints: [...] Medication history: a cetaminophen ER 650 mg; hizzwtv-rjjgxoaxarcvy-ysldvntx 250-250-65 mg; Flexeril 10 mg; Neurontin; methocarbamol [...] , Tonsillectomy , LEEP procedure, performed at [facility] by Dr. Suarez 2018. * [facility] * Medications: T aking [...] unspecified - G47.10 5 . O ther detention (current) drug therapy - Z79.899 Plan: * Treatment: 2. H ypersomnia, unspecified Notes: Consider completion of a sleep study. 3. 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 Notes: Patient was given [...] Electronic signature of Claudio Thompson MD on 05/05/2025 at 12:50 PM CDT Sign off status: Pending * Provider: Rosana Thompson Date: 09/23/2023 Generated for Odessa olguin/Raymundo/Jnaa on: 0 05/05/2025 12:50 PM CDT History and Physical Notes * [...] exercises) Medication history: acetaminophen ER 650 mg; xspndcv-decsktbpewqgh-jyjleadj 250-250-65 mg; Flexeril 10 mg; Neurontin; methocarbamol 500 mg; naproxen 500 mg Potential Work or Litigation Related Injury Yes: see previous documentation Previous Imaging/Studies MRI of the T-spine o n 08/18/16 CT of the C-spine on X-rays of the L-spine on and 10/16/17; of the T-spine on 08/19/23; of the left hip / pelvis and L-spine on 01/25/22 [facility] Point of Care Testing (POCT) 07/08/24 (po [...]
[2025-05-05 12:42] VITALS: BP 124/91; PULSE 82; RESP 18; TEMP 36.6; O2SAT 98; BMI 22.4
--- OUTSIDE RECORDS SUMMARY | 2025-05-05 12:50 | XMS_ITS | Patient Health Record ---
Author Organization [facility] Address [address] [place] [address] Care Team Providers Care Top Stop Attacher Name Role Phone Chavez FARIAS, Natasha Primary Care Provider Monster Franco [phone] Reason For Referral Reason Pain Management Diagnosis 1 Chronic pain syndrom e (G89.4) [address] [facility] Referred Provider Jaskaran Martinez Referred Address [address] [place], [place],[address], Referred Provider Specialty Pain Medicin e Referral [...] Status Risk Notes Problem Chronic pain syndrome (103881713) Chronic pain syndrome (G89.4) Active confirmed Problem Lumbar spondylosis (860827414) Lumbar spondylosis (M47.816) Active confirmed Problem Solitary sacroiliitis (899619503) Sacroiliac inflammation (M46.1) Active confirmed Problem Abnormal gait (71049883) Abnormality of gait and mobility (R26.9) Active confirmed Vital Signs Weight-kg 63.05 kg 10/23/2024 Weight 139 lbs 10/23/2024 Encounters Encounter Location Date Provider Diagnosis [facility] [place] [address] [place] [address] 10/23/2024 Monster Gipson Chronic pain syndrom e [...] effects are noted. 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 Patient is advised that best [...] Name:Monster Gipson, 06/25/2025 01:00:00 PM, [address] [place], [address], Insurance Providers Payer Name Payer Address Payer Phone Subscriber Number Group Number Insured Name Patient Relationship to Insured Coverage Start Date Coverage End Date [facility] Medicaid Replacement [address] [place] [phone] [id number] Ki Mireles Self - patient is the insured Medical (General) History Medical History History ICD Code asthma bronchitis Stomach Ulcer migraine headaches seizures Depression Cancer Arthritis hepatitis C Surgical History Surgery Date(Month/Year) tonsillectomy appendectomy partial hysterectomy
--- OUTSIDE RECORDS SUMMARY | 2025-05-05 12:51 | XMS_ITS | Patient Health Record ---
Author Organization [facility] Address [address] [place], [place] [address] Care Team Providers Care Car Retarder Operator Name Role Phone Jonatan FARIAS, Bret Primary Care Provider Unavailab Alan FARIAS, Nile Unavailable [phone] Anna Chilel Unavailable [phone] Allergies Allergen (clinical drug ingredient) Drug/Non Drug [...] W/U Status Risk Notes Problem Idiopathic scoliosis (766110568) Scoliosis idiopathic (737.30) Active confirmed Problem Solitary sacroiliitis (914220187) Sacroiliitis, not elsewhere classified (M46.1) Active confirmed Problem Bipolar affective disorder, currently manic, moderate (598812857) Bipolar disorder, current episode manic without psychotic features, moderate (F31.12) Active confirmed Problem Hypersomnia (56821857) Hypersomnia, unspecified (G47.10) Active confirmed Problem Chronic pain (61359994) Other chronic pain (G89.29) Active confirmed Problem Idiopathic scoliosis of lumbar spine (disorder) (205852828) Other idiopathic scoliosis, lumbar region (M41.26) Active confirmed Problem Backache (484302741) Dorsalgia, unspecified (M54.9) Active confirmed Problem Long-term current use of drug therapy (070114518) Other halfway (current) drug therapy (Z79.899) Active confirmed Problem Vertebrogenic low back pain (0852564421718141 01) Vertebrogenic low back pain (M54.51) Active confirmed Vital Signs Temperature 97.8 degrees Fahrenheit 07/08/2024 Blood pressure diastolic 78 mm Hg 07/08/2024 Oximetry 98 % 07/08/2024 Height 63 in 07/08/2024 Blood pressure systolic 128 mm Hg 07/08/2024 Weight 133 lbs 07/08/2024 BMI 23.56 kg/m2 07/08/2024 Encounters Encounter Location Date Provider Diagnosis [facility] [address] [place], [place] [id number] 07/08/2024 Anna Escobar Vertebrogenic low ba ck pain M54.51 ; Other idiopathic scoliosis, lumbar region M41.26 ; Sacroiliitis, not elsewhere classified M46.1 ; Hypersomnia, unspecified G47.10 and 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 [address] [id number] Ki Mireles Self - patient is the insured [facility] [employer] [address] [facility] [address] [place] [id number] Case, Ki Self - patient is the [...] Date(Month/Year) Appendectomy Tonsillectomy LEEP procedure, performed at [facility] by Dr. Suarez 2018 Hospitalization History Reason Date(Month/Year) Mental health
--- NOTE | 2025-05-05 13:03 | W.ED.SEIZURE ---
HPI - Seizure General: Chief Complaint: Seizure Stated Complaint: seizures Time Seen by Provider: 05/05/25 12:56 History of Present Illness: HPI Narrative: 39-year-old female presents to the emergency room with a complaint of multiple seizures. She is brought in by ambulance. She was here yesterday as well. When I came to the room before I could introduce myself to her and asked her what had brought her in today she immediately began demanding to be transferred immediately to [facility] in [place]. I tried to explain to her that we had very minimum had to do a medical screening exam and do appropriate labs to evaluate for an emergent condition to establish diagnosis for this. She refused to immediately began using foul language towards me and demanded to leave. I asked her to wait briefly I had the charge nurse stepped into the room with this and again tried to explain. Patient did not want to hear an explanation. She is demanding to leave and began to pull off her monitoring leads blood pressure cuff and was grasping at her IV. See notes below Seizure History: Yes Related Data Home Medications ?Medication ?Instructions ?Recorded ?Confirmed medical marijuana 1 dose inhalation PRN 08/08/23 05/04/25 Previous Rx's ?Medication ?Instructions ?Recorded albuterol sulfate 90 mcg/actuation 1 puff inhalation QID PRN 10/08/24 aerosol inhaler (Ventolin HFA) Shortness Of Breath #8.5 grams sumatriptan succinate 25 mg tablet See Rx Instructions PO .COMPLEX #9 12/15/24 tabs lorazepam 1 mg tablet 1 mg PO BID PRN anxiety attacks 30 02/25/25 days #60 tabs gabapentin 800 mg tablet 800 mg PO TID #90 tabs 03/09/25 pantoprazole 40 mg tablet,delayed 40 mg PO BID 30 days #60 tabs 04/07/25 release Allergies Allergy/AdvReac Type Severity Reaction Status Date / Time duloxetine (From Cymbalta) AdvReac Severe ADR-Agitate Verified 03/19/25 08:29 d ibuprofen AdvReac Intermediate ADR-Nausea Verified 03/19/25 08:29 topiramate AdvReac Fingers Verified 03/19/25 08:29 went numb tramadol AdvReac Itchy Verified 03/19/25 08:29 Review of Systems General: Reports: Other (Patient refused to discuss history) [facility] PFSH: Medical History Right hip pain MRI done at [facility] 11/05--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 Suarez at [facility] for LAURYN-2 on cervical biopsy. 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 Endocervical curettage showed mucoid clot and superficial fragments of benign endocervical mucosa History of appendectomy History of tonsillectomy Family History Grandfather Heart disease Maternal Mother Diabetes Ovarian cancer diagnosed in her 30s Grandmother Diabetes Maternal Family/Other Breast cancer maternal great aunt, diagnosed in her 50s Denies family history of Colon cancer Hypercholesteremia Hypertension Uterine cancer Thyroid disease Stroke Social History Smoking and tobacco/nicotine status: unknown if used tobacco/nicotine Quit status (tobacco/nicotine): not considering quitting Alcohol intake: never Substance/Drug Use: former 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; IV use; 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; had hep C--cleared with med Housing: Homeless Marital status: Number of children: 0 Highest education level completed: High School Graduate Current occupational status: employed 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 Physical Exam Const: ORIENTATION/CONSCIOUSNESS: Yes awake, Yes oriented to person, Yes oriented to place and Yes oriented to time HENMT: COMMON NORMALS: normocephalic, atraumatic and hearing grossly normal bilaterally HEAD & SCALP: normocephalic and atraumatic Resp: COMMON NORMALS: normal respiratory effort and No retractions Neuro: SENSORIUM/ORIENTATION: Yes oriented to person, Yes oriented to place and Yes oriented to time Course Vital Signs: Vital signs: Vital Signs Temperature 97.9 F 05/05/25 12:42 Pulse Rate 82 05/05/25 12:42 Respiratory Rate 18 05/05/25 12:42 Blood Pressure 124/91 05/05/25 12:42 Pulse Oximetry 98 05/05/25 12:42 Oxygen Delivery Me thod Room Air 05/05/25 12:42 MDM - Seizure MDM Narrative Medical decision making narrative: Patient refused exam refused laboratory studies. Attempted to explain to her that we need to do an initial medical screening exam for emergent medical condition and appropriate labs to establish diagnosis. She refusing this completely. She is demanding to leave. Discharged from the emergency room she had described having multiple seizures all day yesterday and several today as many as 7 or 8. Both EMS and nursing staff who witnessed these stated there is no associated postictal phase. She has a similar presentation yesterday according to Dr. Pruett's note. These have been noted in this patient multiple times before his functional neurologic disorders. Patient demanding to leave advised her that she is welcome to return at any point and we can complete the evaluation. 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 Condition: Stable Prescriptions: No Action medical marijuana 1 dose inhalation PRN albuterol sulfate [Ventolin HFA] 90 mcg/actuation HFA aerosol inhaler 1 puff INHALATION QID PRN (Reason: Shortness Of Breath) Qty: 8.5 2RF sumatriptan succinate 25 mg tablet See Rx Instructions PO .COMPLEX Qty: 9 2RF Rx Instructions: Take 1 tablet at onset of headache; if no relief may repeat 1 tablet after at least 2 hrs; max = 4 tabs/24 hr PO lorazepam 1 mg tablet 1 mg PO BID PRN (Reason: anxiety attacks) 30 Days Qty: 60 3RF gabapentin 800 mg tablet 800 mg PO TID Qty: 90 1RF pantoprazole 40 mg tablet,delayed release (DR/EC) 40 mg PO BID 30 Days Qty: 60 2RF Discharge Orders: Discharge ED (Routine); Ordered 05/05/25 Ordered By: Conner Soria Referrals: Natasha Stratton MD [Primary Care Provider, Family Practice] Patient Instructions: Opioid Safety, Pain Management, Patient Portal & Nacho Instructions Activity Restrictions/Additional Instructions: [facility]. It is very important that you follow up as instructed or that you return to the Emergency Department should you have concerns or if your condition changes or worsens in any way. You presented to the emergency room reporting that you had seizures. We offered to evaluate you and had ordered initial laboratory work. When the patient is seen in the emergency room we have to do an initial evaluation to determine what their condition is. You had demanded to be immediately transferred to [facility] in [place]. We cannot do that without doing a initial medical screening exam to establish what the problem is. When we attempted to explain this to you demanded to leave immediately. If you wish to return to the emergency room and be reevaluated later you are certainly welcome to do so. We would be glad to see you and evaluate you for an emergent condition. Print Language: Sami Coding Level of Care Code ED Nurse Case Management for Kemar Weiner
--- NOTE | 2025-05-05 13:16 | PC.NURSE ---
This nurse with Dr. Soria to bedside. PT refusing to be evaluated by physician. PT repeating I want to go to [facility] and refusing to be educated on transfer process or answer questions pertaining to her care. PT requested to [facility].
== END 2025-05-05 13:27 | disposition home or self-care (01) ==
PROVIDERS: Emergency Provider Family Medicine; PCP Family Medicine
DX: R29.818 Other symptoms and signs involving the nervous system (principal); R56.9 Unspecified convulsions; J44.9 Chronic obstructive pulmonary disease, unspecified
CPT/HCPCS: 99283

== ENCOUNTER → 2025-05-20 14:10 | Outpatient (BNVA) | payer MEDICAID, SELFPAY | PROVIDERS: PCP Family Medicine; Visit Provider Family Medicine | DX: Z12.4 Encounter for screening for malignant neoplasm of cervix (principal); R76.8 Other specified abnormal immunological findings in serum; Z72.51 High risk heterosexual behavior | CPT/HCPCS: 86592; 87491; 87522; 87591; 87624; 87661; 87806 ==

== ENCOUNTER 2025-06-23 12:59 | Emergency (ER) | payer MEDICAID, SELFPAY ==
[2025-06-23 13:11] VITALS: BP 119/76; PULSE 71; RESP 14; TEMP 36.7; O2SAT 98; BMI 24.1
--- OUTSIDE RECORDS SUMMARY | 2025-06-23 13:17 | XMS_ITS | Patient Health Record ---
Author Organization [facility] Address [address] [place] [address] Care Team Providers Care Dice Dealer Name Role Phone Chavez FARIAS, Natasha Primary Care Provider Monster Franco [phone] Reason For Referral Reason Pain Management Diagnosis 1 Chronic pain syndrom e (G89.4) Referred Organization [facility] Referred Provider Jaskaran Martinez Referred Address [address], [place],[address], Referred Provider Specialty Pain Medicin e Referral [...] Status Risk Notes Problem Chronic pain syndrome (111593403) Chronic pain syndrome (G89.4) Active confirmed Problem Lumbar spondylosis (055753740) Lumbar spondylosis (M47.816) Active confirmed Problem Solitary sacroiliitis (896226002) Sacroiliac inflammation (M46.1) Active confirmed Problem Abnormal gait (17022795) Abnormality of gait and mobility (R26.9) Active confirmed Vital Signs Weight-kg 63.05 kg 10/23/2024 Weight 139 lbs 10/23/2024 Encounters Encounter Location Date Provider Diagnosis [facility] Inter[facility] [place] [address] [place] [address] 10/23/2024 Monster Gipson Chronic pain syndrom e [...] effects are noted. 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 Patient is advised that best [...] Name:Monster Gipson, 06/25/2025 01:00:00 PM, [address] [place], [address], Insurance Providers Payer Name Payer Address Payer Phone Subscriber Number Group Number Insured Name Patient Relationship to Insured Coverage Start Date Coverage End Date Home [facility] Plan Medicaid Replacement [address] [place] [phone] [id number] Ki Mireles Self - patient is the insured Medical (General) History Medical History History ICD Code asthma bronchitis Stomach Ulcer migraine headaches seizures Depression Cancer Arthritis hepatitis C Surgical History Surgery Date(Month/Year) tonsillectomy appendectomy partial hysterectomy
--- OUTSIDE RECORDS SUMMARY | 2025-06-23 13:17 | XMS_ITS | Clinical Summary ---
Author Organization [facility] Address [address] 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 Active albuterol sulfate 90 mcg/Actuation inhaler Take 2 Puffs by inhalation every 6 hours as needed for Wheezing or Shortness of Breath. 8.5 Gram 1 Active pantoprazole (PROTONIX) 40 mg Tablet, Delayed Release (E.C.) Take 1 Tablet by mouth 2 times daily as needed for Other (See Comment) (GERD). Active LORazepam (ATIVAN) 1 mg tablet Take 1 mg by mouth 2 times daily as needed for Anxiety. Active Active Problems Problem Noted Date Diagnosed Date Psychogenic nonepileptic seizure 05/10/2025 Seizure-like activity 05/09/2025 History of hepatitis C 05/09/2025 PAULINE (generalized anxiety disorder) 05/09/2025 Mild intermittent asthma without complication COPD (chronic obstructive pulmonary disease) Cigarette dependence 05/29/2015 Encounters Date Type Department Care Team Description 06/17/2025 External Device Data STL ABSTRACTION Provider, Abstract 06/03/2025 External Device Data ST[facility] ABSTRACTION Provider, Abstract 06/03/2025 External Device Data ST[facility] ABSTRACTION Provider, Abstract 05/14/2025 External Device Data ST[facility] ABSTRACTION Provider, Abstract 05/13/2025 External Device Data ST[facility] ABSTRACTION Provider, Abstract 05/13/2025 External Device Data STL ABSTRACTION Provider, Abstract 05/08/2025 8:08 PM CDT - 05/10/2025 2:37 PM CDT Hospital Encounter [facility] Neurology [address] [place] [address] Christiana Danielle DO Poudel, Sujan, MD Sohail, Muhammad Saad, MD Seizure-like activity (CMS/HCC) Discharge Disposition: Home or Self Care 05/08/2025 Travel 05/07/2025 External Device Data STL ABSTRACTION Provider, Abstract 05/06/2025 External Device Data STL ABSTRACTION Provider, Abstract 05/06/2025 External Device Data STL ABSTRACTION Provider, Abstract 05/05/2025 2:18 PM CDT - 05/05/2025 11:08 PM CDT Emergency [facility] Emergency Medicine [address] [place] [id number] Yash Villalobos MD Seizure-like activity ([facility]/HCC) (Primary Dx) Discharge Disposition: Left Against Medical Advice 05/05/2025 Travel from Last 3 Months Immunizations Immunization Administration Dates Next Due (M-M-R II/PRIORIX)(12 MO UP) MEASLES, MUMPS AND RUBELLA VIRUS VACCINE, 0.5 ML IM/SUBCUT 06/05/1991,12/24/1986 (SPIKEVAX) (12 YRS UP PRIMAR Y SERIES) COVID-19 VACCINE - MRNA-1273(PF) 100 MCG/0.5 ML IM SUSP 03/30/2021 (TDVAX)(7 YRS UP) TETANUS AN D DIPHTHERIA TOXOIDS, ADSORBED (2 LF OF TETANUS TOXOID AND 2 LF OF DIPHTHERIA TOXOID), 0.5ML (PF), IM 05/15/2002,06/25/1996 Dt Dtp Dtap Vaccine 12/23/1987, 7,12/24/1986,1986 Hepatitis B Vaccine 05/19/2000,06/10/1999,1998 IPV/OPV 06/25/1996, 8,12/24/1986,1986 Poliovirus Vaccine Live Oral 06/25/1996, 12/23/1987,12/24/1986,1986 Social History Tobacco Use Types Packs/Day Years Used Date Smoking Tobacco: Every Day Cigarettes 0.5 14.1 Started: 05/09/2011 Smokeless Tobacco: Never Tobacco Cessation:Ready to Q uit: Not Asked; Counseling Given: Not Answered Alcohol Use Standard Drinks/Week Comments No 0 (1 standard drink = 0.6 oz pur e alcohol) Feeling Safe Answer Date Recorded Are you in a relationship wi th someone who hurts you emotionally and/or physically? 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 Gender Identity Not on file Sexual Orientation Not on file Last Filed Vital Signs Vital Sign Reading Time Taken Comments Blood Pressure 106/68 05/10/2025 11:08 AM CDT Pulse 80 05/10/2025 11:08 AM CDT Temperature 36.4 C (97.6 F) 05/10/2025 11:08 AM CDT Respiratory Rate 16 05/10/2025 11:0 8 AM CDT Oxygen Saturation 97% 05/10/2025 11: 08 AM CDT Inhaled Oxygen Concentration - - Weight 62.9 kg (138 lb 10.7 oz) 05/10/2025 4:00 AM CDT Height 165.1 cm (5' 5 ) 05/09/2025 7:51 AM CDT Body Mass Index 23.08 05/09/2025 7:51 AM CDT Plan of Treatment Upcoming Encounters Date Type Department Care Team (Late st Contact Info) Description 09/30/2025 11:00 AM ELIGIBILITY WORKER Office Visit [facility] Neurology - [place] [address] [place] [phone] Iirs Saldivar MD [address] [place] [phone] Health Maintenance Due Date Last Done Comments DTAP/TDAP/TD VACCINES (6 - Tdap) 05/16/2002 05/15/2002, 06/25/1996, 12/23/1987, Additional history exists HPV/Cotest (21-29) 2006 HPV VACCINES (1 - 3-dose SCD M series) 2012 CERVICAL CANCER SCREENING 2015 HPV/Cotest (30-65) 2015 PAP SMEAR 2015 INFLUENZA VACCINE (#1) 2025 COVID-19 Vaccine ( - 2024-2 6 season) 2025 03/30/2021 HEPATITIS B VACCINES Completed 05/19/2000, 06/10/1999, 03/18/1999 Procedures Procedure Name Priority Date/Time Associated Diagnosis Comments EEG VIDEO MONITORING Routine 05/10/2025 9:03 AM CDT BASIC METABOLIC PANEL Stat 05/09/2025 5:57 AM CDT CBC WITH DIFFERENTIAL Stat 05/09/2025 5:57 AM CDT EEG Stat 05/09/2025 DRUG SCREEN, URINE Stat 05/08/2025 11 :01 PM CDT HCG QUALITATIVE, URINE Stat 11:01 PM CDT HCG QUANTITATIVE, BLOOD Stat 05/08/2025 9:57 PM CDT LACTIC ACID Stat 05/08/2025 9:57 PM CDT ACETAMINOPHEN LEVEL Stat 05/08/2025 9 :57 PM CDT SALICYLATE LEVEL Stat 05/08/2025 9:57 PM CDT EKG 12-LEAD Stat 05/08/2025 9:48 PM CDT EXTRA TUBE (URINE CONTRERAS) Stat 05/08/2025 3:01 PM CDT URINALYSIS W/REFLEX MICROSCOPIC Stat 05/08/2025 3:01 PM CDT COMPREHENSIVE METABOLIC PANEL Stat 05/08/2025 3:01 PM CDT CBC WITH DIFFERENTIAL Stat 05/08/2025 3:[address] HEAD WO CONTRAST Stat 05/05/2025 3 :52 PM CDT URINALYSIS W/REFLEX MICROSCOPIC Stat 05/05/2025 3:36 PM CDT POC GLUCOSE Stat 05/05/2025 2:32 PM CDT COMPREHENSIVE METABOLIC PANEL Stat 05/05/2025 2:15 PM CDT CBC WITH DIFFERENTIAL Stat 05/05/2025 2:15 PM CDT from Last 3 Months Results * EEG VIDEO MONITORING (05/10/2025 9:03 AM CDT) Narrative Sailaja Gates MD - 05/10/2025 9:03 AM CDT Sailaja Gates MD 05/10/2025 2:49 PM [facility] CONTINUOUS ELECTROENCEPHALOGRAM (EEG) REPORT Patient Name: Ki Dee CASE Patient Patient : 1985 Patient Age: 39 y.o. Patient gender: female Ordering provider: Lucy Tejeda MD Date(s) of Service: START TIME: 1825 on 05/09/25 END TIME: 1308 on 05/10/25 Type of study: Continuous 24 hr Video EEG Monitoring Report Reason for study/diagnosis: 39 y.o. female with spells. EEG was performed to evaluate for seizures. Current medications: Current Outpatient Medications Medication Instructions albuterol sulfate 90 mcg/Actuation inhaler 2 Puffs, Inhalation, EVERY 6 HOURS PRN gabapentin (NEURONTIN) 800 mg, THREE TIMES DAILY LORazepam (ATIVAN) 1 mg, TWO TIMES DAILY PRN pantoprazole (PROTONIX) 40 mg Tablet, Delayed Release (E.C.) 1 Tablet, TWO TIMES DAILY PRN Technical Summary: Prolonged video monitoring EEG study performed with standard 10-20 electrodes. Data are recorded using an [email or web address] digital EEG machine. ARTIFACTS: yes INTERRUPTIONS: no EEG Details: The patient's video portion was simultaneously reviewed as appropriate with the patient's EEG recording. EEG BACKGROUND: Posterior dominant rhythm: there is a well-developed posterior dominant rhythm of 9-10 Hz. Background demonstrates mostly alpha and beta. Reactivity: present: yes Variability: present: yes FOCAL ABNORMALITIES: no EPILEPTIFORM/PERIODIC ABNORMALITIES: no SEIZURE: no MARKED EVENTS: yes 13 event buttons pushed between 8212-9956 on 05/09 and another 4 between 2508-2461 on 05/10 either by patient or family upon instruction from the patient. EEG showed no epileptiform correlate. Patient reported symptoms of feeling weird or weird feeling over my brain or feeling water rushing over my brain while alert and talking. Video never showed any concerning movements or other clinical change. Symptoms were always subjective. SLEEP: Stage II sleep is identified: yes EVIDENCE OF STATE CHANGE: yes ACTIVATION: Hyperventilation: not performed Photic stimulation: not performed SUMMARY OF FINDINGS 6 on 05/09 - 1309 on 05/10: 17 event buttons pushed for subjective symptoms while patient was alert. EEG showed no epileptiform correlate. EEG is otherwise normal. INTERPRETATION: This continuous EEG is normal. 17 non-epileptic events of subjective symptoms were captured. No definite focal or epileptiform abnormalities or electrographic seizures were captured. INTERPRETING PHYSICIAN: Sailaja Gates MD 05/10/2025 9:03 AM us Lucy Tejeda MD NEUROLOGY ORDERABLES Heriberto yoan Result - Final * (ABNORMAL) CBC WITH DIFFERENTIAL (05/09/2025 5:57 AM CDT) Only the most recent of3 resultswithin the time period is included. [facility] WBC 9.0 4.5 - 11.0 K/uL 05/09/2025 6:08 AM CDT [facility] RBC 4.18(L) 4.20 - 5.40 M/uL 05/09/2025 6:[address] [facility] HEMOGLOBIN 13.2 12.0 - 16.0 g/dL 05/09/2025 6:[address] [facility] HEMATOCRIT 39.2 36.0 - 46.0 % 05/09/2025 6:[address] [facility] MCV 93.8 84.0 - 103.0 fL 05/09/2025 6:[address] [facility] MCH 31.6 27.0 - 34.0 pg 05/09/2025 6:[address] [facility] MCHC 33.7 30.0 - 35.0 g/dL 05/09/2025 6:[address] [facility] PLATELETS 180 140 - 440 K/uL 05/09/2025 6:[address] [facility] MPV 11.4 8.9 - 12.8 fL 05/09/2025 6:[address] [facility] RDW 12.4 11.0 - 14.5 % 05/09/2025 6:[address] [facility] RDW-STDEV 43.3 37.0 - 54.0 fL 05/09/2025 6:[address] [facility] NEUTROPHILS 45 42 - 75 % 05/09/2025 6:[address] [facility] LYMPHOCYTES 40 24 - 44 % 05/09/2025 6:08 AM [facility] [email or web address] [facility] MONOCYTES 9 2 - 10 % 05/09/2025 6:08 AM [facility] [email or web address] [facility] EOSINOPHILS 4 0 - 7 % 05/09/2025 6:[address] [facility] BASOPHILS 1 0 - 1 % 05/09/2025 6:[address] [facility] IMMATURE GRANULOCYTES 1 0 - 2 % 05/09/2025 6:[address] [facility] NEUTROPHIL ABSOLUTE 4.02 2.00 - 8.00 K/uL 05/09/2025 6:[address] [facility] LYMPHOCYTE ABSOLUTE 3.63 1.20 - 4.00 K/uL 05/09/2025 6:08 AM CDT [facility] MONOCYTE ABSOLUTE 0.82(H) 0.10 - 0.60 K/uL 05/09/2025 6:08 AM CDT [facility] EOSINOPHIL ABSOLUTE 0.39 0.00 - 0.70 K/uL 05/09/2025 6:08 AM CDT [facility] BASOPHILS ABSOLUTE 0.08 0.00 - 0.20 K/uL 05/09/2025 6:08 AM CDT [facility] IMMATURE GRANULOCYTES ABSOLUTE 0.06 0.00 - 0.10 K/uL 05/09/2025 6:08 AM T [facility] SMEAR REVIEWED: NA - Not Applicable 05/09/2025 6:[address] [facility] Blood Venipuncture / Unknown 05/09/2025 5:57 AM CDT 05/09/2025 6:03 AM CDT us Andreea Olivera MD HEMATOLOGY ORDERABLES Final Resu lt [facility] CLIA # [id number] [address] [place] [address] * (ABNORMAL) BASIC METABOLIC PANEL (05/09/2025 5:57 AM CDT) SODIUM 139 136 - 145 mmol/L 05/09/2025 6:38 AM CDT [facility] POTASSIUM 3.9 3.5 - 5.1 mmol/L 05/09/2025 6:38 AM T [facility] CHLORIDE 106 98 - 107 mmol/L 05/09/2025 6:38 AM CDT [facility] CO2 24 22 - 29 mmol/L 05/09/2025 6:38 AM CDT [facility] CALCIUM 8.7 8.6 - 10.0 mg/dL 05/09/2025 6:38 AM T [facility] BUN 8 6 - 20 mg/dL 05/09/2025 6:38 AM T [facility] CREATININE 0.68 0.51 - 0.95 mg/dL 05/09/2025 6:38 AM T [facility] GLUCOSE 103(H) 74 - 99 mg/dL 05/09/2025 6:38 AM CDT [facility] GFR >60 >=60 mL/min/1.7 3 sq meter 05/09/2025 6:38 AM T [facility] Comment:eGFR calculated with 2020 CKD-EPI equation. Vegetarian diet, extremely high or low muscle mass, and may affect results. Cystatin C with Glomerular Filtration Rate is a suitable alternative for these patients. ANION GAP 9 9 - 20 mmol/L 05/09/2025 6:38 AM T [facility] Blood Venipuncture / Unknown 05/09/2025 5:57 AM CDT 05/09/2025 6:03 AM CDT us Andreea Olivera MD CHEMISTRY ORDERABLES Final Resul t [facility] CLIA # [id number] [address] [place] [address] * EEG (05/09/2025) Impressions Michelle Sierra MD - 05/09/2025 HISTORY: Per report PT with anxiety disorder, asthma/COPD, hepatitis C, seizure/pseudoseizure . MEDICATION: neurontin. TECHNICAL INFORMATION: This EEG was recorded on a [email or web address] EEG system. The 21 scalp electrodes used were placed in accordance with the standard international 10 - 20 system. BACKGROUND RHYTHM: severe muscle artifact limited the background pattern. In readable portions background pattern showed a posterior dominant rhythm of 9 Hertz ABNORMAL POTENTIAL: no epileptiform activity or focal slowing was noted in the readable portions of the record. ACTIVATION PROCEDURES: PHOTIC STIMULATION: did not activate tracing EKG: single channel EKG monitoring was uninterpretable. IMPRESSION: This EEG pattern was obscured by severe muscle artifact. No epileptiform discharges were noted in readable portions of the recording. Michelle Sierra M.D Andreea Olivera MD NEUROLOGY ORDERABLES Final Resul t * (ABNORMAL) DRUG SCREEN, URINE (05/08/2025 11:01 PM CDT) [facility] AMPHETAMINE QUAL, URINE Negative Negative 05/08/2025 11:50 PM CDT [facility] BARBITURATE QUAL, URINE Negative Negative 05/08/2025 11:50 PM CDT [facility] BENZODIAZEPINE QUAL, URINE Negative Negative 05/08/2025 11:50 PM CDT [facility] COCAINE QUAL URINE Negative Negative 05/08/2025 11:50 PM CDT [facility] OPIATE QUAL, URINE Negative Negative 05/08/2025 11:50 PM CDT [facility] CANNABINOIDS QUAL, URINE Presumptive Positive(A) Negative 05/08/2025 11:50 PM CDT [facility] OXYCODONE QUAL, URINE Negative Negative 05/08/2025 11:50 PM CDT [facility] METHADONE QUAL, URINE Negative Negative 05/08/2025 11:50 PM CDT [facility] FENTANYL QUAL, URINE Negative Negative 05/08/2025 11:50 PM CDT [facility] CREATININE, URINE 23.3(L) 29.0 - 226.0 mg/dL 05/08/2025 11:50 PM T [facility] Comment:Reference Range vari es with fluid intake and diet. Urine URINE SPECIMEN OBTAINED BY CLEAN CATCH PROCEDURE / Unknown Collection / Unknown 05/08/2025 11:01 PM CDT 05/08/2025 11:12 PM CDT Narrative [facility] - 05/08/2025 11:50 PM CDT This test is a qualitative screen. The presumptive positive results should not be used for legal purposes. If confirmation of results is desired, the lab must be contacted without delay. Drug Ref. Range Screening Threshold Amphetamines Negative 500 ng/mL Barbiturates Negative 200 ng/mL Benzodiazepines Negative 100 ng/mL Cannabinoids Negative 50 ng/mL Cocaine Metabolite Negative 300 ng/mL Opiate Negative 300 ng/mL Oxycodone Negative 100 ng/mL Methadone Negative 300 ng/mL Fentanyl Negative 5 ng/mL Christiana Danielle DO URINE ORDERABLES Final Re sult Performing Organization Address [facility] Co de Phone Number [facility] CLIA # [id number] [address] [address] * HCG QUALITATIVE, URINE (05/08/2025 11:01 PM CDT) HCG QUAL URINE Negative Negative 05/08/2025 11:27 PM CDT [facility] COLOR UA Yellow Pale to Dark Yellow 05/08/2025 11:27 PM CDT [facility] CLARITY UA Clear Clear 05/08/2025 11:27 PM CDT [facility] Urine URINE SPECIMEN OBTAINED BY CLEAN CATCH PROCEDURE / Unknown Collection / Unknown 05/08/2025 11:01 PM CDT 05/08/2025 11:08 PM CDT Christiana Shyannegeorgina Danielle DO URINE ORDERABLES Final Re sult Performing Organization Address [facility] de Phone Number [facility] CLIA # [id number] [address] [address] * LACTIC ACID (05/08/2025 9:57 PM CDT) LACTIC ACID 1.3 <=2.0 mmol/L 05/08/2025 10:32 PM CDT [facility] Blood BLOOD SPECIMEN / Unknown Venipuncture / Unknown 05/08/2025 9:57 PM CDT 05/08/2025 10:08 PM CDT Christiana Danielle DO CHEMISTRY ORDERABLES Belen l Result Performing Organization Address City/[facility]/ZIP Co de Phone Number [facility] CLIA # [id number] [address] [address] * HCG QUANTITATIVE, BLOOD (05/08/2025 9:57 PM CDT) HCG QUANT, BLOOD 0.2 0.0 - 1.0 mIU/mL 05/08/2025 11:41 PM CDT [facility] Comment: HCG Quantitative Reference Range Male <= 2 mIU/mL Female Non premenopausal <= 1 mIU/mL Non postmenopausal <= 7 mIU/mL Gestational Age HCG Concentration 3 Weeks 5.8 - 71.2 mIU/mL 4 Weeks 9.5 - 750 mIU/mL 5 Weeks 217 - 7138 mIU/mL 6 Weeks 158 - 31,795 mIU/mL 7 Weeks 3697 - 163,563 mIU/mL 8 Weeks 32,065 - 149,571 mIU/mL 9 Weeks 63,803 - 151,410 mIU/mL 10 Weeks 46,509 - 186,977 mIU/mL 12 Weeks 27,832 - 210,612 mIU/mL 14 Weeks 13,950 - 62,530 mIU/mL 15 Weeks 12,039 - 70,971 mIU/mL 16 Weeks 9040 - 56,451 mIU/mL 17 Weeks 8175 - 55,868 mIU/mL 18 Weeks 8099 - 58,176 mIU/mL Blood Venipuncture / Unknown 05/08/2025 9:57 PM CDT 05/08/2025 10:11 PM CDT us Christiana Danielle DO CHEMISTRY ORDERABLES Belen l Result [facility] CLIA # [id number] [address] [address] * ACETAMINOPHEN LEVEL (05/08/2025 9:57 PM CDT) ACETAMINOPHEN LEVEL <5 0 - 30 ug/mL 05/08/2025 11:19 PM CDT [facility] Blood Venipuncture / Unknown 05/08/2025 9:57 PM CDT 05/08/2025 10:11 PM CDT [facility] - 05/08/2025 11:19 PM CDT Therapeutic Range: 10-30 ug/mL The following Acetaminophen levels are associated with possible toxicity: 4 hours after dose >200 ug/mL 8 hours after dose >100 ug/mL 12 hours after dose >50 ug/mL [facility] CHEMISTRY ORDERABLES Belen l Result Performing Organization Address [facility] Co de Phone Number [facility] CLIA # [id number] [address] [id number] * SALICYLATE LEVEL (05/08/2025 9:57 PM CDT) SALICYLATE LEVEL <0.3 0.0 - 10.0 mg/dL 05/08/2025 11:19 PM CDT [facility] Blood Venipuncture / Unknown 05/08/2025 9:57 PM CDT 05/08/2025 10:11 PM CDT [facility] - 05/08/2025 11:19 PM CDT Negative <3.0 mg/dL Therapeutic 3.0 - 10 mg/dL Toxicity >30 mg/dl Lethal >60 mg/dL Christiana Shyanne CS-Keyshi DO CHEMISTRY ORDERABLES Belen l Result Performing Organization Address [facility] Co de Phone Number [facility] CLIA # [id number] [address] [address] * EKG 12-LEAD (05/08/2025 9:48 PM CDT) 05/08/2025 9:48 PM CDT Narrative INTERFACE SYSTEM - 05/09/2025 6:07 AM CDT [address] [address] Test Date: 2025-05-08 Pat Name: KI CASE Department: 11 Room: E E Gender: Female Billing Department Supervisor: [email or web address] : 1985 Requested By: Order Number: [id number] Reading MD: Richie Paige Measurements Intervals [place] Rate: 64 P: 37 [place]: 174 QRS: 77 QRSD: 86 T: 51 QT: 396 QTc: 408 Interpretive Statements Normal sinus rhythm Normal ECG Electronically Signed On 05-09-2025 6:07:07 CDT by Richie Paige Procedure Note Richie Paige MD - 05/09/[address] [address] Test Date: 2025-05-08 Pat Name: KI CASE Department: 11 Room: E E Gender: Female Billing Department Supervisor: [email or web address] : 1985 Requested By: Order Number: [id number] Reading MD: Richie Paige Measurements Intervals [place] Rate: 64 P: 37 [place]: 174 QRS: 77 QRSD: 86 T: 51 QT: 396 QTc: 408 Interpretive Statements Normal sinus rhythm Normal ECG Electronically Signed On 05-09-2025 6:07:07 CDT by Richie Paige us Christiana Danielle DO ECG ORDERABLES Final Res ult Performing Organization Address City/State/[facility] Co de Phone Number INTERFACE SYSTEM Refer to clinic/hospital department * EXTRA TUBE (URINE CONTRERAS) (05/08/2025 3:01 PM CDT) Urine URINE SPECIMEN OBTAINED BY CLEAN CATCH PROCEDURE / Unknown Collection / Unknown 05/08/2025 3:01 PM CDT 05/08/2025 3:08 PM CDT us Yanely Lacy PIANO MACHINE OPERATOR-SENIOR STAFF PSYCHOLOGIST URINE ORDERABLES F inal Result [facility] CLIA # [id number] [address] [address] [place] [address] * (ABNORMAL) URINALYSIS WITH REFLEX MICROSCOPIC (05/08/2025 3:01 PM CDT) Only the most recent of2 resultswithin the time period is included. COLOR UA Colorless(A ) Pale to Dark Yellow 05/08/2025 3:21 PM CDT [facility] CLARITY UA Clear Clear 05/08/2025 3:21 PM CDT [facility] SPECIFIC GRAVITY UA 1.006 1.003 - 1.035 05/08/2025 3:21 PM CDT [facility] PH UA 6.5 5.0 - 8.0 05/08/2025 3:21 PM CDT [facility] LEUKOCYTE ESTERASE UA Negative Negative 05/08/2025 3:21 PM CDT [facility] NITRITE UA Negative Negative 05/08/2025 3:21 PM CDT [facility] PROTEIN UA Negative Negative 05/08/2025 3:21 PM CDT [facility] GLUCOSE UA Negative Negative 05/08/2025 3:21 PM CDT [facility] KETONES UA Negative Negative 05/08/2025 3:21 PM CDT [facility] UROBILINOGEN UA <2.0 <2.0 mg/dL 3:21 PM CDT [facility] BILIRUBIN UA Negative Negative 05/08/2025 3:21 PM CDT [facility] BLOOD UA Negative Negative 05/08/2025 3:21 PM CDT [facility] Urine URINE SPECIMEN OBTAINED BY CLEAN CATCH PROCEDURE / Unknown Collection / Unknown 05/08/2025 3:01 PM CDT 05/08/2025 3:08 PM CDT Yanely Lacy PIANO MACHINE OPERATOR-SENIOR STAFF PSYCHOLOGIST URINE ORDERABLES F inal Result [facility] CLIA # [id number] [address] [address] [place] [address] * COMPREHENSIVE METABOLIC PANEL (05/08/2025 3:01 PM CDT) Only the most recent of2 resultswithin the time period is included. SODIUM 141 136 - 145 mmol/L 05/08/2025 3:44 PM CDT [facility] POTASSIUM 4.4 3.5 - 5.1 mmol/L 05/08/2025 3:44 PM CDT [facility] CHLORIDE 106 98 - 107 mmol/L 05/08/2025 3:44 PM CDT [facility] CO2 23 22 - 29 mmol/L 05/08/2025 3:44 PM CDT [facility] CALCIUM 9.3 8.6 - 10.0 mg/dL 05/08/2025 3:44 PM CDT [facility] BUN 7 6 - 20 mg/dL 05/08/2025 3:44 PM CDT [facility] CREATININE 0.73 0.51 - 0.95 mg/dL 05/08/2025 3:44 PM CDT [facility] GLUCOSE 93 74 - 99 mg/dL 05/08/2025 3:44 PM CDT [facility] TOTAL PROTEIN 6.8 6.4 - 8.3 g/dL 05/08/2025 3:44 PM CDT [facility] ALBUMIN 4.2 3.5 - 5.2 g/dL 05/08/2025 3:44 PM CDT [facility] BILIRUBIN TOTAL 0.2 0.0 - 1.0 mg/dL 05/08/2025 3:44 PM CDT [facility] ALKALINE PHOSPHATASE 69 35 - 104 U/L 05/08/2025 3:44 PM CDT [facility] AST 18 10 - 35 U/L 05/08/2025 3:44 PM T [facility] Comment:Hemolysis present. R esult may be falsely elevated. ALT 13 <=35 U/L 05/08/2025 3:44 PM CDT [facility] GFR >60 >=60 mL/min/1.7 3 sq meter 05/08/2025 3:44 PM CDT [facility] Comment:eGFR calculated with 2020 CKD-EPI equation. Vegetarian diet, extremely high or low muscle mass, and may affect results. Cystatin C with Glomerular Filtration Rate is a suitable alternative for these patients. ANION GAP 12 9 - 20 mmol/L 05/08/2025 3:44 PM CDT [facility] Blood Venipuncture / Unknown 05/08/2025 3:01 PM CDT 05/08/2025 3:14 PM CDT us Yanely Lacy PIANO MACHINE OPERATOR-SENIOR STAFF PSYCHOLOGIST CHEMISTRY ORDERABL ES Final Result [facility] CLIA # [id number] [address] [place] [id number] * CT HEAD WO CONTRAST (05/05/2025 3:52 PM CDT) Anatomical Region Laterality Modality Head Computed Tomogra phy 05/05/2025 3:52 PM CDT Impressions 05/05/2025 4:02 PM CDT IMPRESSION: No evidence of an acute intracranial process. Narrative 05/05/2025 4:02 PM CDT EXAM: CT HEAD WO CONTRAST DATE/TIME OF EXAM: 05/05/2025 3:52 PM REASON FOR STUDY: Headache, sudden, severe DIAGNOSIS: See Reason for Exam COMPARISON: None Available TECHNIQUE: CT head performed without contrast. FINDINGS: No evidence of an acute territorial infarct, parenchymal hemorrhage, hydrocephalus or abnormal extra-axial fluid collection. No midline shift. Basilar cisterns remain patent. No mastoid effusion. No paranasal sinus fluid level. No calvarial fracture. No sizable scalp hematoma. Procedure Note Krys Gallegos MD - 05/05/2025 EXAM: CT HEAD WO CONTRAST DATE/TIME OF EXAM: 05/05/2025 3:52 PM REASON FOR STUDY: Headache, sudden, severe DIAGNOSIS: See Reason for Exam COMPARISON: None Available TECHNIQUE: CT head performed without contrast. FINDINGS: No evidence of an acute territorial infarct, parenchymal hemorrhage, hydrocephalus or abnormal extra-axial fluid collection. No midline shift. Basilar cisterns remain patent. No mastoid effusion. No paranasal sinus fluid level. No calvarial fracture. No sizable scalp hematoma. IMPRESSION: No evidence of an acute intracranial process. us Yash Villalobos MD CT ORDERABLES Final Result * (ABNORMAL) POC GLUCOSE (05/05/2025 2:32 PM CDT) GLUCOSE POC 118(H) 74 - 99 mg/dL 05/05/2025 2:32 PM CDT [facility] SPECIMEN SOURCE, GLUCOSE POC Whole Blood 05/05/2025 2:32 PM CDT [facility] Blood, whole 05/05/2025 2:32 PM CDT 05/05/2025 2:40 PM CDT us Interface Provider Poct POINT OF CARE TESTING Fi nal Result [facility] CLIA # [id number] [address] [place] [id number] from Last 3 Months Insurance #[address] [place] [address] [employer] Advance Directives For more information, please contact: [phone] * Full Code (Latest Code Status on File) Date Activated Date Inactivated Comments 05/09/2025 1:10 AM 05/10/2025 4:42 PM
--- OUTSIDE RECORDS SUMMARY | 2025-06-23 13:17 | XMS_ITS | Encounter Summary ---
Author Organization [facility] Address 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
--- NOTE | 2025-06-23 13:18 | XR_ITS ---
WS: [id number] XR wrist LT min 3V* [id number] REASON FOR EXAM: injury/pain FINDINGS: No acute fracture identified. Joint spaces of the wrist are intact and well preserved. Normal carpal bone alignment. XR/XR wrist LT min 3V* [id number] IMPRESSION: No acute bone or joint abnormality.
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
== END 2025-06-23 13:58 | disposition home or self-care (01) ==
PROVIDERS: Emergency Provider Physician Assistant; PCP Family Medicine
DX: S60.212A Contusion of left wrist, initial encounter (principal); W23.0XXA Caught, crushed, jammed, or pinched between moving objects, initial encounter
CPT/HCPCS: 73110; 99283

== ENCOUNTER 2025-07-01 07:57 | Outpatient (CLI) | payer MEDICAID, SELFPAY ==
--- NOTE | 2025-07-01 09:00 | US_ITS ---
WS: [id number] DIAGNOSTIC BILATERAL DIGITAL BREAST TOMOSYNTHESIS MAMMOGRAPHY WITH CAD Bilateral breast ultrasound. HISTORY: bilateral breast cysts, multiple palpable masses within each breast. COMPARISON: None available. TECHNIQUE: Bilateral craniocaudad, mediolateral oblique, and mediolateral views are submitted with tomosynthesis and SM. Spot compression bilateral CC and MLO projections. Computer aided detection utilized. Breast composition: The breasts are extremely dense, which lowers the sensitivity of mammography. Extremely dense breast tissue. No distortion. There are multiple triangular markers placed over each breast at the site of the palpable abnormalities. There is no discrete mass or distortion identified. Masses could be obscured in all of these locations. Ultrasound to follow. Bilateral breast ultrasound. RIGHT: Extremely dense fibroglandular breast tissue. At 9:00, 4 cm from the nipple is an ovoid cyst measuring 2.0 x 1.0 x 2.2 cm. Additional imaging of the RIGHT breast at 7:00 and 11:00 is performed. There are a few very tiny scattered cysts. No suspicious solid mass or shadowing. LEFT: 3:00, 3 cm from the nipple is a minimally complex cyst with a thin septation measuring 1.9 x 1.1 x 2.0 cm. US/US breast BI complete [id number] IMPRESSION: BI-RADS: 2 - Benign FOLLOW UP: 1 Year Follow-up Palpable areas in each breast correspond to cysts or minimally complex cysts. N o additional follow-up necessary at this time. Recommend annual screening mammo graphy.
--- NOTE | 2025-07-01 10:45 | MM_ITS ---
WS: [id number] DIAGNOSTIC BILATERAL DIGITAL BREAST TOMOSYNTHESIS MAMMOGRAPHY WITH CAD Bilateral breast ultrasound. HISTORY: bilateral breast cysts, multiple palpable masses within each breast. COMPARISON: None available. TECHNIQUE: Bilateral craniocaudad, mediolateral oblique, and mediolateral views are submitted with tomosynthesis and SM. Spot compression bilateral CC and MLO projections. Computer aided detection utilized. Breast composition: The breasts are extremely dense, which lowers the sensitivity of mammography. Extremely dense breast tissue. No distortion. There are multiple triangular markers placed over each breast at the site of the palpable abnormalities. There is no discrete mass or distortion identified. Masses could be obscured in all of these locations. Ultrasound to follow. Bilateral breast ultrasound. RIGHT: Extremely dense fibroglandular breast tissue. At 9:00, 4 cm from the nipple is an ovoid cyst measuring 2.0 x 1.0 x 2.2 cm. Additional imaging of the RIGHT breast at 7:00 and 11:00 is performed. There are a few very tiny scattered cysts. No suspicious solid mass or shadowing. LEFT: 3:00, 3 cm from the nipple is a minimally complex cyst with a thin septation measuring 1.9 x 1.1 x 2.0 cm. MM/MM diag tomosynthesis [id number] IMPRESSION: BI-RADS: 2 - Benign FOLLOW UP: 1 Year Follow-up Palpable areas in each breast correspond to cysts or minimally complex cysts. N o additional follow-up necessary at this time. Recommend annual screening mammo graphy.
== END 2025-07-01 07:58 | disposition home or self-care (01) ==
LOC: RAD 07:58
PROVIDERS: PCP Family Medicine; Visit Provider Family Medicine
DX: N60.11 Diffuse cystic mastopathy of right breast (principal); N60.12 Diffuse cystic mastopathy of left breast; R92.343 Mammographic extreme density, bilateral breasts
CPT/HCPCS: 76641; 77062; G0279

== ENCOUNTER → 2025-07-04 09:02 | Outpatient (BNVA) | payer MEDICAID, SELFPAY | PROVIDERS: PCP Family Medicine; Visit Provider Family Medicine | DX: R11.0 Nausea (principal) | CPT/HCPCS: 81025 ==

== ENCOUNTER 2025-07-05 16:38 | Emergency (ER) | payer MEDICAID, SELFPAY ==
--- OUTSIDE RECORDS SUMMARY | 2025-07-05 16:42 | XMS_ITS | Clinical Summary ---
Author Organization [facility] Address [address] Noe: Epic Prelude ADT MALLIKA PETE [address] Care Team Providers Care Single Stayer Operator Name Role Phone Unavailable Primary Care [...] Encounters Date Type Department Care Team Description 07/02/2025 External Device Data STL ABSTRACTION Provider, Abstract 06/24/2025 External Device Data STL ABSTRACTION Provider, Abstract 06/17/2025 External Device Data STL ABSTRACTION Provider, Abstract 06/03/2025 External Device Data STL ABSTRACTION Provider, Abstract 06/03/2025 External Device Data STL ABSTRACTION Provider, Abstract 05/14/2025 External Device Data STL ABSTRACTION Provider, Abstract 05/13/2025 External Device Data STL ABSTRACTION Provider, Abstract 05/13/2025 External Device Data STL ABSTRACTION Provider, Abstract 05/08/2025 8:08 PM CDT - 05/10/2025 2:37 PM CDT Hospital Encounter [facility] 6CD Neurology [address] [place] [address] Christiana Danielle, Andreea Louis MD Sohail, Lucy Valle MD Seizure-like activity (CMS/HCC) Discharge Disposition: Home or Self Care 05/08/2025 Travel 05/07/2025 External Device Data STL ABSTRACTION Provider, Abstract 05/06/2025 External Device Data STL ABSTRACTION Provider, Abstract 05/06/2025 External Device Data STL ABSTRACTION Provider, Abstract 05/05/2025 2:18 PM CDT - 05/05/2025 11:08 PM CDT Emergency [facility] Emergency Medicine [address] [place] [phone] Yash Villalobos MD Seizure-like activity (CMS/[facility]) (Primary Dx) Discharge Disposition: Left Against Medical [...] Date Smoking Tobacco: Every Day Cigarettes 0.5 14.2 Started: 05/09/2011 Smokeless Tobacco: Never Tobacco Cessation:Ready [...] on file Legal Sex Female 5:53 AM 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 Gender Identity Not on file Sexual Orientation [...] st Contact Info) Description 09/30/2025 11:00 AM 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 Office Visit [facility] Neurology - [address] [place] [phone] Iris Saldivar MD [address] [facility] [address] [place] [address] Health Maintenance Due Date Last Done Comments DTAP/TDAP/TD VACCINES (6 - Tdap) 05/16/2002 05/15/2002, 06/25/1996, 12/23/1987, Additional history exists HPV/Cotest (21-29) 2006 HPV VACCINES (1 - 3-dose SCD M series) 2012 CERVICAL CANCER SCREENING 2015 HPV/Cotest (30-65) 2015 PAP SMEAR 2015 INFLUENZA VACCINE (#1) 2025 COVID-19 Vaccine (2 - 2024-2 6 season) 2025 03/30/2021 HEPATITIS [...] CDT Sailaja Gates MD 05/10/2025 2:49 PM [facility] CONTINUOUS ELECTROENCEPHALOGRAM (EEG) REPORT Patient Name: Ki [...] 10-20 electrodes. Data are recorded using an [employer] or [facility] digital EEG machine. ARTIFACTS: yes INTERRUPTIONS: no [...] EVENTS: yes 13 event buttons pushed between [id number] on 05/09 and another 4 between [id number] on 05/10 either by patient or family [...] Photic stimulation: not performed SUMMARY OF FINDINGS 1826 on 05/09 - 1309 on 05/10: 17 [...] of3 resultswithin the time period is included. WBC 9.0 4.5 - 11.0 K/uL 05/09/2025 6:08 AM [facility] Royalty [facility] RBC 4.18(L) 4.20 - 5.40 M/uL 05/09/2025 6:08 AM [facility] HEMOGLOBIN 13.2 12.0 - 16.0 g/dL 05/09/2025 6:08 AM [facility] HEMATOCRIT 39.2 36.0 - 46.0 % 05/09/2025 6:08 AM [facility] [employer] [facility] MCV 93.8 84.0 - 103.0 fL 05/09/2025 6:08 AM [facility] MCH 31.6 27.0 - 34.0 pg 05/09/2025 6:08 AM [facility] MCHC 33.7 30.0 - 35.0 g/dL 05/09/2025 6:08 AM [facility] PLATELETS 180 140 - 440 K/uL 05/09/2025 6:08 AM [facility] [employer] [facility] MPV 11.4 8.9 - 12.8 fL 05/09/2025 6:08 AM [facility] RDW 12.4 11.0 - 14.5 % 05/09/2025 6:08 AM [facility] RDW-STDEV 43.3 37.0 - 54.0 fL 05/09/2025 6:08 AM [facility] NEUTROPHILS 45 42 - 75 % 05/09/2025 6:08 AM [facility] LYMPHOCYTES 40 24 - 44 % 05/09/2025 6:08 AM [facility] [employer] [facility] MONOCYTES 9 2 - 10 % 05/09/2025 6:08 AM [facility] [facility] EOSINOPHILS 4 0 - 7 % 05/09/2025 6:08 AM [facility] [facility] BASOPHILS 1 0 - 1 % 05/09/2025 6:08 AM [facility] IMMATURE GRANULOCYTES 1 0 - 2 % 05/09/2025 6:08 AM [facility] NEUTROPHIL ABSOLUTE 4.02 2.00 - 8.00 K/uL 05/09/2025 6:08 AM CDT [facility] LYMPHOCYTE ABSOLUTE 3.63 1.20 - 4.00 K/uL 05/09/2025 6:08 AM CDT [facility] MONOCYTE ABSOLUTE 0.82(H) 0.10 - 0.60 K/uL 05/09/2025 6:08 AM CDT [facility] EOSINOPHIL ABSOLUTE 0.39 0.00 - 0.70 K/uL 05/09/2025 6:08 AM CDT [facility] BASOPHILS ABSOLUTE 0.08 0.00 - 0.20 K/uL 05/09/2025 6:08 AM CDT [facility] IMMATURE GRANULOCYTES ABSOLUTE 0.06 0.00 - 0.10 K/uL 05/09/2025 6:08 AM T [facility] SMEAR REVIEWED: NA - Not Applicable 05/09/2025 6:08 AM [facility] Blood Venipuncture / Unknown 05/09/2025 5:57 AM CDT 05/09/2025 6:03 AM CDT us Andreea Olivera MD HEMATOLOGY ORDERABLES Final Resu lt [facility] CLIA # [id number] [address] [place] [id number] * (ABNORMAL) BASIC METABOLIC PANEL (05/09/2025 5:57 AM CDT) SODIUM 139 136 - 145 mmol/L 05/09/2025 6:38 AM CDT [facility] POTASSIUM 3.9 3.5 - 5.1 mmol/L 05/09/2025 6:38 AM CDT [facility] CHLORIDE 106 98 - 107 mmol/L 05/09/2025 6:38 AM CDT [facility] CO2 24 22 - 29 mmol/L 05/09/2025 6:38 AM CDT [facility] CALCIUM 8.7 8.6 - 10.0 mg/dL 05/09/2025 6:38 AM CDT [facility] BUN 8 6 - 20 mg/dL 05/09/2025 6:38 AM T [facility] CREATININE 0.68 0.51 - 0.95 mg/dL 05/09/2025 6:38 AM CDT [facility] GLUCOSE 103(H) 74 - 99 mg/dL 05/09/2025 6:38 AM T [facility] GFR >60 >=60 mL/min/1.7 3 sq meter 05/09/2025 6:38 AM T [facility] Comment:eGFR calculated with 2020 CKD-EPI equation. Vegetarian diet, extremely high or low muscle mass, and may affect results. Cystatin C with Glomerular Filtration Rate is a suitable alternative for these patients. ANION GAP 9 9 - 20 mmol/L 05/09/2025 6:38 AM T [facility] Blood Venipuncture / Unknown 05/09/2025 5:57 AM CDT 05/09/2025 6:03 AM CDT us Andreea Olivera MD CHEMISTRY ORDERABLES Final Resul t [facility] CLIA # [id number] [address] [place] [address] * EEG (05/09/2025) Impressions Michelle Sierra MD - 05/09/2025 HISTORY: Per report PT with anxiety disorder, asthma/COPD, hepatitis C, seizure/pseudoseizure . MEDICATION: neurontin. TECHNICAL INFORMATION: This EEG was recorded on a [employer] ([employer] EEG system. The 21 scalp electrodes used [...] DRUG SCREEN, URINE (05/08/2025 11:01 PM CDT) [facility] AMPHETAMINE QUAL, URINE Negative Negative 05/08/2025 11:50 PM CDT [facility] BARBITURATE QUAL, URINE Negative Negative 05/08/2025 11:50 PM CDT [facility] BENZODIAZEPINE QUAL, URINE Negative Negative 05/08/2025 11:50 PM CDT [facility] COCAINE QUAL URINE Negative Negative 05/08/2025 11:50 PM CDT [facility] OPIATE QUAL, URINE Negative Negative 05/08/2025 11:50 PM CDT [facility] CANNABINOIDS QUAL, URINE Presumptive Positive(A) Negative 05/08/2025 11:50 PM CDT [facility] OXYCODONE QUAL, URINE Negative Negative 05/08/2025 11:50 PM CDT [facility] METHADONE QUAL, URINE Negative Negative 05/08/2025 11:50 PM CDT [facility] FENTANYL QUAL, URINE Negative Negative 05/08/2025 11:50 PM CDT [facility] CREATININE, URINE 23.3(L) 29.0 - 226.0 mg/dL 05/08/2025 11:50 PM CDT [facility] Comment:Reference Range vari es with fluid intake and diet. Urine URINE SPECIMEN OBTAINED BY CLEAN CATCH PROCEDURE / Unknown Collection / Unknown 05/08/2025 11:01 PM CDT 05/08/2025 11:12 PM CDT Narrative [facility] - 05/08/2025 11:50 PM CDT This test [...] ORDERABLES Final Re sult Performing Organization Address [facility] Co de Phone Number [facility] CLIA # [id number] [address] [facility] [place] [address] * HCG QUALITATIVE, URINE (05/08/2025 11:01 PM CDT) HCG QUAL URINE Negative Negative 05/08/2025 11:27 PM CDT [facility] COLOR UA Yellow Pale to Dark Yellow 05/08/2025 11:27 PM CDT [facility] CLARITY UA Clear Clear 05/08/2025 11:27 PM CDT [facility] Urine URINE SPECIMEN OBTAINED BY CLEAN CATCH PROCEDURE / Unknown Collection / Unknown 05/08/2025 11:01 PM CDT 05/08/2025 11:08 PM CDT Christiana Danielle DO URINE ORDERABLES Final Re sult Performing Organization Address [facility] de Phone Number [facility] CLIA # [id number] [address] [place] [address] * LACTIC ACID (05/08/2025 9:57 PM CDT) LACTIC ACID 1.3 <=2.0 mmol/L 05/08/2025 10:32 PM CDT [facility] Blood BLOOD SPECIMEN / Unknown Venipuncture / Unknown 05/08/2025 9:57 PM CDT 05/08/2025 10:08 PM CDT Christiana Danielle DO CHEMISTRY ORDERABLES Belen l Result [facility] CLIA # [id number] [address] [id number] * HCG QUANTITATIVE, BLOOD (05/08/2025 9:57 PM CDT) [facility] HCG QUANT, BLOOD 0.2 0.0 - 1.0 mIU/mL 05/08/2025 11:41 PM CDT [facility] Alaris Royalty [facility] Comment: HCG Quantitative Reference Range Male <= [...] 9:57 PM CDT 05/08/2025 10:11 PM CDT Christiana Danielle DO CHEMISTRY ORDERABLES Belen l Result [facility] Alaris Royalty [facility] CLIA # [id number] [address] [address] * ACETAMINOPHEN LEVEL (05/08/2025 9:57 PM CDT) ACETAMINOPHEN LEVEL <5 0 - 30 ug/mL 05/08/2025 11:19 PM CDT [facility] Blood Venipuncture / Unknown 05/08/2025 9:57 PM CDT 05/08/2025 10:11 PM CDT [facility] - 05/08/2025 11:19 PM CDT Therapeutic Range: 10-30 ug/mL The following Acetaminophen levels are associated with possible toxicity: 4 hours after dose >200 ug/mL 8 hours after dose >100 ug/mL 12 hours after dose >50 ug/mL Christiana Danielle DO CHEMISTRY ORDERABLES Belen l Result Performing Organization Address [facility] de Phone Number [facility] CLIA # [id number] [address] [place] [address] * SALICYLATE LEVEL (05/08/2025 9:57 PM CDT) SALICYLATE LEVEL <0.3 0.0 - 10.0 mg/dL 05/08/2025 11:19 PM CDT [facility] Blood Venipuncture / Unknown 05/08/2025 9:57 PM CDT 05/08/2025 10:11 PM CDT [facility] - 05/08/2025 11:19 PM CDT Negative <3.0 mg/dL Therapeutic 3.0 - 10 mg/dL Toxicity >30 mg/dl Lethal >60 mg/dL Christiana Danielle DO CHEMISTRY ORDERABLES Belen l Result Performing Organization Address [facility] Co de Phone Number [facility] CLIA # [id number] [address] [place] [address] * EKG 12-LEAD (05/08/2025 9:48 PM CDT) 05/08/2025 9:48 PM CDT Narrative INTERFACE SYSTEM - 05/09/2025 6:07 AM CDT [address] [address] Test Date: 2025-05-08 [facility] Department: 11 Room: E E Gender: Female Coil Binder: [email or web address] : 1985 Requested By: Order Number: [id number] Reading MD: Richie Paige Measurements Intervals [place] Rate: 64 P: 37 [place]: 174 QRS: 77 QRSD: 86 T: 51 QT: 396 QTc: 408 Interpretive Statements Normal sinus rhythm Normal ECG Electronically Signed On 05-09-2025 6:07:07 CDT by Richie Paige Procedure Note Richie Paige MD - 05/09/[address] [address] Test Date: 2025-05-08 Pat Name: [facility] Department: 11 Room: E E Gender: Female Coil Binder: [email or web address] : 1985 Requested By: Order Number: [id number] Reading MD: Richie Paige Measurements Intervals [place] Rate: 64 P: 37 [place]: 174 QRS: 77 QRSD: 86 T: 51 QT: 396 QTc: 408 Interpretive Statements Normal sinus rhythm Normal ECG Electronically Signed On 05-09-2025 6:07:07 CDT by Richie Paige us Christiana Danielle DO ECG ORDERABLES Final Res ult INTERFACE SYSTEM Refer to clinic/hospital department * EXTRA TUBE (URINE CONTRERAS) (05/08/2025 3:01 PM CDT) Urine URINE SPECIMEN OBTAINED BY CLEAN CATCH PROCEDURE / Unknown Collection / Unknown 05/08/2025 3:01 PM CDT 05/08/2025 3:08 PM CDT Yanely Maciepatricia Lacy GLUING MACHINE ADJUSTER-YOGA TEACHER URINE ORDERABLES F inal Result [facility] CLIA # [id number] [address] [address] [place] [address] * (ABNORMAL) URINALYSIS WITH REFLEX MICROSCOPIC (05/08/2025 3:01 PM CDT) Only the most recent of2 resultswithin the time period is included. COLOR UA Colorless(A ) Pale to Dark Yellow 05/08/2025 3:21 PM CDT [facility] CLARITY UA Clear Clear 05/08/2025 3:21 PM CDT [facility] SPECIFIC GRAVITY UA 1.006 1.003 - 1.035 05/08/2025 3:21 PM CDT [facility] PH UA 6.5 5.0 - 8.0 05/08/2025 3:21 PM CDT [facility] LEUKOCYTE ESTERASE UA Negative Negative 05/08/2025 3:21 PM CDT [facility] NITRITE UA Negative Negative 05/08/2025 3:21 PM CDT [facility] PROTEIN UA Negative Negative 05/08/2025 3:21 PM T [facility] GLUCOSE UA Negative Negative 05/08/2025 3:21 PM T [facility] KETONES UA Negative Negative 05/08/2025 3:21 PM CDT [facility] UROBILINOGEN UA <2.0 <2.0 mg/dL 3:21 PM CDT [facility] BILIRUBIN UA Negative Negative 05/08/2025 3:21 PM T [facility] BLOOD UA Negative Negative 05/08/2025 3:21 PM T [facility] Urine URINE SPECIMEN OBTAINED BY CLEAN CATCH PROCEDURE / Unknown Collection / Unknown 05/08/2025 3:01 PM CDT 05/08/2025 3:08 PM CDT Yanely Quijano Regino GLUING MACHINE ADJUSTER-YOGA TEACHER URINE ORDERABLES F inal Result [facility] DEYA # [id number] [address] [facility] [place] [place] [address] * COMPREHENSIVE METABOLIC PANEL (05/08/2025 3:01 PM CDT) Only the most recent of2 resultswithin the time period is included. [facility] SODIUM 141 136 - 145 mmol/L 05/08/2025 3:44 PM CDT [facility] POTASSIUM 4.4 3.5 - 5.1 mmol/L 05/08/2025 3:44 PM CDT [facility] CHLORIDE 106 98 - 107 mmol/L 05/08/2025 3:44 PM CDT [facility] CO2 23 22 - 29 mmol/L 05/08/2025 3:44 PM CDT [facility] CALCIUM 9.3 8.6 - 10.0 mg/dL 05/08/2025 3:44 PM CDT [facility] BUN 7 6 - 20 mg/dL 05/08/2025 3:44 PM CDT [facility] CREATININE 0.73 0.51 - 0.95 mg/dL 05/08/2025 3:44 PM CDT [facility] GLUCOSE 93 74 - 99 mg/dL 05/08/2025 3:44 PM CDT [facility] TOTAL PROTEIN 6.8 6.4 - 8.3 g/dL 05/08/2025 3:44 PM CDT [facility] ALBUMIN 4.2 3.5 - 5.2 g/dL 05/08/2025 3:44 PM CDT [facility] BILIRUBIN TOTAL 0.2 0.0 - 1.0 mg/dL 05/08/2025 3:44 PM CDT [facility] ALKALINE PHOSPHATASE 69 35 - 104 U/L 05/08/2025 3:44 PM CDT [facility] AST 18 10 - 35 U/L 05/08/2025 3:44 PM CDT [facility] Comment:Hemolysis present. R esult may be falsely elevated. ALT 13 <=35 U/L 05/08/2025 3:44 PM CDT [facility] GFR >60 >=60 mL/min/1.7 3 sq meter 05/08/2025 3:44 PM CDT [facility] Comment:eGFR calculated with 2020 CKD-EPI equation. Vegetarian diet, extremely high or low muscle mass, and may affect results. Cystatin C with Glomerular Filtration Rate is a suitable alternative for these patients. ANION GAP 12 9 - 20 mmol/L 05/08/2025 3:44 PM CDT [facility] Blood Venipuncture / Unknown 05/08/2025 3:01 PM CDT 05/08/2025 3:14 PM CDT Yanely Lacy GLUING MACHINE ADJUSTER-YOGA TEACHER CHEMISTRY ORDERABL ES Final Result [facility] CLIA # [id number] [address] [place] [address] * CT HEAD WO CONTRAST (05/05/2025 3:52 [...] - 99 mg/dL 05/05/2025 2:32 PM CDT [facility] SPECIMEN SOURCE, GLUCOSE POC Whole Blood 05/05/2025 2:32 PM CDT [facility] Blood, whole 05/05/2025 2:32 PM CDT 05/05/2025 2:40 PM CDT us Interface Provider Poct POINT OF CARE TESTING Fi nal Result [facility] CLIA # [id number] [address] [place] [address] from Last 3 Months Insurance #[address] [place], [place] [id number] [place] [address] [employer] MEDICAID Advance Directives For more information, please contact: [phone] * Full Code (Latest Code Status on File) Date Activated Date Inactivated Comments 05/09/2025 1:10 AM 05/10/2025 4:42 PM
--- OUTSIDE RECORDS SUMMARY | 2025-07-05 16:42 | XMS_ITS | Encounter Summary ---
Author Organization [facility] Address 

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
[2025-07-05 16:45] VITALS: BP 131/58; PULSE 79; RESP 16; TEMP 36.8; O2SAT 97; BMI 25.0
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
[2025-07-05] MEDS: methylPREDNISolone sod succ 125 mg/2 mL INJ IVP (17:13)
[2025-07-05] MEDS: orphenadrine 30 mg/mL Inj 2 mL 60 MG IM (17:13)
--- NOTE | 2025-07-05 17:13 | PC.NURSE ---
all medications given IM per verbal order of Dr. Soria
== END 2025-07-05 17:26 | disposition home or self-care (01) ==
PROVIDERS: Emergency Provider Family Medicine; PCP Family Medicine
DX: B34.8 Other viral infections of unspecified site (principal); M54.32 Sciatica, left side; M54.31 Sciatica, right side; F17.210 Nicotine dependence, cigarettes, uncomplicated; J44.9 Chronic obstructive pulmonary disease, unspecified
CPT/HCPCS: 96372; 96374; 96375; 99284; J1885; J2360; J2919